=== PATIENT | female | born 1970 | race Caucasian/White ===

== ENCOUNTER 2019-10-03 08:00 | Outpatient (RCR) | payer SELFPAY | END 2019-10-03 12:00 | disposition home or self-care (01) | LOC: CHSCPRIII 08:00 | PROVIDERS: PCP Family Medicine | DX: J44.9 Chronic obstructive pulmonary disease, unspecified (principal) | CPT/HCPCS: 99199 ==

== ENCOUNTER 2019-12-28 17:58 | Emergency (ER) | payer MEDICARE, MEDICAID, SELFPAY ==
[2019-12-28 18:02] VITALS: BP 140/76; PULSE 102; RESP 20; TEMP 36.5; O2SAT 99
--- NOTE | 2019-12-28 18:18 | ED.GENADULT ---
HPI - General Adult General Chief complaint: Dental/Oral Stated complaint: white coating on throat Source: patient Mode of arrival: ambulatory Limitations: no limitations History of Present Illness HPI narrative: This is a 49-year-old female with a history of COPD uses inhalers and puffers and has developed white painless some lesions that are easily scraped off the roof of her mouth in the back of her tongue with no other symptoms, no fever chills no nausea vomiting no abdominal pain no headaches no blurry vision. Onset (ago): day(s) Location: mouth Severity: mild Quality: burning Pain Consistency: constant Relieving factors: none Exacerbating factors: none Associated symptoms: denies other symptoms Treatments prior to arrival: none Related Data Home Medications Medication Instructions Recorded Confirmed albuterol sulfate 2.5 mg CONTINUOUS NEBULIZATION PRN 09/25/19 12/28/19 PRN fluticasone propionate [Flovent 2 puff INHALATION BID 09/25/19 12/28/19 HFA] levothyroxine 137 mcg PO DAILY 09/25/19 12/28/19 montelukast 10 mg PO DAILY 09/25/19 12/28/19 omeprazole 20 mg PO BID 09/25/19 12/28/19 umeclidinium [Incruse Ellipta] 1 inh INHALATION DAILY 09/25/19 12/28/19 albuterol sulfate [ProAir 2 inh INHALATION Q4-6H PRN 12/28/19 12/28/19 RespiClick] Allergies Allergy/AdvReac Type Severity Reaction Status Date / Time No Known Allergies Allergy Verified 08/23/19 13:24 Review of Systems Review of Systems: All systems reviewed & are unremarkable except as noted in HPI and below PMFSH Past Medical History Medical History COPD (chronic obstructive pulmonary disease) Hypothyroidism Surgical History Surgical History History of Family History Family History Father , father had cancer of the lymph nodes. He in 2008 he had diabetes / hypertension Diabetes mellitus Hypertension Mother No problems noted. Social History Social History Smoking status: Current every day smoker Substance use: never Gender identity (if verbalized by the patient): Female Exam Const: General: no acute distress and alert Orientation/consciousness: patient oriented x3 HENMT: Head: normal to inspection Other: White patches on the hard palate and the back of her tongue that her easily scraped off Eyes: Conjunctivae: conjunctivae normal Pupils: Equal, round and reactive pupils present Neck: Neck: normal visual inspection and no lymphadenopathy Chest: Chest palpation & inspection: normal inspection of the chest Resp: Effort & Inspection: normal respiratory effort Cardio: Rate: regular rate Rhythm: regular rhythm GI: GI Palp: Yes Soft to palpation : General: Yes no CVA tenderness Urinary Catheter: Urinary Catheter: patent and draining Skin: General skin exam: normal color Rashes: no rashes Neuro: General: patient oriented x3 and moves all extremities Extrem: General: normal to inspection Psych: Mental Status: mental status grossly normal Critical Care Time Critical Care Time Critical Care Time: No Discharge Plan Discharge Clinical Impression: Oral thrush Patient Disposition: Home, Self-Care Condition: Stable Instructions: Antibiotic Form, Oral Candidiasis (ED) Additional Instructions: take medicine as prescribed and follow-up with primary care physician if symptoms persist or worsen. Prescriptions: New nystatin 100,000 unit/mL suspension 1 ml BUCCAL QID 7 Days Qty: 28 RF: 0 fluconazole [Diflucan] 150 mg tablet 150 mg PO ONCE Qty: 1 RF: 0 No Action levothyroxine 137 mcg tablet 137 mcg PO DAILY RF: 0 albuterol sulfate 2.5 mg /3 mL (0.083 %) solution for nebulization 2.5 mg continuous nebulization PRN
== END 2019-12-28 18:25 | disposition home or self-care (01) ==
PROVIDERS: Emergency Provider Emergency Medicine; PCP Family Medicine
DX: B37.0 Candidal stomatitis (principal)
CPT/HCPCS: 99283

== ENCOUNTER 2020-01-03 10:21 | Outpatient (CLI) | payer MEDICARE, SELFPAY ==
[2020-01-03 11:28] LABS: Thyroid Stimulating Hormone 5.66 uIU/mL (0.36-3.74)
== END 2020-01-03 10:22 | disposition home or self-care (01) ==
DX: E03.9 Hypothyroidism, unspecified (principal)
CPT/HCPCS: 36415; 84443

== ENCOUNTER 2020-01-24 09:16 | Emergency (ER) | payer MEDICARE, MEDICAID, SELFPAY ==
--- NOTE | ~2020-01-24 | XR_ITS ---
EXAMINATION: XR chest 2V 01/24/2020 09:52 INDICATION: Chest pressure and dyspnea PROCEDURE: 2 view chest COMPARISON: Comparison to multiple prior studies sequentially, with oldest reviewed study dated 01/2015. FINDINGS: There is posterior basilar airspace disease on the lateral view of. There are emphysematous changes. The cardiomediastinal silhouette is within normal limits. There are no pleural effusions. There is no pneumothorax suspected. There is scoliosis. IMPRESSION: 1: Posterior basilar airspace disease seen on the lateral view, atelectasis versus pneumonia. 2: Emphysema.. Reviewed, dictated and finalized at location A. IMPRESSION: 1: Posterior basilar airspace disease seen on the lateral view, atelectasis ve rsus pneumonia. 2: Emphysema..
--- NOTE | 2020-01-24 09:20 | ED.SOB ---
HPI - SOB/Dyspnea General Chief Complaint: Shortness of Breath/Dyspnea Stated Complaint: ambulance Time Seen by Provider: 01/24/20 09:20 Related Data Home Medications Medication Instructions Recorded Confirmed albuterol sulfate 2.5 mg CONTINUOUS NEBULIZATION PRN 09/25/19 01/24/20 PRN fluticasone propionate [Flovent 2 puff INHALATION BID 09/25/19 01/24/20 HFA] levothyroxine 137 mcg PO DAILY 09/25/19 01/24/20 montelukast 10 mg PO DAILY 09/25/19 01/24/20 omeprazole 20 mg PO BID 09/25/19 01/24/20 umeclidinium [Incruse Ellipta] 1 inh INHALATION DAILY 09/25/19 01/24/20 albuterol sulfate [ProAir 2 inh INHALATION Q4-6H PRN 12/28/19 01/24/20 RespiClick] Allergies Allergy/AdvReac Type Severity Reaction Status Date / Time No Known Allergies Allergy Verified 08/23/19 13:24 [facility] Social History Social History Smoking status: Current every day smoker Substance use: never Gender identity (if verbalized by the patient): Female Discharge Plan Discharge Prescriptions: No Action levothyroxine 137 mcg tablet 137 mcg PO DAILY RF: 0 albuterol sulfate 2.5 mg /3 mL (0.083 %) solution for nebulization 2.5 mg continuous nebulization PRN PRN (Reason: Shortness Of Breath) RF: 0 omeprazole 20 mg capsule,delayed release(DR/EC) 20 mg PO BID RF: 0 montelukast 10 mg tablet 10 mg PO DAILY RF: 0 Flovent HFA 220 mcg/actuation HFA aerosol inhaler 2 puff INHALATION BID RF: 0 Incruse Ellipta 62.5 mcg/actuation blister with device 1 inh INHALATION DAILY RF: 0 ProAir RespiClick 90 mcg/actuation aerosol powdr breath activated 2 inh INHALATION Q4-6H PRN (Reason: Shortness Of Breath) RF: 0 fluconazole [Diflucan] 150 mg tablet 150 mg PO ONCE Qty: 1 RF: 0
--- NOTE | 2020-01-24 09:26 | ECG_ITS ---
Measurements Intervals [place] Rate: 115 P: 73 FL: 111 QRS: 75 QRSD: 83 T: 77 QT: 345 QTc: 478 Interpretive Statements SINUS TACHYCARDIA WITH SHORT [place] INTERVAL POSSIBLE LEFT ATRIAL ENLARGEMENT INCOMPLETE RIGHT BUNDLE BRANCH BLOCK POOR R WAVE PROGRESSION, ANTERIOR LEADS BORDERLINE T WAVE ABNORMALITY- LATERAL LEADS BASELINE ARTIFACT- I, II, III, AVR, AVL, AVF, V1-V6 ABNORMAL ECG Electronically Signed On 01-24-2020 9:56:33 CDT by Ruben Saldana D.O.
[2020-01-24 09:29] VITALS: BP 128/77; PULSE 124; RESP 26; TEMP 36.4; O2SAT 100
--- NOTE | 2020-01-24 09:38 | ED.CHESTPAIN ---
HPI - Chest Pain General Chief Complaint: Shortness of Breath/Dyspnea Stated Complaint: ambulance Time Seen by Provider: 01/24/20 09:20 Source: patient Mode of arrival: ambulatory Limitations: no limitations History of Present Illness HPI narrative: 49-year-old woman with a history of COPD, and smoking comes in today by EMS after having had episodes of chest pressure. Patient states that the 1st episode happened last evening and lasted approximately 15 minutes. She used a breathing treatment that seemed to help her. She denies nausea, lightheadedness, syncope, but she was short of breath. She states similar episode happened this morning. She states she has had episodes like this in the past but none within the last month or so. She states she has been treated in the past for hypertension but denies dyslipidemia, type 2 diabetes, prior DVT/ PE, or family history of ND at less than 50 years old. EMS found her pulse ox to be 92% on room air. MD complaint: chest heaviness Pertinent past history: other ( COPD) Onset (ago): hour(s) (14) Timing of current episode: episodic Prior episodes: Yes Onset: during rest Pain location: substernal Pain radiation: none Severity: moderate Quality: other ( pressure) Relieving factors: other (? Breathing treatment) Exacerbating factors: nothing Associated symptoms: dyspnea and cough ( chronic) Treatment prior to arrival: oxygen Risk Factors Coronary artery disease risk factors: smoking history and hypertension Related Data Home Medications Medication Instructions Recorded Confirmed albuterol sulfate 2.5 mg CONTINUOUS NEBULIZATION PRN 09/25/19 01/24/20 PRN fluticasone propionate [Flovent 2 puff INHALATION BID 09/25/19 01/24/20 HFA] levothyroxine 137 mcg PO DAILY 09/25/19 01/24/20 montelukast 10 mg PO DAILY 09/25/19 01/24/20 omeprazole 20 mg PO BID 09/25/19 01/24/20 umeclidinium [Incruse Ellipta] 1 inh INHALATION DAILY 09/25/19 01/24/20 albuterol sulfate [ProAir 2 inh INHALATION Q4-6H PRN 12/28/19 01/24/20 RespiClick] Allergies Allergy/AdvReac Type Severity Reaction Status Date / Time No Known Allergies Allergy Verified 08/23/19 13:24 Review of Systems Constitutional: Constitutional: Denies chills, Denies fatigue, Denies fever(s) and Denies weakness Eyes: Eyes: Denies change in vision and Denies photophobia ENT: Denies dysphagia, Reports nasal congestion ( history of seasonal allergies for which she takes Flonase) and Denies sore throat Cardiovascular: Cardiovascular: Reports as per HPI, Reports chest pain and Denies radiating jaw, neck or arm pain Respiratory: Respiratory: Reports as per HPI, Reports chest congestion, Reports cough, Reports dyspnea and Reports wheezing Gastrointestinal: Gastrointestinal: Denies abdominal pain, Denies diarrhea, Denies nausea and Denies vomiting Genitourinary: Genitourinary: Denies hematuria, Denies nocturia and Denies dysuria Musculoskeletal: Musculoskeletal: Denies arthralgias, Denies joint swelling and Denies muscle cramps Integumentary/Breasts: Skin/Breast: Denies pruritus, Denies erythema and Denies rash Neurologic: Denies vertigo, Denies dizziness and Denies syncope Psychiatric: Psychiatric: Denies anxiety and Denies depression Endocrine: Endocrine: Denies polydipsia and Denies polyuria Hematologic/Lymphatic: Hematologic/Lymphatic: Denies easy bleeding and Denies easy bruising Allergic/Immunologic: Allergic/Immunologic: Denies lip swelling and Denies wheezing PMFSH Past Medical History Medical History COPD (chronic obstructive pulmonary disease) GERD (gastroesophageal reflux disease) Hypothyroidism Surgical History Surgical History H/O laparoscopy History of Social History Social History Smoking status: Current every day smoker Substance use:
[2020-01-24 10:00] VITALS: PULSE 113
[2020-01-24 10:03] LABS: Hematocrit 42.9 % (35.0-49.0); Hemoglobin 14.3 g/dL (12.0-15.0); Mean Corpuscular HGB Conc 33.3 g/dL (32.0-36.0); Mean Corpuscular Hemoglobin 29.9 pg (27.0-31.0); Mean Corpuscular Volume 89.6 fL (78.0-102.0); Mean Platelet Volume 10.1 fl (9.2-11.8); Platelet Count Result 292 K/mm3 (150-420); Red Blood Count 4.79 M/mm3 (4.20-5.40); Red Cell Distribution Width 13.1 % (11.6-14.4)
[2020-01-24 10:15] LABS: D Dimer 0.42 mg/L (0.19-0.50); Prothrombin Time 10.3 Seconds (9.64-11.0)
[2020-01-24 10:16] LABS: Alanine Aminotransferase 23 U/L (14-59); Albumin Level 3.3 g/dL (3.4-5.0); Alkaline Phosphatase 77 U/L (46-116); Anion Gap 14.1 mmol/L (7-16); Aspartate Amino Transferase 25 U/L (15-37); BNP 40 pg/mL (0-100); Bilirubin,Total 0.3 mg/dL (0.00-1.00); Blood Urea Nitrogen 9 mg/dL (7-18); Calcium 8.2 mg/dL (8.5-10.1); Carbon Dioxide 26 mmol/L (21-32); Chloride 104 mmol/L (98-108); Estimated CRCL calculation 37 ml/min; Estimated Glomerular Filt Rate > 60; Glucose 166 mg/dL (70-99); Osmolality Calculated 292 mOsm/kg (285-295); Potassium 4.1 mmol/L (3.5-5.1); Sodium 140 mmol/L (136-145); Total Protein 6.3 g/dL (6.4-8.2)
[2020-01-24 10:20] LABS: Troponin I 0.18 ng/mL (0.00-0.056)
[2020-01-24] MEDS: ASPIRIN 81 MG CHEWABLE TABLET 324 MG PO (10:25)
[2020-01-24 10:34] LABS: Band Neutrophils Percent 0 % (0-6); Basophils Percent Manual 0 % (0-1); Eosinophils Absolute Manual 0.21 K/mm3 (0.02-0.5); Eosinophils Percent Manual 3 % (1-6); Lymphocytes Absolute Manual 1.96 K/mm3 (1.1-4.5); Lymphocytes Percent Manual 28 % (18-44); Monocytes Absolute Manual 0.49 K/mm3 (0.1-0.90); Monocytes Percent Manual 7 % (3-9); Neutrophils Absolute Manual 4.34 K/mm3 (1.7-7.2); Neutrophils Percent Manual 62 % (46-73); Platelet Estimate Adequate (Adequate); Total Cells Counted 100
[2020-01-24 10:41] LABS: Influenza Control Valid (Valid)
[2020-01-24] MEDS: ENOXAPARIN 30 MG/0.3 ML SYRINGE SUB-Q (11:02)
--- NOTE | 2020-01-24 11:23 | PC.NURSE ---
call to [facility] for transfer, spoke with sandra, awaiting call back
[2020-01-24 11:25] VITALS: PULSE 116; RESP 20
[2020-01-24] MEDS: ALBUTEROL SULFATE (*SP) INHALER 4 PUFF INHALATION (11:25)
[2020-01-24 11:35] VITALS: PULSE 120; RESP 20
[2020-01-24 11:39] LABS: Appearance Urine Sl Cloudy (Clear); Bilirubin Urine Negative (Negative); Color Urine Yellow (Yellow); Glucose Urine UA Negative (Negative); Ketones Urine Negative (Negative); Leukocyte Esterase Ur Negative LEU/UL (Negative); Nitrate Urine Negative (Negative); Protein Urine 2+ (Negative); Specific Grav Ur >= 1.030 (1.010-1.020); Urobilinogen Urine 0.2 mg/dL (0.2-1.0)
[2020-01-24 11:48] LABS: Amphetamine Screen Urine Negative (Negative); Barbiturate Screen Urine Negative (Negative); Benzodiazepines Screen Urine Negative (Negative); Cannabinoid Screen Urine Negative (Negative); Cocaine Screen Urine Negative (Negative); Methadone Screen Urine Negative (Negative); Opiate Screen Urine Negative (Negative); Phencyclidine Screen Urine Negative (Negative)
[2020-01-24 11:51] LABS: Add Urine Microscopic? YES; Blood Urine Trace-Intact (Negative); Squamous Epithelial Cell Urine Few /hpf (Few); WBC Urine 0-3 /hpf (0-3)
[2020-01-24 11:52] LABS: Bacteria Urine 3+ /hpf; Mucus Urine Heavy /lpf
[2020-01-24] MEDS: SODIUM CHLORIDE 0.9% IV 500 ML 999 ML IV CONT (12:13)
[2020-01-24 12:28] VITALS: BP 96/59; PULSE 103; RESP 20; TEMP 37.1; O2SAT 97
--- NOTE | 2020-01-24 12:32 | PC.NURSE ---
[facility] not available , call to [facility]. awaiting arrival.
--- NOTE | 2020-01-24 12:46 | PC.NURSE ---
pt resting per cot. no distress and no complaints voiced. playing on cell phone. awaiting [facility] arrival.
--- NOTE | 2020-01-24 13:00 | PC.NURSE ---
1250 [facility] here, report to ems staff. pt alert and oriented no complaint of chest pain or shortness of breath. loaded to cot. and departed facitlity at 1300
[2020-01-26 12:17] LABS: SARS-CoV-2 RNA PCR Negative
== END 2020-01-24 13:00 | disposition short-term general hospital (02) ==
PROVIDERS: Emergency Provider Emergency Medicine; PCP Family Medicine
DX: I21.4 Non-ST elevation (NSTEMI) myocardial infarction (principal); J44.9 Chronic obstructive pulmonary disease, unspecified; E03.9 Hypothyroidism, unspecified; F17.200 Nicotine dependence, unspecified, uncomplicated; Z20.828 Contact with and (suspected) exposure to other viral communicable diseases; Z79.899 Other long term (current) drug therapy
CPT/HCPCS: 36415; 71046; 80053; 80307; 81001; 83880; 84484; 85025; 85380; 85610; 85730; 87635; 87804; 93005; 96372; 99285; A9270; C9803; J1650; J7040; U0003

== ENCOUNTER 2020-03-16 19:10 | Emergency (ER) | payer MEDICARE, MEDICAID, SELFPAY ==
--- NOTE | 2020-03-16 19:49 | ED.WOUNDLAC ---
HPI - Wound/Laceration General Chief Complaint: Wound/Laceration Stated Complaint: says has a cracked skull Source: patient Mode of arrival: ambulatory Limitations: no limitations History of Present Illness HPI narrative: Lesion on her scalp x 1 month which is tender and tingles at times. It has not changed. She's wondering if she could have injured while intubated/in the hospital over a month ago. She remembers reaching to the back of her head, grabbing the strap of a Bipap mask and pulling it off. At that time she had a lot of pain in this same area. Related Data Home Medications Medication Instructions Recorded Confirmed albuterol sulfate 2.5 mg CONTINUOUS NEBULIZATION PRN 09/25/19 03/16/20 PRN fluticasone propionate [Flovent 2 puff INHALATION BID 09/25/19 03/16/20 HFA] levothyroxine 137 mcg PO DAILY 09/25/19 03/16/20 montelukast 10 mg PO DAILY 09/25/19 03/16/20 omeprazole 20 mg PO BID 09/25/19 03/16/20 umeclidinium [Incruse Ellipta] 1 inh INHALATION DAILY 09/25/19 03/16/20 albuterol sulfate [ProAir 2 inh INHALATION Q4-6H PRN 12/28/19 03/16/20 RespiClick] Allergies Allergy/AdvReac Type Severity Reaction Status Date / Time No Known Allergies Allergy Verified 08/23/19 13:24 Review of Systems Neurologic: Denies headache(s) [facility] Past Medical History Medical History COPD (chronic obstructive pulmonary disease) GERD (gastroesophageal reflux disease) Hypothyroidism Surgical History Surgical History H/O laparoscopy History of Family History Family History Father , father had cancer of the lymph nodes. He in 2008 he had diabetes / hypertension Diabetes mellitus Hypertension Mother No problems noted. Social History Social History Smoking status: Current every day smoker Substance use: never Gender identity (if verbalized by the patient): Female Exam Const: General: no acute distress Orientation/consciousness: patient oriented x3 HENMT: Other: In the right occipital region there is an oval patch of 1 cm of hair and skin which is raised, edges from the surrounding dermis which has no hair follicles. There is no redness, swelling or tenderness. Course Vital Signs Vital signs: Vital Signs Temperature 36.9 C 03/16/20 19:50 Pulse Rate 110 H 03/16/20 19:50 Respiratory Rate 16 03/16/20 19:50 Blood Pressure 155/86 H 03/16/20 19:50 Pulse Oximetry 98 03/16/20 19:50 Temperature 36.9 C 03/16/20 19:50 Pulse Rate 110 H 03/16/20 19:50 Respiratory Rate 16 03/16/20 19:50 Blood Pressure 155/86 H 03/16/20 19:50 Pulse Oximetry 98 03/16/20 19:50 MDM - Wound/Laceration MDM Narrative Medical decision making narrative: There is a patch of dermis which has been partially town away from the surrounding skin. This occurred when pt. forcefully pulled a strap off along with a clump of hair. Discharge Plan Discharge Clinical Impression: Avulsion of skin Patient Disposition: Home, Self-Care Condition: Stable Instructions: Acute Wounds (ED) Additional Instructions: Follow up with Dr. Mendez to evaluate and treat scalp lesion. Prescriptions: No Action levothyroxine 137 mcg tablet 137 mcg PO DAILY RF: 0 albuterol sulfate 2.5 mg /3 mL (0.083 %) solution for nebulization 2.5 mg continuous nebulization PRN PRN (Reason: Shortness Of Breath) RF: 0 omeprazole 20 mg capsule,delayed release(DR/EC) 20 mg PO BID RF: 0 montelukast 10 mg tablet 10 mg PO DAILY RF: 0 Flovent HFA 220 mcg/actuation HFA aerosol inhaler 2 puff INHALATION BID RF: 0 Incruse Ellipta 62.5 mcg/actuation blister with device 1 inh INHALATION DAILY RF: 0 ProAir RespiClick 90 mcg/actuation aerosol powdr kathy
[2020-03-16 19:50] VITALS: BP 155/86; PULSE 110; RESP 16; TEMP 36.9; O2SAT 98
== END 2020-03-16 20:01 | disposition home or self-care (01) ==
PROVIDERS: Emergency Provider Family Medicine; PCP Family Medicine
DX: S08.0XXA Avulsion of scalp, initial encounter (principal); X58.XXXA Exposure to other specified factors, initial encounter
CPT/HCPCS: 99281

== ENCOUNTER 2020-10-01 09:08 | Outpatient (CLI) | payer MEDICARE, SELFPAY ==
[2020-10-01 10:11] LABS: Cholesterol 295 mg/dL (0-200); HDL Direct 88 mg/dL (40-60); LDL Cholesterol Calculated 188 mg/dL (<130); Triglycerides 97 mg/dL (0-150)
[2020-10-01 12:17] LABS: Thyroid Stimulating Hormone Reflex > 96.00 u/IU/mL (0.36-3.74)
[2020-10-01 12:18] LABS: Free T4 Free Thyroxine Reflex 0.69 ng/dL (0.76-1.46)
== END 2020-10-01 09:09 | disposition home or self-care (01) ==
LOC: CHSLAB 09:12
PROVIDERS: PCP Family Medicine; Visit Provider Family Medicine
DX: E03.9 Hypothyroidism, unspecified (principal)
CPT/HCPCS: 36415; 80061; 84439; 84443

== ENCOUNTER 2021-02-28 08:44 | Outpatient (CLI) | payer MEDICARE, MEDICAID, SELFPAY ==
[2021-02-28 10:04] LABS: Thyroid Stimulating Hormone 1.69 uIU/mL (0.36-3.74)
== END 2021-02-28 08:45 | disposition home or self-care (01) ==
LOC: CHSLAB 08:48
PROVIDERS: PCP Family Medicine; Visit Provider Nurse Practitioner Family
DX: E03.9 Hypothyroidism, unspecified (principal)
CPT/HCPCS: 36415; 84443

== ENCOUNTER 2021-03-20 21:05 | Emergency (ER) | payer MEDICARE, MEDICAID, SELFPAY ==
[2021-03-20] VITALS (12 sets, daily range): BP systolic 127–145; BP diastolic 95–108; PULSE 94–146; RESP 16–36; TEMP 36.3; O2SAT 96–99
--- NOTE | ~2021-03-20 | XR_ITS ---
EXAMINATION: XR chest ET placement DATE: 03/20/2021 22:01 INDICATION: Intubation. TECHNIQUE: A single frontal view of the chest was obtained. COMPARISON: Chest single view at 9:44 PM FINDINGS: The lungs demonstrate lucencies and reticular opacities, consistent with emphysema. A calci fied right lung nodule is consistent with old granulomatous disease. No pleural effusion or pneumotho rax. The heart size is normal. The endotracheal tube tip is in the right mainstem bronchus. IMPRESSION: 1. Endotracheal tube tip in the right mainstem bronchus. Retraction 4 cm is recommended. I called thi s result to Dr. Contreras. 2. Severe emphysema. Reviewed, dictated and finalized at location A. IMPRESSION: 1. Endotracheal tube tip in the right mainstem bronchus. Retraction 4 cm is rec ommended. I called this result to Dr. Contreras. 2. Severe emphysema.
--- NOTE | ~2021-03-20 | XR_ITS ---
EXAMINATION: XR chest 1V portable DATE: 03/20/2021 21:32 INDICATION: Shortness of breath. TECHNIQUE: A single frontal view of the chest was obtained. COMPARISON: Chest 2 views 01/24/2020, chest CT 10/09/2019 FINDINGS: The lungs are hyperexpanded with lucencies and interstitial opacities, consistent with emph ysema. No pleural effusion or pneumothorax. The heart size is normal. IMPRESSION: 1. Severe emphysema. Reviewed, dictated and finalized at location A. IMPRESSION: 1. Severe emphysema.
--- NOTE | 2021-03-20 21:11 | ECG_ITS ---
Measurements Intervals [place] Rate: 81 P: 87 [place]: 143 QRS: 56 QRSD: 72 T: 71 QT: 491 QTc: 570 Interpretive Statements SINUS TACHYCARDIA BORDERLINE R WAVE PROGRESSION, ANTERIOR LEADS BASELINE ARTIFACT- I, II, III, AVR, AVL, AVF, V1-V6 ABNORMAL ECG Electronically Signed On 03-21-2021 6:14:47 CDT by Ruben Saldana D.O.
[2021-03-20] MEDS: LEVALBUTEROL NEB 1.25 MG/3 ML 3.75 MG INHALATION (21:20)
[2021-03-20] MEDS: IPRATROPIUM BR 0.02% INH SOLN 0.5 MG/2.5 ML VIAL 1 MG INHALATION (21:20)
[2021-03-20] MEDS: IPRATROPIUM 0.5 MG/ALBUTEROL SULFATE 2.5 MG AMPUL.NEB 3 ML INHALATION (21:34)
[2021-03-20] MEDS: MAGNESIUM SULF 2 GM/WATER 50ML 2 GM/50 ML BAG IVPB (21:36)
[2021-03-20] MEDS: SODIUM CHLORIDE 0.9% IV 2,000 ML 999 ML (21:40)
[2021-03-20 21:48] LABS: Base Excess ABG -11.2 mmol/L (0-2); HCO3 ABG 17.2 mmol/L (23-29); Oxygen Saturation ABG 99.1 % (95-97); PCO2 ABG 48.1 mmHg (35-45); PO2 ABG 234.1 mmHg (80-90); Total Hemoglobin 14.3 g/dL; pH ABG 7.17 (7.35-7.45)
[2021-03-20 21:49] LABS: Device NON-REBREATHER MASK; Modified Allen's Test Pass; Site Drawn LEFT RADIAL
[2021-03-20] MEDS: PROPOFOL IV EMULSION 100 ML 1.2 MG (21:50)
[2021-03-20 22:03] LABS: Anion Gap 17 mmol/L (8-16); Blood Urea Nitrogen 13 mg/dL (7-18); Carbon Dioxide 20 mmol/L (21-32); Chloride 101 mmol/L (98-108); Estimated Glomerular Filt Rate 50; Glucose 237 mg/dL (70-99); Osmolality Calculated 294 mOsm/kg (285-295); Potassium 4.6 mmol/L (3.5-5.1); Sodium 138 mmol/L (136-145)
[2021-03-20 22:04] LABS: Alanine Aminotransferase 37 U/L (14-59); Albumin Level 3.7 g/dL (3.4-5.0); Alkaline Phosphatase 100 U/L (46-116); Aspartate Amino Transferase 38 U/L (15-37); Bilirubin,Total 0.2 mg/dL (0.00-1.00); Calcium 8.1 mg/dL (8.5-10.1); Magnesium 2.4 mg/dL (1.8-2.4); NT Pro B Type Natriuretic Pept 434 pg/mL (0-125); Troponin I 14.6 ng/L (0.00-60.4)
[2021-03-20 22:06] LABS: Oxygen Content ABG 19.4 %vol (16.0-22.0); Oxyhemoglobin 94.1 % (94-100)
[2021-03-20 22:10] LABS: SARS-CoV-2 Ag Negative (Negative)
[2021-03-20 22:10] LABS: Hematocrit 42.2 % (35.0-49.0); Hemoglobin 13.5 g/dL (12.0-15.0); Mean Corpuscular Hemoglobin 30.4 pg (27.0-31.0); Mean Platelet Volume 10.6 fl (9.2-11.8); Platelet Count Result 326 K/mm3 (150-420); Red Blood Count 4.44 M/mm3 (4.20-5.40); Red Cell Distribution Width 12.8 % (11.6-14.4); White Blood Count 13.3 K/mm3 (4.8-10.8)
[2021-03-20 22:24] LABS: Band Neutrophils Percent 0 % (0-6); Eosinophils Absolute Manual 0.39 K/mm3 (0.02-0.5); Eosinophils Percent Manual 3 % (1-6); Lymphocytes Absolute Manual 4.78 K/mm3 (1.1-4.5); Lymphocytes Percent Manual 36 % (18-44); Monocytes Absolute Manual 1.19 K/mm3 (0.1-0.90); Monocytes Percent Manual 9 % (3-9); Neutrophils Absolute Manual 6.91 K/mm3 (1.7-7.2); Neutrophils Percent Manual 52 % (46-73); Platelet Estimate Adequate (Adequate); Total Cells Counted 100
[2021-03-20 22:26] LABS: Partial Thromboplastin Time 25.5 SEC (23.90-30.70); Prothrombin Time 10.6 Seconds (9.50-12.10)
[2021-03-20 22:36] LABS: D Dimer 0.51 mg/L (0.19-0.50)
--- NOTE | 2021-03-20 22:45 | PC.NURSE ---
2139 etomidate 10mg iv push 2139 succs 50mg iv push 2140 130/108, 98%, 2144 intubation 7.0, 26 lips secured, successful with dr eduardo , using glidescope. 2146 131/98, 109, 100%, 20 2149 propofol drip 5mcg. 168/114, 118, 92%, 2153 mechanical vent applied to pt 2154 xray check for placement, tube pulled to 24 cm per verbal request of dr eduardo 2154 versed 2mg, iv push. 2155 suctioning pt 2199 16 turkmen cornejo inserted per rn per sterile technique, specimen to lab 2201 tubed pulled to 22cm per verbal order of dr eduardo 2234 increased propofol to 7.5 mcg, versed 2mg iv push per verbal orders of dr eduardo 2239 call to [facility] for transfer, arch not flying. 2244 dr eduardo speaking with dr at [facility].
--- NOTE | 2021-03-20 22:56 | ED.SOB ---
HPI - SOB/Dyspnea General Chief Complaint: Shortness of Breath/Dyspnea Stated Complaint: AMB Source: patient and EMS Mode of arrival: EMS Limitations: no limitations History of Present Illness HPI Narrative: this is a 50-year-old female brought in by EMS with some respiratory distress with a history of COPD and tobacco abuse that was brought in with some difficulty breathing sitting upright and not moving air there was no wheezing she was extremely short of breath with no chest pain no abdominal pain no fever chills no nausea vomiting. Patient was having difficulty completing sentences and struggling to to take deep breaths. MD elicited complaint: shortness of breath Pertinent past history: COPD Onset (ago): hour(s) Timing: constant Severity: similar to previous episodes Exacerbating factors: lying flat, exertion, movement, inspiration and talking Relieving factors: oxygen, rest and bronchodilators Known history of: COPD Associated symptoms: denies other symptoms Treatment prior to arrival: oxygen and bronchodilator Related Data Home oxygen amount: 2 liters Home Medications Medication Instructions Recorded Confirmed albuterol sulfate 2.5 mg CONTINUOUS NEBULIZATION PRN 09/25/19 03/20/21 PRN omeprazole 20 mg PO BID 09/25/19 03/20/21 umeclidinium [Incruse Ellipta] 1 inh INHALATION DAILY 09/25/19 03/20/21 fluticasone propionate 50 2 spray INTRANASAL DAILY 09/30/20 03/20/21 mcg/actuation nasal spray,suspension budesonide 0.5 mg INHALATION BID 03/20/21 03/20/21 formoterol fumarate [Perforomist] 2 ml INHALATION BID 03/20/21 03/20/21 levothyroxine 200 mcg PO DAILY 03/20/21 03/20/21 Allergies Allergy/AdvReac Type Severity Reaction Status Date / Time budesonide [From Symbicort] Allergy Severe breathing Verified 03/07/21 11:17 issues formoterol [From Symbicort] Allergy Severe breathing Verified 03/07/21 11:17 issues Review of Systems Review of Systems: All systems reviewed & are unremarkable except as noted in HPI and below PMFSH Past Medical History Medical History Cigarette nicotine dependence COPD (chronic obstructive pulmonary disease) COPD (chronic obstructive pulmonary disease) GERD (gastroesophageal reflux disease) Hypothyroidism Hypothyroidism Surgical History Surgical History H/O laparoscopy H/O oral surgery History of Family History Family History Father , father had cancer of the lymph nodes. He in 2008 he had diabetes / hypertension Diabetes mellitus Hypertension Mother No problems noted. Social History Social History Smoking packs per day: 0.5 Smoking cigarettes per day: 10.0 Years smoked: 40 Smoking pack-years: 20.00 Smoking status: Former smoker Tobacco type: cigarettes Substance use: never Gender identity (if verbalized by the patient): Female Exam Const: General: ill appearing HENMT: Head: normal to inspection Eyes: Conjunctivae: conjunctivae normal Pupils: Equal, round and reactive pupils present Neck: Neck: normal visual inspection, no lymphadenopathy and no meningeal signs Chest: Chest palpation & inspection: normal inspection of the chest Resp: Effort & Inspection: labored, retractions and uses accessory muscles Auscultation: diminished lung sounds Cardio: Rate: regular rate and tachycardic GI: GI Palp: Yes Soft to palpation Percussion: Yes normal to percussion : General: Yes no CVA tenderness Back/Spine/Pelvis: Back: no CVA tenderness Skin: General skin exam: normal color Rashes: no rashes Neuro: General: patient oriented x3, moves all extremities, no meningeal signs and no focal motor deficits Extrem: General: normal to inspection and no pedal edema Psych: Affect: Anxious
[2021-03-20] MEDS: ENOXAPARIN 40 MG/0.4 ML SYRINGE 55 MG SUB-Q (23:00)
--- NOTE | 2021-03-20 23:17 | PC.NURSE ---
2308 propofol increased to 15mcg, versed 2mg iv push verbal order per dr eduardo.
--- NOTE | 2021-03-20 23:36 | PC.NURSE ---
[facility] here for transport , report to sondra
--- NOTE | 2021-03-20 23:45 | PC.NURSE ---
verbal order from dr eduardo , for ketamine 35 mg iv push, used from rsi kit , pushed to left hand at 0335
--- NOTE | 2021-03-20 23:54 | PC.NURSE ---
pt loaded to cot, 78/52, (map 62) ,106, ventilation continues. bennie and marcela from resp to accompany patient.
== END 2021-03-20 23:56 | disposition short-term general hospital (02) ==
PROVIDERS: Emergency Provider Emergency Medicine; PCP Family Medicine
DX: J44.1 Chronic obstructive pulmonary disease with (acute) exacerbation (principal); K21.9 Gastro-esophageal reflux disease without esophagitis; E03.9 Hypothyroidism, unspecified; F17.200 Nicotine dependence, unspecified, uncomplicated
CPT/HCPCS: 31500; 36415; 36600; 71045; 80053; 82805; 83735; 83880; 84484; 85025; 85380; 85610; 85730; 87040; 87426; 93005; 94640; 96361; 96365; 96366; 96367; 96372; 99285; 99291; C9803; J0330; J0456; J1650; J2250; J2704; J3475; J7030

== ENCOUNTER 2021-03-25 11:38 | Outpatient (CLI) | payer MEDICARE, MEDICAID, SELFPAY ==
[2021-03-25 12:23] LABS: Anion Gap 10 mmol/L (8-16); Blood Urea Nitrogen 19 mg/dL (7-18); Calcium 8.9 mg/dL (8.5-10.1); Carbon Dioxide 30 mmol/L (21-32); Chloride 98 mmol/L (98-108); Estimated Glomerular Filt Rate > 60; Glucose 138 mg/dL (70-99); Osmolality Calculated 290 mOsm/kg (285-295); Potassium 4.2 mmol/L (3.5-5.1); Sodium 138 mmol/L (136-145)
== END 2021-03-25 11:39 | disposition home or self-care (01) ==
LOC: CHSLAB 11:42
PROVIDERS: PCP Family Medicine; Visit Provider Nurse Practitioner Family
DX: R06.02 Shortness of breath (principal)
CPT/HCPCS: 36415; 80048

== ENCOUNTER 2021-05-23 11:41 | Emergency (ER) | payer MEDICARE, MEDICAID, SELFPAY ==
--- NOTE | ~2021-05-23 | CT_ITS ---
EXAMINATION: CTA chest DATE: 05/23/2021 13:31 INDICATION: Chest pain radiating to the back. TECHNIQUE: Computed tomographic angiography (CTA) of the chest was performed with 100 mL Omnipaque-35 0 intravenous contrast. Automated exposure control and iterative reconstruction technique were employ ed. The dose-length product was 147.58 mGy-cm. Maximum intensity projection 3D-reconstructions of the aorta and other arteries were constructed by the technologist on a separate workstation. COMPARISON: Chest CT 10/09/2019 FINDINGS: There is severe emphysema. There is mild scarring at the lung apices. There is mild atelect asis bilaterally. A calcified right lung nodule is consistent with old granulomatous disease. No pleu ral effusion. The heart size is normal. No pericardial effusion. The aorta is normal. No aneurysm or dissection. There is no pulmonary embolus. There is dextroscoliosis of thoracic spine. IMPRESSION: 1. Normal thoracic aorta. 2. No pulmonary embolus. 3. Severe emphysema. Reviewed, dictated and finalized at location A.
[2021-05-23 11:50] VITALS: BP 142/74; PULSE 86; RESP 15; TEMP 36.6; O2SAT 96
--- NOTE | 2021-05-23 12:08 | ECG_ITS ---
Measurements Intervals [place] Rate: 84 P: 84 [place]: 105 QRS: 85 QRSD: 86 T: 78 QT: 367 QTc: 434 Interpretive Statements SINUS RHYTHM WITH SHORT [place] INTERVAL LIMB LEAD REVERSAL BORDERLINE R WAVE PROGRESSION, ANTERIOR LEADS BORDERLINE T WAVE ABNORMALITY- ANTERIOR LEADS BASELINE ARTIFACT- I, II, III, AVR, AVL, AVF, V1-V6 BORDERLINE ECG Electronically Signed On 05-23-2021 13:09:19 CDT by Ruben Saldana D.O.
[2021-05-23] MEDS: ASPIRIN 81 MG CHEWABLE TABLET 324 MG PO (12:20)
--- NOTE | 2021-05-23 12:21 | ED.GENADULT ---
HPI - General Adult General Chief complaint: Shortness of Breath/Dyspnea Stated complaint: SOB Source: patient Mode of arrival: ambulatory Limitations: no limitations History of Present Illness HPI narrative: Shar is a 50F with a PMH of COPD, cardiomyopathy, depression, hypothyroidism, GERD that presented to the ED with chest pain and feeling lightheaded. She had chest pain that started last night. It is a squeezing chest pain that radiates to the back. She is a little lightheaded but no syncope. Breathing is at its baseline. No fevers, chills, headache, abdominal pain, diarrhea, or constipation. Of note she says the chest pain is worse when she thinks about her upcoming cardiac cath on Wednesday. Related Data Home Medications Medication Instructions Recorded Confirmed omeprazole 20 mg PO BID 09/25/19 05/23/21 fluticasone propionate 50 2 spray INTRANASAL DAILY 09/30/20 05/23/21 mcg/actuation nasal spray,suspension levothyroxine 200 mcg PO DAILY 03/20/21 05/23/21 aspirin 81 mg tablet,delayed 81 mg PO DAILY 03/25/21 05/23/21 release umeclidinium 62.5 mcg/actuation 1 inh INHALATION DAILY 05/12/21 05/23/21 blister powder for inhalation Allergies Allergy/AdvReac Type Severity Reaction Status Date / Time budesonide [From Symbicort] Allergy Severe breathing Verified 05/12/21 15:00 issues formoterol [From Symbicort] Allergy Severe breathing Verified 05/12/21 15:00 issues Review of Systems Constitutional: Constitutional: Reports no additional constitutional complaints Eyes: Eyes: Reports no additional eye complaints ENT: Reports system reviewed and no additional complaints, except as documented Cardiovascular: Cardiovascular: Reports as per HPI Respiratory: Respiratory: Reports no additional respiratory complaints Gastrointestinal: Gastrointestinal: Reports no additional gastrointestinal complaints Genitourinary: Genitourinary: Reports no additional female genitourinary complaints Musculoskeletal: Musculoskeletal: Reports no additional musculoskeletal complaints Integumentary/Breasts: Skin/Breast: Reports system reviewed and no additional complaints, except as docu Neurologic: Reports as per HPI Psychiatric: Psychiatric: Reports no additional psychiatric complaints Endocrine: Endocrine: Reports no additional endocrine complaints Hematologic/Lymphatic: Hematologic/Lymphatic: Reports no additional hematologic/lymphatic complaints Allergic/Immunologic: Allergic/Immunologic: Reports no additional allergic/immunologic complaints [facility] Past Medical History Medical History Cigarette nicotine dependence COPD (chronic obstructive pulmonary disease) COPD (chronic obstructive pulmonary disease) GERD (gastroesophageal reflux disease) Hypothyroidism Hypothyroidism Surgical History Surgical History H/O laparoscopy H/O oral surgery History of Family History Family History Father , father had cancer of the lymph nodes. He in 2008 he had diabetes / hypertension Diabetes mellitus Hypertension Mother No problems noted. Social History Social History Smoking packs per day: 0.5 Smoking cigarettes per day: 10.0 Years smoked: 40 Smoking pack-years: 20.00 Smoking status: Current every day smoker Tobacco type: cigarettes Alcohol use details: does not drink alcohol Substance use: never Gender identity (if verbalized by the patient): Female Exam Const: General: no acute distress and alert Orientation/consciousness: patient oriented x3 Limitations: No altered mental status HENMT: Head: normal to inspection Other: atraumatic Eyes: Conjunctivae: conjunctivae normal Pupils: Equal, round and reactive pupils present Neck:
[2021-05-23] MEDS: LORazepam INJ (*CRX) 2 MG/ML VIAL 0.5 MG IV PUSH (12:22)
[2021-05-23 12:23] LABS: Basophils Absolute Auto 0.08 K/mm3 (0.00-0.10); Basophils Percent Auto 0.7 % (0.0-1.0); Eosinophils Absolute Auto 0.15 K/mm3 (0.02-0.50); Eosinophils Percent Auto 1.3 % (1.0-6.0); Hematocrit 37.9 % (35.0-49.0); Hemoglobin 12.2 g/dL (12.0-15.0); Immature Granulocyte Absolute 0.03 K/mm3 (0.00-0.00); Immature Granulocyte Percent A 0.3 % (0.0-0.0); Lymphocytes Absolute Auto 1.71 K/mm3 (1.10-4.50); Lymphocytes Percent Auto 14.5 % (18.0-42.0); Mean Corpuscular HGB Conc 32.2 g/dL (32.0-36.0); Mean Corpuscular Hemoglobin 29.1 pg (27.0-31.0); Mean Corpuscular Volume 90.5 fL (78.0-102.0); Monocytes Absolute Auto 1.01 K/mm3 (0.10-0.90); Monocytes Percent Auto 8.5 % (2.0-11.0); Neutrophils Absolute Auto 8.9 K/mm3 (1.7-7.2); Neutrophils Percent Auto 74.7 % (50.0-70.0); Platelet Count Result 265 K/mm3 (150-420); Red Blood Count 4.19 M/mm3 (4.20-5.40); Red Cell Distribution Width 13.1 % (11.6-14.4); White Blood Count 11.8 K/mm3 (4.8-10.8)
[2021-05-23 12:41] LABS: Alanine Aminotransferase 22 U/L (14-59); Albumin Level 3.6 g/dL (3.4-5.0); Alkaline Phosphatase 66 U/L (46-116); Anion Gap 8 mmol/L (8-16); Aspartate Amino Transferase 11 U/L (15-37); Bilirubin,Total 0.4 mg/dL (0.00-1.00); Blood Urea Nitrogen 17 mg/dL (7-18); Calcium 8.4 mg/dL (8.5-10.1); Carbon Dioxide 28 mmol/L (21-32); Chloride 106 mmol/L (98-108); Estimated Glomerular Filt Rate > 60; Glucose 91 mg/dL (70-99); Lipase 60 U/L (73-393); Osmolality Calculated 295 mOsm/kg (285-295); Potassium 4.1 mmol/L (3.5-5.1); Sodium 142 mmol/L (136-145); Total Protein 6.7 g/dL (6.4-8.2); Troponin I 4.3 ng/L (0.00-60.4)
[2021-05-23 12:48] LABS: D Dimer 0.19 mg/L (0.19-0.50); Prothrombin Time 10.9 Seconds (9.50-12.10)
[2021-05-23 14:05] VITALS: BP 145/96; PULSE 82; O2SAT 98
== END 2021-05-23 14:05 | disposition home or self-care (01) ==
PROVIDERS: Emergency Provider Family Medicine; PCP Family Medicine
DX: R07.9 Chest pain, unspecified (principal)
CPT/HCPCS: 36415; 71275; 80053; 83690; 84484; 85025; 85380; 85610; 93005; 96374; 99283; 99284; A9270; J2060; Q9967

== ENCOUNTER 2021-05-26 02:15 | Day surgery (SDC) | payer MEDICARE, MEDICAID, SELFPAY ==
[2021-05-26] VITALS (17 sets, daily range): BP systolic 108–150; BP diastolic 60–92; PULSE 70–90; RESP 15–22; TEMP 36.8; O2SAT 94–100; BMI 11.7
[2021-05-26 07:39] LABS: Basophils Absolute Auto 0.1 K/mm3 (0.0-0.1); Basophils Percent Auto 1.2 % (0.2-1.2); Eosinophils Absolute Auto 0.3 K/mm3 (0-0.3); Eosinophils Percent Auto 3.2 % (0-4.4); Hematocrit 41.2 % (37.0-47.0); Hemoglobin 13.2 g/dL (12.0-15.0); Immature Granulocyte Absolute 0.02 K/mm3 (0.00-0.031); Immature Granulocyte Percent A 0.2 % (0-0.5); Lymphocytes Absolute Auto 2.41 K/mm3 (0.9-3.2); Lymphocytes Percent Auto 28.7 % (18.3-44.2); Mean Corpuscular Hemoglobin 29.1 pg (26-34); Mean Corpuscular Volume 90.9 fl (80-100); Mean Platelet Volume 10.6 fl (7.4-10.4); Monocytes Absolute Auto 0.8 K/mm3 (0.1-0.6); Monocytes Percent Auto 9.3 % (2.6-8.5); Neutrophils Absolute Auto 4.8 K/mm3 (1.3-6.7); Neutrophils Percent Auto 57.4 % (45.5-73.1); Platelet Count Result 311 k/mm3 (150-375); Red Blood Count 4.53 M/mm3 (4.2-5.4); Red Cell Distribution Width 13.3 % (11.5-14.5); White Blood Count 8.4 K/mm3 (4.5-10.0)
[2021-05-26 08:14] LABS: SPREG INTERNAL CONTROL Positive; Serum Qual hCG Negative
--- NOTE | 2021-05-26 08:14 | SUR.PREOP ---
This RN called to check on labs due to them not being resulted. Glory in lab states they are almost done and she is about to result the labs.
[2021-05-26 08:24] LABS: Anion Gap 6 mmol/L (8-16); Blood Urea Nitrogen 16 mg/dL (7-17); Calcium 9.4 mg/dL (8.4-10.2); Carbon Dioxide 30 mmol/L (22-30); Chloride 100 mmol/L (98-107); Estimated CRCL calculation 39 ml/min; Estimated Glomerular Filt Rate > 60; Glucose 97 mg/dL (65-110); Potassium 4.2 mmol/L (3.4-5.0); Sodium 136 mmol/L (137-145)
--- NOTE | 2021-05-26 08:55 | WPDMODSED ---
Moderate Sedation Note-Pt Data Patient Data Diagnosis: Dilated cardiomyopathy extreme cachexia Present Complaint: procedural anxiety Procedure to be performed/Plan: left heart catheterization Allergies Allergy/AdvReac Type Severity Reaction Status Date / Time budesonide [From Symbicort] Allergy Severe breathing Verified 05/12/21 15:00 issues formoterol [From Symbicort] Allergy Severe breathing Verified 05/12/21 15:00 issues Home Medications Medication Instructions Recorded Confirmed Type omeprazole 20 mg PO BID 09/25/19 05/26/21 History fluticasone propionate 50 2 spray INTRANASAL DAILY 09/30/20 05/26/21 History mcg/actuation nasal spray,suspension atorvastatin 40 mg tablet 40 mg PO DAILY #90 tablet 10/01/20 05/26/21 Rx bupropion HCl 150 mg tablet,12 hr 150 mg PO BID #60 tablet 02/25/21 05/26/21 Rx sustained-release albuterol sulfate 90 mcg/actuation 2 inh INHALATION Q4-6H PRN #1 ea 03/07/21 05/26/21 Rx breath activated powder inhaler levothyroxine 200 mcg PO DAILY 03/20/21 05/26/21 History aspirin 81 mg tablet,delayed 81 mg PO DAILY 03/25/21 05/26/21 History release ipratropium 20 mcg-albuterol 100 1 puff INHALATION QID #4 g 04/25/21 05/26/21 Rx mcg/actuation mist for inhalation albuterol sulfate 1.25 mg/3 mL 1.25 mg INHALATION Q4-6H PRN #90 ml 05/09/21 05/23/21 Rx solution for nebulization losartan 25 mg tablet 25 mg PO DAILY #30 tablet 05/12/21 05/26/21 Rx metoprolol succinate 25 mg 25 mg PO DAILY #30 tablet 05/12/21 05/26/21 Rx tablet,extended release 24 hr umeclidinium 62.5 mcg/actuation 1 inh INHALATION DAILY 05/12/21 05/23/21 History blister powder for inhalation montelukast 10 mg tablet See Rx Instructions .ROUTE 05/21/21 05/26/21 Rx .COMPLEX #90 tablet Current Medications: Active Medications Sodium Chloride (Normal Saline Iv) 500 mls @ 100 mls/hr IV CONT .Q5H [facility] Sedation/Anesthesia: No previous sedation/anesthesia problems (including family history). [facility] Past Medical History Medical History Cigarette nicotine dependence COPD (chronic obstructive pulmonary disease) COPD (chronic obstructive pulmonary disease) GERD (gastroesophageal reflux disease) Hypothyroidism Hypothyroidism Surgical History Surgical History H/O laparoscopy H/O oral surgery History of Family History Family History Father , father had cancer of the lymph nodes. He in 2008 he had diabetes / hypertension Diabetes mellitus Hypertension Mother No problems noted. Social History Social History Smoking packs per day: 0.5 Smoking cigarettes per day: 10.0 Years smoked: 40 Smoking pack-years: 20.00 Smoking status: Current every day smoker Tobacco type: cigarettes Alcohol use details: does not drink alcohol Substance use: never Gender identity (if verbalized by the patient): Female Mod Sed Physical Exam Physical Exam Pre Procedural Exam: Normal: Neck, Throat, Airway, Heart Rate, Heart Rhythm, Neuro Exam and Extremities and Variation: Appearance ( extraordinary cachectic white female), Lungs ( breath sounds diminished throughout both lung powell) and Heart Size ( PMI laterally displaced) Hours since solid foods: 12 Hours since liquid intake: 12 Mallampati Classification: class II Internal Medicine - PN: Obj Da Vital Signs Vital Signs: Vital Signs - 24 hr 05/26/21 07:34 Temperature 36.8 C Pulse Rate 83 Respiratory Rate 22 H Blood Pressure 150/82 H Pulse Oximetry 100 Meds/Results Medications: Active Medications Generic Name Dose Route Start Last Admin Trade Name Freq PRN Reason Stop Dose Admin Sodium Chloride 500 mls @ 100 mls/hr 05/26/21 07:00 Normal Saline Iv IV CONT .Q5H [facility]
--- NOTE | 2021-05-26 09:34 | P.PCNCC_ITS ---
Cardiac Cath Procedure Note Date of procedure:: 05/26/21 Performing physician:: Christ Chakraborty MD
--- NOTE | 2021-05-26 09:34 | P.PCNCC_ITS ---
Cardiac Cath Procedure Note Date of procedure:: 05/26/21 Performing physician:: Christ Chakraborty MD Indication:: History of cardiomyopathy Brief clinical history:: this is a extremely cachectic 50-year-old woman with a history of smoking and a history of systolic left ventricular dysfunction who is been admitted for outpatient left heart catheterization to exclude ischemic heart disease. Procedure Procedure performed:: Coronary angiography left ventriculography Sedation/Medication given:: fentanyl 25 mg Versed 2 mg case start time 9:12 a.m. case end time 9:29 a.m. sedation provided by Gonzalo Menendez RN Access site:: right femoral artery Estimated blood loss:: minimal Procedure note:: patient brought to the cardiac catheterization lab where the right femoral triangle was prepared and draped in the usual fashion. Anesthesia was provided with 1% lidocaine infiltrated locally. The patient's femoral artery was very superficial it was very small cachectic individual. the artery was punctured using the modified Seldinger technique and a 5 Anguillan vascular sheath was placed. After this left heart catheterization was carried out. I used a 5 [place] FL4 catheter to engage and inject the left coronary artery in multiple projections. I then used a 5 [place] JR4 catheter to engage the right coronary which cause significant pressure damping and a very small caliber vessel. I changed this for a 5 [place]guillan WRP catheter which was used to engage inject the right coronary. After this a 5 Anguillan angled pigtail catheter was us ed to measure left-sided hemodynamics and to inject LV g in the CAT projection. Finally the procedure was then terminated. The patient was taken to the holding area with the sheath in place for manual removal. The femoral artery was so superficial I did not consider her a reasonable candidate for an Angio-Seal device. Procedure was well tolerated there were no complications and she left the skilled laborer with no evidence of a groin hematoma. Findings:: Hemodynamics: Central aortic pressure was 162 over 82 left ventricle 162/0 end diastolic pressure of 16 there is no gradient on pullback across the aortic valve. Left ventricle: The left ventricle is normal in size all segments contract appropriately the global ejection fraction I would visually estimated to be 60- 65% With no regional wall motion abnormalities. the left main coronary artery is medium in caliber and nicely patent the left anterior descending is a small to medium caliber artery extending down to around the apex the LAD and its branches whilel small in caliber angiographically free of disease. Circumflex is a small caliber vessel which is smooth and angiographically free of disease giving rise to the marginal branches. The right coronary artery is small in caliber dominant to the posterior circulation and is angiographically free of disease. Conclusion:: 1. Right coronary dominant circulation with no angiographic evidence of coronary disease. Small caliber vessels in this very small cachecti c individual 2. normal left ventricular systolic function. Systemic hypertension with mildly elevated LVEDP Christ Chakraborty MD FACC
--- NOTE | 2021-05-26 15:36 | SUR.PHASEII ---
1530 D/C instructions reviewed with patient, questions answered and she verbalized understanding. Pts IV was D/c'D, cath intact, pressure applied, no bleeding noted. Pt transported via wheelchair to [facility] where her sister drove her home in a private vehicle.
--- NOTE | 2021-06-13 16:12 | PM.IMHP ---
H&P: HPI History of Present Illness Date/Time: May 26, 2021 Chief Complaint: elective admission for outpatient left heart catheterization Narrative: this is a 50-year-old patient with a severe dilated cardiomyopathy who receives her care by Dr. Saldana. because of her history of smoking and severely depressed left ventricular systolic function catheterization was recommended to complete the workup of her cardiomyopathy and rule out an ischemic basis to this. The patient is comfortable on the morning of this admission she is extraordinarily wasted and cachectic with a BMI of 11. Review of Systems Constitutional: Constitutional: Reports fatigue and Reports weakness Eyes: Eyes: Reports no additional eye complaints ENT: Reports system reviewed and no additional complaints, except as documented Cardiovascular: Cardiovascular: Reports no additional cardiovascular complaints Respiratory: Respiratory: Reports dyspnea on exertion Gastrointestinal: Gastrointestinal: Reports no additional gastrointestinal complaints Musculoskeletal: Musculoskeletal: Reports no additional musculoskeletal complaints Neurologic: Reports system reviewed and no additional complaints, except as documented [facility] Past Medical History Medical History Cigarette nicotine dependence COPD (chronic obstructive pulmonary disease) COPD (chronic obstructive pulmonary disease) GERD (gastroesophageal reflux disease) Hypothyroidism Hypothyroidism Surgical History Surgical History H/O laparoscopy H/O oral surgery History of Family History Family History Father , father had cancer of the lymph nodes. He in 2008 he had diabetes / hypertension Diabetes mellitus Hypertension Mother No problems noted. Social History Social History Smoking packs per day: 0.5 Smoking cigarettes per day: 10.0 Years smoked: 40 Smoking pack-years: 20.00 Smoking status: Current every day smoker Tobacco type: cigarettes Alcohol use details: does not drink alcohol Substance use: never Gender identity (if verbalized by the patient): Female Meds Home Medications and Allergies Home Medications Medication Instructions Recorded Confirmed Type omeprazole 20 mg PO BID 09/25/19 06/09/21 History fluticasone propionate 50 2 spray INTRANASAL DAILY 09/30/20 06/09/21 History mcg/actuation nasal spray,suspension atorvastatin 40 mg tablet 40 mg PO DAILY #90 tablet 10/01/20 06/09/21 Rx bupropion HCl 150 mg tablet,12 hr 150 mg PO BID #60 tablet 02/25/21 06/09/21 Rx sustained-release albuterol sulfate 90 mcg/actuation 2 inh INHALATION Q4-6H PRN #1 ea 03/07/21 06/09/21 Rx breath activated powder inhaler levothyroxine 200 mcg PO DAILY 03/20/21 06/09/21 History aspirin 81 mg tablet,delayed 81 mg PO DAILY 03/25/21 06/09/21 History release ipratropium 20 mcg-albuterol 100 1 puff INHALATION QID #4 g 04/25/21 06/09/21 Rx mcg/actuation mist for inhalation albuterol sulfate 1.25 mg/3 mL 1.25 mg INHALATION Q4-6H PRN #90 ml 05/09/21 06/09/21 Rx solution for nebulization losartan 25 mg tablet 25 mg PO DAILY #30 tablet 05/12/21 06/09/21 Rx metoprolol succinate 25 mg 25 mg PO DAILY #30 tablet 05/12/21 06/09/21 Rx tablet,extended release 24 hr montelukast 10 mg tablet See Rx Instructions .ROUTE 05/21/21 06/09/21 Rx .COMPLEX #90 tablet sertraline 25 mg tablet 25 mg PO DAILY #30 tablet 05/28/21 06/09/21 Rx Allergies Allergy/AdvReac Type Severity Reaction Status Date / Time budesonide [From Symbicort] Allergy Severe breathing Verified 06/09/21 14:52 issues formoterol [From Symbicort] Allergy Severe breathing Verified 06/09/21 14:52 issues Exam Const: General: comfortable and no acu
== END 2021-05-26 15:30 | disposition home or self-care (01) ==
PROVIDERS: PCP Family Medicine; Visit Provider Specialist
PROC: 4A023N7 Measurement of Cardiac Sampling and Pressure, Left Heart, Percutaneous Approach (ICD-10-PCS; CPT 93452; principal; 2021-05-26 08:30)
DX: I42.9 Cardiomyopathy, unspecified (principal); I51.9 Heart disease, unspecified; I10 Essential (primary) hypertension; J44.9 Chronic obstructive pulmonary disease, unspecified; E03.9 Hypothyroidism, unspecified; K21.9 Gastro-esophageal reflux disease without esophagitis; F17.210 Nicotine dependence, cigarettes, uncomplicated; Z79.82 Long term (current) use of aspirin; Z79.899 Other long term (current) drug therapy
CPT/HCPCS: 36415; 80048; 84703; 85025; 93458; C1887; C1894; J0461; J1644; J2250; J3010; J7040

== ENCOUNTER 2021-06-19 08:06 | Outpatient (CLI) | payer MEDICARE, SELFPAY ==
--- NOTE | 2021-06-19 09:19 | ECHO_ITS ---
Patient Info Name: Shar Patricia Age: 50 years : 1970 Gender: Female Ht: 63 in Wt: 67 lbs BSA: 1.14 m2 HR: 69 bpm BP: 150 / 79 mmHg Exam Date: 06/19/2021 9:23 AM Exam Location: [facility] Patient Status: Outpatient Admit Date: 06/19/2021 Staff Ordering Physician: Ruben Saldana DO Grocery Sacker: Francesco Guardado RDCS, RT Attending Provider: Ruben Saldana DO Referring Physician: Les AVILA; Exam Type: CA echo doppler color flow Study Info Indications I50.9 - Heart failure, unspecified Complete two-dimensional, color flow and Doppler transthoracic echocardiogram is performed. Summary 1. Complete two-dimensional, color flow and Doppler transthoracic echocardiogram is performed. 2. Technically suboptimal study due to poor sonographic images. Only limited images obtained such as parasternal images and subcostal images. 3. Left ventricular chamber dimension is normal. 4. Left ventricular systolic function is normal, estimated at 55-60%. 5. The left ventricular diastolic function is grade I diastolic dysfunction. 6. Tissue doppler is not obtained. 7. There is small right sided pericardial effusion measured at 0.5 cm. Left Ventricle Technically suboptimal study due to poor sonographic images. Only limited images obtained such as parasternal images and subcostal images. Tissue doppler is not obtained. Left ventricular chamber dimension is normal. Left ventricular systolic function is normal, estimated at 55-60%. The left ventricular diastolic function is grade I diastolic dysfunction. Right Ventricle Right ventricular chamber dimension is normal. Right ventricular systolic function is normal. Left Atria Left atrial chamber dimension is normal. Right Atria Right atrial chamber dimension is normal. Aortic Valve The aortic valve is not well visualized. There is no aortic valve stenosis. There is no aortic valve regurgitation. Pulmonic Valve The pulmonic valve is not well visualized. Mitral Valve There is no mitral valve stenosis. There is no mitral valve regurgitation. Tricuspid Valve The tricuspid valve leaflets are not well visualized. Pericardium/Pleural There is small right sided pericardial effusion measured at 0.5 cm. Inferior Vena Cava Normal inferior vena cava with >50% collapse upon inspiration consistent with normal right atrial pressure, 5 mmHg. Aorta The aortic root size at the sinus of Valsalva is not well visualized. Left Ventricular Outflow Tract Name Value Normal LVOT Doppler LVOT Peak Velocity 73 cm/s LVOT Peak Gradient 2 mmHg LVOT Mean Gradient 1 mmHg LVOT VTI 13 cm LVOT VTI/AV VTI Ratio 0.7 Mitral Valve Name Value Normal MV Doppler MV Decel Sabine 202 cm/s2 MV PHT 67 ms MV Area (PHT) 3.3 cm2
[2021-06-19 09:21] LABS: Cholesterol 198 mg/dL (0-200); HDL Direct 75 mg/dL (40-60); LDL Cholesterol Calculated 108 mg/dL (<130); Triglycerides 74 mg/dL (0-150)
== END 2021-06-19 08:07 | disposition home or self-care (01) ==
LOC: CHSLAB 08:08
PROVIDERS: PCP Family Medicine; Visit Provider Internal Medicine Cardiovascular Disease
DX: E78.5 Hyperlipidemia, unspecified (principal); I42.9 Cardiomyopathy, unspecified
CPT/HCPCS: 36415; 80061; 93306

== ENCOUNTER 2021-06-20 10:56 | Outpatient (CLI) | payer MEDICARE, MEDICAID, SELFPAY ==
--- NOTE | ~2021-06-20 | US_ITS ---
EXAMINATION: US venous doppler UE LT DATE: 06/20/2021 11:33 INDICATION: Left posterior wrist lump. TECHNIQUE: Orozco scale images with and without compression and Doppler images of the left upper extrem ity veins were obtained. COMPARISON: None. FINDINGS: The left internal jugular vein, subclavian vein, axillary vein, brachial veins, basilic vein, radial vein, and ulnar vein are patent. The cephalic vein not visualized. No flow identified in superficial vein along the posterior margin of the wrist. IMPRESSION: 1. Patent left upper extremity deep veins. No evidence of deep venous thrombosis. 2: No identifiable flow and superficial veins posterior to the wrist, consistent with superficial th rombosis. Reviewed, dictated and finalized at location A. IMPRESSION: 1. Patent left upper extremity deep veins. No evidence of deep venous thrombosi s. 2: No identifiable flow and superficial veins posterior to the wrist, consiste nt with superficial thrombosis.
== END 2021-06-20 10:57 | disposition home or self-care (01) ==
LOC: CHSIMG 10:57
PROVIDERS: PCP Family Medicine; Visit Provider Nurse Practitioner Family
DX: I80.8 Phlebitis and thrombophlebitis of other sites (principal)
CPT/HCPCS: 93971

== ENCOUNTER 2021-11-06 11:29 | Outpatient (CLI) | payer MEDICARE, MEDICAID, SELFPAY ==
--- NOTE | ~2021-11-06 | XR_ITS ---
XR chest 2V DATE: 11/06/2021 12:14 INDICATION: Shortness of breath, cough. Smoker. TECHNIQUE: PA and lateral views COMPARISON: 05/23/2021 CT pulmonary scan 03/16/2021 portable AP chest FINDINGS: Severe bilateral pulmonary hyperinflation consistent with COPD. No pulmonary infiltrate or consolidation, pleural effusion or pulmonary vascular congestion or pneumothorax is evident. Nipple s hadows overlie the chest. Normal heart size. Very prominent thoracic and lumbar scoliosis. IMPRESSION: Emphysema Reviewed, dictated and finalized at location A. EATION DIRECTOR IMPRESSION: Emphysema
--- NOTE | 2021-11-06 11:32 | ECG_ITS ---
Measurements Intervals [place] Rate: 75 P: 78 KS: 111 QRS: 86 QRSD: 79 T: 72 QT: 390 QTc: 438 Interpretive Statements SINUS RHYTHM WITH SHORT [place] INTERVAL LIMB LEAD REVERSAL INCOMPLETE RIGHT BUNDLE BRANCH BLOCK CONSIDER ANTERIOR INFARCT, AGE INDETERMINATE BASELINE ARTIFACT- I, II, III, AVR, AVL, AVF, V1-V6 ABNORMAL ECG Electronically Signed On 11-06-2021 13:19:40 SUBSTATION SUPERVISOR by Ruben Saldana D.O.
[2021-11-06 11:44] LABS: Hematocrit 40.8 % (35.0-49.0); Hemoglobin 13.2 g/dL (12.0-15.0); Mean Corpuscular HGB Conc 32.4 g/dL (32.0-36.0); Mean Corpuscular Hemoglobin 29.2 pg (27.0-31.0); Mean Corpuscular Volume 90.3 fL (78.0-102.0); Mean Platelet Volume 9.5 fl (9.2-11.8); Platelet Count Result 282 K/mm3 (150-420); Red Blood Count 4.52 M/mm3 (4.20-5.40); White Blood Count 7.6 K/mm3 (4.8-10.8)
[2021-11-06 12:01] LABS: Alanine Aminotransferase 28 U/L (14-59); Albumin Level 4.1 g/dL (3.4-5.0); Alkaline Phosphatase 74 U/L (46-116); Anion Gap 8 mmol/L (8-16); Aspartate Amino Transferase 20 U/L (15-37); Bilirubin,Total 0.4 mg/dL (0.00-1.00); Blood Urea Nitrogen 12 mg/dL (7-18); Carbon Dioxide 32 mmol/L (21-32); Chloride 100 mmol/L (98-108); Estimated Glomerular Filt Rate > 60; Glucose 94 mg/dL (70-99); Osmolality Calculated 289 mOsm/kg (285-295); Potassium 4.7 mmol/L (3.5-5.1); Sodium 140 mmol/L (136-145); Total Protein 7.6 g/dL (6.4-8.2); Troponin I 5.9 ng/L (0.00-60.4)
== END 2021-11-06 11:30 | disposition home or self-care (01) ==
LOC: CHSLAB 11:32
PROVIDERS: PCP Family Medicine; Visit Provider Family Medicine
DX: R06.02 Shortness of breath (principal); J44.1 Chronic obstructive pulmonary disease with (acute) exacerbation
CPT/HCPCS: 36415; 71046; 80053; 84484; 85027; 93005

== ENCOUNTER 2021-11-23 20:55 | Inpatient (IN) | payer MEDICARE, MEDICAID, SELFPAY ==
--- NOTE | ~2021-11-23 | CT_ITS ---
EXAMINATION: CTA chest PE protocol EXAM DATE: 11/23/2021 23:12 INDICATION: Dyspnea, elevated d-dimer. COPD. TECHNIQUE: Spiral CTA of the chest (pulmonary arteries) was performed with 100 cc Omnipaque 350 intr avenous contrast injection. Images were acquired during the pulmonary arterial phase. Coronal maxi mum intensity projection 3D-reconstructions were created by the technologist on dedicated workstation . Axial, coronal and sagittal reformatted images were reviewed. The dose-length product (DLP) for t his examination was 168.78 mGy-cm. The exposure was tailored according to patient size (auto mA exp osure control), and iterative reconstruction (ASIR) was used as additional dose reduction technique. Comparison is made to prior examination from 05/23/2021. FINDINGS: There are no pulmonary emboli in the 1st through 3rd order (central and interlobar) pulmon ari arteries. Some loss of attenuation in the basilar segmental pulmonary from respiratory motion, t hese regions not confidently evaluated. No Intraluminal filling defects identified. No thoracic aor tic dissection. There is severe emphysema. Right upper lobe posteromedial apical scarring unchanged. 3 mm right upper lobe granuloma unchanged. Chronic hyperinflation. Moderate to severe thoracic dextroscoliosis, moder ate thoracolumbar levoscoliosis. There are no pleural or pericardial effusions. Tracheobronchial t ree is patent. There is no mediastinal, hilar or axillary lymphadenopathy. There is no pneumothor ax. Heart normal in size. There is mild coronary arterial calcification, arterial sclerosis. Upp er abdomen is unremarkable. IMPRESSION: 1. Limited segmental evaluation, but no pulmonary emboli are suspected. 2. Severe emphysema, hyperinflation. 3. Right upper lobe post infectious residua. Reviewed, dictated and finalized at location B. ESS TRAINER
--- NOTE | ~2021-11-23 | CT_ITS ---
EXAMINATION: CT brain wo con EXAM DATE: 11/24/2021 08:44 INDICATION: Hypoxia, 11/23 alert and oriented-now nonverb lethargic . TECHNIQUE: Spiral CT of the head was performed without contrast. Axial, coronal and sagittal images were reviewed. The dose-length product (DLP) for this examination was 681.00 mGy-cm. The exposure w as tailored according to patient size, and iterative reconstruction (ASIR) was used as additional dos e reduction technique. There is no prior study for comparison. FINDINGS: Study is limited due to patient motion. There is no acute intraparenchymal hemorrhage. No evidence of intraparenchymal brain mass lesion. No evidence of acute infarction. There is no mass e ffect or midline shift. The ventricles are normal in size. There are no extra-axial collections. T here are no acute calvarial fractures. The orbits are unremarkable. Soft tissue is unremarkable. Th e visualized sinuses and mastoid air cells are well aerated. IMPRESSION: 1. No acute intracranial findings. Reviewed, dictated and finalized at location B. ITE INSPECTOR
--- NOTE | ~2021-11-23 | XR_ITS ---
XR chest 1V portable 11/23/2021 22:00 Indication: Dyspnea Procedure: AP portable chest Comparison: Comparison to multiple prior studies sequentially, with oldest reviewed study dated 01/23. Findings: There is emphysema. There is mild interstitial edema. Prominent left nipple shadow. Heart s ize normal. Scoliosis. No significant effusion or pneumothorax. Bullous changes are noted in the left apex. Impression: 1: Mild interstitial edema. 2: Emphysema. Reviewed, dictated and finalized at location A. SETTER SUPERVISOR Impression: 1: Mild interstitial edema. 2: Emphysema.
[2021-11-23 20:55] VITALS: PULSE 144; RESP 34; TEMP 36.6; O2SAT 87
--- NOTE | 2021-11-23 21:01 | ECG_ITS ---
Measurements Intervals [place] Rate: 140 P: 77 RI: 116 QRS: 58 QRSD: 78 T: 91 QT: 353 QTc: 539 Interpretive Statements SINUS TACHYCARDIA WITH SHORT RI INTERVAL, POSSIBLE ATRIAL FLUTTER INCOMPLETE RIGHT BUNDLE BRANCH BLOCK NONSPECIFIC ST & T-WAVE ABNORMALITY- ANT/HIGH LAT LEADS BASELINE ARTIFACT- I, II, III, AVR, AVL, AVF, V1-V6 ABNORMAL ECG Electronically Signed On 11-24-2021 6:30:07 BIOTECHNICIAN by Ruben Saldana D.O.
--- NOTE | 2021-11-23 21:04 | ED.SOB ---
HPI - SOB/Dyspnea General Chief Complaint: Shortness of Breath/Dyspnea Stated Complaint: SOB Time Seen by Provider: 11/23/21 21:01 Source: patient, EMS and RN notes reviewed Mode of arrival: EMS Limitations: physical limitation History of Present Illness MD elicited complaint: shortness of breath Pertinent past history: COPD Onset (ago): week(s) (1) Timing: constant and progressively worsening Severity: severe Exacerbating factors: lying flat, movement and talking Relieving factors: nothing Known history of: COPD Associated symptoms: denies other symptoms Treatment prior to arrival: oxygen and bronchodilator Related Data Home oxygen amount: 2 liters Home Medications Medication Instructions Recorded Confirmed omeprazole 20 mg PO BID 09/25/19 11/23/21 Allergies Allergy/AdvReac Type Severity Reaction Status Date / Time budesonide [From Symbicort] Allergy Severe breathing Verified 11/23/21 23:33 issues formoterol [From Symbicort] Allergy Severe breathing Verified 11/23/21 23:33 issues Review of Systems Review of Systems: All systems reviewed & are unremarkable except as noted in HPI and below Cardiovascular: Cardiovascular: Denies chest pain and Denies radiating jaw, neck or arm pain Respiratory: Respiratory: Reports as per HPI Gastrointestinal: Gastrointestinal: Denies diarrhea, Denies nausea and Denies vomiting Neurologic: Denies headache(s) REPLACED BY [facility] Past Medical History Medical History (Updated 11/24/21 @ 03:24 by Lance Salazar MD) Anxiety Cardiomyopathy Cigarette nicotine dependence COPD (chronic obstructive pulmonary disease) Dyslipidemia GERD (gastroesophageal reflux disease) Hypothyroidism Scoliosis Tobacco abuse Surgical History Surgical History H/O laparoscopy H/O oral surgery History of Family History Family History Father , father had cancer of the lymph nodes. He in 2008 he had diabetes / hypertension Diabetes mellitus Hypertension Lung cancer Mother Cerebrovascular accident Sibling Hypothyroidism Social History Social History Smoking packs per day: 0.5 Smoking cigarettes per day: 10.0 Years smoked: 36 Smoking pack-years: 18.00 Smoking status: Current some day smoker Tobacco type: cigarettes Alcohol intake: never Alcohol use details: does not drink alcohol Substance use: never Gender identity (if verbalized by the patient): Female Spiritual care concerns: No Exam Const: General: alert, acute distress moderate and respiratory and ill appearing chronically; No diaphoretic Nutritional Appearance: thin and underweight Orientation/consciousness: patient oriented x3 Limitations: physical limitations HENMT: Head: normal to inspection Ears: external ears normal Mouth: Yes moist mucous membranes Eyes: Conjunctivae: conjunctivae normal Pupils: Equal, round and reactive pupils present EOM: EOMs intact bilaterally Neck: Neck: normal visual inspection Resp: Effort & Inspection: not able to speak in complete sentences, labored, respiratory distress, tripod positioning and uses accessory muscles Auscultation: wheezes throughout and diminished lung sounds diffuse Cardio: Rate: bradycardic Rhythm: regular rhythm GI: GI Palp: Yes Soft to palpation and No Tenderness to palpation present (GI) Auscultation: normal bowel sounds Back/Spine/Pelvis: Cervical Spine: cervical ROM normal Thoracic/Lumbar Spine: thoraco-lumbar ROM normal Skin: General skin exam: normal color Rashes: no rashes Neuro: General: patient oriented x3, moves all extremities, no focal motor deficits and CN's II-XI intact bilaterally Extrem: General: normal to inspection and no clubbing, cyanosis or edema Psych: Mental Status: mental status grossly normal Affect: normal affect Attitud
[2021-11-23 21:10] VITALS: PULSE 144; RESP 35; O2SAT 100
[2021-11-23] MEDS: IPRATROPIUM 0.5 MG/ALBUTEROL SULFATE 2.5 MG AMPUL.NEB 3 ML INHALATION (21:18)
[2021-11-23 21:21] VITALS: PULSE 144; RESP 30; O2SAT 100
[2021-11-23 21:41] LABS: Base Excess ABG -12.1 mmol/L (0-2); HCO3 ABG 18.4 mmol/L (23-29); Oxygen Content ABG 17.7 %vol (16.0-22.0); Oxygen Saturation ABG 95.1 % (95-97); Oxyhemoglobin 93.8 % (94-100); PCO2 ABG 63.1 mmHg (35-45); PO2 ABG 101.1 mmHg (80-90); Total Hemoglobin 13.3 g/dL (12.0-18.0)
[2021-11-23 21:43] LABS: Device NASAL CANNULA; Modified Allen's Test Pass; Site Drawn RIGHT RADIAL
[2021-11-23 21:44] LABS: pH ABG 7.08 (7.35-7.45)
[2021-11-23 21:58] LABS: Hematocrit 41.4 % (35.0-49.0); Hemoglobin 12.9 g/dL (12.0-15.0); Mean Corpuscular HGB Conc 31.2 g/dL (32.0-36.0); Mean Corpuscular Hemoglobin 29.4 pg (27.0-31.0); Mean Corpuscular Volume 94.3 fL (78.0-102.0); Mean Platelet Volume 10.6 fl (9.2-11.8); Platelet Count Result 306 K/mm3 (150-420); Red Blood Count 4.39 M/mm3 (4.20-5.40); Red Cell Distribution Width 13.8 % (11.6-14.4); White Blood Count 13.9 K/mm3 (4.8-10.8)
[2021-11-23 22:11] LABS: Prothrombin Time 10.5 Seconds (9.50-12.10)
[2021-11-23 22:17] VITALS: BP 146/90; PULSE 143; RESP 30; O2SAT 96
[2021-11-23 22:21] LABS: Alanine Aminotransferase 40 U/L (14-59); Albumin Level 3.5 g/dL (3.4-5.0); Alkaline Phosphatase 98 U/L (46-116); Anion Gap 13 mmol/L (8-16); Aspartate Amino Transferase 35 U/L (15-37); Bilirubin,Total 0.2 mg/dL (0.00-1.00); Blood Urea Nitrogen 21 mg/dL (7-18); Calcium 8.4 mg/dL (8.5-10.1); Carbon Dioxide 25 mmol/L (21-32); Chloride 106 mmol/L (98-108); Estimated CRCL calculation 19 ml/min; Estimated Glomerular Filt Rate 33; Glucose 274 mg/dL (70-99); Magnesium 2.4 mg/dL (1.8-2.4); NT Pro B Type Natriuretic Pept 387 pg/mL (0-125); Osmolality Calculated 311 mOsm/kg (285-295); Sodium 144 mmol/L (136-145); Total Protein 6.7 g/dL (6.4-8.2); Troponin I 29.9 ng/L (0.00-60.4)
[2021-11-23 22:24] LABS: D Dimer 1.24 mg/L (0.19-0.50)
[2021-11-23] MEDS: LORazepam INJ (*CRX) 2 MG/ML VIAL 0.5 MG IV PUSH (22:38)
[2021-11-23 22:43] VITALS: RESP 33; O2SAT 100
[2021-11-23 22:45] LABS: SARS-CoV-2 RNA PCR Negative (Negative)
[2021-11-23 22:51] LABS: Influenza Control Valid (Valid)
[2021-11-23 23:03] LABS: Band Neutrophils Percent 0 % (0-6); Basophils Percent Manual 0 % (0-1); Eosinophils Absolute Manual 0.13 K/mm3 (0.02-0.5); Eosinophils Percent Manual 1 % (1-6); Hypersegmented Neutrophils Present; Lymphocytes Absolute Manual 7.08 K/mm3 (1.1-4.5); Lymphocytes Percent Manual 51 % (18-44); Monocytes Absolute Manual 0.69 K/mm3 (0.1-0.90); Monocytes Percent Manual 5 % (3-9); Neutrophils Absolute Manual 5.97 K/mm3 (1.7-7.2); Neutrophils Percent Manual 43 % (46-73); Platelet Estimate Adequate (Adequate); Total Cells Counted 100
[2021-11-23 23:04] LABS: Atypical Lymphocytes Present
[2021-11-23 23:29] LABS: Base Excess ABG -6.8 mmol/L (0-2); HCO3 ABG 23.5 mmol/L (23-29); Oxygen Saturation ABG 93.9 % (95-97); Oxyhemoglobin 92.7 % (94-100); pH ABG 7.14 (7.35-7.45)
[2021-11-23 23:32] LABS: Device BIPAP; PCO2 ABG 71.3 mmHg (35-45); Site Drawn LEFT BRACHIAL
[2021-11-23 23:33] LABS: Expiratory Pressure 5 cmH2O; Inspiratory Pressure 12 cmH2O
[2021-11-24] VITALS (14 sets, daily range): BP systolic 91–137; BP diastolic 66–98; PULSE 32–144; RESP 24–36; TEMP 36.6; O2SAT 94–100; BMI 12.7
[2021-11-24 01:18] LABS: Base Excess ABG -8.1 mmol/L (0-2); HCO3 ABG 20.8 mmol/L (23-29); Oxygen Content ABG 17.9 %vol (16.0-22.0); Oxygen Saturation ABG 95.7 % (95-97); Oxyhemoglobin 94.6 % (94-100); PCO2 ABG 56.9 mmHg (35-45); Total Hemoglobin 13.4 g/dL (12.0-18.0); pH ABG 7.18 (7.35-7.45)
[2021-11-24 01:20] LABS: Site Drawn LEFT RADIAL
[2021-11-24 01:21] LABS: Device BIPAP; Modified Allen's Test Pass
[2021-11-24 01:22] LABS: Expiratory Pressure 7 cmH2O; Inspiratory Pressure 14 cmH2O
[2021-11-24] MEDS: IPRATROPIUM 0.5 MG/ALBUTEROL SULFATE 2.5 MG AMPUL.NEB 3 ML INHALATION ×2 (01:50→07:02)
--- NOTE | 2021-11-24 04:32 | PC.NURSE ---
Contacted Garett Mendez regarding pt's nervousness; Orders received and noted.
[2021-11-24] MEDS: methylPREDNISolone SOD SUCC 125 MG VIAL IV PUSH ×2 (04:41→06:07)
[2021-11-24] MEDS: SODIUM CHLORIDE 0.9% IV 1,000 ML 100 ML IV CONT (04:44)
--- NOTE | 2021-11-24 04:48 | ADMGEN ---
This patient, Shar Patricia, was admitted to 2nd Floor Room 203-2. Patient/family oriented to hospital policies and general routines including ID bracelet, bed and alarms, visiting hours, pain management, procedures, bathroom and other care routines, personal items, smoking policy, room service/diet, and visiting hours. Information on how to activate the Rapid Response Team has been discussed. Patient/Family are encouraged to report perceived risks to care and to ask questions if they do not understand what they are told or what they should do.
[2021-11-24] MEDS: LORazepam INJ (*CRX) 2 MG/ML VIAL 0.5 MG IV PUSH (05:13)
[2021-11-24 06:02] LABS: Hemoglobin A1C 6.1 % (<5.7)
--- NOTE | 2021-11-24 06:35 | PC.NURSE ---
This sign writer hand tried contacting Shar's sister Suzy castañeda at 06:35 to notify her of Shar's condition worsening and decrease in orientation. Kvng DAWSON verbalized she will be attempting to transfer Shar because of her condition.
[2021-11-24] MEDS: dilTIAZem HCl INJ 25 MG/5 ML VIAL 20 MG IV PUSH (06:43)
[2021-11-24 07:17] LABS: Troponin I 395.8 ng/L (0.00-60.4)
--- NOTE | 2021-11-24 08:00 | ECG_ITS ---
Measurements Intervals [place] Rate: 123 P: 80 IA: 119 QRS: 56 QRSD: 81 T: 82 QT: 328 QTc: 470 Interpretive Statements SINUS TACHYCARDIA WITH SHORT IA INTERVAL INCOMPLETE RIGHT BUNDLE BRANCH BLOCK BORDERLINE R WAVE PROGRESSION, ANTERIOR LEADS BASELINE ARTIFACT- I, II, III, AVR, AVL, AVF, V1-V6 ABNORMAL ECG Electronically Signed On 11-24-2021 8:14:46 INTELLIGENCE APPLICATIONS by Ruben Saldana D.O.
--- NOTE | 2021-11-24 09:29 | PC.NURSE ---
Face sheet faxed to [facility]
[2021-11-24] MEDS: PANTOPRAZOLE SODIUM IV 40 MG VIAL IV PUSH (09:39)
--- NOTE | 2021-11-24 09:43 | PM.SD2 ---
Same Day Admit/Disch: HPI History of Present Illness Chief complaint: Respitory Distress/COPD exacerbation Narrative: Shar Patricia is a 50 year old female that presented to the emergency room with complaints of shortness of breath. Patient has a past medical history of anxiety, cardiomyopathy, nicotine dependence, COPD, dyslipidemia, GERD, hypothyroidism, and scoliosis. During my assessment patient is lethargic unable to follow commands and clearly in respiratory distress. All information obtained from medical records. Patient was placed on BiPAP while in ED with some improvements in her ABGs remained tachycardic and tachypnea. According to nursing staff patient was alert and orientated with agitation on presentation to the floor. At the time of my assessment patient was lethargic with labored breathing and use of accessory muscles and unable to follow commands she continues to require a BiPAP. Patient will be transferred to a higher level care at [facility] and accepted by Dr. Jackman. CT of the head requested from outside hospital unremarkable results will be pushed to their facility. It was also recommended that we notify family members to discuss CODE STATUS. Myself and nursing staff has made many attempts to contact patient's sister with no response. Message left on answering machine. Patient will transfer to [facility] on a BiPAP with RT. Blood pressure 91/77, 107, 34, 97.8, 97% with BiPAP, WBCs 13.9, hemoglobin 12.9, hematocrit 41.4, platelets 306, D-dimer 1.24, blood gas pH 7.14, CO2 71.3, O2 88.0, bicarb 23.5, sodium 144, potassium 4.0, BUN 21, creatinine 1.63, glucose 274, magnesium 2.4, liver function test within normal limits, troponin BUN, 387, Covid negative CTA does not indicate a PE severe emphysema hyperinflation, right upper lobe post infection residual, chest x-ray mild edema, CT of the head, EKG sinus tach heart rate of 140 repeat sinus tach heart rate of 123. Patient in respiratory distress at time of discharge [facility] Past Medical History Medical History (Updated 11/24/21 @ 03:24 by Lance Salazar MD) Anxiety Cardiomyopathy Cigarette nicotine dependence COPD (chronic obstructive pulmonary disease) Dyslipidemia GERD (gastroesophageal reflux disease) Hypothyroidism Scoliosis Tobacco abuse Surgical History Surgical History H/O laparoscopy H/O oral surgery History of Family History Family History Father , father had cancer of the lymph nodes. He in 2008 he had diabetes / hypertension Diabetes mellitus Hypertension Lung cancer Mother Cerebrovascular accident Sibling Hypothyroidism Social History Social History Smoking packs per day: 0.5 Smoking cigarettes per day: 10.0 Years smoked: 36 Smoking pack-years: 18.00 Smoking status: Current some day smoker Tobacco type: cigarettes Alcohol intake: never Alcohol use details: does not drink alcohol Substance use: never Gender identity (if verbalized by the patient): Female Spiritual care concerns: No Same Day Admit/Disch: Med Pre-admit Medications Home Medications Medication Instructions Recorded Confirmed Type omeprazole 20 mg PO BID 09/25/19 11/23/21 History albuterol sulfate 1.25 mg/3 mL 1.25 mg INHALATION Q4-6H PRN #90 ml 05/09/21 11/23/21 Rx solution for nebulization levothyroxine 200 mcg tablet See Rx Instructions .ROUTE 07/01/21 11/23/21 Rx .COMPLEX #90 tablet metoprolol succinate 25 mg 25 mg PO DAILY #90 tablet 07/01/21 11/23/21 Rx tablet,extended release 24 hr montelukast 10 mg tablet See Rx Instructions .ROUTE 07/01/21 11/23/21 Rx .COMPLEX #90 tablet ipratropium 20 mcg-albuterol 100 See Rx Instructions .ROUTE 08/18/21 11/23/21 Rx mcg/actuation mist for inhalation .COMPLEX #4 g bupropion HCl 150 mg tablet,12 hr See Rx I
[2021-11-24 09:47] LABS: Glucose Point of Care 201 mg/dl (65-105)
--- NOTE | 2021-11-24 09:50 | PC.NURSE ---
room assignment obtained from [place], phone call to Rosi BURRELL for report
--- NOTE | 2021-11-24 10:50 | PC.NURSE ---
Report called to Deepika at [facility], patient transferring to . E 14 (ICU) Patients family in with patient prior to transfer. Patient maintained on BiPap, switching to CPAP for transfer. EMS able to transport without RT. [facility] arrived for transport. Deepika notified when patient left facility.
[2021-11-24 13:04] LABS: Add Urine Microscopic? YES; Appearance Urine Clear (Clear); Bilirubin Urine Negative (Negative); Blood Urine Negative (Negative); Color Urine Dark Yellow (Yellow); Glucose Urine UA Negative (Negative); Ketones Urine Negative (Negative); Leukocyte Esterase Ur Negative LEU/UL (Negative); Nitrate Urine Negative (Negative); Protein Urine Trace (Negative); Specific Grav Ur 1.025 (1.010-1.020); Urobilinogen Urine 0.2 mg/dL (0.2-1.0)
[2021-11-24 13:05] LABS: Bacteria Urine 1+ /hpf; Mucus Urine Few /lpf; RBC Urine None seen /hpf (0-2); Squamous Epithelial Cell Urine Few /hpf (Few); WBC Urine None seen /hpf (0-3)
--- NOTE | 2021-11-26 09:17 | PC.NURSE ---
discharge call back complete, remains an inpatient at [facility]
== END 2021-11-24 10:50 | disposition short-term general hospital (02) | DRG 191 ==
LOC: CHSED 21:01 → CHS2ND 11-24 03:18
PROVIDERS: Nurse Practitioner; Admitting Provider Internal Medicine; Emergency Provider Emergency Medicine; PCP Family Medicine; Visit Provider Internal Medicine
DX: J44.1 Chronic obstructive pulmonary disease with (acute) exacerbation (principal); I42.9 Cardiomyopathy, unspecified; R06.03 Acute respiratory distress; E03.9 Hypothyroidism, unspecified; E78.5 Hyperlipidemia, unspecified; K21.9 Gastro-esophageal reflux disease without esophagitis; M41.9 Scoliosis, unspecified; F17.210 Nicotine dependence, cigarettes, uncomplicated; F41.9 Anxiety disorder, unspecified
CPT/HCPCS: 36415; 36600; 70450; 71045; 71275; 80053; 81001; 82805; 82948; 83036; 83735; 83880; 84484; 85025; 85380; 85610; 87040; 87804; 93005; 94640; 96374; 99285; A9270; C9113; C9803; J0456; J0696; J2060; J2930; J7030; Q9967; U0003; U0005

== ENCOUNTER 2021-12-17 19:54 | Outpatient (CLI) | payer MEDICARE, MEDICAID, SELFPAY ==
--- NOTE | 2021-12-22 11:20 | WPDSLEEPSTUD ---
Sleep Study Date of Study: 12/17/21 Ordering Provider: Soumya Feldman NP Interpreting Physician: Ann Zhou MD Sleep Study Type: Polysomnogram Height: 1.6 m Weight: 29.484 kg Body Mass Index: 11.5 Neck Circumference (inches): 11.5 [place]: 13 Reason for Sleep Study Hypersomnolence Sleep History Shar Patricia is a 51-year-old female with COPD with cardiomyopathy. She was treated at [facility] in [place], [place] for acute respiratory failure for due to COPD and cardiomyopathy. She has a decreased EF, on one report 15%. She has not been tested for sleep problems. She wakes up throughout the night. She constantly awakens from sleep feeling short of breath. She frequently awakens at night with heartburn, belching or coughing. She frequently snores, but this is never loud enough that others complain about it. She constantly has trouble sleeping with a cold. She frequently wakes up gasping for breath at night. She constantly has breathing problems at night observed by others. She occasionally sweats excessively at night and occasionally has irregular heartbeats at night. She frequently falls asleep during the day, rarely falls asleep involuntarily, never falls asleep while driving. She does not have loss of muscle tone with strong emotion. She does not have daytime difficulties due to excessive sleepiness. She does not feel paralyzed on waking or falling asleep. She does not have vivid dreamlike scenes upon awakening or falling asleep. She does not feel afraid to go to sleep. She occasionally has nightmares. She occasionally remembers her dreams. She does not have racing thoughts. She occasionally feels sad or depressed. She does not have anxiety. She does not have muscular tension. She occasionally notices parts of her body jerking. She does not kick at night or have crawling or aching feelings in her legs. She rarely has any kind of leg pain at night. She occasionally has morning jaw pain. She frequently grinds her teeth during sleep. She is not bothered by pain during the day. She occasionally is awakened by pain during the night. She frequently wakes up feeling stiff in the morning, occasionally with sore achy muscles. She does not wake up with pain in the neck and spine. She has headaches, fatigue and she takes antacids regularly. Normal bedtime is between 8:00 p.m. and 10:00 p.m., taking 5-10 minutes to fall asleep. She typically wakes up 3-4 times at night to use her inhalers or her nebulizer. She stays awake for approximately 10 minutes. She wakes at 6 in the morning. Her weekend schedule is the same. Her sleep is often disturbed by feeling short of breath or being thirsty. She takes naps in the afternoon or evening. A short nap may be refreshing. She feels better in the morning compared to other times of day. Habits: Tobacco, quit a month ago. Caffeine 3 servings a day. No alcohol or recreational drugs. [facility] Past Medical History Medical History Anxiety Cardiomyopathy Cigarette nicotine dependence COPD (chronic obstructive pulmonary disease) Dyslipidemia GERD (gastroesophageal reflux disease) Hypothyroidism Scoliosis Tobacco abuse Surgical History Surgical History H/O laparoscopy H/O oral surgery History of Family History Family History Father , father had cancer of the lymph nodes. He in 2008 he had diabetes / hypertension Diabetes mellitus Hypertension Lung cancer Mother Cerebrovascular accident Sibling Hypothyroidism Social History Social History (Updated 12/24/21 @ 10:57 by Ann Zohu MD) Smoking packs per day: 0.5 Smoking cigarettes per day: 10.0 Years smoked: 36 Smoking pack-years: 18.00 Smoking status: Former smoker Tobacco type: cigarettes Alcohol intake:
[2021-12-24 11:07] VITALS: BMI 11.5
== END 2021-12-18 05:49 | disposition home or self-care (01) ==
LOC: CHSCSM 19:55
PROVIDERS: PCP Family Medicine; Visit Provider Nurse Practitioner Family
DX: R06.00 Dyspnea, unspecified (principal); R06.03 Acute respiratory distress; J44.9 Chronic obstructive pulmonary disease, unspecified; G47.30 Sleep apnea, unspecified
CPT/HCPCS: 95810

== ENCOUNTER → 2021-12-31 19:50 | Outpatient (CLI) | payer MEDICARE, MEDICAID, SELFPAY ==
--- NOTE | 2022-01-01 21:22 | WPDSLEEPSTUD ---
Sleep Study Date of Study: 12/31/21 Ordering Provider: Soumya Feldman NP Interpreting Physician: Ann Zhou MD Sleep Study Type: CPAP Titration Height: 1.6 m Weight: 29.484 kg Body Mass Index: 11.5 Neck Circumference (inches): 11.5 [place]: 13 Reason for Sleep Study * Basic nocturnal polysomnogram 12/17/2021 with mild obstructive sleep apnea with an apnea hypopnea index of 6.6, desaturation to 85% with sinus tachycardia. She returns for a CPAP titration. Sleep History Shar Patricia is a 51-year-old female with COPD and cardiomyopathy. She was treated at [facility] in [place], [place] for acute respiratory failure for due to COPD and cardiomyopathy. She has a decreased EF, on one report 15%. She has not been tested for sleep problems. She wakes up throughout the night. She constantly awakens from sleep feeling short of breath. She frequently awakens at night with heartburn, belching or coughing. She frequently snores, but this is never loud enough that others complain about it. She constantly has trouble sleeping with a cold. She frequently wakes up gasping for breath at night. She constantly has breathing problems at night observed by others. She occasionally sweats excessively at night and occasionally has irregular heartbeats at night. She frequently falls asleep during the day, rarely falls asleep involuntarily, never falls asleep while driving. She does not have loss of muscle tone with strong emotion. She does not have daytime difficulties due to excessive sleepiness. She does not feel paralyzed on waking or falling asleep. She does not have vivid dreamlike scenes upon awakening or falling asleep. She does not feel afraid to go to sleep. She occasionally has nightmares. She occasionally remembers her dreams. She does not have racing thoughts. She occasionally feels sad or depressed. She does not have anxiety. She does not have muscular tension. She occasionally notices parts of her body jerking. She does not kick at night or have crawling or aching feelings in her legs. She rarely has any kind of leg pain at night. She occasionally has morning jaw pain. She frequently grinds her teeth during sleep. She is not bothered by pain during the day. She occasionally is awakened by pain during the night. She frequently wakes up feeling stiff in the morning, occasionally with sore achy muscles. She does not wake up with pain in the neck and spine. She has headaches, fatigue and she takes antacids regularly. Normal bedtime is between 8:00 p.m. and 10:00 p.m., taking 5-10 minutes to fall asleep. She typically wakes up 3-4 times at night to use her inhalers or her nebulizer. She stays awake for approximately 10 minutes. She wakes at 6 in the morning. Her weekend schedule is the same. Her sleep is often disturbed by feeling short of breath or being thirsty. She takes naps in the afternoon or evening. A short nap may be refreshing. She feels better in the morning compared to other times of day. Habits: Tobacco, quit a month ago. Caffeine 3 servings a day. No alcohol or recreational drugs. [facility] Past Medical History Medical History Anxiety Cardiomyopathy Cigarette nicotine dependence COPD (chronic obstructive pulmonary disease) Dyslipidemia GERD (gastroesophageal reflux disease) Hypothyroidism Scoliosis Tobacco abuse Surgical History Surgical History H/O laparoscopy H/O oral surgery History of Family History Family History Father , father had cancer of the lymph nodes. He in 2008 he had diabetes / hypertension Diabetes mellitus Hypertension Lung cancer Mother Cerebrovascular accident Sibling Hypothyroidism Social History Social History Smoking packs p
[2022-01-02 13:07] VITALS: BMI 11.5
== END ==
PROVIDERS: PCP Nurse Practitioner Family; Visit Provider Nurse Practitioner Family
DX: G47.33 Obstructive sleep apnea (adult) (pediatric) (principal); I42.9 Cardiomyopathy, unspecified; J44.9 Chronic obstructive pulmonary disease, unspecified; E03.9 Hypothyroidism, unspecified; E78.5 Hyperlipidemia, unspecified; K21.9 Gastro-esophageal reflux disease without esophagitis; F41.9 Anxiety disorder, unspecified; Z87.891 Personal history of nicotine dependence
CPT/HCPCS: 95810

== ENCOUNTER 2022-02-28 13:00 | Emergency (ER) | payer MEDICARE, MEDICAID, SELFPAY ==
[2022-02-28 13:05] VITALS: BP 109/76; PULSE 103; RESP 20; TEMP 36.9; O2SAT 97
--- NOTE | 2022-02-28 13:20 | ED.SKABFB ---
HPI - Skin/Abscess/Foreign Bdy General Chief complaint: Skin/Abscess/Foreign Body Stated complaint: left hand swollen and hurting Time Seen by Provider: 02/28/22 13:20 Source: patient Mode of arrival: ambulatory Limitations: no limitations History of Present Illness HPI narrative: 51-year-old female with a history of smoking, COPD, KARLY on home oxygen, cardiomyopathy with an EF of 21-30%, hypothyroidism presents to the ER with a 1 day history of -- cat scratch on the back of her left hand -- redness /erythema on the back of her left hand. Yesterday the area was itchy but today it is painful Has chronic shortness of breath. MD complaint: rash Onset (ago): day(s) ( Started yesterday) Tetanus up to date: no Location: L hand Severity: mild Quality: burning Pain Consistency: constant Relieving factors: none Exacerbating factors: none Context: other ( following cat scratch) Associated symptoms: shortness of breath Treatments prior to arrival: none Related Data Home Medications Medication Instructions Recorded Confirmed omeprazole 20 mg capsule,delayed 20 mg PO BID 09/25/19 02/28/22 release aspirin 81 mg chewable tablet 1 tablet PO DAILY 12/01/21 02/28/22 Allergies Allergy/AdvReac Type Severity Reaction Status Date / Time budesonide [From Symbicort] Allergy Severe breathing Verified 02/10/22 08:12 issues formoterol [From Symbicort] Allergy Severe breathing Verified 02/10/22 08:12 issues Review of Systems Review of Systems: All systems reviewed & are unremarkable except as noted in HPI and below Constitutional: Constitutional: Reports as per HPI and Reports no additional constitutional complaints Eyes: Eyes: Reports as per HPI and Reports no additional eye complaints ENT: Reports system reviewed and no additional complaints, except as documented and Reports as per HPI Cardiovascular: Cardiovascular: Reports as per HPI and Reports no additional cardiovascular complaints Respiratory: Respiratory: Reports as per HPI, Reports no additional respiratory complaints, Reports chest congestion, Reports cough and Reports dyspnea Gastrointestinal: Gastrointestinal: Reports as per HPI and Reports no additional gastrointestinal complaints Genitourinary: Genitourinary: Reports no additional female genitourinary complaints and Reports as per HPI Musculoskeletal: Musculoskeletal: Reports no additional musculoskeletal complaints and Reports as per HPI Integumentary/Breasts: Skin/Breast: Reports system reviewed and no additional complaints, except as docu, Reports as per HPI and Reports rash Comments: skin rash on the back of the left hand following cat scratch Neurologic: Reports system reviewed and no additional complaints, except as documented Psychiatric: Psychiatric: Reports no additional psychiatric complaints and Reports as per HPI Endocrine: Endocrine: Reports no additional endocrine complaints and Reports as per HPI Hematologic/Lymphatic: Hematologic/Lymphatic: Reports no additional hematologic/lymphatic complaints and Reports as per HPI Allergic/Immunologic: Allergic/Immunologic: Reports no additional allergic/immunologic complaints and Reports as per HPI PMFSH Past Medical History Medical History Anxiety Cardiomyopathy Chest tightness Cigarette nicotine dependence COPD (chronic obstructive pulmonary disease) COPD exacerbation Dental abscess Dyslipidemia Dyspnea GERD (gastroesophageal reflux disease) Healthcare maintenance Hypothyroidism Otitis externa Pain, dental Phlebitis of left upper extremity Positive depression screening Scoliosis Shortness of Breath Sinusitis Tobacco abuse Surgical History Surgical History H/O laparoscopy H/O oral surgery History of Family History Family History Father , moshe
[2022-02-28] MEDS: AZITHROMYCIN 250 MG TABLET 500 MG PO (13:48)
[2022-02-28] MEDS: TETANUS,DIPHTHERIA,AC PERTUSSIS ADULT 0.5 ML (ADACEL) IM (13:49)
[2022-02-28 13:58] VITALS: BP 109/76; PULSE 103; RESP 20; TEMP 36.6; O2SAT 97
== END 2022-02-28 13:55 | disposition home or self-care (01) ==
PROVIDERS: Emergency Provider Internal Medicine Critical Care Medicine; PCP Nurse Practitioner Family
DX: S60.512A Abrasion of left hand, initial encounter (principal); L08.9 Local infection of the skin and subcutaneous tissue, unspecified; W55.03XA Scratched by cat, initial encounter; J44.9 Chronic obstructive pulmonary disease, unspecified; E78.5 Hyperlipidemia, unspecified; K21.9 Gastro-esophageal reflux disease without esophagitis; E03.9 Hypothyroidism, unspecified; Z87.891 Personal history of nicotine dependence
CPT/HCPCS: 90471; 90715; 99283; A9270

== ENCOUNTER 2022-07-30 08:18 | Outpatient (CLI) | payer MEDICARE, MEDICAID, SELFPAY ==
[2022-07-30 08:50] LABS: Alanine Aminotransferase 21 U/L (14-59); Albumin Level 3.5 g/dL (3.4-5.0); Alkaline Phosphatase 94 U/L (46-116); Anion Gap 4 mmol/L (8-16); Aspartate Amino Transferase 16 U/L (15-37); Bilirubin,Total 0.4 mg/dL (0.00-1.00); Blood Urea Nitrogen 16 mg/dL (7-18); Calcium 8.8 mg/dL (8.5-10.1); Carbon Dioxide 31 mmol/L (21-32); Chloride 106 mmol/L (98-108); Cholesterol 153 mg/dL (0-200); Estimated Glomerular Filt Rate > 60; Glucose 89 mg/dL (70-99); HDL Direct 77 mg/dL (40-60); LDL Cholesterol Calculated 64 mg/dL (<130); Osmolality Calculated 292 mOsm/kg (285-295); Potassium 4.7 mmol/L (3.5-5.1); Sodium 141 mmol/L (136-145); Total Protein 6.9 g/dL (6.4-8.2); Triglycerides 60 mg/dL (0-150)
== END 2022-07-30 08:19 | disposition home or self-care (01) ==
LOC: CHSLAB 08:20
PROVIDERS: PCP Family Medicine; Visit Provider Internal Medicine Cardiovascular Disease
DX: E78.5 Hyperlipidemia, unspecified (principal)
CPT/HCPCS: 36415; 80053; 80061

== ENCOUNTER 2022-10-31 22:53 | Emergency (ER) | payer MEDICARE, MEDICAID, SELFPAY ==
[2022-10-31] VITALS (15 sets, daily range): BP systolic 133–175; BP diastolic 78–143; PULSE 135–144; RESP 24–37; O2SAT 92–100
--- NOTE | ~2022-10-31 | CT_ITS ---
EXAMINATION: CT chest abdomen pelvis wo con DATE: 11/01/2022 04:54 INDICATION: Lactic acidosis and shortness of breath TECHNIQUE: Transaxial computed tomographic images of the chest, abdomen, and pelvis were obtained wit hout intravenous contrast. The dose-length product (DLP) was 237.73 mGy-cm. Automated exposure contro l and iterative reconstruction technique were employed. COMPARISON: 11/23/2021 FINDINGS: CHEST CT: There is severe emphysema. A 6 mm nodule in the superior segment of the left lower lobe is new since the comparison examination. No pleural effusion or pneumothorax. There is a 9 mm x 6 mm pleural-based nodule posteriorly in the left upper lobe. The endotracheal tube ends approximately 3.5 cm above the denilson. No pathologically enlarged thoracic lymph nodes are identified. The heart size is normal. A stable calcified nodule is present in the medial aspect of the right upper lobe. ABDOMEN/PELVIS CT: The gallbladder is distended. Within the limitations of noncontrast examination, the liver, spleen, p ancreas, and adrenal glands are normal. The kidneys are unremarkable. There is a small volume of asci he. A large volume of colonic stool is present. There is a Thomas catheter in the bladder. No patholo gically enlarged abdominal or pelvic lymph nodes are identified. No free intraperitoneal gas or evide nce of bowel obstruction. IMPRESSION: 1. Severe emphysema. 2. Constipation. 3. Distended gallbladder which could be due to fasting state or possibly cholecystitis. 4. New left pulmonary nodules. Follow-up CT in three months is recommended. Reviewed, dictated and finalized at location A. WOOD FINISHER IMPRESSION: 1. Severe emphysema. 2. Constipation. 3. Distended gallbladder which could be due to fasting state or possibly cholec ystitis. 4. New left pulmonary nodules. Follow-up CT in three months is recommended.
--- NOTE | ~2022-10-31 | XR_ITS ---
EXAMINATION: XR chest 1V portable INDICATION: Shortness of breath TECHNIQUE: Portable AP chest at 2318 hours COMPARISON: 11/23/2021 FINDINGS: The lungs are free of acute opacities. No pleural effusion or pneumothorax. Emphysema is no liz. The cardiomediastinal silhouette is normal. There is thoracic dextroscoliosis. IMPRESSION: 1. Emphysema. Reviewed, dictated and finalized at location A. PAINTER IMPRESSION: 1. Emphysema.
--- NOTE | ~2022-10-31 | XR_ITS ---
EXAMINATION: XR chest ET placement INDICATION: Endotracheal tube placement TECHNIQUE: Portable AP chest at 0327 hours COMPARISON: 10/31/2022 FINDINGS: The endotracheal tube ends approximately 3.2 cm above the denilson. The lungs are hyperinflat ed but free of acute opacities. No pleural effusion or pneumothorax. The cardiomediastinal silhouette is normal. Thoracic dextroscoliosis is noted. IMPRESSION: 1. Endotracheal tube approximately 3.2 cm above the denilson. 2. Emphysema. Reviewed, dictated and finalized at location A. CLEANER
--- NOTE | 2022-10-31 22:56 | ED.SOB ---
HPI - SOB/Dyspnea General Chief Complaint: Shortness of Breath/Dyspnea Stated Complaint: passed out/can't breath/brought in by sister Time Seen by Provider: 10/31/22 22:56 Source: patient Mode of arrival: ambulatory Limitations: no limitations History of Present Illness HPI Narrative: 51-year-old female, smoker with a history of anxiety, cardiomyopathy with Normal coronaries and an EF of 55%, HFpEF, COPD on home oxygen 2 liters/minute, KARLY on CPAP, dyslipidemia presents to the ER with -- worsening shortness of breath for the past few days. -- Patient is in respiratory failure with respiratory rate of 35 and an oxygen saturation of 84% on room air. -- Patient has grunting respiration. Denies fever. no chest pain multiple family members have had upper respiratory tract infection over the past 2-3 days. MD elicited complaint: shortness of breath and cough Pertinent past history: COPD and congestive heart failure Onset (ago): day(s) Context: anxiety Timing: constant Severity: severe Exacerbating factors: exertion Relieving factors: nothing Known history of: COPD and congestive heart failure Associated symptoms: denies other symptoms Treatment prior to arrival: oxygen and bronchodilator Related Data Home oxygen amount: 2 liters Allergies Allergy/AdvReac Type Severity Reaction Status Date / Time budesonide [From Symbicort] Allergy Severe breathing Verified 10/07/22 11:43 issues formoterol [From Symbicort] Allergy Severe breathing Verified 10/07/22 11:43 issues Review of Systems Review of Systems: All systems reviewed & are unremarkable except as noted in HPI and below Constitutional: Constitutional: Reports as per HPI and Reports no additional constitutional complaints Eyes: Eyes: Reports as per HPI and Reports no additional eye complaints ENT: Reports system reviewed and no additional complaints, except as documented and Reports as per HPI Cardiovascular: Cardiovascular: Reports as per HPI and Reports no additional cardiovascular complaints Respiratory: Respiratory: Reports as per HPI, Reports no additional respiratory complaints, Reports cough, Reports dyspnea and Reports wheezing Gastrointestinal: Gastrointestinal: Reports as per HPI and Reports no additional gastrointestinal complaints Genitourinary: Genitourinary: Reports no additional female genitourinary complaints and Reports as per HPI Musculoskeletal: Musculoskeletal: Reports no additional musculoskeletal complaints and Reports as per HPI Integumentary/Breasts: Skin/Breast: Reports system reviewed and no additional complaints, except as docu and Reports as per HPI Neurologic: Reports system reviewed and no additional complaints, except as documented and Reports as per HPI Psychiatric: Psychiatric: Reports no additional psychiatric complaints and Reports as per HPI Endocrine: Endocrine: Reports no additional endocrine complaints and Reports as per HPI Hematologic/Lymphatic: Hematologic/Lymphatic: Reports no additional hematologic/lymphatic complaints and Reports as per HPI Allergic/Immunologic: Allergic/Immunologic: Reports no additional allergic/immunologic complaints and Reports as per HPI [facility] Past Medical History Medical History Anxiety Cardiomyopathy Chest tightness Cigarette nicotine dependence COPD (chronic obstructive pulmonary disease) COPD exacerbation Dental abscess Dyslipidemia Dyspnea GERD (gastroesophageal reflux disease) Healthcare maintenance Hypothyroidism Otitis externa Pain, dental Phlebitis of left upper extremity Positive depression screening Scoliosis Shortness of Breath Sinusitis Tobacco abuse Surgical History Surgical History H/O laparoscopy H/O oral surgery History of Family History Family History Father , father had c
--- NOTE | 2022-10-31 22:57 | ECG_ITS ---
Measurements Intervals [place] Rate: 133 P: 75 ME: 135 QRS: 46 QRSD: 64 T: 89 QT: 332 QTc: 496 Interpretive Statements SINUS TACHYCARDIA SIGNIFICANT ARTIFACT LIMITS INTERPRETATION. NONSPECIFIC ST T WAVE ABNORMALITY. LOW VOLTAGE ABNORMAL ECG COMPARED TO ECG 11/24/2021 06:34:24 MYOCARDIAL INFARCT FINDING NOW PRESENT Electronically Signed On 11-01-2022 11:27:52 POULTRY HATCHERY SUPERVISOR by Blanco Ruvalcaba M.D.
[2022-10-31] MEDS: methylPREDNISolone SOD SUCC 125 MG VIAL IV PUSH (23:11)
[2022-10-31] MEDS: FUROSEMIDE INJ 20 MG/2 ML VIAL IV PUSH (23:11)
[2022-10-31] MEDS: IPRATROPIUM 0.5 MG/ALBUTEROL SULFATE 2.5 MG AMPUL.NEB 3 ML INHALATION (23:11)
[2022-10-31 23:14] LABS: Hematocrit 40.2 % (35.0-49.0); Hemoglobin 12.3 g/dL (12.0-15.0); Mean Corpuscular HGB Conc 30.6 g/dL (32.0-36.0); Mean Corpuscular Hemoglobin 29.4 pg (27.0-31.0); Mean Corpuscular Volume 95.9 fL (78.0-102.0); Mean Platelet Volume 10.7 fl (9.2-11.8); Platelet Count Result 284 K/mm3 (150-420); Red Blood Count 4.19 M/mm3 (4.20-5.40); Red Cell Distribution Width 13.1 % (11.6-14.4); White Blood Count 10.8 K/mm3 (4.8-10.8)
[2022-10-31] MEDS: ONDANSETRON INJ 4 MG/2 ML VIAL IV PUSH (23:30)
[2022-10-31 23:32] LABS: Lactic Acid Reflex 14.5 mmol/L (0.4-2.0)
[2022-10-31 23:33] LABS: D Dimer 0.27 mg/L (0.19-0.50); INR 1.1; Partial Thromboplastin Time 28.4 SEC (23.90-30.70); Prothrombin Time 11.6 Seconds (9.50-12.10)
[2022-10-31 23:37] LABS: Alanine Aminotransferase 33 U/L (14-59); Albumin Level 3.6 g/dL (3.4-5.0); Alkaline Phosphatase 89 U/L (46-116); Anion Gap 18 mmol/L (8-16); Aspartate Amino Transferase 40 U/L (15-37); Bilirubin,Total 0.2 mg/dL (0.00-1.00); Blood Urea Nitrogen 17 mg/dL (7-18); Calcium 8.8 mg/dL (8.5-10.1); Carbon Dioxide 24 mmol/L (21-32); Chloride 101 mmol/L (98-108); Estimated Glomerular Filt Rate 46; Glucose 197 mg/dL (70-99); NT Pro B Type Natriuretic Pept 224 pg/mL (0-125); Osmolality Calculated 302 mOsm/kg (285-295); Sodium 143 mmol/L (136-145); Thyroid Stimulating Hormone 2.33 uIU/mL (0.36-3.74); Total Protein 6.8 g/dL (6.4-8.2); Troponin I 20.8 ng/L (0.00-60.4)
[2022-10-31 23:42] LABS: Band Neutrophils Percent 1 % (0-6); Lymphocytes Absolute Manual 7.23 K/mm3 (1.1-4.5); Lymphocytes Percent Manual 67 % (18-44); Neutrophils Absolute Manual 3.02 K/mm3 (1.7-7.2); Neutrophils Percent Manual 27 % (46-73); Total Cells Counted 100
[2022-10-31 23:43] LABS: Atypical Lymphocytes Present; Basophils Percent Manual 1 % (0-1); Eosinophils Percent Manual 1 % (1-6); Giant Platelets Present; Hypersegmented Neutrophils Present; Large Platelets Present; Monocytes Absolute Manual 0.32 K/mm3 (0.1-0.90); Monocytes Percent Manual 3 % (3-9); Platelet Estimate Adequate (Adequate); Schistocytes None Seen (NORMAL)
[2022-10-31 23:56] LABS: Base Excess ABG -9.2 mmol/L (0-2); HCO3 ABG 18.9 mmol/L (23-29); Oxygen Content ABG 17.5 %vol (16.0-22.0); Oxygen Saturation ABG 92.8 % (95-97); Oxyhemoglobin 91.1 % (94-100); PCO2 ABG 49.8 mmHg (35-45); PO2 ABG 79.5 mmHg (80-90); Total Hemoglobin 13.6 g/dL (12.0-18.0)
[2022-10-31 23:57] LABS: Device NASAL CANNULA; Modified Allen's Test Pass; Site Drawn RIGHT RADIAL
[2022-11-01] VITALS (30 sets, daily range): BP systolic 72–174; BP diastolic 29–123; PULSE 87–139; RESP 20–36; TEMP 36.1; O2SAT 91–100
[2022-11-01 00:05] LABS: Influenza A QL RT-PCR Negative (Negative); Influenza B QL RT-PCR Negative (Negative); SARS-CoV-2 RNA PCR Negative (Negative)
[2022-11-01 00:13] LABS: RSV RNA, RT-PCR Negative (Negative)
[2022-11-01] MEDS: LACTATED RINGERS 500 ML 999 ML IV CONT (00:32)
[2022-11-01 02:06] LABS: Reflex Lactic Acid Yes or No Add Lactic
[2022-11-01] MEDS: ONDANSETRON INJ 4 MG/2 ML VIAL IV PUSH (02:09)
[2022-11-01] MEDS: LACTATED RINGERS 1,000 ML 999 ML IV CONT (02:10)
[2022-11-01] MEDS: ALBUTEROL SULFATE NEB 2.5 MG/3 ML INH INHALATION (02:48)
[2022-11-01] MEDS: ETOMIDATE 20 MG/10 ML AMPUL IV PUSH (03:39)
[2022-11-01] MEDS: MIDAZOLAM HCL (*CRX) 2 MG/2 ML VIAL 5 MG IV PUSH ×2 (03:43→03:45)
[2022-11-01] MEDS: SUCCINYLCHOLINE CHLORIDE 20 MG/ML 10 ML VIAL 100 MG IV PUSH (03:44)
[2022-11-01 03:51] LABS: Lactic Acid 10.6 mmol/L (0.4-2.0)
[2022-11-01 03:55] LABS: Troponin I 981.2 ng/L (0.00-60.4)
[2022-11-01] MEDS: SODIUM CHLORIDE 0.9% IV 500 ML 999 ML IV CONT (04:05)
[2022-11-01] MEDS: flumazeniL 0.5 MG/5 ML VIAL (04:05)
[2022-11-01 04:09] LABS: NT Pro B Type Natriuretic Pept 447 pg/mL (0-125)
[2022-11-01] MEDS: flumazeniL 0.5 MG/5 ML VIAL 0.2 MG IV PUSH ×2 (04:21→05:16)
[2022-11-01] MEDS: SODIUM BICARBONATE 8.4% 50 MEQ/50 ML SYRINGE 100 MEQ IV PUSH (05:16)
[2022-11-01] MEDS: methylPREDNISolone SOD SUCC 40 MG VIAL IV PUSH (05:16)
--- NOTE | 2022-11-01 05:49 | PC.NURSE ---
[id number], cont on heart monitor at SR 100, SPO2 100%, and on mech vent
--- NOTE | 2022-11-01 07:54 | PC.NURSE ---
This RN left with the pt, EMS and respiratory to transfer the pt to [facility] ICU bed 7. pt had a bp of 109/40 when leaving at 0542. in route pt did not require additional medications besides the rommel. upon arrival to the [facility] we titrated up to 85ML/hr of rommel. when we got to the ICU we were met by receiving staff. pt began becoming more awake and was thrashing in bed. pt was given 2mg of midazolam that this RN had brought for sedation incase the pt needed. Receiving RN and respiratory therapist assumed care, after the pt was started on the rommel drip that was compatible with their pumps.
--- NOTE | 2022-11-07 12:46 | PC.NURSE ---
final blood culture report resulted. no growth after 5 days x2. no change in pt plan of care.
== END 2022-11-01 05:42 | disposition short-term general hospital (02) ==
PROVIDERS: Emergency Provider Internal Medicine Critical Care Medicine; PCP Family Medicine
DX: J96.02 Acute respiratory failure with hypercapnia (principal); I21.4 Non-ST elevation (NSTEMI) myocardial infarction; I95.9 Hypotension, unspecified; J44.1 Chronic obstructive pulmonary disease with (acute) exacerbation; E78.5 Hyperlipidemia, unspecified; I50.9 Heart failure, unspecified; E03.9 Hypothyroidism, unspecified; Z99.81 Dependence on supplemental oxygen; Z87.891 Personal history of nicotine dependence; Z20.822 Contact with and (suspected) exposure to COVID-19
CPT/HCPCS: 31500; 36415; 36600; 71045; 71250; 74176; 80053; 82805; 83605; 83880; 84443; 84484; 85025; 85380; 85610; 85730; 87040; 87637; 93005; 94640; 96365; 96366; 96367; 96375; 96376; 99291; J0330; J0456; J0696; J1940; J2250; J2370; J2405; J2704; J2920; J2930; J7040; J7120

== ENCOUNTER 2022-11-01 06:05 | Inpatient (IN) | payer MEDICARE, MEDICAID, SELFPAY ==
[2022-11-01] VITALS (122 sets, daily range): BP systolic 36–204; BP diastolic 17–169; PULSE 102–200; RESP 0–35; TEMP 34.7–37.9; O2SAT 97–100
--- NOTE | 2022-11-01 | ECHO_ITS ---
Patient Info Name: Shar Patricia Age: 51 years : 1970 Gender: Female Ht: 63 in Wt: 78 lbs BSA: 1.23 m2 BP: 124 / 80 mmHg Technical Quality: Fair Exam Date: 11/01/2022 12:21 PM Exam Location: [facility] Patient Status: Inpatient Admit Date: 11/01/2022 Staff Ordering Physician: Mariya Sorensen DO Neon Sign Mechanic: Michelle Clayton RDCS Attending Provider: Mariya Sorensen DO Referring Physician: Edu GUTIERREZ; Exam Type: CA echo doppler color flow Study Info Indications - RESPIRATORY FAILURE I42.9 - Cardiomyopathy, unspecified Complete two-dimensional, color flow and Doppler transthoracic echocardiogram is performed. Summary 1. Complete two-dimensional, color flow and Doppler transthoracic echocardiogram is performed. 2. No apical views obtained. Subcostal views are obtained in lieu of apical views. 3. Left ventricular chamber dimension is moderately enlarged. 4. Left ventricular systolic function is severely globally reduced in the mid to apical segments, estimated at 10-15% . 5. The basal segments throughout have normal contractility suggesting Takotsubo cardiomyopathy. 6. The left ventricular diastolic function is abnormal. 7. E/e' 18 is elevated. 8. Right ventricular systolic function is severely reduced with normal basal segment contractility. 9. The aortic valve is not well visualized. Cannot determine number of aortic valve leaflets. 10. There is mild aortic valve stenosis based on a peak velocity of 133 cm/s, mean gradient of 5 mmHg, and aortic valve area of 1.3 cm2. 11. No pulmonary hypertension, estimated pulmonary arterial systolic pressure is 34 mmHg. 12. Normal inferior vena cava with <50% collapse upon inspiration consistent with elevated right atrial pressure, 10 mmHg. Left Ventricle E/e' 18 is elevated. Left ventricular systolic function is severely globally reduced in the mid to apical segments, estimated at 10-15% . The basal segments throughout have normal contractility suggesting Takotsubo cardiomyopathy. No apical views obtained. Subcostal views are obtained in lieu of apical views. Left ventricular chamber dimension is moderately enlarged. The left ventricular diastolic function is abnormal. Right Ventricle Right ventricular systolic function is severely reduced with normal basal segment contractility. Right ventricular chamber dimension is not well visualized. Left Atria Left atrial chamber dimension is normal. Right Atria Right atrial chamber dimension is normal. Aortic Valve The aortic valve is not well visualized. Cannot determine number of aortic valve leaflets. There is mild aortic valve stenosis based on a peak velocity of 133 cm/s, mean gradient of 5 mmHg, and aortic valve area of 1.3 cm2. There is no aortic valve sclerosis. There is no aortic valve regurgitation. Pulmonic Valve There is no pulmonic regurgitation. Mitral Valve There is no mitral valve stenosis. There is no mitral valve regurgitation. Tricuspid Valve There is no tricuspid valve regurgitation. No pulmonary hypertension, estimated pulmonary arterial systolic pressure is 34 mmHg. Pericardium/Pleural There is no pericardial effusion. Inferior Vena Cava Normal inferior vena cava with <50% collapse upon inspiration consistent with elevated right atrial pressure, 10 mmHg. Aorta The aortic root size at the sinus of Valsalva is not well visualized. Left Ventricular Outflow Tract
--- NOTE | ~2022-11-01 | US_ITS ---
Limited Abdominal Sonogram: Real-time sonographic imaging of the right upper quadrant was performed. Clinical History: Gallbladder distention Findings: The liver appears normal with no evidence of mass lesion or bile duct dilatation. Main por jas vein demonstrates normal direction of flow. The gallbladder is well distended, and appears normal with no evidence of gallstone or wall thickening. The common bile duct measures 4 mm. The visualize d pancreas, aorta, and IVC are unremarkable. Trace ascites noted. Impression: Trace ascites. No other significant abnormality identified. Reviewed, dictated and finalized at location M. COATER Impression: Trace ascites. No other significant abnormality identified.
--- NOTE | ~2022-11-01 | XR_ITS ---
Portable chest x-ray Comparison: 11/04/2022 Clinical History: Respiratory failure Findings: Endotracheal tube and NG tube remain in place. Right basilar consolidation is unchanged. U nderlying COPD pattern present. Cardiomediastinal silhouette is stable. Bones and soft tissues are u nremarkable. Impression: Stable right basilar pneumonia. Underlying COPD. Stable support tubes. Reviewed, dictated and finalized at location . [place] MORTGAGE BANKER Impression: Stable right basilar pneumonia. Underlying COPD. Stable support tubes.
--- NOTE | ~2022-11-01 | US_ITS ---
EXAMINATION: US abdomen limited DATE: 11/04/2022 17:08 INDICATION: Elevated liver function tests TECHNIQUE: Multiple grayscale and Doppler ultrasound images of the abdomen were obtained. COMPARISON: CT abdomen pelvis dated 11/02/2022 and ultrasound dated 11/01/2022 FINDINGS: The visual is portions of the pancreatic body and tail are normal in appearance. Main pancreatic duct measures 2 mm diameter at the pancreatic body. Liver has normal echogenicity and contour, with a smo oth surface. No liver lesion identified. No intrahepatic biliary duct dilation suspected. Portal veno us flow was seen in the hepatopetal, normal direction. There is increased portal venous pulsatility w ithout flow reversal. Proximal to mid inferior vena cava is normal. The gallbladder is not definitive ly visualized and what is labeled by the technologist is the gallbladder appears more likely to repre sent the fluid and debris filled proximal duodenum and as there is no evident sludge or gallstones wi thin the gallbladder on the prior ultrasound or subsequent CT which the lumen was filled with francy usly excreted contrast. Common bile duct measures 405 mm diameter which is normal. Small amount of pe rihepatic ascites at the foramen of [place] situated between the liver and normal-appearing right kid amparo. There is also a right pleural effusion. IMPRESSION: 1. Right pleural effusion and small amount of ascites. 2. No intra or extrahepatic biliary ductal dilation. Gallbladder is not definitively visualized. 3. Increased portal venous pulsatility with normal directional flow which can be seen with tricuspid regurgitation or right heart failure. Reviewed, dictated and finalized at location A. RBOAT MECHANIC IMPRESSION: 1. Right pleural effusion and small amount of ascites. 2. No intra or extrahepatic biliary ductal dilation. Gallbladder is not definit ively visualized. 3. Increased portal venous pulsatility with normal directional flow which can b e seen with tricuspid regurgitation or right heart failure.
--- NOTE | ~2022-11-01 | XR_ITS ---
XR chest 1V portable DATE: 11/08/2022 06:11 INDICATION: Respiratory failure TECHNIQUE: Portable AP chest on November 08, 2022 at 0537 hours COMPARISON: November 07, 2019 portable AP chest at 0523 hours FINDINGS: ET tube in satisfactory position 4.5 cm above denilson. NG tube in stomach. Right upper extre mity PIC catheter tip overlying superior vena cava. Normal heart size. Further mild improvement in right lower lung infiltrate. Prominent thoracic dextroscoliosis. Hyperinflation. IMPRESSION: Further mild improvement in right lower lung infiltrate Reviewed, dictated and finalized at location A. TOR SERVICES TECHNICIAN
--- NOTE | ~2022-11-01 | XR_ITS ---
Portable chest x-ray Comparison: 11/03/2022 Clinical History: Respiratory failure Findings: Endotracheal tube and NG tube are in satisfactory positions. Extensive hazy right basilar and right perihilar airspace disease is present. Left lung is clear. Probable underlying COPD. Cardi omediastinal silhouette is stable. Bones and soft tissues are unremarkable. Impression: Extensive hazy airspace disease the right lung base and right perihilar region, suspicious for pneumo donna. Underlying COPD. Support tubes, as above. Reviewed, dictated and finalized at location M. CTION CONTROL NURSE Impression: Extensive hazy airspace disease the right lung base and right perihilar region, suspicious for pneumonia. Underlying COPD. Support tubes, as above.
--- NOTE | ~2022-11-01 | XR_ITS ---
XR chest 1V portable DATE: 11/10/2022 06:13 INDICATION: Respiratory failure TECHNIQUE: Portable upright AP chest on November 10, 2022 at 0540 hours COMPARISON: November 09, 2022 portable AP chest at 0536 hours November 05, 2022 portable AP chest FINDINGS: Bullous emphysema, with relatively sparse lung markings in the upper lung zones. There is mild residual patchy infiltrate in the right lower lung. The lungs otherwise appear clear. No apparent pleural effusion. No pneumothorax or pneumomediastinum. Normal heart size. No hilar or mediastinal enlargement. Prominent reverse S thoracolumbar scoliosis. Osteopenia. IMPRESSION: Bullous emphysema Residual mild patchy right lower lobe infiltrate, with little change since November 09, 2022 Reviewed, dictated and finalized at location A. CIENCE PROFESSOR IMPRESSION: Bullous emphysema Residual mild patchy right lower lobe infiltrate, with little change since 2022
--- NOTE | ~2022-11-01 | XR_ITS ---
Portable chest x-ray Comparison: 11/02/2022 Clinical History: Respiratory failure Findings: Endotracheal tube and NG tube are in satisfactory positions. There is mild hazy airspace d isease at the right lower lobe region. Cardiomediastinal silhouette is stable. Bones and soft tissue s are unchanged. Impression: Hazy right lower lobe airspace disease. Correlate for pneumonia. Underlying COPD. Support tubes, as above. Reviewed, dictated and finalized at location . OW ASSISTANT Impression: Hazy right lower lobe airspace disease. Correlate for pneumonia. Underlying COPD. Support tubes, as above.
--- NOTE | ~2022-11-01 | XR_ITS ---
EXAMINATION: XR abdomen/kub 1V INDICATION: OG placement TECHNIQUE: Supine view of the abdomen is obtained. COMPARISON: 03/01/2014 FINDINGS: The OG tube is in the stomach. The visualized lung bases are clear. Thoracic dextroscoliosi s is noted. IMPRESSION: 1. OG tube in the stomach. Reviewed, dictated and finalized at location A. ERIN SUPERVISOR IMPRESSION: 1. OG tube in the stomach.
--- NOTE | ~2022-11-01 | US_ITS ---
EXAMINATION: US venous doppler UE DATE: 11/03/2022 13:24 INDICATION: Upper limb edema. TECHNIQUE: Grayscale ultrasound images without and with compression and Doppler ultrasound images of the bilateral upper extremity veins were obtained. COMPARISON: Ultrasound 06/20/2021 FINDINGS: The visualized portions of the right internal jugular vein, subclavian vein, axillary vein, brachial veins, basilic vein, cephalic vein, radial vein, and ulnar vein are patent. The visualized portions of the left internal jugular vein, subclavian vein, axillary vein, brachial v eins, basilic vein, cephalic vein, radial vein, and ulnar vein are patent. IMPRESSION: 1. No deep venous thrombosis. Reviewed, dictated and finalized at location A. CH OPERATION EVALUATION MANAGER
--- NOTE | ~2022-11-01 | XR_ITS ---
XR chest 1V portable DATE: 11/07/2022 05:58 INDICATION: Respiratory failure TECHNIQUE: Portable upright AP chest on November 07, 2022 at 0523 hours COMPARISON: Portable AP chest on November 06, 2022 at 0520 hours FINDINGS: There is bilateral hyperinflation, bullous change particularly in the upper lung zones and flattening the diaphragms consistent with COPD There is mild interval improvement of right lower lobe infiltrate since November 06, 2022. There may be very slight right pleural effusion. No left pleural effusion. No pneumothorax. ET and NG tubes in satisfactory position. Right upper extremity PIC catheter tip overlies the superio r vena cava. Prominent thoracic scoliosis. Diffuse osteopenia. IMPRESSION: Interval improvement of right lower lobe infiltrate since November 06, 2022 Reviewed, dictated and finalized at location A. LUTION AGENT
--- NOTE | ~2022-11-01 | CT_ITS ---
EXAMINATION: CTA abdomen pelvis DATE: 11/02/2022 12:20 INDICATION: Acute anemia. TECHNIQUE: Computed tomographic angiography (CTA) of the abdomen and pelvis was performed with 100 mL Omnipaque-350 intravenous contrast. Automated exposure control and iterative reconstruction techniqu e were employed. The dose-length product was 190.73 mGy-cm. Maximum intensity projection 3D-reconstru ctions of the aorta and other arteries were constructed by the technologist on a separate workstation . COMPARISON: CT abdomen and pelvis 11/01/2022, 03/01/14 FINDINGS: There are small pleural effusions. Emphysema is noted. There is dependent atelectasis bilat erally. The heart size is normal. No pericardial effusion. There is mild pectus excavatum. Periportal edema is noted. There is contrast in the gallbladder, which is normal in size. The spleen is normal. There is a 7 mm cystic lesion in the body of the pancreas, stable from 03/01/14, likely benign. There is a 3 mm cyst in right kidney. Left kidney is normal. The bladder is decompressed by a Thomas cathete r. There are no dilated loops of bowel. The appendix is normal. The nasogastric tube tip is in the st omach. There is a right groin central venous catheter with tip in right common iliac vein. Body wall edema is noted. There is a small volume of ascites. There is edema of the intra-abdominal fat. There is no significant stenosis of celiac axis, superior mesenteric artery, or the renal arteries. 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 There is a left groin catheter with tip in left external iliac artery. There is an umbilical hernia containing fat. There is thoracolumbar levo scoliosis and mild lumbar spondylosis. IMPRESSION: 1. Small pleural effusions. 2. Small volume of ascites. 3. Emphysema. Reviewed, dictated and finalized at location A. TS PHYSICIAN
--- NOTE | ~2022-11-01 | CT_ITS ---
Non-contrast Head CT History: Encephalopathy COMPARISON: 11/24/2021 Technique: Axial non-contrast imaging of the brain was performed. Dose reduction technique was used on this scan by utilizing automated exposure control and iterative reconstruction technique. The dose -length product (DLP) was 529.67 mGy-cm. Findings: There is no evidence of intracranial hemorrhage, mass lesion, or acute infarct. Brain par enchyma appears normal. The ventricles and subarachnoid spaces are normal in size. The calvarium ap pears normal. The visualized paranasal sinuses and mastoid air cells are clear. Impression: No significant abnormality seen. Reviewed, dictated and finalized at [facility]. S ORDER ADMINISTRATOR Impression: No significant abnormality seen.
--- NOTE | ~2022-11-01 | XR_ITS ---
EXAMINATION: XR abdomen obstructive series DATE: 11/03/2022 09:43 INDICATION: Abdominal distention TECHNIQUE: Upright and supine views of the abdomen were obtained. COMPARISON: 11/01/2022 FINDINGS: The OG tube is in the stomach. The bowel gas pattern is nonspecific. There is moderate volu me of colonic stool. A moderate volume of gas is present in the ascending colon. No free intraperiton eal gas is identified. There are airspace opacities of the right lung base. IMPRESSION: 1. Nonobstructive bowel gas pattern. 2. Right lower lobe airspace opacity, consistent with atelectasis versus pneumonia. Reviewed, dictated and finalized at location L. D SALES SPECIALIST IMPRESSION: 1. Nonobstructive bowel gas pattern. 2. Right lower lobe airspace opacity, consistent with atelectasis versus pneumo donna.
--- NOTE | ~2022-11-01 | XR_ITS ---
Portable chest x-ray Comparison: 11/08/2022 Clinical History: Respiratory failure Findings: Stable right-sided central venous line present. COPD pattern is unchanged. There is improv ing hazy right basilar airspace disease. Cardiomediastinal silhouette is stable. Bones and soft tiss ues are unremarkable. Impression: Improving hazy right basilar airspace disease. COPD. Support line, as above. Reviewed, dictated and finalized at location M. INE CEMENTER AND FOLDER Impression: Improving hazy right basilar airspace disease. COPD. Support line, as above.
--- NOTE | ~2022-11-01 | XR_ITS ---
Portable chest x-ray Comparison: 11/05/2022 Clinical History: Respiratory failure Findings: Endotracheal tube and NG tube and right-sided central venous line are in satisfactory posi tions. Right basilar pneumonia is similar to minimally improved. COPD pattern is again present. Left lung remains clear. Cardiomediastinal silhouette is stable. Bones and soft tissues are unremarkable. Impression: Right basilar pneumonia is stable to minimally improved from prior exam. COPD. Support tubes, as above. Reviewed, dictated and finalized at location . ESSIONAL DEVELOPMENT INSTRUCTOR Impression: Right basilar pneumonia is stable to minimally improved from prior exam. COPD. Support tubes, as above.
--- NOTE | ~2022-11-01 | XR_ITS ---
Portable chest x-ray Comparison: 11/01/2022 Clinical History: Respiratory failure Findings: Endotracheal tube and NG tube are in satisfactory positions. There is mild hazy and inters titial disease bilaterally. Cardiomediastinal silhouette is stable. Stable dextroscoliosis of the th oracic spine. Impression: Hazy and interstitial pulmonary disease is similar to prior exam. Correlate for COPD and/or superimpo sed pulmonary edema or infection. Support tubes, as above. Reviewed, dictated and finalized at location . RD TABULATING CLERK Impression: Hazy and interstitial pulmonary disease is similar to prior exam. Correlate for COPD and/or superimposed pulmonary edema or infection. Support tubes, as above.
--- NOTE | ~2022-11-01 | CT_ITS ---
Clinical Indication: Respiratory failure CT Scan of the Chest with Contrast: Technique: Contiguous sections were acquired throughout the chest after intravenous administration of 75 cc of Omnipaque 350. Dose reduction technique was used on this scan by utilizing automated exposu re control and iterative reconstruction technique. The dose-length product (DLP) was 152.76 mGy-cm. COMPARISON: 11/01/2022 at 4:48 AM Findings: There is no evidence of any significant mediastinal, hilar or axillary lymphadenopathy. There is no f illing defect in the pulmonary arterial tree to suggest pulmonary embolus. There is no evidence of ao rtic dissection or aneurysm. No pericardial effusion. There are small bilateral pleural effusions with mild bibasilar atelectatic change. There is extensiv e worsening groundglass opacity in the right lower lobe and right middle lobe. There is increased int erstitial thickening at the lung bases. Moderate to severe COPD noted in the upper lobes. Stable 6 mm nodule superior segment left lower lobe (axial image 53). Images through the upper abdomen reveal no abnormalities. Impression: No evidence of pulmonary embolus, aortic dissection, or aortic aneurysm. Worsening groundglass opacity, especially in the right middle lobe and right lower lobe, with worseni ng bibasilar interstitial thickening. Findings are compatible with developing pulmonary edema. Small bilateral pleural effusions with mild bibasilar atelectasis, new from prior exam. Underlying COPD. Stable 6 mm nodule superior segment left lower lobe. Reviewed, dictated and finalized at [facility]. EN TENDER Impression: No evidence of pulmonary embolus, aortic dissection, or aortic aneurysm. Worsening groundglass opacity, especially in the right middle lobe and right lo wer lobe, with worsening bibasilar interstitial thickening. Findings are compat ible with developing pulmonary edema. Small bilateral pleural effusions with mild bibasilar atelectasis, new from seng or exam. Underlying COPD. Stable 6 mm nodule superior segment left lower lobe.
--- NOTE | 2022-11-01 06:05 | PM.IMHP ---
H&P: HPI History of Present Illness Date/Time: 11/01/22 06:05 Chief Complaint: Collapse, respiratory failure Narrative: 51-year-old female with a past medical history of nonischemic cardiomyopathy with normalized ejection fraction, COPD with continuous tobacco use, noncompliance with home oxygen and CPAP therapy who presented to the ER at [facility] with respiratory distress. Source of information is ER report and EMS report. Nurse from the outside facility a accompanied the patient in transport. The patient had evidently been out shopping with her family without wearing her oxygen. She developed acute sudden respiratory distress. CV collapse in the field. The family called EMS but they were taking too long to arrive at the scene so they drove the patient to the local ER. The patient's sister read into the ER yelling the patient needed oxygen. The nurse had to go out to the patient scarring rickey the patient into the ER. The patient's oxygen saturation was 84% on room air. She was placed on a non-rebreather and evidently had improvement in her mental status. She was weaned down to 2 L nasal cannula after she received 125 of IV Solu-Medrol and a stat DuoNeb. Given her history of cardiomyopathy she was initially given 20 mg of Lasix. However the patient's lactic acid at the outside facility came back as 14. The patient subsequently received a 500 mL bolus. Her repeat lactic acid after resuscitation was 4. The patient's initial pH was 7.2 pCO2 is 49 and PO2 was 79 satting 92% on the 2 L nasal cannula. Her labs demonstrated acute kidney injury with a creatinine increased from 7.4 up to 1.24, elevated anion gap, relatively decreased serum bicarb compared to baseline, and normal white count with lymphocyte predominance. Her influenza, RSV and COVID PCRs were negative. Chest x-ray demonstrated hyperinflation, chronic dextroscoliosis. The patient received antibiotic therapy rest Rocephin and azithromycin. EKG was difficult to interpret with significant baseline artifact but reportedly had a Q-waves in V1- V4. Initial troponin was normal. They called to transfer the patient to our facility or discussed keeping the patient at their facility. And we opted to try giving the patient another L of fluid bolus and repeat a lactic acid. The patient actually did not report any increased shortness of breath or distress. The nurse that took care the patient at [place] told me that the patient just suddenly became unresponsive and was minimally responsive to noxious stimuli. Subsequently the patient was intubated. After intubation patient was started on propofol and had subsequent hypotension. Source of information comes from outside records, past medical records and nursing report. Patient is unable to provide history due to intubation. Review of Systems Review of Systems: ROS unobtainable: Yes unobtainable due to endotracheal tube PMFSH Past Medical History Medical History (Updated 11/01/22 @ 08:47 by Mariya Sorensen DO) Anxiety Cardiomyopathy Nonischemic cardiomyopathy with EF of 15% 02/2021, with cardiac catheterization April 2021 no significant coronary artery disease and EF 60-65% and right coronary dominant circulation with no evidence of coronary artery disease with very small caliber vessels given the patient's cachectic state, repeat echocardiogram 05/2021 EF of 55-60% with sub optimal imaging grade 1 diastolic dysfunction COPD (chronic obstructive pulmonary disease) Dyslipidemia GERD (gastroesophageal reflux disease) Hypothyroidism Obstructive sleep apnea (~11/2021) Noncompliant with CPAP CPAP setting is post be 7 mm of water Pulmonary cachexia due to COPD Scoliosis Tobacco abuse Surgical History Surgical History H/O laparoscopy H/O oral surgery History of Family History Family History Fathe
--- NOTE | 2022-11-01 06:13 | ECG_ITS ---
Measurements Intervals [place] Rate: 103 P: 76 NJ: 100 QRS: 59 QRSD: 93 T: 81 QT: 403 QTc: 528 Interpretive Statements SINUS TACHYCARDIA WITH SHORT [place] INTERVAL LOW QRS VOLTAGE IN PRECORDIAL LEADS [QRS DEFLECTION < 1.0 mV IN CHEST LEADS] NONSPECIFIC T-WAVE ABNORMALITY ABNORMAL ECG INTERPRETATION BASED ON A DEFAULT AGE OF 40 YEARS NO PREVIOUS ECG AVAILABLE FOR COMPARISON Electronically Signed On 11-01-2022 11:28:08 BUSINESS ADMINISTRATION PROFESSOR by Blanco Ruvalcaba M.D.
--- NOTE | 2022-11-01 06:51 | ADMGEN ---
This patient, Shar Patricia, was admitted to Intensive Care Unit-7. Patient/family oriented to hospital policies and general routines including ID bracelet, bed and alarms, visiting hours, pain management, procedures, bathroom and other care routines, personal items, smoking policy, room service/diet, and visiting hours. Information on how to activate the Rapid Response Team has been discussed. Patient/Family are encouraged to report perceived risks to care and to ask questions if they do not understand what they are told or what they should do.
--- NOTE | 2022-11-01 06:59 | PC.NURSE ---
2 mg versed given IVP verbal order by Dr. Sorensen who is at bedside. Pt agitated and sedation not yet initiated. Attempting to draw labs and regulate BP.
[2022-11-01 07:32] LABS: Alveolar/Arterial O2 Gradient 48.9 mmHg; Base Excess ABG -4.7 mEq/l (+/-2.0); Carboxyhemoglobin 0.3 % THb (0-2.0); Fractional Inspired Oxygen 50 %; HCO3 ABG 21.5 mEq/l (22.0-26.0); Methemoglobin ABG 0.2 %THb (0-1.5); Oxygen Content ABG 17.7 %vol (16.0-22.0); Oxygen Saturation ABG 99.5 % (95.0-100.0); Oxyhemoglobin 98.1 % THb (90.0-100.0); PCO2 ABG 43.7 mmHg (35.0-45.0); PO2 ABG 258.4 mmHg (80.0-100.0); PO2 FiO2 Ratio Arterial Blood 5.17 %; Reduced Hemoglobin 1.4 %THb (0-5.0); Total Hemoglobin 12.4 g/dL (12.0-18.0); pH ABG 7.309 (7.350-7.450)
[2022-11-01 07:35] LABS: Arterial Blood Gas PEEP 5 cmH2O; Arterial Blood Gas Tidal Volume 350 ml; Arterial Blood Gas Vent Mode CMV; Arterial Blood Gas Ventilator rate 20 /MIN; Device VENTILATOR; Site Drawn RIGHT RADIAL
[2022-11-01] MEDS: FENTANYL 2,500MCG/NS250ML(*CRX 2,500 MCG/250 ML BAG IV CONT (07:36)
[2022-11-01] MEDS: MIDAZOLAM 100MG/NS 100ML(*CRX) 100 MG/100 ML BAG IV CONT (07:38)
[2022-11-01] MEDS: SODIUM BICARBONATE 8.4% 100 MEQ in DEXTROSE 5% 1,000 ML 1,000 ML IV CONT (07:39)
[2022-11-01 07:48] LABS: Basophils Percent Auto 0.3 % (0.2-1.2); Eosinophils Percent Auto 0.2 % (0-4.4); Hematocrit 38.3 % (37.0-47.0); Hemoglobin 11.8 g/dL (12.0-15.0); Immature Granulocyte Absolute 0.09 K/mm3 (0.00-0.031); Immature Granulocyte Percent A 0.8 % (0-0.5); Lymphocytes Absolute Auto 1.38 K/mm3 (0.9-3.2); Lymphocytes Percent Auto 11.6 % (18.3-44.2); Mean Corpuscular HGB Conc 30.8 g/dl (32-36); Mean Corpuscular Hemoglobin 29.1 pg (26-34); Mean Corpuscular Volume 94.3 fl (80-100); Mean Platelet Volume 9.9 fl (7.4-10.4); Monocytes Absolute Auto 0.5 K/mm3 (0.1-0.6); Monocytes Percent Auto 4.5 % (2.6-8.5); Neutrophils Absolute Auto 9.9 K/mm3 (1.3-6.7); Neutrophils Percent Auto 82.6 % (45.5-73.1); Platelet Count Result 216 k/mm3 (150-375); Red Blood Count 4.06 M/mm3 (4.2-5.4); Red Cell Distribution Width 13.4 % (11.5-14.5); White Blood Count 11.9 K/mm3 (4.5-10.0)
[2022-11-01 08:00] LABS: Lactic Acid Reflex 7.8 mmol/L (0.7-2.0)
[2022-11-01] MEDS: MIDAZOLAM HCL (*CRX) 2 MG/2 ML VIAL IV PUSH (08:26)
[2022-11-01 08:43] LABS: Anion Gap 13 mmol/L (8-16); Blood Urea Nitrogen 20 mg/dL (7-17); Calcium 7.5 mg/dL (8.4-10.2); Carbon Dioxide 22 mmol/L (22-30); Chloride 104 mmol/L (98-107); Estimated Glomerular Filt Rate > 60; Glucose 246 mg/dL (65-110); Magnesium 1.9 mg/dL (1.6-2.3); Phosphorus 5.3 mg/dL (2.5-4.5); Potassium 4.1 mmol/L (3.4-5.0); Sodium 139 mmol/L (137-145)
[2022-11-01] MEDS: MINERAL OIL/WHITE PETROLATUM OINTMENT 1 APPLIC EACH EYE ×2 (09:00→20:11)
[2022-11-01] MEDS: NOREPINEPHRINE 8 MG/D5W 250 ML 8 MG/250 ML BAG 9.38 MG IV CONT (09:10)
--- NOTE | 2022-11-01 09:10 | ECG_ITS ---
Measurements Intervals [place] Rate: 115 P: 79 RI: 129 QRS: 50 QRSD: 64 T: 89 QT: 342 QTc: 474 Interpretive Statements SINUS TACHYCARDIA WITH OCCASIONAL ECTOPIC PREMATURE COMPLEXES POSSIBLE LEFT ATRIAL ENLARGEMENT [-0.1mV P WAVE IN V1/V2] LOW QRS VOLTAGE IN EXTREMITY LEADS [QRS DEFLECTION < 0.5 mV IN LIMB LEADS] ANTEROSEPTAL MYOCARDIAL INFARCTION [40+ ms Q WAVE IN V1-V4], OF INDETERMINATE AGE MODERATE T-WAVE ABNORMALITY, CONSIDER INFERIOR ISCHEMIA [-0.1+ mV T WAVE IN II/aVF] ABNORMAL ECG Electronically Signed On 11-01-2022 11:33:38 WASTEWATER ANALYST LAB ANALYST by Blanco Ruvalcaba M.D.
[2022-11-01] MEDS: LEVOTHYROXINE SODIUM 75 MCG TABLET FEED TUBE (09:20)
--- NOTE | 2022-11-01 10:08 | PM.IMPN ---
Progress Note: A&P Assessment and Plan (1) Acute on chronic respiratory failure with hypoxia and hypercapnia: Code(s): J96.21 - Acute and chronic respiratory failure with hypoxia; J96.22 - Acute and chronic respiratory failure with hypercapnia Status: Acute (2) Shock: Code(s): R57.9 - Shock, unspecified Status: Acute (3) COPD exacerbation: Code(s): J44.1 - Chronic obstructive pulmonary disease with (acute) exacerbation Status: Acute (4) Severe protein-calorie malnutrition: Code(s): E43 - Unspecified severe protein-calorie malnutrition Status: Acute (5) Pulmonary cachexia due to COPD: Code(s): J44.9 - Chronic obstructive pulmonary disease, unspecified; R64 - Cachexia Status: Acute (6) Type 2 myocardial infarction: Code(s): I21.A1 - Myocardial infarction type 2 Status: Acute (7) Metabolic acidosis: Code(s): E87.20 - Acidosis, unspecified Status: Acute Plan Patient has been admitted to ICU. On mechanical ventilation. Airway secured. Sedation is on hold at this time. She has been started on Levophed currently at 27 micrograms/minute as well as vasopressin and phenylephrine. Etiology of her hypotension is unclear but possibly cardiac. Nebulizer treatments have been started. Chest CT showing no acute opacities but new 9mm pleural nodule (not done with contrast). CT A/P showing no acute findings. She has been started on IV antibiotics empirically. Cardiology has been consulted. Consider PE given the sudden onset of symptoms but DDimer normal. Lactica acid was 14 but now trending down. Check UA. CTA chest has been ordered. Appreciate medical receptionist biller input. Subjective Date/time seen: 11/01/22 10:08 Interval history: 51yo female with NICM, COPD, KARLY and pulmonary cachexia who presented to [place] in respiratory distress. Patient had improvement with appropriate treatment but then suddenly became unresponsive requiring intubation. She was transferred to [place] ICU. Patient intubated and sedated. Unable to provide hx. Review of Systems Review of Systems: ROS unobtainable: Yes unobtainable due to endotracheal tube and unobtainable due to medical condition Exam Narrative: AF 96.1 128 18 100% ra Gen - extremely gaunt female appears older than listed age currently intubated and sedated HEENT - OGT in place with dark brown fluid in tubing. ETT secured Chest - coarse BS with wheezing CV - tachycardic, regular. Tele showing sinus tachy Abd - soft, hypoactive BS - Thomas secured with slight pink tinged cloudy urine Ext - rigth femoral TLC in place. extremely poor muscle mass Neuro - sedated Psych - unable to assess Skin - mottling noted to her knees bilaterally. dark erythematous rash upper chest at anterior base of neck. Objective Data Vital Signs Vital Signs: Vital Signs - 24 hr 11/01/22 08:04 11/01/22 08:04 11/01/22 07:00 Temperature Pulse Rate 103 H 105 H Respiratory Rate 20 21 H Blood Pressure Pulse Oximetry 100 Oxygen Delivery Mechanical Ventilation Fraction of Inspired Oxygen 50 11/01/22 07:13 11/01/22 07:00 11/01/22 07:36 Temperature Pulse Rate 105 H Respiratory Rate 22 H 21 H Blood Pressure 104/66 Pulse Oximetry Oxygen Delivery Fraction of Inspired Oxygen 11/01/22 07:38 11/01/22 07:10 11/01/22 06:51 Temperature Pulse Rate 105 H Respiratory Rate 21 H Blood Pressure 45/23 L 116/102 H Pulse Oximetry Oxygen Delivery Fraction of Inspired Oxygen 11/01/22 07:20 11/01/22 07:40 11/01/22 07:45 Temperature Pulse Rate Respiratory Rate Blood Pressure 163/106 H 140/103 H 135/113 H Pulse Oximetry Oxygen Delivery Fraction of Inspired Oxygen 11/01/22 07:50 11/01/22 07:55 11/01/22 07:08 Temperature Pulse Rate Respiratory Rate Blood Pressure 70/61 L 52/24 L 75/48 L Pulse Oximetry Oxygen Delivery Fraction of
[2022-11-01 10:09] LABS: Albumin Level 2.9 g/dL (3.5-5.1); Alkaline Phosphatase 71 U/L (38-126); Aspartate Amino Transferase 144 U/L (14-36); Bilirubin,Total 1.1 mg/dL (0.2-1.3)
[2022-11-01 10:21] LABS: Alanine Aminotransferase 80 U/L (6-35)
[2022-11-01] MEDS: VASOPRESSIN INJ 100 UNITS in DEXTROSE 5% 95 ML IV CONT (10:25)
--- NOTE | 2022-11-01 10:27 | PM.CNCAR ---
Assessment and Plan Assessment and plan (1) Shock: Code(s): R57.9 - Shock, unspecified Status: Acute Assessment and Plan: Poor prognosis. On 3 vasopressors. Managed by computer networker. Unclear etiology. Differential includes respiratory failure from COPD exac or pulm embolism. Recommend anticoagulation until CTA chest can be done to r/o pulm embolism. (2) COPD exacerbation: Code(s): J44.1 - Chronic obstructive pulmonary disease with (acute) exacerbation Status: Acute Assessment and Plan: Management as per computer networker. (3) History of cardiomyopathy: Code(s): Z86.79 - Personal history of other diseases of the circulatory system Status: Acute Assessment and Plan: Resolved on medical therapy based on repeat echo on 06/19/21 EF 55-60%, grade I diastolic dysfunction, small right sided pericardial effusion at 0.5 cm. Prior echo on 03/21/21 at [facility]: EF <15%, diastolic dysfunction, hypokinetic, apex, inferior, inferolateral, anteroseptal sal, mild LAE, MR. (4) Elevated troponin: Code(s): R77.8 - Other specified abnormalities of plasma proteins Status: Acute Assessment and Plan: Likely Type II infarct from hypoxia, hypotension, respiratory acidosis, with normal coronaries on [facility] on 05/26/21. Trend troponin. Obtain echo. History of Present Illness History of Present Illness Consult date/time: 11/01/22 10:27 Reason For Visit: Acute on Chronic Resp Failure,Severe Lactic acidos Narrative: 51 yr old woman who is my regular cardiology patient and PCP is Dr. Zamarripa presents to [facility] ER with sob. She has a history of cardiomyopathy that resolved, COPD, dyslipidemia, hypertension, quit smoking Oct 2021, KARLY on CPAP (sees PCP for it). She is currently sedated, intubated on mechanical ventilation. Therefore I am not able to obtain history from her at this time. History is from the chart and in speaking with Dr. Edu Reddy. Apparently she was out shopping with her family when she had abrupt sob, and she presented to ER. Her oxygen was down to 84%. She was placed on non-rebreather and improved. She was given Neb treatment and Solumedrol and Lasix 20 mg IV. Then suddenly she became unresponsive and had to be intubated. After this it was noted she had severe hypotension. She was then transferred here. Currently receiving Levophed, Phenylephrine and Vasopressin and her SBP went down to 40 mmHg now up at 75 mmHg. She is limited at walking around her house due to ROQUE. She uses oxygen at night.? Denies orthopnea, PND, edema, palpitations, dizziness. Previously, she was unable to breathe on 03/20/21 and was brought to [facility] and was intubated and transferred to [facility] in [place].? Cardiovascular Procedures Thermal Cutting Machine Operator:: 05/26/[address] Chakraborty: Normal coronaries. Echo/MUGA:: 06/19/21 Echo: EF 55-60%, TDS, grade I diastolic dysfunction, small right sided pericardial effusion at 0.5 cm. 03/21/21 Echo at [facility]: EF <15%, diastolic dysfunction, hypokinetic, apex, inferior, inferolateral, anteroseptal sal, mild LAE, MR. 02/01/20 [place] Echo: TDS. EF 55-60%, mild LVH. 01/25/20 [place] Echo: TDS, EF 20%, anteroseptum inferolateral, apex are akinetic. Electrophysiology:: 12/17/21 EKG: Sinus tachycardia at 123 bpm, short MN interval, IRBBB, BRWP. 03/20/21 EKG: Sinus tachycardia at 148 bpm, BRWP. Stress Tests:: 11/24/21 CTA chest: No pulm embolism. Severe emphysema. 12/17/21 Sleep study: Mild KARLY with desat to 85%. 03/20/21 CXR: Severe emphysema. Review of Systems Review of Systems: ROS unobtainable: Yes unobtainable due to medical condition [facility] Past Medical History Medical History (Updated 11/01/22 @ 10:37 by Ruben Saldana DO) Anxiety Cardiomyopathy Nonischemic cardiomyopathy with EF of 15% 02/2021, with cardiac catheterization April 2021 no significant coronary artery disease and EF 60-65% and right coronary d
[2022-11-01] MEDS: SODIUM CHLORIDE 0.9% IV 1,000 ML 999 ML IV CONT (10:55)
[2022-11-01] MEDS: cefTRIAXone 2 GM in SODIUM CHLORIDE 0.9% IV 100 ML 200 ML IVPB (11:35)
[2022-11-01] MEDS: DOXYCYCLINE 100 MG/NS 100 ML 100 MG/100 ML BAG IVPB ×2 (11:36→20:10)
[2022-11-01 12:19] LABS: Appearance Urine Clear (Clear); Bilirubin Urine Negative (Negative); Blood Urine 3+ (Negative); Color Urine Yellow (Yellow); Glucose Urine UA 3+ mg/dL (Negative); Ketones Urine Negative (Negative); Leukocyte Esterase Ur Negative LEU/UL (Negative); Nitrate Urine Negative (Negative); Protein Urine Negative (Negative); Specific Grav Ur <= 1.005 (1.001-1.035)
--- NOTE | 2022-11-01 12:19 | P.PCNBED_ITS ---
Procedures Central Line Placement Right Femoral: Central Line Date: 11/01/22 Performed Emergently - Given emergent patient condition, temporal constraints may have precluded informed consent.: Yes Consent: Patient in shock and requiring multiple vasopressors. Poor IV access and nursing staff unable to draw a blood sample. No family available. Procedure done emergently as medical necessity Time Out Performed: Yes Patient Position: supine Patient placed on monitor/pulse ox: Yes Provider Prep: mask, sterile gown, sterile gloves, Max. sterile barrier precautions, cap and hand hygiene with conventional soap/water or alcohol based hand rub Central line prep: Povidone-Iodine 1% Sterile US Technique with sterile gel/sterile probe covers: Yes Central line lumen inserted: triple Length (cm): 16 Depth of Insertion (cm): 16 Post Procedure: sutured in place, good blood return, all ports aspirated, flushed, capped, transparent dressing and aseptic technique maintained thro ughout procedure Patient tolerated procedure: well Complications: none Additional comments: When arrived at bedside the night call physician was trying to set up for a central venous catheter placement as patient was hypotensive and on high dose of vasopressors with poor IV access. Nurses were unable to draw blood. Central venous catheter was placed emergently as medical necessity. I took over the procedure and performed the central venous catheter insertion
--- NOTE | 2022-11-01 12:21 | P.PCNBED_ITS ---
Procedures Arterial Line Arterial Line Date: 11/01/22 Perfomed Emergently - Given emergent patient conditions, temporal constraints may have precluded informed consent: Yes Patient Position: supine Shipping Receiving Clerk Prep: sterile gown, sterile gloves and mask Site: left Site Prep: chlorhexidine and sterile drape Technique used: ultrasound-guided Length: 12 cm Closure/Dressing: suture and transparent dressing Patient tolerated procedure: well Complications: other (Small hematoma) Additional comments: Patient was on 3 vasopressors at high doses and had noted visit blood pressure was still low although her pulse was very strong which suggested the patient's blood pressure monitoring was inaccurate. Since patient was so unstable and arterial line was placed emergently for accurate blood pressure monitoring. No family was available. I attempted to place a left femoral arterial line. Unable to advance guidewire on 1st 2 attempts as guidewire would get stuck half an. She developed a small hematoma. I removed needle and the guidewire. I used a direct wire in needle kit to obtain access and advance the small guidewire and then insert a shorter 4 cm catheter in. I withdrew the wire and then used a 2nd guidewire to advance through the 4 cm catheter and change the catheter to a 12 cm arterial line catheter over the wire. On this 3rd attempt procedure went without any complication and smoothly. Good waveform was obtained and blood pressure was significantly higher than the noninvasive blood pressure confirming my suspicion of noninvasive blood pressure monitoring to be inaccurate.
[2022-11-01 12:23] LABS: Bacteria Urine Trace /hpf; Mucus Urine Rare /lpf; RBC Urine 21-50 /hpf (0-2); Squamous Epithelial Cell Urine Many /hpf (Few); WBC Urine 16-20 /hpf
[2022-11-01 12:24] LABS: Add Urine Microscopic? YES
--- NOTE | 2022-11-01 12:26 | WPDCNINT ---
Assessment and Plan Assessment and plan (1) Acute on chronic respiratory failure with hypoxia and hypercapnia: Code(s): J96.21 - Acute and chronic respiratory failure with hypoxia; J96.22 - Acute and chronic respiratory failure with hypercapnia Status: Acute Assessment and Plan: Acute Respiratory failure secondary to COPD exacerbation, possible pneumonia Patient was initially tried on BiPAP in the ED but she failed and had to be intubated. She was transferred to [facility] intubated on mechanical ventilation I have reviewed CT scan of chest done at the ER. CT shows severe emphysema Continue full mechanical ventilation support to prevent hypoxemia/hypercarbia and end organ damage. ABG and vent settings reviewed. Decrease rate to 18 Possibility of pulmonary embolism-chest CTA ordered Low tidal volume ventilation strategy to prevent volutrauma Systemic steroids, Bronchodilators Blood and sputum culture (2) COPD exacerbation: Code(s): J44.1 - Chronic obstructive pulmonary disease with (acute) exacerbation Status: Acute Assessment and Plan: See above (3) History of cardiomyopathy: Code(s): Z86.79 - Personal history of other diseases of the circulatory system Status: Acute Assessment and Plan: Prior echo on 03/21/21 at [facility]: EF <15%, diastolic dysfunction, hypokinetic, apex, inferior, inferolateral, anteroseptal sal, mild LAE, MR. Resolved on medical therapy based on repeat echo on 06/19/21 EF 55-60%, grade I diastolic dysfunction, small right sided pericardial effusion at 0.5 cm. Patient evaluated by Cardiology Repeat echo is pending (4) Sepsis: Code(s): A41.9 - Sepsis, unspecified organism Status: Acute Assessment and Plan: CT scan was not impressive for pneumonia but patient had elevated lactic acid and is now hypertensive She was treated with IV fluids which will be continued She is on Rocephin and doxycycline UA was unremarkable Blood and urine cultures have been sent Check sputum culture (5) Shock: Code(s): R57.9 - Shock, unspecified Status: Acute Assessment and Plan: Patient has been in shock since arrival to [facility]. Initially when I was signed out by ED physician she was not on any vasopressors. Over the course of her stay in the ER she required vasopressors and when she was transferred to [facility] she was on Bob-Synephrine infusion. Patient was switched to Levophed and later vasopressin was added Patient was given fluid bolus Her noninvasive blood pressure monitoring seemed inaccurate and an arterial catheter was placed emergently for more accurate blood pressure monitoring which did confirm her blood pressure to be much higher than the cuff measurement NICOM assessment was done on arrival to ICU and was negative for further responsiveness to fluid bolus She was given bicarb for acidosis She has a history of cardiomyopathy and may have cardiogenic component to her shock. Echo has been ordered and is pending Chest CTA is ordered and pending to rule out PE as a etiology. patient has not been stable this morning for transfer to Radiology for CTA. I will try to get her stabilize and sent to Radiology for CTA. If unable to obtain CT Will start anticoagulation empirically. D-dimer was negative and patient became hypotensive only after getting intubated and sedated which makes PE to be unlikely etiology of the shock (6) Non-ST elevated myocardial infarction (non-STEMI): Code(s): I21.4 - Non-ST elevation (NSTEMI) myocardial infarction Status: Acute Assessment and Plan: EKG reviewed. Patient evaluated by Cardiology Type 2 non STEMI suspected secondary to respiratory failure acidosis shock She had normal coronaries on left heart catheterization in April of 2021 Plan to obtain echo Continue aspirin and statin Not on beta-jose Noah or Arb due to shock Cardiology does not recommend systemic
[2022-11-01] MEDS: methylPREDNISolone SOD SUCC 125 MG VIAL IV PUSH ×3 (12:33→23:57)
[2022-11-01] MEDS: ASPIRIN 325 MG TABLET FEED TUBE (12:34)
[2022-11-01] MEDS: ATORVASTATIN 40 MG TABLET PO (12:35)
[2022-11-01] MEDS: PANTOPRAZOLE SODIUM IV 40 MG VIAL IV PUSH (12:35)
[2022-11-01] MEDS: IPRATROPIUM BR 0.02% INH SOLN 0.5 MG/2.5 ML VIAL INHALATION ×2 (14:38→20:15)
[2022-11-01] MEDS: ALBUTEROL SULFATE NEB 2.5 MG/3 ML INH 5 MG INHALATION ×2 (14:38→20:16)
[2022-11-01] MEDS: LACTATED RINGERS 1,000 ML 75 ML IV CONT (14:45)
[2022-11-01] MEDS: NOREPINEPHRINE 8 MG/D5W 250 ML 8 MG/250 ML BAG 45 MG IV CONT (14:45)
[2022-11-01] MEDS: CENTRAL LINE FLUSH 10 ML IV PUSH ×2 (14:46→20:11)
[2022-11-01] MEDS: ALBUMIN HUMAN 25% 25 GM/100 ML 100 ML IVPB ×3 (14:46→23:57)
[2022-11-01] MEDS: ENOXAPARIN 40 MG/0.4 ML SYRINGE SUB-Q (15:07)
[2022-11-01 15:39] LABS: Glucose Point of Care 356 mg/dl (65-105)
[2022-11-01] MEDS: INSULIN ASPART (*BKC) 100 UNITS/ML SUB-Q (17:26)
[2022-11-01 17:58] LABS: Glucose Point of Care 261 mg/dl (65-105)
--- NOTE | 2022-11-01 19:00 | PC.NURSE ---
At start of shift 1900, pt's levophed is running at 13 mcg/min. It was documented in the MAR at 14 mcg/min.
[2022-11-01] MEDS: NOREPINEPHRINE 8 MG/D5W 250 ML 8 MG/250 ML BAG 22.5 MG IV CONT (23:00)
[2022-11-01 23:53] LABS: Glucose Point of Care 155 mg/dl (65-105)
[2022-11-02] VITALS (80 sets, daily range): BP systolic 83–128; BP diastolic 51–93; PULSE 96–136; RESP 18–24; TEMP 37.2–37.9; O2SAT 96–100; BMI 15.7
[2022-11-02] MEDS: IPRATROPIUM BR 0.02% INH SOLN 0.5 MG/2.5 ML VIAL INHALATION ×4 (02:29→20:35)
[2022-11-02] MEDS: ALBUTEROL SULFATE NEB 2.5 MG/3 ML INH 5 MG INHALATION ×4 (02:30→20:35)
[2022-11-02] MEDS: LACTATED RINGERS 1,000 ML 75 ML IV CONT ×2 (04:10→17:07)
[2022-11-02 05:39] LABS: Alanine Aminotransferase 48 U/L (6-35); Albumin Level 4.1 g/dL (3.5-5.1); Alkaline Phosphatase 42 U/L (38-126); Anion Gap 6 mmol/L (8-16); Aspartate Amino Transferase 74 U/L (14-36); Bilirubin,Total 0.5 mg/dL (0.2-1.3); Blood Urea Nitrogen 19 mg/dL (7-17); Calcium 7.6 mg/dL (8.4-10.2); Carbon Dioxide 30 mmol/L (22-30); Chloride 92 mmol/L (98-107); Estimated CRCL calculation 46 ml/min; Estimated Glomerular Filt Rate > 60; Glucose 144 mg/dL (65-110); Magnesium 1.3 mg/dL (1.6-2.3); Potassium 3.7 mmol/L (3.4-5.0); Sodium 128 mmol/L (137-145)
[2022-11-02 05:54] LABS: Hematocrit 25.9 % (37.0-47.0); Hemoglobin 8.7 g/dL (12.0-15.0); Mean Corpuscular HGB Conc 33.6 g/dl (32-36); Mean Corpuscular Hemoglobin 29.5 pg (26-34); Mean Corpuscular Volume 87.8 fl (80-100); Mean Platelet Volume 10.4 fl (7.4-10.4); Platelet Count Result 159 k/mm3 (150-375); Red Blood Count 2.95 M/mm3 (4.2-5.4); Red Cell Distribution Width 13.4 % (11.5-14.5); White Blood Count 13.1 K/mm3 (4.5-10.0)
[2022-11-02] MEDS: ALBUMIN HUMAN 25% 25 GM/100 ML 100 ML IVPB ×3 (05:55→17:06)
[2022-11-02] MEDS: LEVOTHYROXINE SODIUM 75 MCG TABLET FEED TUBE (06:03)
[2022-11-02] MEDS: CENTRAL LINE FLUSH 10 ML IV PUSH ×3 (06:03→20:44)
[2022-11-02] MEDS: methylPREDNISolone SOD SUCC 125 MG VIAL IV PUSH (06:03)
[2022-11-02 06:32] LABS: Alveolar/Arterial O2 Gradient 85.4 mmHg; Base Excess ABG 5.1 mEq/l (+/-2.0); Carboxyhemoglobin 0.3 % THb (0-2.0); Fractional Inspired Oxygen 30 %; HCO3 ABG 29.1 mEq/l (22.0-26.0); Methemoglobin ABG 0.4 %THb (0-1.5); Oxygen Saturation ABG 96.6 % (95.0-100.0); Oxyhemoglobin 94.5 % THb (90.0-100.0); PCO2 ABG 40.5 mmHg (35.0-45.0); PO2 ABG 80.9 mmHg (80.0-100.0); Reduced Hemoglobin 4.8 %THb (0-5.0); Total Hemoglobin 9.7 g/dL (12.0-18.0); pH ABG 7.474 (7.350-7.450)
[2022-11-02 06:33] LABS: Arterial Blood Gas Vent Mode CMV; Arterial Blood Gas Ventilator rate 18 /MIN; Device VENTILATOR; Site Drawn ARTLINE
[2022-11-02 06:34] LABS: Arterial Blood Gas PEEP 5 cmH2O; Arterial Blood Gas Tidal Volume 350 ml
--- NOTE | 2022-11-02 07:42 | PM.PNCARD ---
Progress Note: A&P Assessment and Plan (1) Shock: Code(s): R57.9 - Shock, unspecified Status: Acute Assessment and Plan: Due to acute systolic heart failure and with chronic COPD. Was on 3 vasopressors now on Levophed 2 mcg. Managed by pipe and test supervisor. Wean off Levophed as tolerated. (2) COPD exacerbation: Code(s): J44.1 - Chronic obstructive pulmonary disease with (acute) exacerbation Status: Acute Assessment and Plan: Management as per pipe and test supervisor. (3) History of cardiomyopathy: Code(s): Z86.79 - Personal history of other diseases of the circulatory system Status: Acute Assessment and Plan: Recurrence of dilated cardiomyopathy or Takotsubo cardiomyopathy. Previously, resolved on medical therapy based on repeat echo on 06/19/21 EF 55-60%, grade I diastolic dysfunction, small right sided pericardial effusion at 0.5 cm. Prior echo on 03/21/21 at [facility]: EF <15%, diastolic dysfunction, hypokinetic, apex, inferior, inferolateral, anteroseptal sal, mild LAE, MR. 11/01/22 Echo: EF 10-15%, mod LVE, basal segments have normal contractility otherwise global akinesis suggesting Takotubo cardiomyopathy, diastolic dysfunction with E/e' 18, RV similar to LV with severely reduced function with normal basal segments, mild based on valve area and gradients but valve not well seen. Monitor fluid status to avoid volume overload. On hemodynamics stable, need to resume beta jose and Entresto. (4) Elevated troponin: Code(s): R77.8 - Other specified abnormalities of plasma proteins Status: Acute Assessment and Plan: Likely Type II infarct from acute systolic heart failure with hypoxia, hypotension, respiratory acidosis, with normal coronaries on [facility] on 05/26/21. Trend troponin. Subjective Date/time seen: 11/02/22 07:42 Interval history: Sedated and on mechanical ventilation. Exam Const: General: thin Nutritional Appearance: thin Other: Sedated on mechanical ventilation Resp: Auscultation: no crackles, no rales, no rhonchi, no wheezes and diminished lung sounds Cardio: Rate: tachycardic Rhythm: regular rhythm Heart sounds: no murmurs Extrem: Right lower extremity: no edema Left lower extremity: no edema Objective Data Vital Signs Vital Signs: Vital Signs - 24 hr 11/01/22 08:04 11/01/22 08:04 11/01/22 07:45 Temperature Pulse Rate 103 H 105 H Respiratory Rate 20 21 H Blood Pressure 135/113 H Pulse Oximetry Oxygen Delivery Fraction of Inspired Oxygen 11/01/22 07:50 11/01/22 07:55 11/01/22 07:45 Temperature Pulse Rate 151 H Respiratory Rate 25 H Blood Pressure 70/61 L 52/24 L 135/113 H Pulse Oximetry Oxygen Delivery Fraction of Inspired Oxygen 11/01/22 07:46 11/01/22 08:14 11/01/22 09:24 Temperature Pulse Rate 147 H 116 H Respiratory Rate 24 H Blood Pressure 74/50 L Pulse Oximetry Oxygen Delivery Fraction of Inspired Oxygen 40 11/01/22 09:10 11/01/22 09:15 11/01/22 09:20 Temperature Pulse Rate 114 H Respiratory Rate Blood Pressure 80/59 L 89/49 L 74/50 L Pulse Oximetry Oxygen Delivery Fraction of Inspired Oxygen 11/01/22 09:30 11/01/22 09:35 11/01/22 09:15 Temperature 94.5 F L Pulse Rate Respiratory Rate Blood Pressure 77/49 L 82/59 L Pulse Oximetry Oxygen Delivery Fraction of Inspired Oxygen 11/01/22 09:30 11/01/22 09:40 11/01/22 09:44 Temperature 94.9 F L 95.4 F L Pulse Rate Respiratory Rate Blood Pressure 59/33 L Pulse Oximetry Oxygen Delivery Fraction of Inspired Oxygen 11/01/22 09:45 11/01/22 09:50 11/01/22 09:52 Temperature 95.8 F L Pulse Rate Respiratory Rate Blood Pressure 75/62 L 36/17 L Pulse Oximetry Oxygen Delivery Fraction of Inspired Oxygen 11/01/22 09:50 11/01/22 09:59 11/01/22 10:00 Temperature 96 F L 96.1 F L Pulse Rate 122 H 128 H Respir
[2022-11-02 08:44] LABS: Hematocrit 23.9 % (37.0-47.0); Immature Platelet Fraction Pct 7.9 % (0.9-11.2); Mean Corpuscular HGB Conc 33.5 g/dl (32-36); Mean Corpuscular Hemoglobin 29.3 pg (26-34); Mean Corpuscular Volume 87.5 fl (80-100); Mean Platelet Volume 10.3 fl (7.4-10.4); Platelet Count Result 163 k/mm3 (150-375); Red Blood Count 2.73 M/mm3 (4.2-5.4); Red Cell Distribution Width 13.5 % (11.5-14.5); White Blood Count 10.1 K/mm3 (4.5-10.0)
[2022-11-02 08:49] LABS: Anion Gap 5 mmol/L (8-16); Blood Urea Nitrogen 19 mg/dL (7-17); Calcium 7.8 mg/dL (8.4-10.2); Carbon Dioxide 31 mmol/L (22-30); Chloride 94 mmol/L (98-107); Estimated CRCL calculation 50 ml/min; Estimated Glomerular Filt Rate > 60; Glucose 134 mg/dL (65-110); Potassium 3.6 mmol/L (3.4-5.0); Sodium 130 mmol/L (137-145)
[2022-11-02] MEDS: MAGNESIUM SULF 2 GM/WATER 50ML 2 GM/50 ML BAG IVPB (09:23)
[2022-11-02] MEDS: KCL 40 MEQ/WATER 100 ML 100 ML 25 ML IVPB (09:23)
[2022-11-02] MEDS: DOXYCYCLINE 100 MG/NS 100 ML 100 MG/100 ML BAG IVPB ×2 (09:23→20:46)
[2022-11-02] MEDS: cefTRIAXone 2 GM in SODIUM CHLORIDE 0.9% IV 100 ML 200 ML IVPB (09:23)
[2022-11-02] MEDS: PANTOPRAZOLE SODIUM IV 40 MG VIAL IV PUSH ×2 (09:24→20:44)
[2022-11-02] MEDS: MINERAL OIL/WHITE PETROLATUM OINTMENT 1 APPLIC EACH EYE ×2 (09:24→20:44)
[2022-11-02] MEDS: ATORVASTATIN 40 MG TABLET PO (09:24)
--- NOTE | 2022-11-02 09:57 | PM.IMPN ---
Progress Note: A&P Assessment and Plan (1) Shock: Code(s): R57.9 - Shock, unspecified Status: Acute Assessment and Plan: Patient was in shock on arrival to [facility]. She was started on Levophed as well as vasopressin and phenylephrine.? Etiology of her hypotension is unclear but possibly cardiac.??Art line actually showed her BP was higher than cuff pressures probably due to her low body mass. She was given a fluid bolus and bicarb for acidosis. Echo showing EF 10-15%. Chest CTA is negative for PE. Wean off pressors as toerlated. She remains on abx for infectious etiology. BCx NGTD. Also on steroids for COPD exacerbation. Appreciate medical record transcriber input (2) Acute on chronic respiratory failure with hypoxia and hypercapnia: Code(s): J96.21 - Acute and chronic respiratory failure with hypoxia; J96.22 - Acute and chronic respiratory failure with hypercapnia Status: Acute Assessment and Plan: Acute Respiratory failure secondary to COPD exacerbation, possible pneumonia and/or CHF exacerbation. Patient was initially tried on BiPAP in the ED but she failed and had to be intubated. She was transferred to [facility] intubated on mechanical ventilation. Stable and on minimal settings. Appreciate medical record transcriber input. (3) COPD exacerbation: Code(s): J44.1 - Chronic obstructive pulmonary disease with (acute) exacerbation Status: Acute Assessment and Plan: Wheezing on admisison but improved today. Continue nebs and IV steroids. Abx started as well. (4) History of cardiomyopathy: Code(s): Z86.79 - Personal history of other diseases of the circulatory system Status: Acute Assessment and Plan: Prior echo on 03/21/21 at [facility]: EF <15%, diastolic dysfunction, hypokinetic, apex, inferior, inferolateral, anteroseptal sal, mild LAE, MR. Resolved on medical therapy based on repeat echo on 06/19/21 EF 55-60%, grade I diastolic dysfunction, small right sided pericardial effusion at 0.5 cm. Echo here again showing EF 10-15% with findings consistent with Takotsubo cardiomyopathy. Diastolic dysfunction. Reduced RV systolic function. No pulmonary hypertension. Patient evaluated by Cardiology here and appreciate their input. (5) Sepsis: Code(s): A41.9 - Sepsis, unspecified organism Status: Acute Assessment and Plan: CT scan was not impressive for pneumonia but patient had elevated lactic acidosis and in shock. She was treated with IV fluids and started on pressors. IV abx started. BCx NGTD. UA unremarkable. Continue abx. Check sputum culture. (6) Non-ST elevated myocardial infarction (non-STEMI): Code(s): I21.4 - Non-ST elevation (NSTEMI) myocardial infarction Status: Inactive Assessment and Plan: Trop up to 1.3. EKG showing HR [address]-T wave changes. Patient evaluated by Cardiology. Type 2 NSTEMI suspected secondary to respiratory failure, lactic acidosis, shock and CMP. She had normal coronaries on [facility] in April of 2021. Echo as mentioned above. Consider RV infarct causing the HoTN and Echo findings. Continue aspirin and statin. Not on beta-jose or NUBIA/ARB due to shock Cardiology does not recommend systemic anticoagulation for the elevated troponin (7) Lactic acidosis: Code(s): E87.20 - Acidosis, unspecified Status: Acute Assessment and Plan: Secondary to COPD hypoxia and shock. CT scan of abdomen pelvis did not show any findings to suggest etiology of shock (except GB distended). CT chest showing possible pulmonary edema but no evidence of PNA. Lactic acid level is improving which will be monitor (8) Anemia: Code(s): D64.9 - Anemia, unspecified Status: Acute Assessment and Plan: Hgb 12.3 on admission. Hgb dropped to 8.7 this morning. There was some arterial blood loss as mentioned above. Follow HH closely. CT A/P ordered. Suspect some portion of dilut
--- NOTE | 2022-11-02 11:44 | P.PNINT_ITS ---
Progress Note: A&P Assessment and Plan (1) Acute on chronic respiratory failure with hypoxia and hypercapnia: Code(s): J96.21 - Acute and chronic respiratory failure with hypoxia; J96.22 - Acute and chronic respiratory failure with hypercapnia Status: Acute Assessment and Plan: Acute Respiratory failure secondary to COPD exacerbation, possible pneumonia Patient was initially tried on BiPAP in the ED but she failed and had to be intubated. She was transferred to [facility] intubated on mechanical ventilation I have reviewed CT scan of chest done at the ER. CT shows severe emphysema Continue full mechanical ventilation support to prevent hypoxemia/hypercarbia and end organ damage. ABG and vent settings reviewed. Decrease rate to 16 and tidal volume to 320 Possibility of pulmonary embolism-chest CTA was done and was negative Low tidal volume ventilation strategy to prevent volutrauma Continue Systemic steroids, Bronchodilators Blood and sputum culture (2) COPD exacerbation: Code(s): J44.1 - Chronic obstructive pulmonary disease with (acute) exacerbation Status: Acute Assessment and Plan: See above (3) Cardiomyopathy: Code(s): I42.9 - Cardiomyopathy, unspecified Status: Acute Assessment and Plan: Prior echo on 03/21/21 at [facility]: EF <15%, diastolic dysfunction, hypokinetic, apex, inferior, inferolateral, anteroseptal sal, mild LAE, MR. Resolved on medical therapy based on repeat echo on 06/19/21 EF 55-60%, grade I diastolic dysfunction, small right sided pericardial effusion at 0.5 cm. 2 Repeat echo Summary ? 1. Complete two-dimensional, color flow and Doppler transthoracic echocardiogram is performed. ? 2. No apical views obtained. Subcostal views are obtained in lieu of apical views. ? 3. Left ventricular chamber dimension is moderately enlarged. ? 4. Left ventricular systolic function is severely globally reduced in the mid to apical segments, estimated at 10-15% . ? 5. The basal segments throughout have normal contractility suggesting Takotsubo cardiomyopathy. ? 6. The left ventricular diastolic function is abnormal. ? 7. E/e' 18 is elevated.? 8. Right ventricular systolic function is severely reduced with normal basalsegment contractility. ? 9. The aortic valve is not well visualized. Cannot determine number of aortic valve leaflets. ? 10. There is mild aortic valve stenosis based on a peak velocity of 133 cm/s, mean gradient of 5 mmHg, and aortic valve area of 1.3 cm2. ? 11. No pulmonary hypertension, estimated pulmonary arterial systolic pressure is 34 mmHg. ? 12. Normal inferior vena cava with <50% collapse upon inspiration consistent with elevated right atrial pressure, 10 mmHg Cardiology following Conservative IV fluids (4) Sepsis: Code(s): A41.9 - Sepsis, unspecified organism Status: Acute Assessment and Plan: CT scan was not impressive for pneumonia but patient had elevated lactic acid and developed shock She was treated with IV fluids which will be continued but rate is going to be decreased She is on Rocephin and doxycycline which will be continue UA was unremarkable Blood and urine cultures have been sent and are pending Pending sputum culture (5) Shock: Code(s): R57.9 - Shock, unspecified Status: Acute Assessment and Plan: Patient has been in shock since arrival to [facility]. Initially when I was signed out by ED physician she was not on any vasopressors. Over the course of her stay in the ER she required vasopressors and when she was transferred to [facility] she was on
--- NOTE | 2022-11-02 11:44 | WPDCNINT ---
Aix Architect Consult Note Consult date: 11/02/22 HPI: Shar Patricia is a 51 year old female [facility] Past Medical History Medical History Anxiety Cardiomyopathy Nonischemic cardiomyopathy with EF of 15% 02/2021, with cardiac catheterization April 2021 no significant coronary artery disease and EF 60-65% and right coronary dominant circulation with no evidence of coronary artery disease with very small caliber vessels given the patient's cachectic state, repeat echocardiogram 05/2021 EF of 55-60% with sub optimal imaging grade 1 diastolic dysfunction COPD (chronic obstructive pulmonary disease) Dyslipidemia GERD (gastroesophageal reflux disease) Hypothyroidism Obstructive sleep apnea (~11/2021) Noncompliant with CPAP CPAP setting is post be 7 mm of water Pulmonary cachexia due to COPD Scoliosis Tobacco abuse Surgical History Surgical History H/O laparoscopy H/O oral surgery History of Family History Family History Father , father had cancer of the lymph nodes. He in 2008 he had diabetes / hypertension Diabetes mellitus Hypertension Lung cancer Mother Cerebrovascular accident Sibling Hypothyroidism Social History Social History Social History: Code status: Full code Smoking packs per day: 0.5 Smoking cigarettes per day: 10.0 Years smoked: 36 Smoking pack-years: 18.00 Smoking status: Current every day smoker Tobacco type: cigarettes Alcohol intake: never Substance use: never Lack of Transportation: No Lack of Food: Never True Current Housing: I Have Housing Concerned About Future Housing: No Difficulty Paying Gas/Electric Bills: YES Difficulty Paying for Meds: No Currently Unemployed: No Education: High School Diploma/GED Difficulty w/ Childcare or Family Care: No Living arrangements: with family Gender identity (if verbalized by the patient): Female Spiritual care concerns: No Meds Home Medications and Allergies Home Medications Medication Instructions Recorded Confirmed Type albuterol sulfate 1.25 mg/3 mL 1.25 mg (3 mL) inhalation Q4-6H 01/28/22 11/01/22 Rx solution for nebulization PRN shortness of breath or wheezing #90 mL sertraline 25 mg tablet 25 mg PO DAILY #90 tabs 01/28/22 11/01/22 Rx benzonatate 200 mg capsule 200 mg PO BID PRN cough #20 caps 10/07/22 11/01/22 Rx albuterol sulfate 90 mcg/actuation 2 inh inhalation Q4-6H PRN 11/01/22 11/01/22 History breath activated powder inhaler Shortness Of Breath (ProAir RespiClick) atorvastatin 40 mg tablet 40 mg PO DAILY 11/01/22 11/01/22 History bupropion HCl 150 mg tablet,12 hr 150 mg PO BID 11/01/22 11/01/22 History sustained-release fluticasone propionate 50 50 mcg intranasal DAILY 11/01/22 11/01/22 History mcg/actuation nasal spray,suspension ipratropium 20 mcg-albuterol 100 1 puff inhalation QID 11/01/22 11/01/22 History mcg/actuation mist for inhalation (Combivent Respimat) levothyroxine 200 mcg tablet 200 mcg PO DAILY 11/01/22 11/01/22 History metoprolol succinate 25 mg 25 mg PO DAILY 11/01/22 11/01/22 History tablet,extended release 24 hr montelukast 10 mg tablet 10 mg PO DAILY 11/01/22 11/01/22 History umeclidinium 62.5 mcg/actuation 1 inh inhalation DAILY 11/01/22 11/01/22 History blister powder for inhalation (Incruse Ellipta) Allergies Allergy/AdvReac Type Severity Reaction Status Date / Time budesonide [From Symbicort] Allergy Severe breathing Verified 10/07/22 11:43 issues formoterol [From Symbicort] Allergy Severe breathing Verified 10/07/22 11:43 issues Vital Signs Vital Signs - 24 hr 11/01/22 12:00 11/01/22 12:00 11/01/22 12:00 Temperature 36.2 C L 36.2 C L Pulse Rate 109 H Respiratory
--- NOTE | 2022-11-02 13:56 | PM.IMPN ---
Progress Note: A&P Assessment and Plan (1) Acute on chronic respiratory failure with hypoxia and hypercapnia: Code(s): J96.21 - Acute and chronic respiratory failure with hypoxia; J96.22 - Acute and chronic respiratory failure with hypercapnia Status: Acute Assessment and Plan: Acute Respiratory failure secondary to COPD exacerbation, possible pneumonia Patient was initially tried on BiPAP in the ED but she failed and had to be intubated. She was transferred to [facility] intubated on mechanical ventilation I have reviewed CT scan of chest done at the ER. CT shows severe emphysema Continue full mechanical ventilation support to prevent hypoxemia/hypercarbia and end organ damage. ABG and vent settings reviewed. Decrease rate to 16 and tidal volume to 320 Possibility of pulmonary embolism-chest CTA was done and was negative Low tidal volume ventilation strategy to prevent volutrauma Continue Systemic steroids, Bronchodilators Blood and sputum culture (2) COPD exacerbation: Code(s): J44.1 - Chronic obstructive pulmonary disease with (acute) exacerbation Status: Acute Assessment and Plan: See above (3) Cardiomyopathy: Code(s): I42.9 - Cardiomyopathy, unspecified Status: Acute Assessment and Plan: Prior echo on 03/21/21 at [facility]: EF <15%, diastolic dysfunction, hypokinetic, apex, inferior, inferolateral, anteroseptal sal, mild LAE, MR. Resolved on medical therapy based on repeat echo on 06/19/21 EF 55-60%, grade I diastolic dysfunction, small right sided pericardial effusion at 0.5 cm. 2 Repeat echo Summary ? 1. Complete two-dimensional, color flow and Doppler transthoracic echocardiogram is performed. ? 2. No apical views obtained. Subcostal views are obtained in lieu of apical views. ? 3. Left ventricular chamber dimension is moderately enlarged. ? 4. Left ventricular systolic function is severely globally reduced in the mid to apical segments, estimated at 10-15% . ? 5. The basal segments throughout have normal contractility suggesting Takotsubo cardiomyopathy. ? 6. The left ventricular diastolic function is abnormal. ? 7. E/e' 18 is elevated.? 8. Right ventricular systolic function is severely reduced with normal basalsegment contractility. ? 9. The aortic valve is not well visualized. Cannot determine number of aortic valve leaflets. ? 10. There is mild aortic valve stenosis based on a peak velocity of 133 cm/s, mean gradient of 5 mmHg, and aortic valve area of 1.3 cm2. ? 11. No pulmonary hypertension, estimated pulmonary arterial systolic pressure is 34 mmHg. ? 12. Normal inferior vena cava with <50% collapse upon inspiration consistent with elevated right atrial pressure, 10 mmHg Cardiology following Conservative IV fluids (4) Sepsis: Code(s): A41.9 - Sepsis, unspecified organism Status: Acute Assessment and Plan: CT scan was not impressive for pneumonia but patient had elevated lactic acid and developed shock She was treated with IV fluids which will be continued but rate is going to be decreased She is on Rocephin and doxycycline which will be continue UA was unremarkable Blood and urine cultures have been sent and are pending Pending sputum culture (5) Shock: Code(s): R57.9 - Shock, unspecified Status: Acute Assessment and Plan: Patient has been in shock since arrival to [facility]. Initially when I was signed out by ED physician she was not on any vasopressors. Over the course of her stay in the ER she required vasopressors and when she was transferred to [facility] she was on Bob-Synephrine infusion. Patient was switched to Levophed and later vasopressin was added Patient was given fluid bolus Her noninvasive blood pressure monitoring seemed inaccurate and an arterial catheter was placed emergently for more accurate blood pressure monitoring which did confirm her arterial blood pressure to be much highe
[2022-11-02 13:57] LABS: Glucose Point of Care 126 mg/dl (65-105)
[2022-11-02 14:07] LABS: Hematocrit 23.6 % (37.0-47.0); Hemoglobin 7.9 g/dL (12.0-15.0)
--- NOTE | 2022-11-02 15:17 | WPDGICN ---
Assessment and Plan Assessment and plan (1) Anemia: Code(s): D64.9 - Anemia, unspecified Status: Acute Assessment and Plan: Patient is a decline hemoglobin since admission the hospital. No overt obvious bleeding identified. It is possible bleeding is related to some blood loss with the femoral arterial line. Dark material from the stomach could be upper GI gastric blood loss. Recommend gastroccult be obtained of the NG tube return. I would cover patient with PPI therapy for possible stress gastritis. Given patient's ileus and general overall debility I would defer endoscopic evaluation at this time if at all possible. Fact endoscopy would be contraindicated given patient's abdominal exam in apparent ileus. CT scan reveals no evidence of free air at present. No evidence retroperitoneal or other blood loss either. (2) History of cardiomyopathy: Code(s): Z86.79 - Personal history of other diseases of the circulatory system Status: Acute (3) Shock: Code(s): R57.9 - Shock, unspecified Status: Acute (4) Ileus: Code(s): K56.7 - Ileus, unspecified Status: Acute (5) Respiratory failure: Code(s): J96.90 - Respiratory failure, unspecified, unspecified whether with hypoxia or hypercapnia Status: Acute (6) Pulmonary cachexia due to COPD: Code(s): J44.9 - Chronic obstructive pulmonary disease, unspecified; R64 - Cachexia Status: Acute (7) Cardiomyopathy: Code(s): I42.9 - Cardiomyopathy, unspecified Status: Acute GI Consult Note Consult date/time: 11/02/22 15:17 Reason for consult: Anemia HPI: Shar Patricia is a 51 year old female I am asked to see because of a decline in hemoglobin. Patient is currently on the ventilator in the intensive care unit in unable to add any useful history. History is obtained with review of the chart and discussion with nursing staff. Patient apparently has a longstanding history of COPD, hypertension and nonischemic cardiomyopathy. She continues to smoke cigarettes at home. Apparently presented to [facility] with respiratory distress and ultimately transferred to [facility] where she remains on the ventilator. She has underlying respiratory failure. [place] to have congestive heart failure because of the cardiomyopathy. Patient has had no bowel movement since admission hospital. An orogastric tube is been in place. Current OG return is somewhat greenish [place] darkish in color. Overnight apparently patient had a femoral art line in place. This became dislodged and there was some loss of blood attributed to this. Nursing staff describes some pooling of blood on the floor. This morning hemoglobin was noted to decline I have been consulted for possible GI blood loss. Patient has had no bowel movement since presentation to the hospital. Review of Systems Review of Systems: ROS unobtainable: Yes unobtainable due to endotracheal tube PMFSH Past Medical History Medical History Anxiety Cardiomyopathy Nonischemic cardiomyopathy with EF of 15% 02/2021, with cardiac catheterization April 2021 no significant coronary artery disease and EF 60-65% and right coronary dominant circulation with no evidence of coronary artery disease with very small caliber vessels given the patient's cachectic state, repeat echocardiogram 05/2021 EF of 55-60% with sub optimal imaging grade 1 diastolic dysfunction COPD (chronic obstructive pulmonary disease) Dyslipidemia GERD (gastroesophageal reflux disease) Hypothyroidism Obstructive sleep apnea (~11/2021) Noncompliant with CPAP CPAP setting is post be 7 mm of water Pulmonary cachexia due to COPD Scoliosis Tobacco abuse Surgical History Surgical History H/O laparoscopy H/O oral surgery History of Family History Family History (Reviewed 11/01/22 @ 12
[2022-11-02 17:01] LABS: Glucose Point of Care 128 mg/dl (65-105)
[2022-11-02 17:29] LABS: Gastric Negative Control Negative; Occult Blood Gastric Fluid Positive; pH Gastric Fluid 2 (1-8)
[2022-11-02 17:30] LABS: Gastric Positive Control Positive
[2022-11-02 17:42] LABS: Glucose Point of Care 110 mg/dl (65-105)
[2022-11-02] MEDS: MIDAZOLAM 100MG/NS 100ML(*CRX) 100 MG/100 ML BAG IV CONT (18:34)
[2022-11-02] MEDS: FENTANYL 2,500MCG/NS250ML(*CRX 2,500 MCG/250 ML BAG IV CONT (18:38)
[2022-11-02 21:29] LABS: Hematocrit 23.1 % (37.0-47.0); Hemoglobin 7.5 g/dL (12.0-15.0); Immature Platelet Fraction Pct 9.8 % (0.9-11.2); Mean Corpuscular HGB Conc 32.5 g/dl (32-36); Mean Corpuscular Volume 89.2 fl (80-100); Mean Platelet Volume 11.1 fl (7.4-10.4); Platelet Count Result 138 k/mm3 (150-375); Red Blood Count 2.59 M/mm3 (4.2-5.4); Red Cell Distribution Width 14.4 % (11.5-14.5); White Blood Count 11.2 K/mm3 (4.5-10.0)
[2022-11-03] VITALS (39 sets, daily range): BP systolic 109–127; BP diastolic 70–91; PULSE 86–134; RESP 16–21; TEMP 37.2–37.7; O2SAT 95–100
[2022-11-03] MEDS: ALBUMIN HUMAN 25% 25 GM/100 ML 100 ML IVPB ×5 (00:05→23:25)
[2022-11-03 00:18] LABS: Glucose Point of Care 102 mg/dl (65-105)
[2022-11-03] MEDS: IPRATROPIUM BR 0.02% INH SOLN 0.5 MG/2.5 ML VIAL INHALATION ×4 (02:29→21:22)
[2022-11-03] MEDS: ALBUTEROL SULFATE NEB 2.5 MG/3 ML INH 5 MG INHALATION ×4 (02:29→21:23)
[2022-11-03 03:21] LABS: Hematocrit 24.2 % (37.0-47.0); Hemoglobin 7.9 g/dL (12.0-15.0); Immature Platelet Fraction Pct 9.3 % (0.9-11.2); Mean Corpuscular HGB Conc 32.6 g/dl (32-36); Mean Corpuscular Hemoglobin 29.5 pg (26-34); Mean Corpuscular Volume 90.3 fl (80-100); Mean Platelet Volume 10.7 fl (7.4-10.4); Platelet Count Result 158 k/mm3 (150-375); Red Blood Count 2.68 M/mm3 (4.2-5.4); Red Cell Distribution Width 14.6 % (11.5-14.5); White Blood Count 10.8 K/mm3 (4.5-10.0)
--- NOTE | 2022-11-03 04:49 | PCRCNOTE ---
Changed vt to 320 and rr to [address] order on day shift looking at notes was not done.. will do morning gas hour after change
[2022-11-03] MEDS: LACTATED RINGERS 1,000 ML 75 ML IV CONT (05:15)
[2022-11-03] MEDS: CENTRAL LINE FLUSH 10 ML IV PUSH ×4 (05:21→20:10)
[2022-11-03] MEDS: LEVOTHYROXINE SODIUM 75 MCG TABLET FEED TUBE (05:32)
[2022-11-03 05:52] LABS: Alveolar/Arterial O2 Gradient 72.5 mmHg; Base Excess ABG 0.9 mEq/l (+/-2.0); Carboxyhemoglobin 0.3 % THb (0-2.0); Fractional Inspired Oxygen 30 %; HCO3 ABG 24.9 mEq/l (22.0-26.0); Methemoglobin ABG 0.2 %THb (0-1.5); Oxygen Content ABG 11.7 %vol (16.0-22.0); Oxygen Saturation ABG 97.7 % (95.0-100.0); Oxyhemoglobin 95.2 % THb (90.0-100.0); PCO2 ABG 36.8 mmHg (35.0-45.0); PO2 ABG 98.2 mmHg (80.0-100.0); PO2 FiO2 Ratio Arterial Blood 3.27 %; Reduced Hemoglobin 4.3 %THb (0-5.0); Total Hemoglobin 8.6 g/dL (12.0-18.0); pH ABG 7.448 (7.350-7.450)
[2022-11-03 05:55] LABS: Device VENTILATOR; Site Drawn ARTLINE
[2022-11-03 05:56] LABS: Arterial Blood Gas PEEP 5 cmH2O; Arterial Blood Gas Tidal Volume 320 ml; Arterial Blood Gas Vent Mode CMV; Arterial Blood Gas Ventilator rate 16 /MIN
[2022-11-03 06:13] LABS: Alanine Aminotransferase 44 U/L (6-35); Albumin Level 4.4 g/dL (3.5-5.1); Alkaline Phosphatase 32 U/L (38-126); Anion Gap 7 mmol/L (8-16); Aspartate Amino Transferase 62 U/L (14-36); Bilirubin,Total 0.6 mg/dL (0.2-1.3); Blood Urea Nitrogen 23 mg/dL (7-17); Calcium 8.2 mg/dL (8.4-10.2); Carbon Dioxide 27 mmol/L (22-30); Chloride 101 mmol/L (98-107); Estimated CRCL calculation 58 ml/min; Estimated Glomerular Filt Rate > 60; Glucose 87 mg/dL (65-110); Magnesium 2.3 mg/dL (1.6-2.3); Potassium 4.4 mmol/L (3.4-5.0); Sodium 135 mmol/L (137-145)
[2022-11-03 06:15] LABS: Lactic Acid Reflex 0.9 mmol/L (0.7-2.0)
--- NOTE | 2022-11-03 07:49 | PM.PNCARD ---
Progress Note: A&P Assessment and Plan (1) Shock: Code(s): R57.9 - Shock, unspecified Status: Acute Assessment and Plan: Due to acute systolic heart failure and with chronic COPD. Was on 3 vasopressors now on Levophed 1 mcg. Managed by lace roller operator. Wean off Levophed as tolerated. (2) COPD exacerbation: Code(s): J44.1 - Chronic obstructive pulmonary disease with (acute) exacerbation Status: Acute Assessment and Plan: Management as per lace roller operator. (3) History of cardiomyopathy: Code(s): Z86.79 - Personal history of other diseases of the circulatory system Status: Acute Assessment and Plan: Recurrence of dilated cardiomyopathy or Takotsubo cardiomyopathy. Previously, resolved on medical therapy based on repeat echo on 06/19/21 EF 55-60%, grade I diastolic dysfunction, small right sided pericardial effusion at 0.5 cm. Prior echo on 03/21/21 at [facility]: EF <15%, diastolic dysfunction, hypokinetic, apex, inferior, inferolateral, anteroseptal sal, mild LAE, MR. 11/01/22 Echo: EF 10-15%, mod LVE, basal segments have normal contractility otherwise global akinesis suggesting Takotubo cardiomyopathy, diastolic dysfunction with E/e' 18, RV similar to LV with severely reduced function with normal basal segments, mild based on valve area and gradients but valve not well seen. Monitor fluid status to avoid volume overload. Once hemodynamics stable, need to resume beta jose and Entresto. (4) Elevated troponin: Code(s): R77.8 - Other specified abnormalities of plasma proteins Status: Acute Assessment and Plan: Likely Type II infarct from acute systolic heart failure with hypoxia, hypotension, respiratory acidosis, with normal coronaries on [facility] on 05/26/21. Trend troponin. Subjective Date/time seen: 11/03/22 07:49 Interval history: Sedated and on mechanical ventilation. Exam Const: General: thin Nutritional Appearance: thin Other: Sedated on mechanical ventilation Resp: Auscultation: no crackles, no rales, no rhonchi, no wheezes and diminished lung sounds Cardio: Rate: tachycardic Rhythm: regular rhythm Heart sounds: no murmurs Extrem: Right lower extremity: no edema Left lower extremity: no edema Objective Data Vital Signs Vital Signs: Vital Signs - 24 hr 11/02/22 08:05 11/02/22 08:05 11/02/22 08:00 Temperature 99.8 F H Pulse Rate 107 H 111 H Respiratory Rate 18 18 Blood Pressure 98/76 L Pulse Oximetry 97 Oxygen Delivery Mechanical Ventilation Fraction of Inspired Oxygen 30 11/02/22 09:22 11/02/22 08:41 11/02/22 10:00 Temperature Pulse Rate 109 H 101 H Respiratory Rate 18 18 Blood Pressure 108/69 100/65 Pulse Oximetry 100 Oxygen Delivery Fraction of Inspired Oxygen 11/02/22 11:01 11/02/22 08:00 11/02/22 08:00 Temperature Pulse Rate Respiratory Rate Blood Pressure 92/60 L Pulse Oximetry 100 Oxygen Delivery Mechanical Ventilation Fraction of Inspired Oxygen 30 30 11/02/22 11:13 11/02/22 10:56 11/02/22 12:00 Temperature 99.3 F Pulse Rate 108 H 102 H 97 Respiratory Rate 18 Blood Pressure 98/62 L 93/68 L Pulse Oximetry 96 100 Oxygen Delivery Mechanical Ventilation Fraction of Inspired Oxygen 30 11/02/22 12:00 11/02/22 12:00 11/02/22 12:59 Temperature Pulse Rate Respiratory Rate Blood Pressure 83/51 L Pulse Oximetry 100 Oxygen Delivery Mechanical Ventilation Fraction of Inspired Oxygen 30 25 11/02/22 09:00 11/02/22 09:00 11/02/22 11:00 Temperature Pulse Rate 109 H 109 H 100 Respiratory Rate 18 18 18 Blood Pressure Pulse Oximetry Oxygen Delivery Fraction of Inspired Oxygen 11/02/22 11:00 11/02/22 13:00 11/02/22 13:00 Temperature Pulse Rate 100 99 99 Respiratory Rate 18 18 18 Blood Pressure Pulse Oximetry Oxygen Delivery Fraction of Inspired Oxygen 11/02/22 14:08 11/02/22
[2022-11-03 08:15] LABS: Hematocrit 24.9 % (37.0-47.0); Mean Corpuscular HGB Conc 32.1 g/dl (32-36); Mean Corpuscular Hemoglobin 29.9 pg (26-34); Mean Corpuscular Volume 92.9 fl (80-100); Mean Platelet Volume 10.1 fl (7.4-10.4); Platelet Count Result 148 k/mm3 (150-375); Red Blood Count 2.68 M/mm3 (4.2-5.4); Red Cell Distribution Width 14.6 % (11.5-14.5); White Blood Count 10.7 K/mm3 (4.5-10.0)
[2022-11-03] MEDS: cefTRIAXone 2 GM in SODIUM CHLORIDE 0.9% IV 100 ML 200 ML IVPB (08:59)
[2022-11-03] MEDS: ATORVASTATIN 40 MG TABLET PO (08:59)
[2022-11-03] MEDS: DOXYCYCLINE 100 MG/NS 100 ML 100 MG/100 ML BAG IVPB ×2 (08:59→20:30)
[2022-11-03] MEDS: methylPREDNISolone SOD SUCC 125 MG VIAL 80 MG IV PUSH (08:59)
[2022-11-03] MEDS: MINERAL OIL/WHITE PETROLATUM OINTMENT 1 APPLIC EACH EYE ×2 (09:00→20:09)
[2022-11-03] MEDS: PANTOPRAZOLE SODIUM IV 40 MG VIAL IV PUSH ×2 (09:00→20:09)
[2022-11-03 10:09] LABS: Troponin I 0.396 ng/mL (0.000-0.034)
--- NOTE | 2022-11-03 10:47 | PCNFU ---
Nutrition Follow-Up Complete: Inadequate energy intake related to mechanical ventilation as evidenced by NPO, need for pressors. goal: Meet estimated nutritional needs when medically able Patient is progressing towards goal. We will continue current goal. Pt current nutrition is Vital AF 1.2 at 10 ml/hr. Nutrition recommendation: goal rate at 20 ml/hr at this time . Last recorded weight is 39 kg. Bowel Motility: No BM Labs Reviewed:Cr 0.6,BUN 23, Na 135, Hct 24.9,Hgb 8.0 Meds Noted:Solu Medrol, Versed, Fentanyl. Skin: mottled neck/chest Additional Notes: Patient remains on mechanical vent. Trickle tube feedings starting of Vital AF 1.2 at 10 ml/hr advance to 20 ml/hr at this time. Recommend goal rate at 45 ml/hr, which will provide 1188 kcals/74 gms protein/803 ml water. Flush 30 ml q 4 hours. Agree with diet orders. Monitor meds, labs, weights, tube feeding orders, plan of care Following daily in ICU rounds. Reassess Tuesdays and Fridays.
[2022-11-03 11:41] LABS: Glucose Point of Care 80 mg/dl (65-105)
--- NOTE | 2022-11-03 12:07 | WPDINTPN ---
Progress Note: A&P Assessment and Plan (1) Acute on chronic respiratory failure with hypoxia and hypercapnia: Code(s): J96.21 - Acute and chronic respiratory failure with hypoxia; J96.22 - Acute and chronic respiratory failure with hypercapnia Status: Acute Assessment and Plan: Acute Respiratory failure secondary to COPD exacerbation, possible pneumonia -Patient was initially tried on BiPAP in the ED but she failed and had to be intubated on 11/01/2022. She was transferred to [facility] intubated on mechanical ventilation -11/01/2022 chest CTA: No evidence of pulmonary embolism, aortic dissection or aortic aneurysm. Worsening ground-glass opacity in the right middle lobe and right lower lobe with worsening bibasilar interstitial thickening, findings are compatible and AFib pain pulmonary edema. Small bilateral pleural effusion with mild basilar atelectasis new from prior exam underlying COPD, stable 6 mm nodule superior segment left lower lobe. -Continue CMV mode of ventilation, 30% FiO2 and peep of 5 -ABGs reviewed and improved -Low tidal volume ventilation strategy to prevent volutrauma -Continue Solu-Medrol, Bronchodilators -chest x-ray this morning: Hazy right lower lobe airspace disease. Correlate for pneumonia.Underlying COPD. Sedated with fentanyl and Versed infusion, maintain RASS of 0 to -2, daily sedation vacation (2) Sepsis: Code(s): A41.9 - Sepsis, unspecified organism Status: Acute Assessment and Plan: CT scan was not impressive for pneumonia but patient had elevated lactic acid and developed shock She was treated with IV fluids which will be continued but rate is going to be decreased -initial lactic acid was 7.8, repeat lactic this morning on 11/03/2022 0.9 -UA was unremarkable 11/02/2022 sputum cultures are negative -11/01/2022 urine cultures: Negative -11/01/2022 preliminary blood cultures with no growth 2/2 bottles -continue ceftriaxone and doxycycline (11/01) (3) Shock: Code(s): R57.9 - Shock, unspecified Status: Acute Assessment and Plan: Patient has been in shock since arrival to [facility]. Initially, she was not on any vasopressors. Over the course of her stay in the ER at [facility] she required vasopressors and when she was transferred to [facility] she was on Bob-Synephrine infusion. Patient was switched to Levophed and later vasopressin was added -Patient was given IV fluid bolus on admission -Her noninvasive blood pressure monitoring seemed inaccurate and an arterial catheter was placed emergently for more accurate blood pressure monitoring which did confirm her arterial blood pressure to be much higher than the cuff measurement -NICOM assessment was done on arrival to ICU and was negative for further responsiveness to fluid bolus -She has a history of cardiomyopathy and likely has cardiogenic component to her shock. Echo reviewed -currently off all pressors (4) COPD exacerbation: Code(s): J44.1 - Chronic obstructive pulmonary disease with (acute) exacerbation Status: Acute Assessment and Plan: Continue mechanical ventilation, steroids, bronchodilators, antibiotics (5) Cardiomyopathy: Code(s): I42.9 - Cardiomyopathy, unspecified Status: Acute Assessment and Plan: Prior echo on 03/21/[address] [facility]: EF <15%, diastolic dysfunction, hypokinetic, apex, inferior, inferolateral, anteroseptal sal, mild LAE, MR. Resolved on medical therapy based on repeat echo on 06/19/21 EF 55-60%, grade I diastolic dysfunction, small right sided pericardial effusion at 0.5 cm. 11/01/2022 repeat echocardiogram Summary ? 1. Complete two-dimensional, color flow and Doppler transthoracic echocardiogram is performed. ? 2. No apical views obtained. Subcostal views are obtained in lieu of apical views. ? 3. Left ventricular chamber dimension is moderately enlarged. ? 4. Left ventricular systolic function is
--- NOTE | 2022-11-03 12:44 | WPDGIPROGNO ---
Progress Note: A&P Assessment and Plan (1) Anemia: Code(s): D64.9 - Anemia, unspecified Status: Acute Assessment and Plan: Patient's hemoglobin is stabilized. Some decline noted after admission. Nursing staff reports that only minimal blood loss was noted from the femoral art line. Small amount of coffee-ground NG tube repeat turn has been noted. Plan is to treat patient for presumed stress gastritis. Continue to follow abdominal exam as she has significant abdominal distention and poor bowel sounds. KUB was nonspecific normal abdominal gas pattern (2) Coffee ground emesis: Code(s): K92.0 - Hematemesis Status: Acute Assessment and Plan: stress gastritis suspected. Patient not a candidate for invasive testing. Plan to treat with PPI for possible stress gastritis. (3) Shock: Code(s): R57.9 - Shock, unspecified Status: Acute (4) COPD exacerbation: Code(s): J44.1 - Chronic obstructive pulmonary disease with (acute) exacerbation Status: Acute (5) Respiratory failure: Code(s): J96.90 - Respiratory failure, unspecified, unspecified whether with hypoxia or hypercapnia Status: Acute Assessment and Plan: Patient with respiratory failure. Remains in the ICU on the ventilator. Management by the sheet metal roofer service. (6) Cardiomyopathy: Code(s): I42.9 - Cardiomyopathy, unspecified Status: Acute Subjective Date/time seen: 11/03/22 12:44 Interval history: Patient remains on the ventilator in the ICU. Unable to give any additional history. No obvious bleeding noted. NG tube lavage no longer coffee-ground like. No bowel movements since admission the hospital. Review of Systems Review of Systems: ROS unobtainable: Yes unobtainable due to endotracheal tube Exam Narrative: Physical exam reveals patient remain on the ventilator. Vital signs are reveals she is in shock. HEENT exam reveals no icterus. Lungs reveal bilateral rhonchi. Heart without murmur. Abdomen bowel sounds are diminished in difficult to appreciate. Abdomen is somewhat distended and tympanic. Extremities without clubbing or edema. Objective Data Vital Signs Vital Signs: Vital Signs - 24 hr 11/02/22 12:59 11/02/22 13:00 11/02/22 13:00 Temperature Pulse Rate 99 99 Respiratory Rate 18 18 Blood Pressure 83/51 L Pulse Oximetry Oxygen Delivery Fraction of Inspired Oxygen 11/02/22 14:08 11/02/22 14:09 11/02/22 14:09 Temperature Pulse Rate 100 102 H Respiratory Rate 18 18 Blood Pressure 101/64 Pulse Oximetry Oxygen Delivery Fraction of Inspired Oxygen 11/02/22 14:00 11/02/22 13:59 11/02/22 13:59 Temperature 99.3 F Pulse Rate 101 H 107 H 107 H Respiratory Rate 18 18 Blood Pressure 103/65 Pulse Oximetry 97 99 Oxygen Delivery Mechanical Ventilation Fraction of Inspired Oxygen 30 11/02/22 14:19 11/02/22 14:00 11/02/22 15:49 Temperature Pulse Rate 102 H 110 H 111 H Respiratory Rate 18 18 Blood Pressure 104/68 Pulse Oximetry 99 Oxygen Delivery Fraction of Inspired Oxygen 11/02/22 16:45 11/02/22 16:00 11/02/22 16:00 Temperature Pulse Rate 114 H 110 H 110 H Respiratory Rate 18 18 Blood Pressure Pulse Oximetry 97 Oxygen Delivery Mechanical Ventilation Fraction of Inspired Oxygen 30 11/02/22 16:00 11/02/22 16:00 11/02/22 16:00 Temperature Pulse Rate Respiratory Rate Blood Pressure 108/88 Pulse Oximetry 99 Oxygen Delivery Mechanical Ventilation Fraction of Inspired Oxygen 30 30 11/02/22 18:00 11/02/22 18:34 11/02/22 18:34 Temperature Pulse Rate 125 H 125 H Respiratory Rate 18 18 Blood Pressure 104/82 Pulse Oximetry Oxygen Delivery Fraction of Inspired Oxygen 11/02/22 18:38 11/02/22 18:38 11/02/22 18:00 Temperature Pulse Rate 116 H 116 H 108 H Respiratory Rate 18 18 18 Blood Pressure 100/66 Puls
--- NOTE | 2022-11-03 12:50 | PM.IMPN ---
Progress Note: A&P Assessment and Plan (1) Shock: Code(s): R57.9 - Shock, unspecified Status: Acute Assessment and Plan: Patient was in shock on arrival to [facility]. She was started on Levophed as well as vasopressin and phenylephrine.? Etiology of her hypotension is unclear but possibly cardiac.??Art line actually showed her BP was higher than cuff pressures probably due to her low body mass. She was given a fluid bolus and bicarb for acidosis. Echo showing EF 10-15%. Chest CTA is negative for PE. Able to be weaned off pressors. She remains on abx for possible infectious etiology causing shock. BCx NGTD. Also on steroids for COPD exacerbation. Appreciate throw out clerk input (2) Acute on chronic respiratory failure with hypoxia and hypercapnia: Code(s): J96.21 - Acute and chronic respiratory failure with hypoxia; J96.22 - Acute and chronic respiratory failure with hypercapnia Status: Acute Assessment and Plan: Acute Respiratory failure secondary to COPD exacerbation, possible pneumonia and/or CHF exacerbation. Patient was initially tried on BiPAP in the ED but she failed and had to be intubated. She was transferred to [facility] intubated on mechanical ventilation. Stable and on minimal settings. Appreciate throw out clerk input. (3) COPD exacerbation: Code(s): J44.1 - Chronic obstructive pulmonary disease with (acute) exacerbation Status: Acute Assessment and Plan: Wheezing on admission but improved today. Continue nebs and IV steroids. Abx started as well. (4) History of cardiomyopathy: Code(s): Z86.79 - Personal history of other diseases of the circulatory system Status: Acute Assessment and Plan: Prior echo on 03/21/21 at [facility]: EF <15%, diastolic dysfunction, hypokinetic, apex, inferior, inferolateral, anteroseptal sal, mild LAE, MR. Resolved on medical therapy based on repeat echo on 06/19/21 EF 55-60%, grade I diastolic dysfunction, small right sided pericardial effusion at 0.5 cm. Echo here again showing EF 10-15% with findings consistent with Takotsubo cardiomyopathy. Diastolic dysfunction. Reduced RV systolic function. No pulmonary hypertension. Patient evaluated by Cardiology here and appreciate their input. (5) Sepsis: Code(s): A41.9 - Sepsis, unspecified organism Status: Acute Assessment and Plan: Patient met sepsis criteria with shock on admission with elevated lactic acidosis and in shock. CT scan was not consistent with pneumonia. She was treated with IV fluids and started on pressors. IV abx started. BCx NGTD. UCx negative. Sputum pending. Continue abx. (6) Non-ST elevated myocardial infarction (non-STEMI): Code(s): I21.4 - Non-ST elevation (NSTEMI) myocardial infarction Status: Inactive Assessment and Plan: Trop up to 1.3. EKG showedHR [address]-T wave changes. Patient evaluated by Cardiology. Type 2 NSTEMI suspected secondary to respiratory failure, lactic acidosis, shock and CMP. She had normal coronaries on [facility] in April of 2021. Echo as mentioned above. Consider RV infarct causing the HoTN and Echo findings. Continue aspirin and statin. Not on beta-jose or NUBIA/ARB due to shock. Cardiology does not recommend systemic anticoagulation for the elevated troponin (7) Lactic acidosis: Code(s): E87.20 - Acidosis, unspecified Status: Acute Assessment and Plan: Secondary to COPD hypoxia and shock. CT scan of abdomen pelvis did not show any findings to suggest etiology of shock (except GB distended). CT chest showing possible pulmonary edema but no evidence of PNA. Lactic acid level is improving which will be monitored. (8) Anemia: Code(s): D64.9 - Anemia, unspecified Status: Acute Assessment and Plan: Hgb 12.3 on admission. Hgb dropped to 7-8 range and stable. There was some arterial blood loss related to the a-li
[2022-11-03 13:33] LABS: Hematocrit 23.5 % (37.0-47.0); Hemoglobin 7.5 g/dL (12.0-15.0)
[2022-11-03] MEDS: MIDAZOLAM 100MG/NS 100ML(*CRX) 100 MG/100 ML BAG IV CONT (16:32)
[2022-11-03] MEDS: FENTANYL 2,500MCG/NS250ML(*CRX 2,500 MCG/250 ML BAG 15 MCG IV CONT (16:33)
[2022-11-03 18:08] LABS: Glucose Point of Care 90 mg/dl (65-105)
[2022-11-03] MEDS: carvediloL 3.125 MG TABLET PO (20:10)
[2022-11-03 20:45] LABS: Hematocrit 24.7 % (37.0-47.0)
[2022-11-03 23:41] LABS: Glucose Point of Care 101 mg/dl (65-105)
[2022-11-04] VITALS (42 sets, daily range): BP systolic 99–148; BP diastolic 55–106; PULSE 82–142; RESP 16–21; TEMP 36.7–37.6; O2SAT 89–100
[2022-11-04] MEDS: IPRATROPIUM BR 0.02% INH SOLN 0.5 MG/2.5 ML VIAL INHALATION ×4 (02:34→21:15)
[2022-11-04] MEDS: ALBUTEROL SULFATE NEB 2.5 MG/3 ML INH 5 MG INHALATION ×4 (02:35→21:15)
[2022-11-04 04:43] LABS: Hematocrit 26.6 % (37.0-47.0); Hemoglobin 8.4 g/dL (12.0-15.0); Mean Corpuscular HGB Conc 31.6 g/dl (32-36); Mean Corpuscular Hemoglobin 29.5 pg (26-34); Mean Corpuscular Volume 93.3 fl (80-100); Mean Platelet Volume 10.8 fl (7.4-10.4); Platelet Count Result 198 k/mm3 (150-375); Red Blood Count 2.85 M/mm3 (4.2-5.4); Red Cell Distribution Width 14.7 % (11.5-14.5); White Blood Count 10.5 K/mm3 (4.5-10.0)
[2022-11-04 04:53] LABS: Lactic Acid Reflex 1.2 mmol/L (0.7-2.0)
[2022-11-04 04:54] LABS: Alanine Aminotransferase 91 U/L (6-35); Albumin Level 5.2 g/dL (3.5-5.1); Alkaline Phosphatase 33 U/L (38-126); Anion Gap 9 mmol/L (8-16); Aspartate Amino Transferase 110 U/L (14-36); Bilirubin,Total 0.6 mg/dL (0.2-1.3); Blood Urea Nitrogen 30 mg/dL (7-17); Calcium 8.7 mg/dL (8.4-10.2); Carbon Dioxide 30 mmol/L (22-30); Chloride 100 mmol/L (98-107); Estimated CRCL calculation 50 ml/min; Estimated Glomerular Filt Rate > 60; Glucose 113 mg/dL (65-110); Magnesium 2.3 mg/dL (1.6-2.3); Potassium 5.2 mmol/L (3.4-5.0); Sodium 139 mmol/L (137-145)
[2022-11-04] MEDS: CENTRAL LINE FLUSH 10 ML IV PUSH ×4 (05:36→20:52)
[2022-11-04] MEDS: ALBUMIN HUMAN 25% 25 GM/100 ML 100 ML IVPB ×3 (05:36→17:47)
[2022-11-04] MEDS: LEVOTHYROXINE SODIUM 75 MCG TABLET FEED TUBE (05:37)
[2022-11-04 05:49] LABS: Glucose Point of Care 106 mg/dl (65-105)
[2022-11-04 06:00] LABS: Alveolar/Arterial O2 Gradient 84.5 mmHg; Base Excess ABG 3.7 mEq/l (+/-2.0); Carboxyhemoglobin 0.3 % THb (0-2.0); Fractional Inspired Oxygen 30 %; HCO3 ABG 28.8 mEq/l (22.0-26.0); Methemoglobin ABG 0.4 %THb (0-1.5); Oxyhemoglobin 91.8 % THb (90.0-100.0); PCO2 ABG 46.5 mmHg (35.0-45.0); PO2 ABG 74.8 mmHg (80.0-100.0); PO2 FiO2 Ratio Arterial Blood 2.49 %; Reduced Hemoglobin 7.5 %THb (0-5.0); Total Hemoglobin 9.2 g/dL (12.0-18.0)
[2022-11-04 06:02] LABS: Device VENTILATOR; Modified Allen's Test Pass; Site Drawn RIGHT BRACHIAL
[2022-11-04 06:03] LABS: Arterial Blood Gas PEEP 5 cmH2O; Arterial Blood Gas Tidal Volume 320 ml; Arterial Blood Gas Vent Mode CMV; Arterial Blood Gas Ventilator rate 16 /MIN
--- NOTE | 2022-11-04 07:58 | PM.PNCARD ---
Progress Note: A&P Assessment and Plan (1) Shock: Code(s): R57.9 - Shock, unspecified Status: Acute Assessment and Plan: Due to acute systolic heart failure and with chronic COPD. Was on 3 vasopressors, now all are off. Managed by livestock exhibitor. (2) COPD exacerbation: Code(s): J44.1 - Chronic obstructive pulmonary disease with (acute) exacerbation Status: Acute Assessment and Plan: Management as per livestock exhibitor. (3) History of cardiomyopathy: Code(s): Z86.79 - Personal history of other diseases of the circulatory system Status: Acute Assessment and Plan: Recurrence of dilated cardiomyopathy or Takotsubo cardiomyopathy. Previously, resolved on medical therapy based on repeat echo on 06/19/21 EF 55-60%, grade I diastolic dysfunction, small right sided pericardial effusion at 0.5 cm. Prior echo on 03/21/21 at [facility]: EF <15%, diastolic dysfunction, hypokinetic, apex, inferior, inferolateral, anteroseptal sal, mild LAE, MR. 11/01/22 Echo: EF 10-15%, mod LVE, basal segments have normal contractility otherwise global akinesis suggesting Takotubo cardiomyopathy, diastolic dysfunction with E/e' 18, RV similar to LV with severely reduced function with normal basal segments, mild based on valve area and gradients but valve not well seen. Monitor fluid status to avoid volume overload. Once hemodynamics stable, need to resume beta jose and Entresto. Started Coreg yesterday but BP is marginal this morning. Will hold Coreg for now. (4) Elevated troponin: Code(s): R77.8 - Other specified abnormalities of plasma proteins Status: Acute Assessment and Plan: Likely Type II infarct from acute systolic heart failure with hypoxia, hypotension, respiratory acidosis, with normal coronaries on [facility] on 05/26/21. Trend troponin. Subjective Date/time seen: 11/04/22 07:58 Interval history: Sedated and on mechanical ventilation. Exam Const: General: thin Nutritional Appearance: thin Other: Sedated on mechanical ventilation Resp: Auscultation: no crackles, no rales, no rhonchi, no wheezes and diminished lung sounds Cardio: Rate: regular rate Rhythm: regular rhythm Heart sounds: no murmurs Extrem: Right lower extremity: no edema Left lower extremity: no edema Objective Data Vital Signs Vital Signs: Vital Signs - 24 hr 11/03/22 08:00 11/03/22 08:00 11/03/22 08:00 Temperature Pulse Rate 104 H 104 H Respiratory Rate 16 Blood Pressure Pulse Oximetry 97 Oxygen Delivery Mechanical Ventilation Fraction of Inspired Oxygen 30 30 11/03/22 08:00 11/03/22 10:35 11/03/22 10:00 Temperature 99.3 F Pulse Rate 104 H 99 100 Respiratory Rate 16 Blood Pressure 120/76 Pulse Oximetry 97 97 Oxygen Delivery Mechanical Ventilation Fraction of Inspired Oxygen 30 11/03/22 10:00 11/03/22 12:00 11/03/22 12:00 Temperature 99.4 F Pulse Rate 100 100 100 Respiratory Rate 16 16 Blood Pressure 121/76 Pulse Oximetry 96 97 Oxygen Delivery Mechanical Ventilation Fraction of Inspired Oxygen 30 11/03/22 12:00 11/03/22 12:00 11/03/22 13:25 Temperature 99.4 F Pulse Rate 100 93 Respiratory Rate 16 Blood Pressure 121/90 Pulse Oximetry 98 98 Oxygen Delivery Mechanical Ventilation Fraction of Inspired Oxygen 30 30 11/03/22 13:25 11/03/22 13:30 11/03/22 14:00 Temperature Pulse Rate 93 94 96 Respiratory Rate 16 16 Blood Pressure Pulse Oximetry Oxygen Delivery Fraction of Inspired Oxygen 11/03/22 14:00 11/03/22 16:10 11/03/22 16:32 Temperature 99.5 F Pulse Rate 96 98 101 H Respiratory Rate 16 16 Blood Pressure 124/86 Pulse Oximetry 98 97 Oxygen Delivery Mechanical Ventilation Fraction of Inspired Oxygen 30 11/03/22 16:32 11/03/22 16:33 11/03/22 16:33 Temperature Pulse Rate 101 H 101 H 101 H Respiratory Rate 16 16 16 Blood Pressure Pulse Oximetry Oxygen Del
--- NOTE | 2022-11-04 08:01 | PM.IMPN ---
Progress Note: A&P Assessment and Plan (1) Shock: Code(s): R57.9 - Shock, unspecified Status: Acute Assessment and Plan: Patient was in shock on arrival to [facility]. She was started on Levophed as well as vasopressin and phenylephrine.? Etiology of her hypotension is unclear but possibly cardiac.??Art line actually showed her BP was higher than cuff pressures probably due to her low body mass. She was given a fluid bolus and bicarb for acidosis. Echo showing EF 10-15%. Chest CTA is negative for PE. Able to be weaned off pressors. She remains on abx for possible infectious etiology causing shock. BCx NGTD. Also on steroids for COPD exacerbation. Appreciate liquid waste treatment plant operator input (2) Acute on chronic respiratory failure with hypoxia and hypercapnia: Code(s): J96.21 - Acute and chronic respiratory failure with hypoxia; J96.22 - Acute and chronic respiratory failure with hypercapnia Status: Acute Assessment and Plan: Acute Respiratory failure secondary to COPD exacerbation, possible pneumonia and/or CHF exacerbation. Patient was initially tried on BiPAP in the ED but she failed and had to be intubated. She was transferred to [facility] intubated on mechanical ventilation. Stable and on minimal settings. Appreciate liquid waste treatment plant operator input. (3) COPD exacerbation: Code(s): J44.1 - Chronic obstructive pulmonary disease with (acute) exacerbation Status: Acute Assessment and Plan: Wheezing on admission but improved today. Continue nebs and IV steroids. Abx started as well. (4) History of cardiomyopathy: Code(s): Z86.79 - Personal history of other diseases of the circulatory system Status: Acute Assessment and Plan: Prior echo on 03/21/21 at [facility]: EF <15%, diastolic dysfunction, hypokinetic, apex, inferior, inferolateral, anteroseptal sal, mild LAE, MR. Resolved on medical therapy based on repeat echo on 06/19/21 EF 55-60%, grade I diastolic dysfunction, small right sided pericardial effusion at 0.5 cm. Echo here again showing EF 10-15% with findings consistent with Takotsubo cardiomyopathy. Diastolic dysfunction. Reduced RV systolic function. No pulmonary hypertension. Patient evaluated by Cardiology here and appreciate their input. (5) Sepsis: Code(s): A41.9 - Sepsis, unspecified organism Status: Acute Assessment and Plan: Patient met sepsis criteria with shock on admission with elevated lactic acidosis and in shock. CT scan was not consistent with pneumonia. She was treated with IV fluids and started on pressors. IV abx started. BCx NGTD. UCx negative. Sputum pending. Continue abx. (6) Non-ST elevated myocardial infarction (non-STEMI): Code(s): I21.4 - Non-ST elevation (NSTEMI) myocardial infarction Status: Inactive Assessment and Plan: Trop up to 1.3. EKG showedHR [address]-T wave changes. Patient evaluated by Cardiology. Type 2 NSTEMI suspected secondary to respiratory failure, lactic acidosis, shock and CMP. She had normal coronaries on [facility] in April of 2021. Echo as mentioned above. Consider RV infarct causing the HoTN and Echo findings. Continue aspirin and statin. Not on beta-jose or NUBIA/ARB due to shock. Cardiology does not recommend systemic anticoagulation for the elevated troponin (7) Lactic acidosis: Code(s): E87.20 - Acidosis, unspecified Status: Acute Assessment and Plan: Secondary to COPD hypoxia and shock. CT scan of abdomen pelvis did not show any findings to suggest etiology of shock (except GB distended). CT chest showing possible pulmonary edema but no evidence of PNA. Lactic acid level is improving which will be monitored. (8) Anemia: Code(s): D64.9 - Anemia, unspecified Status: Acute Assessment and Plan: Hgb 12.3 on admission. Hgb dropped to 7-8 range and stable. There was some arterial blood loss related to the a-line
--- NOTE | 2022-11-04 08:07 | WPDGIPROGNO ---
Progress Note: A&P Assessment and Plan (1) Respiratory failure: Code(s): J96.90 - Respiratory failure, unspecified, unspecified whether with hypoxia or hypercapnia Status: Acute Assessment and Plan: Patient admitted with respiratory failure and intubated. Unable to give any additional history. (2) History of cardiomyopathy: Code(s): Z86.79 - Personal history of other diseases of the circulatory system Status: Acute Assessment and Plan: Patient has a long history of cardiomyopathy. Likely contributes to current decompensation. (3) Coffee ground emesis: Code(s): K92.0 - Hematemesis Status: Acute Assessment and Plan: Small amount of coffee-ground return noted noted on placing orogastric tube. No active bleeding described. Plan currently is to treat for presumed stress gastritis. No significant bleeding noted. No bowel movements have been reported. (4) Anemia: Code(s): D64.9 - Anemia, unspecified Status: Acute Assessment and Plan: Patient with anemia currently appears stable. Hemoglobin of 8.4. Modest decline of hemoglobin noted after admission. But no active bleeding identified. Continue prophylactic proton pump inhibitor for possible stress gastritis. (5) Ileus: Code(s): K56.7 - Ileus, unspecified Status: Acute Assessment and Plan: Patient's abdomen remains mildly distended and tympanic. Bowel sounds are scant. She may have an ileus. A obstructive series suggest normal bowel gas pattern. Continue trickle tube feedings for now. (6) Shock: Code(s): R57.9 - Shock, unspecified Status: Acute Assessment and Plan: Patient with low blood pressure on pressor agents on admission. pressors have now been discontinued. Subjective Date/time seen: 11/04/22 08:07 Interval history: Patient remains intubated on the ventilator. No bowel movements reported. No active bleeding described. Orogastric tube with tube feedings at a trickle rate currently. Review of Systems Review of Systems: ROS unobtainable: Yes unobtainable due to endotracheal tube Exam Narrative: Physical exam reveals patient be intubated on the ventilator. HEENT exam reveals no icterus. Lungs reveal scattered rhonchi. Heart without murmur. Abdomen is modestly distended bowel sounds are not appreciated this morning. Modest tympany diffusely. Orogastric tube is in place with trickle feedings in progress. Objective Data Vital Signs Vital Signs: Vital Signs - 24 hr 11/03/22 10:35 11/03/22 10:00 11/03/22 10:00 Temperature 99.4 F Pulse Rate 99 100 100 Respiratory Rate 16 Blood Pressure 121/76 Pulse Oximetry 97 96 Oxygen Delivery Mechanical Ventilation Fraction of Inspired Oxygen 30 11/03/22 12:00 11/03/22 12:00 11/03/22 12:00 Temperature Pulse Rate 100 100 Respiratory Rate 16 Blood Pressure Pulse Oximetry 97 Oxygen Delivery Mechanical Ventilation Fraction of Inspired Oxygen 30 30 11/03/22 12:00 11/03/22 13:25 11/03/22 13:25 Temperature 99.4 F Pulse Rate 100 93 93 Respiratory Rate 16 16 Blood Pressure 121/90 Pulse Oximetry 98 98 Oxygen Delivery Mechanical Ventilation Fraction of Inspired Oxygen 30 11/03/22 13:30 11/03/22 14:00 11/03/22 14:00 Temperature 99.5 F Pulse Rate 94 96 96 Respiratory Rate 16 16 Blood Pressure 124/86 Pulse Oximetry 98 Oxygen Delivery Fraction of Inspired Oxygen 11/03/22 16:10 11/03/22 16:32 11/03/22 16:32 Temperature Pulse Rate 98 101 H 101 H Respiratory Rate 16 16 Blood Pressure Pulse Oximetry 97 Oxygen Delivery Mechanical Ventilation Fraction of Inspired Oxygen 30 11/03/22 16:33 11/03/22 16:33 11/03/22 16:00 Temperature Pulse Rate 101 H 101 H 93 Respiratory Rate 16 16 Blood Pressure Pulse Oximetry Oxygen Delivery Fraction of Inspired Oxygen 11/03/22 16:00 11/03/22 16:0
[2022-11-04] MEDS: PANTOPRAZOLE SODIUM IV 40 MG VIAL IV PUSH ×2 (08:18→20:50)
[2022-11-04] MEDS: MINERAL OIL/WHITE PETROLATUM OINTMENT 1 APPLIC EACH EYE ×2 (08:19→20:51)
[2022-11-04] MEDS: ATORVASTATIN 40 MG TABLET PO (08:19)
[2022-11-04] MEDS: methylPREDNISolone SOD SUCC 125 MG VIAL 80 MG IV PUSH (08:19)
[2022-11-04] MEDS: DOXYCYCLINE 100 MG/NS 100 ML 100 MG/100 ML BAG IVPB ×2 (08:24→20:48)
[2022-11-04] MEDS: cefTRIAXone 2 GM in SODIUM CHLORIDE 0.9% IV 100 ML 200 ML IVPB (08:25)
[2022-11-04] MEDS: METOPROLOL SUCCINATE EXT REL 12.5 MG TABCR PO (08:33)
[2022-11-04] MEDS: OXYMETAZOLINE HCL 0.05% NAS 15 ML BTL (*BKC) 1 SPRAY XX ×2 (09:58→20:51)
--- NOTE | 2022-11-04 11:00 | PCFNICU ---
ICU Rounding Note: Pt current nutrition is Vital AF 1.2 at 45 ml/hr. Last recorded weight is 40.7 kg. Bowel Motility:No Bm reported Labs Reviewed:Glu 113, K 5.2,Hct 26.6,Hgb 8.4 Meds Noted: Atrovent, Synthroid, Skin:mottled skin Additional Notes: Patient remains on mechanical vent. Sedation has been stopped. Tube feedings of 20 ml/hr being tolerating, plans to increase tube feeding today to goal rate of 45 ml/hr. Goal rate providing 1188 kcals/74 gms protein/803 ml water. Flush 30 ml q 4 hours. Agree with diet orders. Monitoring: Following daily in ICU rounds. Reassess Tuesdays and Fridays.
--- NOTE | 2022-11-04 11:22 | WPDINTPN ---
Progress Note: A&P Assessment and Plan (1) Acute on chronic respiratory failure with hypoxia and hypercapnia: Code(s): J96.21 - Acute and chronic respiratory failure with hypoxia; J96.22 - Acute and chronic respiratory failure with hypercapnia Status: Acute Assessment and Plan: Acute Respiratory failure secondary to COPD exacerbation, possible pneumonia -Patient was initially tried on BiPAP in the ED but she failed and had to be intubated on 11/01/2022. She was transferred to [facility] intubated on mechanical ventilation -11/01/2022 chest CTA: No evidence of pulmonary embolism, aortic dissection or aortic aneurysm. Worsening ground-glass opacity in the right middle lobe and right lower lobe with worsening bibasilar interstitial thickening, findings are compatible and AFib pain pulmonary edema. Small bilateral pleural effusion with mild basilar atelectasis new from prior exam underlying COPD, stable 6 mm nodule superior segment left lower lobe. -chest x-ray this morning shows extensive hazy airspace disease in the right lung base and right perihilar region suspicious for pneumonia, underlying COPD -Continue CMV mode of ventilation, 30% FiO2 and peep of 5 -ABGs reviewed -Low tidal volume ventilation strategy to prevent volutrauma -Continue Solu-Medrol, Bronchodilators -Sedated with fentanyl and Versed infusion, maintain RASS of 0 to -2, daily sedation vacation, I have asked the bedside RN to stop the sedation to evaluate her mental status (2) Sepsis: Code(s): A41.9 - Sepsis, unspecified organism Status: Acute Assessment and Plan: CT scan was not impressive for pneumonia but patient had elevated lactic acid and developed shock She was treated with IV fluids which will be continued but rate is going to be decreased -initial lactic acid was 7.8, repeat lactic this morning on 11/03/2022 0.9 -UA was unremarkable 11/02/2022 sputum cultures are negative -11/01/2022 urine cultures: Negative -11/01/2022 preliminary blood cultures with no growth /2 bottles -continue ceftriaxone and doxycycline (11/01) - worsening chest x-ray will switch ceftriaxone to cefepime and vancomycin,(11/04) -will continue doxycycline for total of 5 days (3) Shock: Code(s): R57.9 - Shock, unspecified Status: Acute Assessment and Plan: Patient has been in shock since arrival to [facility]. Initially, she was not on any vasopressors. Over the course of her stay in the ER at [facility] she required vasopressors and when she was transferred to [facility] she was on Bob-Synephrine infusion. Patient was switched to Levophed and later vasopressin was added -Patient was given IV fluid bolus on admission -Her noninvasive blood pressure monitoring seemed inaccurate and an arterial catheter was placed emergently for more accurate blood pressure monitoring which did confirm her arterial blood pressure to be much higher than the cuff measurement -NICOM assessment was done on arrival to ICU and was negative for further responsiveness to fluid bolus -She has a history of cardiomyopathy and likely has cardiogenic component to her shock. Echo reviewed -currently off all pressors (4) COPD exacerbation: Code(s): J44.1 - Chronic obstructive pulmonary disease with (acute) exacerbation Status: Acute Assessment and Plan: Continue mechanical ventilation, steroids, antibiotics -wean Solu-Medrol (5) Cardiomyopathy: Code(s): I42.9 - Cardiomyopathy, unspecified Status: Acute Assessment and Plan: Prior echo on 03/21/21 at [facility]: EF <15%, diastolic dysfunction, hypokinetic, apex, inferior, inferolateral, anteroseptal sal, mild LAE, MR. Resolved on medical therapy based on repeat echo on 06/19/21 EF 55-60%, grade I diastolic dysfunction, small right sided pericardial effusion at 0.5 cm. 11/01/2022 repeat echocardiogram Summary ? 1. Complete two-dimensional, color flow a
[2022-11-04 12:09] LABS: Glucose Point of Care 129 mg/dl (65-105)
[2022-11-04 14:22] LABS: Hepatitis B Surface Antigen Negative (Negative)
[2022-11-04 14:28] LABS: HAV RESULT Negative (Negative); Hepatitis B Core IgM Result Negative (Negative)
[2022-11-04 14:39] LABS: Hepatitis C Virus Antibody Negative (Negative)
[2022-11-04] MEDS: dexmedeTOMIDine 400 MCG/100 ML 400 MCG/100 ML BAG IV CONT (17:46)
--- NOTE | 2022-11-04 17:52 | WPDCN ---
Assessment and Plan Assessment and plan (1) Traumatic hematoma of right ear canal: Code(s): S00.431A - Contusion of right ear, initial encounter Status: Acute Assessment and Plan: Afrin one squirt bid for the next 5-7 days. Once prognosis better established will open hematoma, debride/suction. Likely patient scratches ear with object, right side formed hematoma. Left has excoriation/andersen consistent with this. HPI Data of Consult Date/Time: 11/04/22 17:52 Requesting Physician: Mariya Sorensen DO Primary Care Provider: Chicho Zamarripa DO Consult Narrative Reason for consult: Ear bleed Narrative: Shar Patricia is a 51 year old female with right sided ear bleeding Review of Systems Review of Systems: ROS unobtainable: Yes unobtainable due to endotracheal tube PMFSH Past Medical History Medical History Anxiety Cardiomyopathy Nonischemic cardiomyopathy with EF of 15% 02/2021, with cardiac catheterization April 2021 no significant coronary artery disease and EF 60-65% and right coronary dominant circulation with no evidence of coronary artery disease with very small caliber vessels given the patient's cachectic state, repeat echocardiogram 05/2021 EF of 55-60% with sub optimal imaging grade 1 diastolic dysfunction COPD (chronic obstructive pulmonary disease) Dyslipidemia GERD (gastroesophageal reflux disease) Hypothyroidism Obstructive sleep apnea (~11/2021) Noncompliant with CPAP CPAP setting is post be 7 mm of water Pulmonary cachexia due to COPD Scoliosis Tobacco abuse Surgical History Surgical History H/O laparoscopy H/O oral surgery History of Family History Family History Father , father had cancer of the lymph nodes. He in 2008 he had diabetes / hypertension Diabetes mellitus Hypertension Lung cancer Mother Cerebrovascular accident Sibling Hypothyroidism Social History Social History Social History: Code status: Full code Smoking packs per day: 0.5 Smoking cigarettes per day: 10.0 Years smoked: 36 Smoking pack-years: 18.00 Smoking status: Current every day smoker Tobacco type: cigarettes Alcohol intake: never Substance use: never Lack of Transportation: No Lack of Food: Never True Current Housing: I Have Housing Concerned About Future Housing: No Difficulty Paying Gas/Electric Bills: YES Difficulty Paying for Meds: No Currently Unemployed: No Education: High School Diploma/GED Difficulty w/ Childcare or Family Care: No Living arrangements: with family Gender identity (if verbalized by the patient): Female Spiritual care concerns: No Meds Home Medications and Allergies Home Medications Medication Instructions Recorded Confirmed Type albuterol sulfate 1.25 mg/3 mL 1.25 mg (3 mL) inhalation Q4-6H 01/28/22 11/01/22 Rx solution for nebulization PRN shortness of breath or wheezing #90 mL sertraline 25 mg tablet 25 mg PO DAILY #90 tabs 01/28/22 11/01/22 Rx benzonatate 200 mg capsule 200 mg PO BID PRN cough #20 caps 10/07/22 11/01/22 Rx albuterol sulfate 90 mcg/actuation 2 inh inhalation Q4-6H PRN 11/01/22 11/01/22 History breath activated powder inhaler Shortness Of Breath (ProAir RespiClick) atorvastatin 40 mg tablet 40 mg PO DAILY 11/01/22 11/01/22 History bupropion HCl 150 mg tablet,12 hr 150 mg PO BID 11/01/22 11/01/22 History sustained-release fluticasone propionate 50 50 mcg intranasal DAILY 11/01/22 11/01/22 History mcg/actuation nasal spray,suspension ipratropium 20 mcg-albuterol 100 1 puff inhalation QID 11/01/22 11/01/22 History mcg/actuation mist for inhalation (Combivent Respimat) levothyroxine 200 mcg tablet 200 mcg PO DAILY 11/01/2211/01
[2022-11-04 18:55] LABS: Glucose Point of Care 150 mg/dl (65-105)
[2022-11-05] VITALS (112 sets, daily range): BP systolic 110–147; BP diastolic 74–105; PULSE 94–121; RESP 16–30; TEMP 35.9–37.9; O2SAT 90–100
[2022-11-05] MEDS: ALBUMIN HUMAN 25% 25 GM/100 ML 100 ML IVPB (00:21)
[2022-11-05 00:30] LABS: Glucose Point of Care 185 mg/dl (65-105)
[2022-11-05] MEDS: IPRATROPIUM BR 0.02% INH SOLN 0.5 MG/2.5 ML VIAL INHALATION ×4 (02:00→20:26)
[2022-11-05] MEDS: ALBUTEROL SULFATE NEB 2.5 MG/3 ML INH 5 MG INHALATION (02:00)
[2022-11-05 04:35] LABS: Hematocrit 24.4 % (37.0-47.0); Hemoglobin 7.6 g/dL (12.0-15.0); Mean Corpuscular HGB Conc 31.1 g/dl (32-36); Mean Corpuscular Hemoglobin 29.1 pg (26-34); Mean Corpuscular Volume 93.5 fl (80-100); Mean Platelet Volume 10.1 fl (7.4-10.4); Platelet Count Result 189 k/mm3 (150-375); Red Blood Count 2.61 M/mm3 (4.2-5.4); Red Cell Distribution Width 14.7 % (11.5-14.5); White Blood Count 11.2 K/mm3 (4.5-10.0)
[2022-11-05 04:45] LABS: Lactic Acid Reflex 1.9 mmol/L (0.7-2.0)
[2022-11-05 04:49] LABS: Alanine Aminotransferase 157 U/L (6-35); Albumin Level 5.8 g/dL (3.5-5.1); Alkaline Phosphatase 39 U/L (38-126); Alveolar/Arterial O2 Gradient 148.6 mmHg; Anion Gap 10 mmol/L (8-16); Aspartate Amino Transferase 120 U/L (14-36); Base Excess ABG -1.8 mEq/l (+/-2.0); Bilirubin,Total 0.5 mg/dL (0.2-1.3); Blood Urea Nitrogen 45 mg/dL (7-17); Calcium 8.7 mg/dL (8.4-10.2); Carbon Dioxide 29 mmol/L (22-30); Carboxyhemoglobin 0.3 % THb (0-2.0); Chloride 99 mmol/L (98-107); Estimated CRCL calculation 47 ml/min; Estimated Glomerular Filt Rate > 60; Fractional Inspired Oxygen 40 %; Glucose 205 mg/dL (65-110); HCO3 ABG 24.2 mEq/l (22.0-26.0); Magnesium 2.1 mg/dL (1.6-2.3); Methemoglobin ABG 0.3 %THb (0-1.5); Oxygen Content ABG 11.2 %vol (16.0-22.0); Oxygen Saturation ABG 95.3 % (95.0-100.0); Oxyhemoglobin 92.3 % THb (90.0-100.0); PCO2 ABG 47.3 mmHg (35.0-45.0); PO2 ABG 82.2 mmHg (80.0-100.0); PO2 FiO2 Ratio Arterial Blood 2.05 %; Potassium 4.9 mmol/L (3.4-5.0); Reduced Hemoglobin 7.1 %THb (0-5.0); Sodium 138 mmol/L (137-145); Total Hemoglobin 8.5 g/dL (12.0-18.0); pH ABG 7.327 (7.350-7.450)
[2022-11-05 04:56] LABS: Device VENTILATOR; Modified Allen's Test Unable to perform; Site Drawn RIGHT RADIAL
[2022-11-05 04:57] LABS: Arterial Blood Gas PEEP 5 cmH2O; Arterial Blood Gas Tidal Volume 320 ml; Arterial Blood Gas Vent Mode CMV; Arterial Blood Gas Ventilator rate 16 /MIN
[2022-11-05] MEDS: LEVOTHYROXINE SODIUM 75 MCG TABLET FEED TUBE (05:37)
[2022-11-05] MEDS: CENTRAL LINE FLUSH 10 ML IV PUSH ×4 (05:38→19:55)
[2022-11-05 05:42] LABS: Glucose Point of Care 202 mg/dl (65-105)
[2022-11-05] MEDS: PROPOFOL IV EMULSION 100 ML 1.22 MG IV CONT (05:55)
[2022-11-05] MEDS: INSULIN ASPART (*BKC) 100 UNITS/ML SUB-Q (06:03)
[2022-11-05 06:20] LABS: Triglycerides 84 mg/dL (<150)
--- NOTE | 2022-11-05 07:58 | PM.PNCARD ---
Progress Note: A&P Assessment and Plan (1) Shock: Code(s): R57.9 - Shock, unspecified Status: Acute Assessment and Plan: Due to acute systolic heart failure and with chronic COPD. Was on 3 vasopressors, now all are off. Managed by clinical liaison. (2) COPD exacerbation: Code(s): J44.1 - Chronic obstructive pulmonary disease with (acute) exacerbation Status: Acute Assessment and Plan: Management as per clinical liaison. (3) History of cardiomyopathy: Code(s): Z86.79 - Personal history of other diseases of the circulatory system Status: Acute Assessment and Plan: Recurrence of dilated cardiomyopathy or Takotsubo cardiomyopathy. Previously, resolved on medical therapy based on repeat echo on 06/19/21 EF 55-60%, grade I diastolic dysfunction, small right sided pericardial effusion at 0.5 cm. Prior echo on 03/21/21 at [facility]: EF <15%, diastolic dysfunction, hypokinetic, apex, inferior, inferolateral, anteroseptal sal, mild LAE, MR. 11/01/22 Echo: EF 10-15%, mod LVE, basal segments have normal contractility otherwise global akinesis suggesting Takotubo cardiomyopathy, diastolic dysfunction with E/e' 18, RV similar to LV with severely reduced function with normal basal segments, mild based on valve area and gradients but valve not well seen. Monitor fluid status to avoid volume overload. Once hemodynamics stable, need to resume beta jose and Entresto. Change Metoprolol Succinate which has to be crushed to Tartate 12.5 mg BID. (4) Elevated troponin: Code(s): R77.8 - Other specified abnormalities of plasma proteins Status: Acute Assessment and Plan: Likely Type II infarct from acute systolic heart failure with hypoxia, hypotension, respiratory acidosis, with normal coronaries on [facility] on 05/26/21. Trend troponin. Subjective Date/time seen: 11/05/22 07:58 Interval history: Sedated and on mechanical ventilation. Exam Const: General: thin Nutritional Appearance: thin Other: Sedated on mechanical ventilation Resp: Auscultation: no crackles, no rales, no rhonchi, no wheezes and diminished lung sounds Cardio: Rate: regular rate and tachycardic Rhythm: regular rhythm Heart sounds: no murmurs Extrem: Right lower extremity: no edema Left lower extremity: no edema Objective Data Vital Signs Vital Signs: Vital Signs - 24 hr 11/04/22 08:00 11/04/22 08:00 11/04/22 08:33 Temperature 99.2 F Pulse Rate 84 99 Respiratory Rate 16 Blood Pressure 108/75 Pulse Oximetry 100 Oxygen Delivery Fraction of Inspired Oxygen 30 11/04/22 08:40 11/04/22 08:54 11/04/22 08:59 Temperature Pulse Rate 107 H 125 H 120 H Respiratory Rate 16 16 Blood Pressure Pulse Oximetry 97 Oxygen Delivery Mechanical Ventilation Fraction of Inspired Oxygen 30 11/04/22 08:00 11/04/22 08:00 11/04/22 10:00 Temperature Pulse Rate 87 114 H Respiratory Rate Blood Pressure Pulse Oximetry 97 Oxygen Delivery Mechanical Ventilation Fraction of Inspired Oxygen 30 11/04/22 10:00 11/04/22 10:43 11/04/22 12:00 Temperature 99.3 F 98.9 F Pulse Rate 114 H 94 100 Respiratory Rate 16 16 Blood Pressure 110/84 120/93 H Pulse Oximetry 99 96 95 Oxygen Delivery Mechanical Ventilation Fraction of Inspired Oxygen 30 11/04/22 12:00 11/04/22 12:00 11/04/22 12:00 Temperature Pulse Rate 96 Respiratory Rate Blood Pressure Pulse Oximetry 97 Oxygen Delivery Mechanical Ventilation Fraction of Inspired Oxygen 30 30 11/04/22 13:26 11/04/22 13:30 11/04/22 13:31 Temperature Pulse Rate 98 133 H 131 H Respiratory Rate 16 17 Blood Pressure Pulse Oximetry 99 Oxygen Delivery Mechanical Ventilation Fraction of Inspired Oxygen 30 11/04/22 10:00 11/04/22 12:00 11/04/22 10:00 Temperature Pulse Rate 106 H 99 106 H Respiratory Rate 16 16 16 Blood Pressure Pulse Oximetry Oxygen Delivery
[2022-11-05] MEDS: DOXYCYCLINE 100 MG/NS 100 ML 100 MG/100 ML BAG IVPB ×2 (08:02→19:52)
[2022-11-05] MEDS: methylPREDNISolone SOD SUCC 40 MG VIAL IV PUSH (08:03)
[2022-11-05] MEDS: MINERAL OIL/WHITE PETROLATUM OINTMENT 1 APPLIC EACH EYE ×2 (08:04→19:53)
[2022-11-05] MEDS: ATORVASTATIN 40 MG TABLET PO (08:04)
[2022-11-05] MEDS: OXYMETAZOLINE HCL 0.05% NAS 15 ML BTL (*BKC) 1 SPRAY XX ×2 (08:05→19:53)
[2022-11-05] MEDS: METOPROLOL TARTRATE 12.5 MG TABLET PO ×2 (08:17→19:53)
--- NOTE | 2022-11-05 08:40 | P.PNINT_ITS ---
Progress Note: A&P Assessment and Plan (1) Acute on chronic respiratory failure with hypoxia and hypercapnia: Code(s): J96.21 - Acute and chronic respiratory failure with hypoxia; J96.22 - Acute and chronic respiratory failure with hypercapnia Status: Acute Assessment and Plan: Acute Respiratory failure secondary to COPD exacerbation, possible pneumonia -Patient was initially tried on BiPAP in the ED but she failed and had to be intubated on 11/01/2022. She was transferred to [facility] intubated on mechanical ventilation -11/01/2022 chest CTA: No evidence of pulmonary embolism, aortic dissection or aortic aneurysm. Worsening ground-glass opacity in the right middle lobe and right lower lobe with worsening bibasilar interstitial thickening, findings are compatible and AFib pain pulmonary edema. Small bilateral pleural effusion with mild basilar atelectasis new from prior exam underlying COPD, stable 6 mm nodule superior segment left lower lobe. -chest x-ray this morning: Stable right basilar pneumonia.Underlying COPD. -Continue CMV mode of ventilation, 40% FiO2 and peep of 5 -ABGs reviewed -Low tidal volume ventilation strategy to prevent volutrauma -Continue Solu-Medrol, Bronchodilators - on Propofol for sedation, maintain RASS of 0 to -2, daily sedation vacation, - sedation was discontinued on 11/04/2022, patient was off sedation almost all day, only open her eyes but did not track or follow simple commands. She then got tachycardic, tachypneic and Precedex was started, she was maxed out on 1.5 mcg of Precedex which really did not help her as she remained tachycardic and tachypneic, patient was placed on propofol which has helped her synchrony with the ventilator and less tachycardic (2) Sepsis: Code(s): A41.9 - Sepsis, unspecified organism Status: Acute Assessment and Plan: CT scan was not impressive for pneumonia but patient had elevated lactic acid and developed shock She was treated with IV fluids which will be continued but rate is going to be decreased -initial lactic acid was 7.8, repeat lactic this morning on 11/03/2022 0.9 -UA was unremarkable 11/02/2022 sputum cultures are negative -11/01/2022 urine cultures: Negative -11/01/2022 preliminary blood cultures with no growth 2/2 bottles -continue ceftriaxone and doxycycline (11/01) - switched ceftriaxone to cefepime and vancomycin,(11/04) -will continue doxycycline for total of 5 days (3) Shock: Code(s): R57.9 - Shock, unspecified Status: Acute Assessment and Plan: Patient was in shock upon arrival to [facility]. Initially, she was not on any vasopressors. Over the course of her stay in the ER at [facility] she required vasopressors and when she was transferred to [facility] she was on Bob-Synephrine infusion. Patient was switched to Levophed and later vasopressin was added -Patient was given IV fluid bolus on admission -Her noninvasive blood pressure monitoring seemed inaccurate and an arterial catheter was placed emergently for more accurate blood pressure monitoring which did confirm her arterial blood pressure to be much higher than the cuff measurement -NICOM assessment was done on arrival to ICU and was negative for further responsiveness to fluid bolus -currently off all pressors -She has a history of cardiomyopathy and likely has cardiogenic component to her shock. Echo reviewed (4) COPD exacerbation: Code(s): J44.1 - Chronic obstructive pulmonary disease with (acute) exacerbation Status: Acute Assessment and Plan: Continue mechanical ventilation, steroids, antibiotics -wean Solu
[2022-11-05] MEDS: PANTOPRAZOLE SODIUM IV 40 MG VIAL IV PUSH ×2 (09:10→19:54)
[2022-11-05] MEDS: PROPOFOL IV EMULSION 100 ML 6.33 MG IV CONT (09:28)
[2022-11-05] MEDS: LIDOCAINE HCL 1% PF INJ 5 ML VIAL INFILTRATE (11:15)
--- NOTE | 2022-11-05 11:34 | PCFNICU ---
ICU Rounding Note: Pt current nutrition is Vital 1.2 AF at 45 ml/hr. Last recorded weight is 42.2 kg. Bowel Motility: No BM reported. Labs Reviewed:Glu 205, BUN 45, Alb 5.8 Meds Noted:Propofol 25 xujd=005 kcals, Synthroid, Lopressor. Skin: mottled skin Additional Notes: Patient remains on mechanical vent and tube feedings of Vital AF 1.2 at 45 ml/hr with additional 166 kcal from Propofol. Nursing reports patient is tolerating tube feedings. Free water flush 30 ml q 4 hours. Plans for PICC today. Agree with diet orders. Monitor meds, labs, weights, tube feeding orders, plan of care Following daily in ICU rounds. Reassess Tuesdays and Fridays.
[2022-11-05 12:33] LABS: Glucose Point of Care 158 mg/dl (65-105)
[2022-11-05] MEDS: PROPOFOL IV EMULSION 100 ML 12.66 MG IV CONT (17:24)
[2022-11-05 17:31] LABS: Glucose Point of Care 153 mg/dl (65-105)
[2022-11-06] VITALS (112 sets, daily range): BP systolic 67–137; BP diastolic 27–101; PULSE 92–123; RESP 14–25; TEMP 36.7–38.2; O2SAT 90–100
[2022-11-06 01:10] LABS: Glucose Point of Care 164 mg/dl (65-105)
[2022-11-06] MEDS: IPRATROPIUM BR 0.02% INH SOLN 0.5 MG/2.5 ML VIAL INHALATION ×4 (02:48→19:42)
[2022-11-06] MEDS: PROPOFOL IV EMULSION 100 ML 11.39 MG IV CONT (03:14)
[2022-11-06] MEDS: LEVOTHYROXINE SODIUM 75 MCG TABLET FEED TUBE (05:39)
[2022-11-06] MEDS: CENTRAL LINE FLUSH 10 ML IV PUSH ×4 (05:39→20:16)
[2022-11-06 05:51] LABS: Glucose Point of Care 117 mg/dl (65-105)
[2022-11-06 05:59] LABS: Alveolar/Arterial O2 Gradient 81.9 mmHg; Base Excess ABG 6.4 mEq/l (+/-2.0); Carboxyhemoglobin 0.3 % THb (0-2.0); Fractional Inspired Oxygen 30 %; HCO3 ABG 31.6 mEq/l (22.0-26.0); Methemoglobin ABG 0.2 %THb (0-1.5); Oxygen Content ABG 12.9 %vol (16.0-22.0); Oxygen Saturation ABG 95.1 % (95.0-100.0); Oxyhemoglobin 92.9 % THb (90.0-100.0); PCO2 ABG 49.1 mmHg (35.0-45.0); PO2 ABG 74.3 mmHg (80.0-100.0); PO2 FiO2 Ratio Arterial Blood 2.48 %; Reduced Hemoglobin 6.6 %THb (0-5.0); Total Hemoglobin 9.8 g/dL (12.0-18.0); pH ABG 7.427 (7.350-7.450)
[2022-11-06 06:00] LABS: Device VENTILATOR; Site Drawn RIGHT BRACHIAL
[2022-11-06 06:01] LABS: Arterial Blood Gas PEEP 5 cmH2O; Arterial Blood Gas Tidal Volume 320 ml; Arterial Blood Gas Vent Mode CMV; Arterial Blood Gas Ventilator rate 16 /MIN
[2022-11-06 06:55] LABS: Hematocrit 26.9 % (37.0-47.0); Hemoglobin 8.5 g/dL (12.0-15.0); Mean Corpuscular HGB Conc 31.6 g/dl (32-36); Mean Corpuscular Hemoglobin 30.1 pg (26-34); Mean Corpuscular Volume 95.4 fl (80-100); Mean Platelet Volume 11.3 fl (7.4-10.4); Platelet Count Result 212 k/mm3 (150-375); Red Blood Count 2.82 M/mm3 (4.2-5.4); White Blood Count 10.6 K/mm3 (4.5-10.0)
[2022-11-06 07:09] LABS: Alanine Aminotransferase 149 U/L (6-35); Albumin Level 4.7 g/dL (3.5-5.1); Alkaline Phosphatase 47 U/L (38-126); Anion Gap 5 mmol/L (8-16); Aspartate Amino Transferase 83 U/L (14-36); Bilirubin,Total 0.4 mg/dL (0.2-1.3); Blood Urea Nitrogen 44 mg/dL (7-17); Calcium 8.2 mg/dL (8.4-10.2); Carbon Dioxide 32 mmol/L (22-30); Chloride 100 mmol/L (98-107); Estimated CRCL calculation 84 ml/min; Estimated Glomerular Filt Rate > 60; Glucose 123 mg/dL (65-110); INR 1.4; Lactic Acid Reflex 1.3 mmol/L (0.7-2.0); Lipase 52 U/L (23-300); Magnesium 2.2 mg/dL (1.6-2.3); Phosphorus 1.8 mg/dL (2.5-4.5); Potassium 4.3 mmol/L (3.4-5.0); Sodium 137 mmol/L (137-145)
[2022-11-06 07:10] LABS: Partial Thromboplastin Time 33.2 SECONDS (22.3-36.8)
--- NOTE | 2022-11-06 07:55 | PM.PNCARD ---
Progress Note: A&P Assessment and Plan (1) Shock: Code(s): R57.9 - Shock, unspecified Status: Acute Assessment and Plan: Due to acute systolic heart failure and with chronic COPD. Was on 3 vasopressors, now all are off. Managed by chairman and chief executive officer. (2) COPD exacerbation: Code(s): J44.1 - Chronic obstructive pulmonary disease with (acute) exacerbation Status: Acute Assessment and Plan: Management as per chairman and chief executive officer. (3) History of cardiomyopathy: Code(s): Z86.79 - Personal history of other diseases of the circulatory system Status: Acute Assessment and Plan: Recurrence of dilated cardiomyopathy or Takotsubo cardiomyopathy. Previously, resolved on medical therapy based on repeat echo on 06/19/21 EF 55-60%, grade I diastolic dysfunction, small right sided pericardial effusion at 0.5 cm. Prior echo on 03/21/21 at [facility]: EF <15%, diastolic dysfunction, hypokinetic, apex, inferior, inferolateral, anteroseptal sal, mild LAE, MR. 11/01/22 Echo: EF 10-15%, mod LVE, basal segments have normal contractility otherwise global akinesis suggesting Takotubo cardiomyopathy, diastolic dysfunction with E/e' 18, RV similar to LV with severely reduced function with normal basal segments, mild based on valve area and gradients but valve not well seen. Monitor fluid status to avoid volume overload. Once hemodynamics stable, need to resume beta jose and Entresto. Changed Metoprolol Succinate which has to be crushed to Tartate 12.5 mg BID. Start low dose Entresto 12-13 mg BID. (4) Elevated troponin: Code(s): R77.8 - Other specified abnormalities of plasma proteins Status: Acute Assessment and Plan: Likely Type II infarct from acute systolic heart failure with hypoxia, hypotension, respiratory acidosis, with normal coronaries on [facility] on 05/26/21. Subjective Date/time seen: 11/06/22 07:55 Interval history: Sedated and on mechanical ventilation. Exam Const: General: thin Nutritional Appearance: thin Other: Sedated on mechanical ventilation Resp: Auscultation: no crackles, no rales, no rhonchi, no wheezes and diminished lung sounds Cardio: Rate: tachycardic Rhythm: regular rhythm Heart sounds: no murmurs Extrem: Right lower extremity: no edema Left lower extremity: no edema Objective Data Vital Signs Vital Signs: Vital Signs - 24 hr 11/05/22 08:20 11/05/22 08:17 11/05/22 08:00 Temperature 98.6 F Pulse Rate 114 H 115 H 104 H Respiratory Rate 18 16 Blood Pressure 127/91 H Pulse Oximetry 95 Oxygen Delivery Fraction of Inspired Oxygen 11/05/22 08:00 11/05/22 08:00 11/05/22 08:00 Temperature Pulse Rate 105 H 105 H Respiratory Rate 16 Blood Pressure Pulse Oximetry 94 Oxygen Delivery Mechanical Ventilation Fraction of Inspired Oxygen 40 40 11/05/22 10:00 11/05/22 10:00 11/05/22 12:00 Temperature 97.5 F L 96.7 F L Pulse Rate 97 102 H 98 Respiratory Rate 17 18 Blood Pressure 124/89 132/86 Pulse Oximetry 93 98 Oxygen Delivery Fraction of Inspired Oxygen 11/05/22 12:00 11/05/22 12:00 11/05/22 13:32 Temperature Pulse Rate 100 108 H Respiratory Rate 18 Blood Pressure Pulse Oximetry 97 94 Oxygen Delivery Mechanical Ventilation Mechanical Ventilation Fraction of Inspired Oxygen 40 40 40 11/05/22 13:34 11/05/22 13:46 11/05/22 10:30 Temperature Pulse Rate 98 111 H 96 Respiratory Rate 18 22 H Blood Pressure Pulse Oximetry 94 Oxygen Delivery Mechanical Ventilation Fraction of Inspired Oxygen 40 11/05/22 14:00 11/05/22 14:00 11/05/22 16:00 Temperature 98.7 F Pulse Rate 103 H 102 H 107 H Respiratory Rate 18 22 H Blood Pressure 132/82 Pulse Oximetry 98 96 Oxygen Delivery Mechanical Ventilation Fraction of Inspired Oxygen 40 11/05/22 16:00 11/05/22 08:00 11/05/22 08:01 Temperature 98.6 F 98.6 F Pulse Rate 104 H 103 H Respiratory Rate 16 1
[2022-11-06] MEDS: PANTOPRAZOLE SODIUM IV 40 MG VIAL IV PUSH ×2 (08:28→20:16)
[2022-11-06] MEDS: PROPOFOL IV EMULSION 100 ML 12.66 MG IV CONT (08:28)
[2022-11-06] MEDS: METOPROLOL TARTRATE 12.5 MG TABLET PO ×2 (08:28→20:15)
[2022-11-06] MEDS: OXYMETAZOLINE HCL 0.05% NAS 15 ML BTL (*BKC) 1 SPRAY XX ×2 (08:29→20:15)
[2022-11-06] MEDS: ATORVASTATIN 40 MG TABLET PO (08:29)
[2022-11-06] MEDS: SACUBITRIL/VALSARTAN 12-13 MG TABLET 1 TAB PO ×2 (08:29→20:16)
[2022-11-06] MEDS: MINERAL OIL/WHITE PETROLATUM OINTMENT 1 APPLIC EACH EYE ×2 (08:29→20:15)
[2022-11-06] MEDS: methylPREDNISolone SOD SUCC 40 MG VIAL IV PUSH (08:29)
--- NOTE | 2022-11-06 08:44 | WPDINTPN ---
Progress Note: A&P Assessment and Plan (1) Acute on chronic respiratory failure with hypoxia and hypercapnia: Code(s): J96.21 - Acute and chronic respiratory failure with hypoxia; J96.22 - Acute and chronic respiratory failure with hypercapnia Status: Acute Assessment and Plan: Acute Respiratory failure secondary to COPD exacerbation, possible pneumonia -Patient was initially tried on BiPAP in the ED but she failed and had to be intubated on 11/01/2022. She was transferred to [facility] intubated on mechanical ventilation -11/01/2022 chest CTA: No evidence of pulmonary embolism, aortic dissection or aortic aneurysm. Worsening ground-glass opacity in the right middle lobe and right lower lobe with worsening bibasilar interstitial thickening, findings are compatible and AFib pain pulmonary edema. Small bilateral pleural effusion with mild basilar atelectasis new from prior exam underlying COPD, stable 6 mm nodule superior segment left lower lobe. -chest x-ray this morning: Stable right basilar pneumonia.Underlying COPD. -Continue CMV mode of ventilation, 40% FiO2 and peep of 5 -ABGs reviewed -Low tidal volume ventilation strategy to prevent volutrauma -Continue Solu-Medrol, Bronchodilators - on Propofol for sedation, maintain RASS of 0 to -2, daily sedation vacation, - sedation was discontinued on 11/04/2022, patient was off sedation almost all day, only open her eyes but did not track or follow simple commands. She then got tachycardic, tachypneic and Precedex was started, she was maxed out on 1.5 mcg of Precedex which really did not help her as she remained tachycardic and tachypneic, patient was placed on propofol which has helped her synchrony with the ventilator and less tachycardic (2) Sepsis: Code(s): A41.9 - Sepsis, unspecified organism Status: Acute Assessment and Plan: CT scan was not impressive for pneumonia but patient had elevated lactic acid and developed shock She was treated with IV fluids which will be continued but rate is going to be decreased -initial lactic acid was 7.8, repeat lactic this morning on 11/03/2022 0.9 -UA was unremarkable 11/02/2022 sputum cultures are negative -11/01/2022 urine cultures: Negative -11/01/2022 preliminary blood cultures with no growth 2/2 bottles -continue ceftriaxone and doxycycline (11/01) - switched ceftriaxone to cefepime and vancomycin,(11/04) -will continue doxycycline for total of 5 days (3) Shock: Code(s): R57.9 - Shock, unspecified Status: Acute Assessment and Plan: Patient was in shock upon arrival to [facility]. Initially, she was not on any vasopressors. Over the course of her stay in the ER at [facility] she required vasopressors and when she was transferred to [facility] she was on Bob-Synephrine infusion. Patient was switched to Levophed and later vasopressin was added -Patient was given IV fluid bolus on admission -Her noninvasive blood pressure monitoring seemed inaccurate and an arterial catheter was placed emergently for more accurate blood pressure monitoring which did confirm her arterial blood pressure to be much higher than the cuff measurement -NICOM assessment was done on arrival to ICU and was negative for further responsiveness to fluid bolus -currently off all pressors -She has a history of cardiomyopathy and likely has cardiogenic component to her shock. Echo reviewed (4) COPD exacerbation: Code(s): J44.1 - Chronic obstructive pulmonary disease with (acute) exacerbation Status: Acute Assessment and Plan: Continue mechanical ventilation, steroids, antibiotics -wean Solu-Medrol (5) Cardiomyopathy: Code(s): I42.9 - Cardiomyopathy, unspecified Status: Acute Assessment and Plan: Prior echo on 03/21/21 at [facility]: EF <15%, diastolic dysfunction, hypokinetic, apex, inferior, inferolateral, anteroseptal sal, mild LAE, MR. Resolved on
[2022-11-06] MEDS: MIDAZOLAM HCL (*CRX) 2 MG/2 ML VIAL IV PUSH (09:07)
[2022-11-06 09:12] LABS: Glucose Point of Care 253 mg/dl (65-105)
--- NOTE | 2022-11-06 12:16 | PCNFU ---
Nutrition Follow-Up Complete: Inadequate energy intake related to mechanical ventilation as evidenced by NPO, need for pressors. goal: Meet estimated nutritional needs when medically able Patient is progressing towards goal. We will continue current goal. Pt current nutrition is Vital AF 1.2 at 45 ml/hr. Last recorded weight is 39.3 kg. Bowel Motility:+Bm reported 11/05 Labs Reviewed:PO4 1.8,Glu 123, Cr 0.4,BUN 44, Hct 26.9,Hgb 8.5 Meds Noted:Propofol 12.66 ml/hp=583 kcals, Versed, Solu Medrol Skin: Mottled Additional Notes: Patient remains on mechanical vent. Tolerating tube feedings at goal rate. Propofol increased from 25 mcgs to 50 mcgs, providing an additional 334 kcals. Total nutrition: 1522 kcals/74 gms protein/803 ml water. Flush 30 ml q 4 hours. Monitor meds, labs, weights, tube feeding orders, plan of care Following daily in ICU rounds. Reassess Tuesdays and Fridays.
[2022-11-06] MEDS: MIDAZOLAM 100MG/NS 100ML(*CRX) 100 MG/100 ML BAG IV CONT (12:23)
[2022-11-06] MEDS: INSULIN ASPART (*BKC) 100 UNITS/ML SUB-Q (12:28)
[2022-11-06 12:29] LABS: Glucose Point of Care 232 mg/dl (65-105)
[2022-11-06 18:21] LABS: Glucose Point of Care 85 mg/dl (65-105)
[2022-11-06] MEDS: PROPOFOL IV EMULSION 100 ML 10.13 MG IV CONT (22:48)
[2022-11-07] VITALS (102 sets, daily range): BP systolic 69–152; BP diastolic 47–108; PULSE 87–123; RESP 14–26; TEMP 36.9–38.1; O2SAT 96–100
[2022-11-07 00:33] LABS: Glucose Point of Care 139 mg/dl (65-105)
[2022-11-07] MEDS: IPRATROPIUM BR 0.02% INH SOLN 0.5 MG/2.5 ML VIAL INHALATION ×4 (03:04→20:11)
[2022-11-07 05:30] LABS: Hemoglobin 8.5 g/dL (12.0-15.0); Mean Corpuscular HGB Conc 31.5 g/dl (32-36); Mean Corpuscular Hemoglobin 29.4 pg (26-34); Mean Corpuscular Volume 93.4 fl (80-100); Mean Platelet Volume 10.7 fl (7.4-10.4); Platelet Count Result 236 k/mm3 (150-375); Red Blood Count 2.89 M/mm3 (4.2-5.4); Red Cell Distribution Width 15.2 % (11.5-14.5); White Blood Count 12.3 K/mm3 (4.5-10.0)
[2022-11-07 05:45] LABS: Alveolar/Arterial O2 Gradient 52.7 mmHg; HCO3 ABG 32.2 mEq/l (22.0-26.0); Oxygen Content ABG 13.7 %vol (16.0-22.0); Oxygen Saturation ABG 98.3 % (95.0-100.0); PCO2 ABG 43.3 mmHg (35.0-45.0); PO2 ABG 110.3 mmHg (80.0-100.0); pH ABG 7.489 (7.350-7.450)
[2022-11-07 05:45] LABS: Alanine Aminotransferase 108 U/L (6-35); Albumin Level 3.9 g/dL (3.5-5.1); Alkaline Phosphatase 44 U/L (38-126); Anion Gap 5 mmol/L (8-16); Aspartate Amino Transferase 55 U/L (14-36); Bilirubin,Total 0.5 mg/dL (0.2-1.3); Blood Urea Nitrogen 43 mg/dL (7-17); Calcium 7.7 mg/dL (8.4-10.2); Carbon Dioxide 32 mmol/L (22-30); Chloride 99 mmol/L (98-107); Estimated CRCL calculation 84 ml/min; Estimated Glomerular Filt Rate > 60; Glucose 167 mg/dL (65-110); Magnesium 2.2 mg/dL (1.6-2.3); Phosphorus 1.5 mg/dL (2.5-4.5); Sodium 136 mmol/L (137-145); Triglycerides 82 mg/dL (<150)
[2022-11-07 05:46] LABS: Carboxyhemoglobin 0.2 % THb (0-2.0); Fractional Inspired Oxygen 30 %; Methemoglobin ABG 0.5 %THb (0-1.5); Oxyhemoglobin 96.2 % THb (90.0-100.0); PO2 FiO2 Ratio Arterial Blood 3.68 %; Reduced Hemoglobin 3.1 %THb (0-5.0); Site Drawn RIGHT BRACHIAL
[2022-11-07 05:47] LABS: Device VENTILATOR
[2022-11-07 05:48] LABS: Arterial Blood Gas PEEP 5 cmH2O; Arterial Blood Gas Tidal Volume 320 ml; Arterial Blood Gas Vent Mode CMV; Arterial Blood Gas Ventilator rate 16 /MIN
[2022-11-07] MEDS: LEVOTHYROXINE SODIUM 75 MCG TABLET FEED TUBE (06:11)
[2022-11-07] MEDS: CENTRAL LINE FLUSH 10 ML IV PUSH ×4 (06:12→20:03)
--- NOTE | 2022-11-07 07:59 | PM.PNCARD ---
Progress Note: A&P Assessment and Plan (1) Shock: Code(s): R57.9 - Shock, unspecified Status: Acute Assessment and Plan: Due to acute systolic heart failure and with chronic COPD. Was on 3 vasopressors, now all are off. Managed by flight superintendent. (2) COPD exacerbation: Code(s): J44.1 - Chronic obstructive pulmonary disease with (acute) exacerbation Status: Acute Assessment and Plan: Management as per flight superintendent. (3) History of cardiomyopathy: Code(s): Z86.79 - Personal history of other diseases of the circulatory system Status: Acute Assessment and Plan: Recurrence of dilated cardiomyopathy or Takotsubo cardiomyopathy. Previously, resolved on medical therapy based on repeat echo on 06/19/21 EF 55-60%, grade I diastolic dysfunction, small right sided pericardial effusion at 0.5 cm. Prior echo on 03/21/21 at [facility]: EF <15%, diastolic dysfunction, hypokinetic, apex, inferior, inferolateral, anteroseptal sal, mild LAE, MR. 11/01/22 Echo: EF 10-15%, mod LVE, basal segments have normal contractility otherwise global akinesis suggesting Takotubo cardiomyopathy, diastolic dysfunction with E/e' 18, RV similar to LV with severely reduced function with normal basal segments, mild based on valve area and gradients but valve not well seen. Monitor fluid status to avoid volume overload. Once hemodynamics stable, need to resume beta jose and Entresto. On low dose Metoprolol Tartate 12.5 mg BID. Started low dose Entresto 12-13 mg BID. (4) Elevated troponin: Code(s): R77.8 - Other specified abnormalities of plasma proteins Status: Acute Assessment and Plan: Likely Type II infarct from acute systolic heart failure with hypoxia, hypotension, respiratory acidosis, with normal coronaries on [facility] on 05/26/21. Subjective Date/time seen: 11/07/22 07:59 Interval history: Sedated and on mechanical ventilation. Exam Const: General: thin Nutritional Appearance: thin Other: Sedated on mechanical ventilation Resp: Auscultation: no crackles, no rales, no rhonchi, no wheezes and diminished lung sounds Cardio: Rate: regular rate and tachycardic Rhythm: regular rhythm Heart sounds: no murmurs Extrem: Right lower extremity: no edema Left lower extremity: no edema Objective Data Vital Signs Vital Signs: Vital Signs - 24 hr 11/06/22 08:28 11/06/22 08:47 11/06/22 08:54 Temperature Pulse Rate 108 H 122 H 122 H Respiratory Rate 18 Blood Pressure Pulse Oximetry 98 Oxygen Delivery Mechanical Ventilation Fraction of Inspired Oxygen 30 11/06/22 08:56 11/06/22 08:00 11/06/22 08:00 Temperature Pulse Rate 122 H 108 H Respiratory Rate 16 20 Blood Pressure Pulse Oximetry 97 Oxygen Delivery Mechanical Ventilation Fraction of Inspired Oxygen 30 30 11/06/22 10:00 11/06/22 08:02 11/06/22 08:36 Temperature 99.9 F H 100.0 F H Pulse Rate 105 H 110 H 115 H Respiratory Rate 19 19 Blood Pressure 111/77 Pulse Oximetry 98 99 Oxygen Delivery Fraction of Inspired Oxygen 11/06/22 08:46 11/06/22 09:05 11/06/22 09:18 Temperature 100.0 F H 100.0 F H 99.8 F H Pulse Rate 123 H 109 H 104 H Respiratory Rate 18 18 16 Blood Pressure Pulse Oximetry 96 97 100 Oxygen Delivery Fraction of Inspired Oxygen 11/06/22 09:53 11/06/22 10:01 11/06/22 10:02 Temperature 99.7 F H 99.7 F H 99.7 F H Pulse Rate 108 H 105 H 106 H Respiratory Rate 16 18 17 Blood Pressure 137/99 H Pulse Oximetry 98 97 97 Oxygen Delivery Fraction of Inspired Oxygen 11/06/22 10:15 11/06/22 10:55 11/06/22 12:00 Temperature 99.7 F H Pulse Rate 104 H 108 H 113 H Respiratory Rate 19 20 Blood Pressure Pulse Oximetry 97 96 94 Oxygen Delivery Mechanical Ventilation Mechanical Ventilation Fraction of Inspired Oxygen 30 30 11/06/22 12:00 11/06/22 10:30 11/06/22 10:45 Temperature 99.7 F H 99.7 F H Pulse Rate 105
[2022-11-07] MEDS: OXYMETAZOLINE HCL 0.05% NAS 15 ML BTL (*BKC) 1 SPRAY XX ×2 (08:06→20:02)
[2022-11-07] MEDS: SACUBITRIL/VALSARTAN 12-13 MG TABLET 1 TAB PO ×2 (08:07→20:03)
[2022-11-07] MEDS: ATORVASTATIN 40 MG TABLET PO (08:07)
[2022-11-07] MEDS: PANTOPRAZOLE SODIUM IV 40 MG VIAL IV PUSH ×2 (08:07→20:02)
[2022-11-07] MEDS: methylPREDNISolone SOD SUCC 40 MG VIAL IV PUSH (08:07)
[2022-11-07] MEDS: MINERAL OIL/WHITE PETROLATUM OINTMENT 1 APPLIC EACH EYE ×2 (08:08→20:02)
[2022-11-07] MEDS: PROPOFOL IV EMULSION 100 ML 7.6 MG IV CONT (08:08)
[2022-11-07] MEDS: CALCIUM GLUC 2,000 MG/NS 100ML 2,000 MG/100 ML BAG 100 MG IVPB (08:38)
[2022-11-07] MEDS: METOPROLOL TARTRATE 12.5 MG TABLET PO ×2 (08:38→20:03)
[2022-11-07] MEDS: SODIUM PHOSPHATE 20 MM in DEXTROSE 5% IN WATER 250 ML 50 MM IVPB (08:39)
--- NOTE | 2022-11-07 08:44 | PM.IMPN ---
Progress Note: A&P Assessment and Plan (1) Shock: Code(s): R57.9 - Shock, unspecified Status: Acute Assessment and Plan: Patient was in shock on arrival to [facility]. She was started on Levophed as well as vasopressin and phenylephrine.? Etiology of her hypotension is unclear but possibly cardiac.??Art line actually showed her BP was higher than cuff pressures probably due to her low body mass. She was given a fluid bolus and bicarb for acidosis. Echo showing EF 10-15%. Chest CTA is negative for PE. Able to be weaned off pressors. She remains on abx for possible infectious etiology causing shock. BCx NGTD. Also on steroids for COPD exacerbation. Appreciate personnel monitor management. (2) Acute on chronic respiratory failure with hypoxia and hypercapnia: Code(s): J96.21 - Acute and chronic respiratory failure with hypoxia; J96.22 - Acute and chronic respiratory failure with hypercapnia Status: Acute Assessment and Plan: Acute Respiratory failure secondary to COPD exacerbation, possible pneumonia and/or CHF exacerbation. Patient was initially tried on BiPAP in the ED but she failed and had to be intubated. She was transferred to [facility] intubated on mechanical ventilation. Stable and on minimal settings. Appreciate personnel monitor input. (3) COPD exacerbation: Code(s): J44.1 - Chronic obstructive pulmonary disease with (acute) exacerbation Status: Acute Assessment and Plan: as above (4) History of cardiomyopathy: Code(s): Z86.79 - Personal history of other diseases of the circulatory system Status: Acute Assessment and Plan: Prior echo on 03/21/21 at [facility]: EF <15%, diastolic dysfunction, hypokinetic, apex, inferior, inferolateral, anteroseptal sal, mild LAE, MR. Resolved on medical therapy based on repeat echo on 06/19/21 EF 55-60%, grade I diastolic dysfunction, small right sided pericardial effusion at 0.5 cm. Echo here again showing EF 10-15% with findings consistent with Takotsubo cardiomyopathy. Diastolic dysfunction. Reduced RV systolic function. No pulmonary hypertension. Patient evaluated by Cardiology here and appreciate their input. (5) Sepsis: Code(s): A41.9 - Sepsis, unspecified organism Status: Acute Assessment and Plan: Patient met sepsis criteria with shock on admission with elevated lactic acidosis and in shock. CT scan was not consistent with pneumonia. Treatment as above (6) Non-ST elevated myocardial infarction (non-STEMI): Code(s): I21.4 - Non-ST elevation (NSTEMI) myocardial infarction Status: Inactive Assessment and Plan: Trop up to 1.3. EKG showedHR [address]-T wave changes. Patient evaluated by Cardiology. Type 2 NSTEMI suspected secondary to respiratory failure, lactic acidosis, shock and CMP. She had normal coronaries on [facility] in April of 2021. Echo as mentioned above. Continue aspirin and statin. Not on beta-jose or NUBIA/ARB due to shock. Cardiology does not recommend systemic anticoagulation for the elevated troponin. (7) Lactic acidosis: Code(s): E87.20 - Acidosis, unspecified Status: Acute Assessment and Plan: Secondary to COPD hypoxia and shock. CT scan of abdomen pelvis did not show any findings to suggest etiology of shock (except GB distended). CT chest showing possible pulmonary edema but no evidence of PNA. Lactic acid level improved (8) Anemia: Code(s): D64.9 - Anemia, unspecified Status: Acute Assessment and Plan: Hgb 12.3 on admission. Hgb dropped to 7-8 range and stable. There was some arterial blood loss related to the a-line. CT A/P showing no etiology of the acute drop in Hgb. Suspect some portion of dilution given the fluid resuscitation. Follow HH closely. (9) Cardiomyopathy: Code(s): I42.9 - Cardiomyopathy, unspecified Status: Acute Assessment and Plan: Prior ech
--- NOTE | 2022-11-07 09:09 | WPDINTPN ---
Progress Note: A&P Assessment and Plan (1) Acute on chronic respiratory failure with hypoxia and hypercapnia: Code(s): J96.21 - Acute and chronic respiratory failure with hypoxia; J96.22 - Acute and chronic respiratory failure with hypercapnia Status: Acute Assessment and Plan: Acute Respiratory failure secondary to COPD exacerbation, possible pneumonia, pulmonary edema -Patient was initially tried on BiPAP in the ED but she failed and had to be intubated on 11/01/2022. She was transferred to [facility] intubated on mechanical ventilation -11/01/2022 chest CTA: No evidence of pulmonary embolism, aortic dissection or aortic aneurysm. Worsening ground-glass opacity in the right middle lobe and right lower lobe with worsening bibasilar interstitial thickening, findings are compatible and AFib pain pulmonary edema. Small bilateral pleural effusion with mild basilar atelectasis new from prior exam underlying COPD, stable 6 mm nodule superior segment left lower lobe. -chest x-ray reviewed - IMPRESSION: Interval improvement of right lower lobe infiltrate since November 06, 2022? -ABG reviewed -Continue CMV mode of ventilation, 30% FiO2 and peep of 5 decrease tidal volume 300 and rate to see 13 -Low tidal volume ventilation strategy to prevent volutrauma -Continue Solu-Medrol, Bronchodilators - on Propofol for sedation - I placed patient on sedation vacation - sedation was discontinued on 11/04/2022, patient was off sedation almost all day, only open her eyes but did not track or follow simple commands. She then got tachycardic, tachypneic and Precedex was started, she was maxed out on 1.5 mcg of Precedex which really did not help her as she remained tachycardic and tachypneic, patient was placed on propofol which has helped her synchrony with the ventilator and less tachycardic (2) Sepsis: Code(s): A41.9 - Sepsis, unspecified organism Status: Acute Assessment and Plan: CT scan was not impressive for pneumonia but patient had elevated lactic acid and developed shock She was treated with IV fluids which will be continued but rate is going to be decreased -initial lactic acid was 7.8, repeat lactic this morning on 11/03/2022 0.9 -UA was unremarkable 11/02/2022 sputum cultures are negative -11/01/2022 urine cultures: Negative -11/01/2022 preliminary blood cultures with no growth 10/29 bottles -she was initially started ceftriaxone and doxycycline (11/01) - switched ceftriaxone to cefepime and vancomycin(11/04) -received doxycycline for total of 5 days - 11/07 fevers Repeat set of cultures, check UA, change Thomas (3) Shock: Code(s): R57.9 - Shock, unspecified Status: Acute Assessment and Plan: Patient was in shock upon arrival to [facility]. Initially, she was not on any vasopressors. Over the course of her stay in the ER at [facility] she required vasopressors and when she was transferred to [facility] she was on Bob-Synephrine infusion. Patient was switched to Levophed and later vasopressin was added -Patient was given IV fluid bolus on admission -Her noninvasive blood pressure monitoring seemed inaccurate and an arterial catheter was placed emergently for more accurate blood pressure monitoring which did confirm her arterial blood pressure to be much higher than the cuff measurement -NICOM assessment was done on arrival to ICU and was negative for further responsiveness to fluid bolus -currently off all pressors -She has a history of cardiomyopathy and likely has cardiogenic component to her shock. Echo reviewed (4) COPD exacerbation: Code(s): J44.1 - Chronic obstructive pulmonary disease with (acute) exacerbation Status: Acute Assessment and Plan: Continue mechanical ventilation, steroids, antibiotics -wean Solu-Medrol (5) Cardiomyopathy: Code(s): I42.9 - Cardiomyopathy, unspecified Status: Acute Assessment and Plan: Prior ec
[2022-11-07 12:29] LABS: Bacteria Urine Trace /hpf; Mucus Urine Rare /lpf; Squamous Epithelial Cell Urine Many /hpf (Few)
[2022-11-07 12:30] LABS: Glucose Point of Care 183 mg/dl (65-105)
[2022-11-07 12:34] LABS: Appearance Urine Clear (Clear); Bilirubin Urine Negative (Negative); Blood Urine Trace-intact (Negative); Color Urine Yellow (Yellow); Glucose Urine UA Negative (Negative); Ketones Urine Negative (Negative); Leukocyte Esterase Ur Trace LEU/UL (Negative); Nitrate Urine Negative (Negative); Protein Urine Trace mg/dL (Negative); Specific Grav Ur 1.015 (1.001-1.035); Urobilinogen Urine 0.2 mg/dL (<2.0)
[2022-11-07 12:35] LABS: Add Urine Microscopic? YES
[2022-11-07 19:10] LABS: Glucose Point of Care 220 mg/dl (65-105)
[2022-11-07] MEDS: INSULIN ASPART (*BKC) 100 UNITS/ML SUB-Q (19:26)
[2022-11-08] VITALS (93 sets, daily range): BP systolic 113–178; BP diastolic 68–116; PULSE 90–123; RESP 14–44; TEMP 37.2–37.9; O2SAT 88–100
[2022-11-08 00:38] LABS: Glucose Point of Care 121 mg/dl (65-105)
[2022-11-08] MEDS: IPRATROPIUM BR 0.02% INH SOLN 0.5 MG/2.5 ML VIAL INHALATION ×4 (02:11→19:49)
[2022-11-08 05:22] LABS: Base Excess ABG 9.3 mEq/l (+/-2.0); Carboxyhemoglobin 0.3 % THb (0-2.0); Fractional Inspired Oxygen 30 %; HCO3 ABG 33.1 mEq/l (22.0-26.0); Methemoglobin ABG 0.3 %THb (0-1.5); Oxygen Content ABG 14.3 %vol (16.0-22.0); Oxygen Saturation ABG 97.9 % (95.0-100.0); Oxyhemoglobin 95.6 % THb (90.0-100.0); PCO2 ABG 42.2 mmHg (35.0-45.0); PO2 ABG 97.3 mmHg (80.0-100.0); PO2 FiO2 Ratio Arterial Blood 3.24 %; Reduced Hemoglobin 3.8 %THb (0-5.0); Total Hemoglobin 10.5 g/dL (12.0-18.0)
[2022-11-08 05:25] LABS: Device VENTILATOR; Site Drawn RIGHT BRACHIAL; pH ABG 7.513 (7.350-7.450)
[2022-11-08 05:32] LABS: Arterial Blood Gas PEEP 5 cmH2O; Arterial Blood Gas Tidal Volume 300 ml; Arterial Blood Gas Vent Mode CMV; Arterial Blood Gas Ventilator rate 14 /MIN
[2022-11-08 05:41] LABS: Hematocrit 29.8 % (37.0-47.0); Hemoglobin 9.5 g/dL (12.0-15.0); Mean Corpuscular HGB Conc 31.9 g/dl (32-36); Mean Corpuscular Hemoglobin 29.8 pg (26-34); Mean Corpuscular Volume 93.4 fl (80-100); Mean Platelet Volume 10.2 fl (7.4-10.4); Platelet Count Result 280 k/mm3 (150-375); Red Blood Count 3.19 M/mm3 (4.2-5.4); Red Cell Distribution Width 15.4 % (11.5-14.5); White Blood Count 13.7 K/mm3 (4.5-10.0)
[2022-11-08] MEDS: CENTRAL LINE FLUSH 10 ML IV PUSH ×4 (05:46→20:55)
[2022-11-08] MEDS: LEVOTHYROXINE SODIUM 75 MCG TABLET FEED TUBE (05:46)
[2022-11-08 05:52] LABS: Alanine Aminotransferase 108 U/L (6-35); Albumin Level 4.1 g/dL (3.5-5.1); Alkaline Phosphatase 48 U/L (38-126); Anion Gap 4 mmol/L (8-16); Aspartate Amino Transferase 62 U/L (14-36); Bilirubin,Total 0.6 mg/dL (0.2-1.3); Blood Urea Nitrogen 36 mg/dL (7-17); Calcium 8.4 mg/dL (8.4-10.2); Carbon Dioxide 37 mmol/L (22-30); Chloride 96 mmol/L (98-107); Estimated CRCL calculation 69 ml/min; Estimated Glomerular Filt Rate > 60; Glucose 106 mg/dL (65-110); Phosphorus 2.1 mg/dL (2.5-4.5); Potassium 3.6 mmol/L (3.4-5.0); Sodium 137 mmol/L (137-145)
--- NOTE | 2022-11-08 07:30 | PM.IMPN ---
Progress Note: A&P Assessment and Plan (1) Shock: Code(s): R57.9 - Shock, unspecified Status: Acute Assessment and Plan: Patient was in shock on arrival to [facility]. She was started on Levophed as well as vasopressin and phenylephrine.? Etiology of her hypotension is unclear but possibly cardiac.??Art line actually showed her BP was higher than cuff pressures probably due to her low body mass. She was given a fluid bolus and bicarb for acidosis. Echo showing EF 10-15%. Chest CTA is negative for PE. Able to be weaned off pressors. She remains on abx for possible infectious etiology causing shock. BCx NGTD. Also on steroids for COPD exacerbation. Appreciate civil engineering designer management. Repeat blood cultures pending Status post doxycycline x5 day course Currently on vancomycin and cefepime (2) Acute on chronic respiratory failure with hypoxia and hypercapnia: Code(s): J96.21 - Acute and chronic respiratory failure with hypoxia; J96.22 - Acute and chronic respiratory failure with hypercapnia Status: Acute Assessment and Plan: Acute Respiratory failure secondary to COPD exacerbation, possible pneumonia and/or CHF exacerbation. Patient was initially tried on BiPAP in the ED but she failed and had to be intubated. She was transferred to [facility] intubated on mechanical ventilation. Now extubated and tolerating BiPAP, continue to monitor in the ICU today (3) COPD exacerbation: Code(s): J44.1 - Chronic obstructive pulmonary disease with (acute) exacerbation Status: Acute Assessment and Plan: as above (4) History of cardiomyopathy: Code(s): Z86.79 - Personal history of other diseases of the circulatory system Status: Acute Assessment and Plan: Prior echo on 03/21/21 at [facility]: EF <15%, diastolic dysfunction, hypokinetic, apex, inferior, inferolateral, anteroseptal sal, mild LAE, MR. Resolved on medical therapy based on repeat echo on 06/19/21 EF 55-60%, grade I diastolic dysfunction, small right sided pericardial effusion at 0.5 cm. Echo here again showing EF 10-15% with findings consistent with Takotsubo cardiomyopathy. Diastolic dysfunction. Reduced RV systolic function. No pulmonary hypertension. Patient evaluated by Cardiology here and appreciate their input. (5) Sepsis: Code(s): A41.9 - Sepsis, unspecified organism Status: Acute Assessment and Plan: Patient met sepsis criteria with shock on admission with elevated lactic acidosis and in shock. CT scan was not consistent with pneumonia. Treatment as above (6) Non-ST elevated myocardial infarction (non-STEMI): Code(s): I21.4 - Non-ST elevation (NSTEMI) myocardial infarction Status: Inactive Assessment and Plan: Trop up to 1.3. EKG showedHR [address]-T wave changes. Patient evaluated by Cardiology. Type 2 NSTEMI suspected secondary to respiratory failure, lactic acidosis, shock and CMP. She had normal coronaries on [facility] in April of 2021. Echo as mentioned above. Continue aspirin and statin. Not on beta-jose or NUBIA/ARB due to shock. Cardiology does not recommend systemic anticoagulation for the elevated troponin. (7) Lactic acidosis: Code(s): E87.20 - Acidosis, unspecified Status: Acute Assessment and Plan: Secondary to COPD hypoxia and shock. CT scan of abdomen pelvis did not show any findings to suggest etiology of shock (except GB distended). CT chest showing possible pulmonary edema but no evidence of PNA. Lactic acid level improved (8) Anemia: Code(s): D64.9 - Anemia, unspecified Status: Acute Assessment and Plan: Hgb 12.3 on admission. Hgb dropped to 7-8 range and stable. There was some arterial blood loss related to the a-line. CT A/P showing no etiology of the acute drop in Hgb. Suspect some portion of dilution given the fluid resuscitation. Follow HH closely. (9) Cardio
--- NOTE | 2022-11-08 08:02 | PM.PNCARD ---
Progress Note: A&P Assessment and Plan (1) Shock: Code(s): R57.9 - Shock, unspecified Status: Acute Assessment and Plan: Due to acute systolic heart failure and with chronic COPD. Was on 3 vasopressors, now all are off. Managed by embedded linux developer. (2) COPD exacerbation: Code(s): J44.1 - Chronic obstructive pulmonary disease with (acute) exacerbation Status: Acute Assessment and Plan: Trial of extubation. Management as per embedded linux developer. (3) History of cardiomyopathy: Code(s): Z86.79 - Personal history of other diseases of the circulatory system Status: Acute Assessment and Plan: Recurrence of dilated cardiomyopathy or Takotsubo cardiomyopathy. Previously, resolved on medical therapy based on repeat echo on 06/19/21 EF 55-60%, grade I diastolic dysfunction, small right sided pericardial effusion at 0.5 cm. Prior echo on 03/21/21 at [facility]: EF <15%, diastolic dysfunction, hypokinetic, apex, inferior, inferolateral, anteroseptal sal, mild LAE, MR. 11/01/22 Echo: EF 10-15%, mod LVE, basal segments have normal contractility otherwise global akinesis suggesting Takotubo cardiomyopathy, diastolic dysfunction with E/e' 18, RV similar to LV with severely reduced function with normal basal segments, mild based on valve area and gradients but valve not well seen. Monitor fluid status to avoid volume overload. Once hemodynamics stable, need to resume beta jose and Entresto. On low dose Metoprolol Tartate 12.5 mg BID. Started low dose Entresto 12-13 mg BID. (4) Elevated troponin: Code(s): R77.8 - Other specified abnormalities of plasma proteins Status: Acute Assessment and Plan: Likely Type II infarct from acute systolic heart failure with hypoxia, hypotension, respiratory acidosis, with normal coronaries on [facility] on 05/26/21. Subjective Date/time seen: 11/08/22 08:02 Interval history: Sedated and on mechanical ventilation. Exam Const: General: thin Nutritional Appearance: thin Other: Sedated on mechanical ventilation Resp: Auscultation: no crackles, no rales, no rhonchi, no wheezes and diminished lung sounds Cardio: Rate: tachycardic Rhythm: regular rhythm Heart sounds: no murmurs Extrem: Right lower extremity: no edema Left lower extremity: no edema Objective Data Vital Signs Vital Signs: Vital Signs - 24 hr 11/07/22 08:08 11/07/22 08:38 11/07/22 08:23 Temperature Pulse Rate 87 110 H 102 H Respiratory Rate 14 Blood Pressure Pulse Oximetry 100 Oxygen Delivery Mechanical Ventilation Fraction of Inspired Oxygen 30 11/07/22 08:23 11/07/22 10:00 11/07/22 08:05 Temperature 98.9 F Pulse Rate 102 H 97 94 Respiratory Rate 15 17 Blood Pressure 78/54 L Pulse Oximetry 100 Oxygen Delivery Fraction of Inspired Oxygen 11/07/22 08:15 11/07/22 08:31 11/07/22 08:33 Temperature 98.6 F 98.5 F 98.5 F Pulse Rate 89 106 H 106 H Respiratory Rate 14 16 23 H Blood Pressure 124/89 Pulse Oximetry 100 100 100 Oxygen Delivery Fraction of Inspired Oxygen 11/07/22 08:38 11/07/22 08:45 11/07/22 09:00 Temperature 98.5 F 98.4 F 98.6 F Pulse Rate 110 H 114 H 101 H Respiratory Rate 26 H 17 20 Blood Pressure 122/90 Pulse Oximetry 100 100 100 Oxygen Delivery Fraction of Inspired Oxygen 11/07/22 09:01 11/07/22 09:15 11/07/22 09:30 Temperature 98.6 F 99.0 F 99.1 F Pulse Rate 100 101 H 102 H Respiratory Rate 20 21 H 19 Blood Pressure 119/80 Pulse Oximetry 100 100 100 Oxygen Delivery Fraction of Inspired Oxygen 11/07/22 09:45 11/07/22 10:00 11/07/22 10:01 Temperature 99.5 F 99.5 F 99.4 F Pulse Rate 104 H 98 97 Respiratory Rate 18 20 20 Blood Pressure 113/74 Pulse Oximetry 100 100 Oxygen Delivery Fraction of Inspired Oxygen 11/07/22 10:15 11/07/22 10:31 11/07/22 10:32 Temperature 99.9 F H 99.7 F H 99.7 F H Pulse Rate 101 H 102 H 103 H Respiratory Rate 19 19 2
[2022-11-08] MEDS: SACUBITRIL/VALSARTAN 12-13 MG TABLET 1 TAB PO (09:00)
[2022-11-08] MEDS: POTASSIUM PHOS,M-BASIC-D-BASIC 20 MMOL in SODIUM CHLORIDE 0.9% IV 250 ML 64.17 MMOL IVPB (09:00)
[2022-11-08 09:02] LABS: Base Excess ABG 8.3 mEq/l (+/-2.0); HCO3 ABG 33.2 mEq/l (22.0-26.0); Oxygen Saturation ABG 97.4 % (95.0-100.0); PCO2 ABG 46.5 mmHg (35.0-45.0); PO2 ABG 92.1 mmHg (80.0-100.0); PO2 FiO2 Ratio Arterial Blood 3.07 %; pH ABG 7.472 (7.350-7.450)
[2022-11-08 09:03] LABS: Alveolar/Arterial O2 Gradient 67.2 mmHg; Modified Allen's Test Pass; Site Drawn LEFT RADIAL; Total Hemoglobin 9.5 g/dL (12.0-18.0)
[2022-11-08 09:04] LABS: Device VENTILATOR
--- NOTE | 2022-11-08 09:12 | WPDINTPN ---
Progress Note: A&P Assessment and Plan (1) Acute on chronic respiratory failure with hypoxia and hypercapnia: Code(s): J96.21 - Acute and chronic respiratory failure with hypoxia; J96.22 - Acute and chronic respiratory failure with hypercapnia Status: Acute Assessment and Plan: Acute Respiratory failure secondary to COPD exacerbation, possible pneumonia, pulmonary edema -Patient was initially tried on BiPAP in the ED but she failed and had to be intubated on 11/01/2022. She was transferred to [facility] intubated on mechanical ventilation -11/01/2022 chest CTA: No evidence of pulmonary embolism, aortic dissection or aortic aneurysm. Worsening ground-glass opacity in the right middle lobe and right lower lobe with worsening bibasilar interstitial thickening, findings are compatible and AFib pain pulmonary edema. Small bilateral pleural effusion with mild basilar atelectasis new from prior exam underlying COPD, stable 6 mm nodule superior segment left lower lobe. -chest x-ray reviewed -ABG reviewed / PSV SBT done for more than 1 hour. RSBI, ABGI and Vitals acceptable. Pt awake and following commands. Will extubate and monitor. NPO for now. Bipap PRN -Continue Solu-Medrol, Bronchodilators (2) Sepsis: Code(s): A41.9 - Sepsis, unspecified organism Status: Acute Assessment and Plan: CT scan was not impressive for pneumonia but patient had elevated lactic acid and developed shock She was treated with IV fluids which will be continued but rate is going to be decreased -initial lactic acid was 7.8, repeat lactic this morning on 11/03/2022 0.9 -UA was unremarkable 11/02/2022 sputum cultures are negative -11/01/2022 urine cultures: Negative -11/01/2022 preliminary blood cultures with no growth / bottles -she was initially started ceftriaxone and doxycycline (11/01) - switched ceftriaxone to cefepime and vancomycin(11/04) -received doxycycline for total of 5 days - 11/07 fevers Repeat set of cultures pending UA suggestive of UTI -Thomas replaced (3) Shock: Code(s): R57.9 - Shock, unspecified Status: Acute Assessment and Plan: Patient was in shock upon arrival to [facility]. Initially, she was not on any vasopressors. Over the course of her stay in the ER at [facility] she required vasopressors and when she was transferred to [facility] she was on Bob-Synephrine infusion. Patient was switched to Levophed and later vasopressin was added -Patient was given IV fluid bolus on admission -Her noninvasive blood pressure monitoring seemed inaccurate and an arterial catheter was placed emergently for more accurate blood pressure monitoring which did confirm her arterial blood pressure to be much higher than the cuff measurement -NICOM assessment was done on arrival to ICU and was negative for further responsiveness to fluid bolus -currently off all pressors -She has a history of cardiomyopathy and likely has cardiogenic component to her shock. Echo reviewed (4) COPD exacerbation: Code(s): J44.1 - Chronic obstructive pulmonary disease with (acute) exacerbation Status: Acute Assessment and Plan: Continue mechanical ventilation, steroids, antibiotics -wean Solu-Medrol (5) Cardiomyopathy: Code(s): I42.9 - Cardiomyopathy, unspecified Status: Acute Assessment and Plan: Prior echo on 03/21/21 at [facility]: EF <15%, diastolic dysfunction, hypokinetic, apex, inferior, inferolateral, anteroseptal sal, mild LAE, MR. Resolved on medical therapy based on repeat echo on 06/19/21 EF 55-60%, grade I diastolic dysfunction, small right sided pericardial effusion at 0.5 cm. 11/01/2022 repeat echocardiogram Summary ? 1. Complete two-dimensional, color flow and Doppler transthoracic echocardiogram is performed. ? 2. No apical views obtained. Subcostal views are obtained in lieu of apical views. ? 3. Left ventricular chamber dimension is moder
[2022-11-08] MEDS: ATORVASTATIN 40 MG TABLET PO (09:20)
[2022-11-08] MEDS: methylPREDNISolone SOD SUCC 40 MG VIAL IV PUSH (09:20)
[2022-11-08] MEDS: METOPROLOL TARTRATE 12.5 MG TABLET PO (09:21)
[2022-11-08] MEDS: PANTOPRAZOLE SODIUM IV 40 MG VIAL IV PUSH ×2 (09:21→20:55)
[2022-11-08] MEDS: OXYMETAZOLINE HCL 0.05% NAS 15 ML BTL (*BKC) 1 SPRAY XX ×2 (09:21→20:55)
[2022-11-08] MEDS: LABETALOL HCL INJ 100 MG/20 ML VIAL 10 MG IV PUSH ×2 (12:32→20:13)
[2022-11-08] MEDS: ENOXAPARIN 40 MG/0.4 ML SYRINGE SUB-Q (12:33)
[2022-11-08 12:38] LABS: Glucose Point of Care 182 mg/dl (65-105)
[2022-11-08 15:40] LABS: Vancomycin Trough < 5.0 ug/mL (10.0-20.0)
[2022-11-08 18:24] LABS: Glucose Point of Care 164 mg/dl (65-105)
[2022-11-09] VITALS (83 sets, daily range): BP systolic 92–164; BP diastolic 50–100; PULSE 85–105; RESP 13–30; TEMP 36.8–37.7; O2SAT 88–100
[2022-11-09 00:14] LABS: Glucose Point of Care 88 mg/dl (65-105)
[2022-11-09] MEDS: LABETALOL HCL INJ 100 MG/20 ML VIAL 10 MG IV PUSH ×2 (02:20→10:04)
[2022-11-09] MEDS: IPRATROPIUM BR 0.02% INH SOLN 0.5 MG/2.5 ML VIAL INHALATION ×4 (02:42→19:57)
[2022-11-09 05:08] LABS: Hematocrit 28.6 % (37.0-47.0); Hemoglobin 9.1 g/dL (12.0-15.0); Mean Corpuscular HGB Conc 31.8 g/dl (32-36); Mean Corpuscular Hemoglobin 29.6 pg (26-34); Mean Corpuscular Volume 93.2 fl (80-100); Mean Platelet Volume 10.1 fl (7.4-10.4); Platelet Count Result 292 k/mm3 (150-375); Red Blood Count 3.07 M/mm3 (4.2-5.4); Red Cell Distribution Width 15.3 % (11.5-14.5); White Blood Count 13.3 K/mm3 (4.5-10.0)
[2022-11-09 05:16] LABS: Alveolar/Arterial O2 Gradient 64.3 mmHg; Base Excess ABG 11.3 mEq/l (+/-2.0); Carboxyhemoglobin 0.3 % THb (0-2.0); Fractional Inspired Oxygen 30 %; HCO3 ABG 35.3 mEq/l (22.0-26.0); Methemoglobin ABG 0.3 %THb (0-1.5); Oxygen Content ABG 13.4 %vol (16.0-22.0); Oxygen Saturation ABG 97.9 % (95.0-100.0); Oxyhemoglobin 95.8 % THb (90.0-100.0); PCO2 ABG 44.4 mmHg (35.0-45.0); PO2 ABG 97.4 mmHg (80.0-100.0); PO2 FiO2 Ratio Arterial Blood 3.25 %; Reduced Hemoglobin 3.6 %THb (0-5.0); Total Hemoglobin 9.8 g/dL (12.0-18.0)
[2022-11-09 05:22] LABS: Device BIPAP; Modified Allen's Test Pass; Site Drawn RIGHT RADIAL; pH ABG 7.518 (7.350-7.450)
[2022-11-09 05:23] LABS: Expiratory Pressure 5 cmH2O; Inspiratory Pressure 10 cmH2O
[2022-11-09 05:28] LABS: Alanine Aminotransferase 88 U/L (6-35); Albumin Level 4.1 g/dL (3.5-5.1); Alkaline Phosphatase 46 U/L (38-126); Anion Gap 4 mmol/L (8-16); Aspartate Amino Transferase 49 U/L (14-36); Bilirubin,Total 0.7 mg/dL (0.2-1.3); Blood Urea Nitrogen 28 mg/dL (7-17); Calcium 8.2 mg/dL (8.4-10.2); Carbon Dioxide 38 mmol/L (22-30); Chloride 96 mmol/L (98-107); Estimated CRCL calculation 69 ml/min; Estimated Glomerular Filt Rate > 60; Glucose 87 mg/dL (65-110); Magnesium 2.1 mg/dL (1.6-2.3); Phosphorus 3.1 mg/dL (2.5-4.5); Sodium 138 mmol/L (137-145); Triglycerides 146 mg/dL (<150)
[2022-11-09] MEDS: CENTRAL LINE FLUSH 10 ML IV PUSH ×4 (05:55→21:00)
--- NOTE | 2022-11-09 07:45 | PM.PNCARD ---
Progress Note: A&P Assessment and Plan (1) Shock: Code(s): R57.9 - Shock, unspecified Status: Acute Assessment and Plan: Resolved. Due to acute systolic heart failure and with chronic COPD. Was on 3 vasopressors, now all are off. Managed by road production general manager. (2) COPD exacerbation: Code(s): J44.1 - Chronic obstructive pulmonary disease with (acute) exacerbation Status: Acute Assessment and Plan: Extubated on 11/08/22. Management as per road production general manager. (3) History of cardiomyopathy: Code(s): Z86.79 - Personal history of other diseases of the circulatory system Status: Acute Assessment and Plan: Recurrence of dilated cardiomyopathy or Takotsubo cardiomyopathy. Previously, resolved on medical therapy based on repeat echo on 06/19/21 EF 55-60%, grade I diastolic dysfunction, small right sided pericardial effusion at 0.5 cm. Prior echo on 03/21/21 at [facility]: EF <15%, diastolic dysfunction, hypokinetic, apex, inferior, inferolateral, anteroseptal sal, mild LAE, MR. 11/01/22 Echo: EF 10-15%, mod LVE, basal segments have normal contractility otherwise global akinesis suggesting Takotubo cardiomyopathy, diastolic dysfunction with E/e' 18, RV similar to LV with severely reduced function with normal basal segments, mild based on valve area and gradients but valve not well seen. Monitor fluid status to avoid volume overload. Once hemodynamics stable, need to resume beta jose and Entresto. On low dose Metoprolol Tartate 12.5 mg BID. Increase Entresto 24-26 mg BID. (4) Elevated troponin: Code(s): R77.8 - Other specified abnormalities of plasma proteins Status: Acute Assessment and Plan: Likely Type II infarct from acute systolic heart failure with hypoxia, hypotension, respiratory acidosis, with normal coronaries on [facility] on 05/26/21. Subjective Date/time seen: 11/09/22 07:45 Interval history: She was extubated yesterday and on BiPAP now. Difficult to hear her with BiPAP on. No chest pain. Exam Const: General: thin Nutritional Appearance: thin Other: Sedated on mechanical ventilation Resp: Auscultation: no crackles, no rales, no rhonchi, no wheezes and diminished lung sounds Cardio: Rate: regular rate Rhythm: regular rhythm Heart sounds: no murmurs Extrem: Right lower extremity: no edema Left lower extremity: no edema Objective Data Vital Signs Vital Signs: Vital Signs - 24 hr 11/08/22 08:20 11/08/22 09:21 11/08/22 09:17 Temperature Pulse Rate 112 H 115 H 112 H Respiratory Rate 17 24 H Blood Pressure Pulse Oximetry 99 Oxygen Delivery Nasal Cannula Oxygen Flow Rate 2 Fraction of Inspired Oxygen 28 11/08/22 07:58 11/08/22 10:04 11/08/22 10:33 Temperature Pulse Rate 111 H 123 H 114 H Respiratory Rate 27 H 27 H Blood Pressure Pulse Oximetry 100 92 93 Oxygen Delivery Mechanical Ventilation Oxygen Flow Rate Fraction of Inspired Oxygen 30 11/08/22 08:00 11/08/22 12:00 11/08/22 08:00 Temperature 99.9 F H Pulse Rate 111 H Respiratory Rate 17 Blood Pressure 134/91 H Pulse Oximetry 100 Oxygen Delivery BiPAP BiPAP Oxygen Flow Rate Fraction of Inspired Oxygen 30 30 11/08/22 08:01 11/08/22 08:15 11/08/22 08:30 Temperature 99.9 F H 99.8 F H 99.6 F Pulse Rate 113 H 110 H 111 H Respiratory Rate 15 16 20 Blood Pressure Pulse Oximetry 100 100 99 Oxygen Delivery Oxygen Flow Rate Fraction of Inspired Oxygen 11/08/22 08:31 11/08/22 08:45 11/08/22 09:00 Temperature 99.6 F 99.5 F 99.4 F Pulse Rate 114 H 114 H 115 H Respiratory Rate 23 H 27 H 23 H Blood Pressure 142/91 H Pulse Oximetry 99 99 98 Oxygen Delivery Oxygen Flow Rate Fraction of Inspired Oxygen 11/08/22 09:01 11/08/22 09:15 11/08/22 09:30 Temperature 99.4 F 99.3 F 99.3 F Pulse Rate 116 H 112 H 112 H Respiratory Rate 21 H 24 H 26 H Blood Pressure 144/98 H Pulse Oximetry 98 99 100 Oxyge
--- NOTE | 2022-11-09 08:04 | PM.IMPN ---
Progress Note: A&P Assessment and Plan (1) Shock: Code(s): R57.9 - Shock, unspecified Status: Acute Assessment and Plan: Patient was in shock on arrival to [facility]. She was started on Levophed as well as vasopressin and phenylephrine.? Etiology of her hypotension is unclear but possibly cardiac.??Art line actually showed her BP was higher than cuff pressures probably due to her low body mass. She was given a fluid bolus and bicarb for acidosis. Echo showing EF 10-15%. Chest CTA is negative for PE. Able to be weaned off pressors. She remains on abx for possible infectious etiology causing shock. BCx NGTD. Also on steroids for COPD exacerbation. Appreciate director of resource development management. Repeat blood cultures pending Status post doxycycline x5 day course Currently on vanc + cefepime, started 11/04 (2) Acute on chronic respiratory failure with hypoxia and hypercapnia: Code(s): J96.21 - Acute and chronic respiratory failure with hypoxia; J96.22 - Acute and chronic respiratory failure with hypercapnia Status: Acute Assessment and Plan: Acute Respiratory failure secondary to COPD exacerbation, possible pneumonia and/or CHF exacerbation. Patient was initially tried on BiPAP in the ED but she failed and had to be intubated. She was transferred to [facility] intubated on mechanical ventilation. Now extubated and weaned to home 2L O2 nc, continue to monitor in the ICU (3) COPD exacerbation: Code(s): J44.1 - Chronic obstructive pulmonary disease with (acute) exacerbation Status: Acute Assessment and Plan: as above (4) History of cardiomyopathy: Code(s): Z86.79 - Personal history of other diseases of the circulatory system Status: Acute Assessment and Plan: Prior echo on 03/21/21 at [facility]: EF <15%, diastolic dysfunction, hypokinetic, apex, inferior, inferolateral, anteroseptal sal, mild LAE, MR. Resolved on medical therapy based on repeat echo on 06/19/21 EF 55-60%, grade I diastolic dysfunction, small right sided pericardial effusion at 0.5 cm. Echo here again showing EF 10-15% with findings consistent with Takotsubo cardiomyopathy. Diastolic dysfunction. Reduced RV systolic function. No pulmonary hypertension. Patient evaluated by Cardiology here and appreciate their input. On metoprolol tartrate 12.5 mg BID + entresto 24-26 mg BID Elevated troponin thought to be 2/2 type II infarct (5) Sepsis: Code(s): A41.9 - Sepsis, unspecified organism Status: Acute Assessment and Plan: Patient met sepsis criteria with shock on admission with elevated lactic acidosis and in shock. CT scan was not consistent with pneumonia. Treatment as above (6) Non-ST elevated myocardial infarction (non-STEMI): Code(s): I21.4 - Non-ST elevation (NSTEMI) myocardial infarction Status: Inactive Assessment and Plan: Trop up to 1.3. EKG showedHR [address]-T wave changes. Patient evaluated by Cardiology. Type 2 NSTEMI suspected secondary to respiratory failure, lactic acidosis, shock and CMP. She had normal coronaries on [facility] in April of 2021. Echo as mentioned above. Continue aspirin and statin. Not on beta-jose or NUBIA/ARB due to shock. Cardiology does not recommend systemic anticoagulation for the elevated troponin. (7) Lactic acidosis: Code(s): E87.20 - Acidosis, unspecified Status: Acute Assessment and Plan: Secondary to COPD hypoxia and shock. CT scan of abdomen pelvis did not show any findings to suggest etiology of shock (except GB distended). CT chest showing possible pulmonary edema but no evidence of PNA. Lactic acid level improved (8) Anemia: Code(s): D64.9 - Anemia, unspecified Status: Acute Assessment and Plan: Hgb 12.3 on admission. Hgb dropped to 7-8 range and stable. There was some arterial blood loss related to the a-line. CT A/P showing no etiology of the
[2022-11-09] MEDS: methylPREDNISolone SOD SUCC 40 MG VIAL IV PUSH (08:18)
[2022-11-09] MEDS: OXYMETAZOLINE HCL 0.05% NAS 15 ML BTL (*BKC) 1 SPRAY XX (08:18)
[2022-11-09] MEDS: PANTOPRAZOLE SODIUM IV 40 MG VIAL IV PUSH ×2 (08:18→21:00)
[2022-11-09] MEDS: ENOXAPARIN 40 MG/0.4 ML SYRINGE SUB-Q (08:18)
--- NOTE | 2022-11-09 08:25 | WPDINTPN ---
Progress Note: A&P Assessment and Plan (1) Acute on chronic respiratory failure with hypoxia and hypercapnia: Code(s): J96.21 - Acute and chronic respiratory failure with hypoxia; J96.22 - Acute and chronic respiratory failure with hypercapnia Status: Acute Assessment and Plan: Acute Respiratory failure secondary to COPD exacerbation, possible pneumonia, pulmonary edema -Patient was initially tried on BiPAP in the ED but she failed and had to be intubated on 11/01/2022. She was transferred to [facility] intubated on mechanical ventilation -11/01/2022 chest CTA: No evidence of pulmonary embolism, aortic dissection or aortic aneurysm. Worsening ground-glass opacity in the right middle lobe and right lower lobe with worsening bibasilar interstitial thickening, findings are compatible and AFib pain pulmonary edema. Small bilateral pleural effusion with mild basilar atelectasis new from prior exam underlying COPD, stable 6 mm nodule superior segment left lower lobe. 11/08 extubated after a successful weaning trial. She was on and off BiPAP it during the day and wore BiPAP at night Will transition her off to nasal cannula this morning. Continue BiPAP 07/01 for work of breathing p.r.n. and at night. She is only requiring 21-25% FiO2 Chest x-ray reviewed Continue Solu-Medrol, Bronchodilators (2) Sepsis: Code(s): A41.9 - Sepsis, unspecified organism Status: Acute Assessment and Plan: CT scan was not impressive for pneumonia but patient had elevated lactic acid and developed shock She was treated with IV fluids which will be continued but rate is going to be decreased -initial lactic acid was 7.8, repeat lactic this morning on 11/03/2022 0.9 -UA was unremarkable 11/02/2022 sputum cultures are negative -11/01/2022 urine cultures: Negative -11/01/2022 preliminary blood cultures with no growth 10/29 bottles -she was initially started ceftriaxone and doxycycline (11/01) - switched ceftriaxone to cefepime and vancomycin(11/04) -received doxycycline for total of 5 days - 11/07 fevers Repeat set of cultures negative till now UA suggestive of UTI -Thomas replaced 11/09 -discontinue vancomycin (3) Shock: Code(s): R57.9 - Shock, unspecified Status: Acute Assessment and Plan: Patient was in shock upon arrival to [facility]. Initially, she was not on any vasopressors. Over the course of her stay in the ER at [facility] she required vasopressors and when she was transferred to [facility] she was on Bob-Synephrine infusion. Patient was switched to Levophed and later vasopressin was added -Patient was given IV fluid bolus on admission -Her noninvasive blood pressure monitoring seemed inaccurate and an arterial catheter was placed emergently for more accurate blood pressure monitoring which did confirm her arterial blood pressure to be much higher than the cuff measurement -NICOM assessment was done on arrival to ICU and was negative for further responsiveness to fluid bolus -currently off all pressors -She has a history of cardiomyopathy and likely has cardiogenic component to her shock. Echo reviewed (4) COPD exacerbation: Code(s): J44.1 - Chronic obstructive pulmonary disease with (acute) exacerbation Status: Acute Assessment and Plan: Continue mechanical ventilation, steroids, antibiotics -wean Solu-Medrol (5) Cardiomyopathy: Code(s): I42.9 - Cardiomyopathy, unspecified Status: Acute Assessment and Plan: Prior echo on 03/21/[address] [facility]: EF <15%, diastolic dysfunction, hypokinetic, apex, inferior, inferolateral, anteroseptal sal, mild LAE, MR. Resolved on medical therapy based on repeat echo on 06/19/21 EF 55-60%, grade I diastolic dysfunction, small right sided pericardial effusion at 0.5 cm. 11/01/2022 repeat echocardiogram Summary ? 1. Complete two-dimensional, color flow and Doppler transthoracic echocardiogram is performed
[2022-11-09] MEDS: METOPROLOL TARTRATE 12.5 MG TABLET PO ×2 (08:34→21:00)
[2022-11-09] MEDS: ATORVASTATIN 40 MG TABLET PO (08:34)
[2022-11-09] MEDS: LEVOTHYROXINE SODIUM 75 MCG TABLET FEED TUBE (08:34)
[2022-11-09] MEDS: SACUBITRIL/VALSARTAN 24-26 MG TABLET 1 TAB PO ×2 (08:34→21:00)
--- NOTE | 2022-11-09 10:58 | PCSTNOTE ---
Please refer to the Bedside Swallow Evaluation in the EMR. Please note, silent aspiration cannot be ruled out at bedside. Therapist will continue to informally monitor and conference with nursing concerning patient's response to diet consistencies and advancement of diet.
[2022-11-09 11:56] LABS: Glucose Point of Care 171 mg/dl (65-105)
[2022-11-09 15:21] LABS: Arterial Blood Gas PEEP 5 cmH2O; Arterial Blood Gas Pressure Support 5 cmH2O; Arterial Blood Gas Vent Mode SPONTANEOUS
[2022-11-09 17:06] LABS: Glucose Point of Care 187 mg/dl (65-105)
[2022-11-09 23:56] LABS: Glucose Point of Care 120 mg/dl (65-105)
[2022-11-10] VITALS (88 sets, daily range): BP systolic 102–133; BP diastolic 69–97; PULSE 71–105; RESP 14–34; TEMP 36.9–37.7; O2SAT 83–100
[2022-11-10] MEDS: IPRATROPIUM BR 0.02% INH SOLN 0.5 MG/2.5 ML VIAL INHALATION ×4 (02:30→20:28)
[2022-11-10] MEDS: CENTRAL LINE FLUSH 10 ML IV PUSH ×4 (04:49→20:16)
[2022-11-10] MEDS: LEVOTHYROXINE SODIUM 75 MCG TABLET FEED TUBE (04:49)
[2022-11-10 05:03] LABS: Hematocrit 29.5 % (37.0-47.0); Hemoglobin 9.5 g/dL (12.0-15.0); Mean Corpuscular HGB Conc 32.2 g/dl (32-36); Mean Corpuscular Volume 89.9 fl (80-100); Mean Platelet Volume 9.9 fl (7.4-10.4); Platelet Count Result 331 k/mm3 (150-375); Red Blood Count 3.28 M/mm3 (4.2-5.4); Red Cell Distribution Width 15.2 % (11.5-14.5); White Blood Count 14.7 K/mm3 (4.5-10.0)
[2022-11-10 05:16] LABS: Alanine Aminotransferase 79 U/L (6-35); Alkaline Phosphatase 47 U/L (38-126); Anion Gap 3 mmol/L (8-16); Aspartate Amino Transferase 51 U/L (14-36); Bilirubin,Total 0.7 mg/dL (0.2-1.3); Blood Urea Nitrogen 26 mg/dL (7-17); Calcium 8.3 mg/dL (8.4-10.2); Carbon Dioxide 39 mmol/L (22-30); Chloride 96 mmol/L (98-107); Estimated CRCL calculation 68 ml/min; Estimated Glomerular Filt Rate > 60; Glucose 95 mg/dL (65-110); Phosphorus 3.4 mg/dL (2.5-4.5); Potassium 3.8 mmol/L (3.4-5.0); Sodium 138 mmol/L (137-145)
--- NOTE | 2022-11-10 07:51 | PM.PNCARD ---
Progress Note: A&P Assessment and Plan (1) Shock: Code(s): R57.9 - Shock, unspecified Status: Acute Assessment and Plan: Resolved. Due to acute systolic heart failure and with chronic COPD. Was on 3 vasopressors, now all are off. Managed by certified corporate travel executive. (2) COPD exacerbation: Code(s): J44.1 - Chronic obstructive pulmonary disease with (acute) exacerbation Status: Acute Assessment and Plan: Extubated on 11/08/22. Management as per certified corporate travel executive. (3) History of cardiomyopathy: Code(s): Z86.79 - Personal history of other diseases of the circulatory system Status: Acute Assessment and Plan: Recurrence of dilated cardiomyopathy or Takotsubo cardiomyopathy. Previously, resolved on medical therapy based on repeat echo on 06/19/21 EF 55-60%, grade I diastolic dysfunction, small right sided pericardial effusion at 0.5 cm. Prior echo on 03/21/21 at [facility]: EF <15%, diastolic dysfunction, hypokinetic, apex, inferior, inferolateral, anteroseptal sal, mild LAE, MR. 11/01/22 Echo: EF 10-15%, mod LVE, basal segments have normal contractility otherwise global akinesis suggesting Takotubo cardiomyopathy, diastolic dysfunction with E/e' 18, RV similar to LV with severely reduced function with normal basal segments, mild based on valve area and gradients but valve not well seen. Monitor fluid status to avoid volume overload. Once hemodynamics stable, need to resume beta jose and Entresto. On low dose Metoprolol Tartate 12.5 mg BID. On Entresto 24-26 mg BID. Discuss Life vest to prevent sudden cardiac arrest and she agreed to it. Order placed. (4) Elevated troponin: Code(s): R77.8 - Other specified abnormalities of plasma proteins Status: Acute Assessment and Plan: Likely Type II infarct from acute systolic heart failure with hypoxia, hypotension, respiratory acidosis, with normal coronaries on [facility] on 05/26/21. Subjective Date/time seen: 11/10/22 07:51 Interval history: She is on nasal cannula. No chest pain. Exam Const: General: thin Nutritional Appearance: thin Other: Sedated on mechanical ventilation Resp: Auscultation: no crackles, no rales, no rhonchi, no wheezes and diminished lung sounds Cardio: Rate: regular rate Rhythm: regular rhythm Heart sounds: no murmurs Extrem: Right lower extremity: no edema Left lower extremity: no edema Objective Data Vital Signs Vital Signs: Vital Signs - 24 hr 11/09/22 08:20 11/09/22 08:20 11/09/22 08:34 Temperature Pulse Rate 96 96 98 Respiratory Rate 22 H Blood Pressure Pulse Oximetry 96 96 Oxygen Delivery Nasal Cannula Nasal Cannula Oxygen Flow Rate 2 Fraction of Inspired Oxygen 11/09/22 08:00 11/09/22 08:00 11/09/22 08:01 Temperature 98.4 F 98.3 F Pulse Rate 94 95 Respiratory Rate 24 H 24 H Blood Pressure 146/89 H Pulse Oximetry 100 100 Oxygen Delivery BiPAP Oxygen Flow Rate Fraction of Inspired Oxygen 30 11/09/22 08:15 11/09/22 08:30 11/09/22 08:45 Temperature 98.5 F 98.8 F 99.0 F Pulse Rate 95 100 102 H Respiratory Rate 25 H 24 H 23 H Blood Pressure Pulse Oximetry 100 100 100 Oxygen Delivery Oxygen Flow Rate Fraction of Inspired Oxygen 11/09/22 09:00 11/09/22 09:01 11/09/22 09:15 Temperature 99.0 F 99.0 F 99.1 F Pulse Rate 102 H 103 H 100 Respiratory Rate 24 H 24 H 29 H Blood Pressure 161/100 H Pulse Oximetry 100 100 99 Oxygen Delivery Oxygen Flow Rate Fraction of Inspired Oxygen 11/09/22 10:04 11/09/22 10:00 11/09/22 09:30 Temperature 99.1 F Pulse Rate 85 94 97 Respiratory Rate 25 H Blood Pressure Pulse Oximetry 100 Oxygen Delivery Oxygen Flow Rate Fraction of Inspired Oxygen 11/09/22 09:45 11/09/22 10:00 11/09/22 10:01 Temperature 99.1 F 99.1 F 99.1 F Pulse Rate 95 94 92 Respiratory Rate 25 H 26 H 24 H Blood Pressure 164/88 H Pulse Oximetry 100 100 Oxygen Delivery
[2022-11-10] MEDS: ENOXAPARIN 40 MG/0.4 ML SYRINGE SUB-Q (08:01)
[2022-11-10] MEDS: methylPREDNISolone SOD SUCC 40 MG VIAL 20 MG IV PUSH (08:02)
[2022-11-10] MEDS: PANTOPRAZOLE SODIUM IV 40 MG VIAL IV PUSH ×2 (08:02→20:08)
[2022-11-10] MEDS: ATORVASTATIN 40 MG TABLET PO (08:02)
[2022-11-10] MEDS: SACUBITRIL/VALSARTAN 24-26 MG TABLET 1 TAB PO ×2 (08:02→20:08)
[2022-11-10] MEDS: METOPROLOL TARTRATE 12.5 MG TABLET PO ×2 (08:02→20:08)
--- NOTE | 2022-11-10 08:59 | WPDINTPN ---
Progress Note: A&P Assessment and Plan (1) Acute on chronic respiratory failure with hypoxia and hypercapnia: Code(s): J96.21 - Acute and chronic respiratory failure with hypoxia; J96.22 - Acute and chronic respiratory failure with hypercapnia Status: Acute Assessment and Plan: Acute Respiratory failure secondary to COPD exacerbation, possible pneumonia, pulmonary edema -Patient was initially tried on BiPAP in the ED but she failed and had to be intubated on 11/01/2022. She was transferred to [facility] intubated on mechanical ventilation -11/01/2022 chest CTA: No evidence of pulmonary embolism, aortic dissection or aortic aneurysm. Worsening ground-glass opacity in the right middle lobe and right lower lobe with worsening bibasilar interstitial thickening, findings are compatible and AFib pain pulmonary edema. Small bilateral pleural effusion with mild basilar atelectasis new from prior exam underlying COPD, stable 6 mm nodule superior segment left lower lobe. 11/08 extubated after a successful weaning trial. She was on and off BiPAP it during the day and wore BiPAP at night Will transition her off to nasal cannula this morning. Doing well today and wore BiPAP overnight. On nasal cannula this morning. Wean oxygen Continue BiPAP 10/5 for work of breathing p.r.n. and at night. She is only requiring 21-25% FiO2 Chest x-ray reviewed Continue Solu-Medrol but further decrease dose and wean off Continue Bronchodilators (2) Sepsis: Code(s): A41.9 - Sepsis, unspecified organism Status: Acute Assessment and Plan: CT scan was not impressive for pneumonia but patient had elevated lactic acid and developed shock She was treated with IV fluids which will be continued but rate is going to be decreased -initial lactic acid was 7.8, repeat lactic this morning on 11/03/2022 0.9 -UA was unremarkable 11/02/2022 sputum cultures are negative -11/01/2022 urine cultures: Negative -11/01/2022 preliminary blood cultures with no growth /2 bottles -she was initially started ceftriaxone and doxycycline (11/01) - switched ceftriaxone to cefepime and vancomycin(11/04) -received doxycycline for total of 5 days - 11/07 fevers Repeat set of cultures negative till now UA suggestive of UTI -Thomas replaced 11/09 -discontinue vancomycin. Continue cefepime for 7 days course (3) Shock: Code(s): R57.9 - Shock, unspecified Status: Acute Assessment and Plan: Patient was in shock upon arrival to [facility]. Initially, she was not on any vasopressors. Over the course of her stay in the ER at [facility] she required vasopressors and when she was transferred to [facility] she was on Bob-Synephrine infusion. Patient was switched to Levophed and later vasopressin was added -Patient was given IV fluid bolus on admission -Her noninvasive blood pressure monitoring seemed inaccurate and an arterial catheter was placed emergently for more accurate blood pressure monitoring which did confirm her arterial blood pressure to be much higher than the cuff measurement -NICOM assessment was done on arrival to ICU and was negative for further responsiveness to fluid bolus -currently off all pressors -She has a history of cardiomyopathy and likely has cardiogenic component to her shock. Echo reviewed (4) COPD exacerbation: Code(s): J44.1 - Chronic obstructive pulmonary disease with (acute) exacerbation Status: Acute Assessment and Plan: Continue mechanical ventilation, steroids, antibiotics -wean Solu-Medrol (5) Cardiomyopathy: Code(s): I42.9 - Cardiomyopathy, unspecified Status: Acute Assessment and Plan: Prior echo on 03/21/21 at [facility]: EF <15%, diastolic dysfunction, hypokinetic, apex, inferior, inferolateral, anteroseptal sal, mild LAE, MR. Resolved on medical therapy based on repeat echo on 06/19/21 EF 55-60%, grade I diastolic dysfunction, small right sided
--- NOTE | 2022-11-10 11:33 | PCNFU ---
Nutrition Follow-Up Complete: Inadequate energy intake related to mechanical ventilation as evidenced by NPO, need for pressors. goal: meet estimated nutritional needs when medically able Patient is progressing towards goal. Pt current nutrition is Minced and Moist, Level 5. Nutrition recommendation: Ensure Enlive TID Last recorded weight is 40 kg. Bowel Motility:+Bm reported 11/09 Labs Reviewed:Cr 0.5,BUN 26 Meds Noted:Lipitor, Lovenox, Solu Medrol, Lopressor Skin: Bilateral Knees-mottled. Additional Notes:Patient has been extubated. Started on Minced and Moist, Level 5 diet. Oral Intake about 20% of meal. Patient is interested in adding Ensure to trays as she does drink them at home. MD orders for Ensure Enlive providing an additional 350 kcals and 20 gms protein. Agree with diet orders at this time. Monitor meds, labs, weights, tube feeding orders, plan of care every 5 days.
[2022-11-10 11:56] LABS: Glucose Point of Care 164 mg/dl (65-105)
--- NOTE | 2022-11-10 13:57 | PM.IMPN ---
Progress Note: A&P Assessment and Plan (1) Shock: Code(s): R57.9 - Shock, unspecified Status: Acute Assessment and Plan: Patient was in shock on arrival to [facility]. She was started on Levophed as well as vasopressin and phenylephrine.? Etiology of her hypotension is unclear but possibly cardiac.??Art line actually showed her BP was higher than cuff pressures probably due to her low body mass. She was given a fluid bolus and bicarb for acidosis. Echo showing EF 10-15%. Chest CTA is negative for PE. Able to be weaned off pressors. She remains on abx for possible infectious etiology causing shock. BCx NGTD. Also on steroids for COPD exacerbation. Appreciate floor surfacer management. Repeat blood cultures pending, NGTD Status post doxycycline x5 day course Currently on vanc + cefepime, started 11/04, day 7 of abx (2) Acute on chronic respiratory failure with hypoxia and hypercapnia: Code(s): J96.21 - Acute and chronic respiratory failure with hypoxia; J96.22 - Acute and chronic respiratory failure with hypercapnia Status: Acute Assessment and Plan: Acute Respiratory failure secondary to COPD exacerbation, possible pneumonia and/or CHF exacerbation. Patient was initially tried on BiPAP in the ED but she failed and had to be intubated. She was transferred to [facility] intubated on mechanical ventilation. Now extubated and weaned to home 2L O2 nc--often on RA, continue to monitor in the ICU (3) COPD exacerbation: Code(s): J44.1 - Chronic obstructive pulmonary disease with (acute) exacerbation Status: Acute Assessment and Plan: as above, steroids being weaned to 20 mg daily (4) History of cardiomyopathy: Code(s): Z86.79 - Personal history of other diseases of the circulatory system Status: Acute Assessment and Plan: Prior echo on 03/21/21 at [facility]: EF <15%, diastolic dysfunction, hypokinetic, apex, inferior, inferolateral, anteroseptal sal, mild LAE, MR. Resolved on medical therapy based on repeat echo on 06/19/21 EF 55-60%, grade I diastolic dysfunction, small right sided pericardial effusion at 0.5 cm. Echo here again showing EF 10-15% with findings consistent with Takotsubo cardiomyopathy. Diastolic dysfunction. Reduced RV systolic function. No pulmonary hypertension. Patient evaluated by Cardiology here and appreciate their input. On metoprolol tartrate 12.5 mg BID + entresto 24-26 mg BID Elevated troponin thought to be 2/2 type II infarct (5) Sepsis: Code(s): A41.9 - Sepsis, unspecified organism Status: Acute Assessment and Plan: Patient met sepsis criteria with shock on admission with elevated lactic acidosis and in shock. CT scan was not consistent with pneumonia. Treatment as above (6) Non-ST elevated myocardial infarction (non-STEMI): Code(s): I21.4 - Non-ST elevation (NSTEMI) myocardial infarction Status: Inactive Assessment and Plan: Trop up to 1.3. EKG showedHR [address]-T wave changes. Patient evaluated by Cardiology. Type 2 NSTEMI suspected secondary to respiratory failure, lactic acidosis, shock and CMP. She had normal coronaries on [facility] in April of 2021. Echo as mentioned above. Continue aspirin and statin. Not on beta-jose or NUBIA/ARB due to shock. Cardiology does not recommend systemic anticoagulation for the elevated troponin. (7) Lactic acidosis: Code(s): E87.20 - Acidosis, unspecified Status: Acute Assessment and Plan: Secondary to COPD hypoxia and shock. CT scan of abdomen pelvis did not show any findings to suggest etiology of shock (except GB distended). CT chest showing possible pulmonary edema but no evidence of PNA. Lactic acid level improved (8) Anemia: Code(s): D64.9 - Anemia, unspecified Status: Acute Assessment and Plan: Hgb 12.3 on admission. Hgb dropped to 7-8 range and stable. There was some arteri
[2022-11-11] VITALS (25 sets, daily range): BP systolic 98–141; BP diastolic 60–98; PULSE 75–107; RESP 16–23; TEMP 36.4–36.7; O2SAT 93–100
[2022-11-11 00:16] LABS: Glucose Point of Care 86 mg/dl (65-105)
[2022-11-11] MEDS: IPRATROPIUM BR 0.02% INH SOLN 0.5 MG/2.5 ML VIAL INHALATION ×4 (03:09→19:53)
[2022-11-11 05:45] LABS: Hematocrit 29.8 % (37.0-47.0); Hemoglobin 9.6 g/dL (12.0-15.0); Mean Corpuscular HGB Conc 32.2 g/dl (32-36); Mean Corpuscular Hemoglobin 29.7 pg (26-34); Mean Corpuscular Volume 92.3 fl (80-100); Mean Platelet Volume 10.2 fl (7.4-10.4); Platelet Count Result 359 k/mm3 (150-375); Red Blood Count 3.23 M/mm3 (4.2-5.4); Red Cell Distribution Width 15.7 % (11.5-14.5); White Blood Count 15.6 K/mm3 (4.5-10.0)
[2022-11-11 05:57] LABS: Alanine Aminotransferase 69 U/L (6-35); Albumin Level 4.3 g/dL (3.5-5.1); Alkaline Phosphatase 48 U/L (38-126); Anion Gap 6 mmol/L (8-16); Aspartate Amino Transferase 43 U/L (14-36); Bilirubin,Total 0.7 mg/dL (0.2-1.3); Blood Urea Nitrogen 21 mg/dL (7-17); Calcium 8.4 mg/dL (8.4-10.2); Carbon Dioxide 36 mmol/L (22-30); Chloride 97 mmol/L (98-107); Estimated CRCL calculation 70 ml/min; Estimated Glomerular Filt Rate > 60; Glucose 93 mg/dL (65-110); Potassium 3.6 mmol/L (3.4-5.0); Sodium 139 mmol/L (137-145)
[2022-11-11 06:00] LABS: Glucose Point of Care 73 mg/dl (65-105)
[2022-11-11] MEDS: LEVOTHYROXINE SODIUM 75 MCG TABLET FEED TUBE (06:40)
[2022-11-11] MEDS: CENTRAL LINE FLUSH 10 ML IV PUSH ×4 (06:40→23:45)
--- NOTE | 2022-11-11 07:58 | PM.PNCARD ---
Progress Note: A&P Assessment and Plan (1) Shock: Code(s): R57.9 - Shock, unspecified Status: Acute Assessment and Plan: Resolved. Due to acute systolic heart failure and with chronic COPD. Was on 3 vasopressors, now all are off. Managed by launchman. (2) COPD exacerbation: Code(s): J44.1 - Chronic obstructive pulmonary disease with (acute) exacerbation Status: Acute Assessment and Plan: Extubated on 11/08/22. Management as per launchman. (3) History of cardiomyopathy: Code(s): Z86.79 - Personal history of other diseases of the circulatory system Status: Acute Assessment and Plan: Recurrence of dilated cardiomyopathy or Takotsubo cardiomyopathy. Previously, resolved on medical therapy based on repeat echo on 06/19/21 EF 55-60%, grade I diastolic dysfunction, small right sided pericardial effusion at 0.5 cm. Prior echo on 03/21/21 at [facility]: EF <15%, diastolic dysfunction, hypokinetic, apex, inferior, inferolateral, anteroseptal sal, mild LAE, MR. 11/01/22 Echo: EF 10-15%, mod LVE, basal segments have normal contractility otherwise global akinesis suggesting Takotubo cardiomyopathy, diastolic dysfunction with E/e' 18, RV similar to LV with severely reduced function with normal basal segments, mild based on valve area and gradients but valve not well seen. Monitor fluid status to avoid volume overload. Once hemodynamics stable, need to resume beta jose and Entresto. On low dose Metoprolol Tartate 12.5 mg BID. On Entresto 24-26 mg BID. Discuss Life vest to prevent sudden cardiac arrest and she agreed to it. She is being fitted with it today by [employer]. Increase Metoprolol Tartate 25 mg BID. (4) Elevated troponin: Code(s): R77.8 - Other specified abnormalities of plasma proteins Status: Acute Assessment and Plan: Likely Type II infarct from acute systolic heart failure with hypoxia, hypotension, respiratory acidosis, with normal coronaries on [facility] on 05/26/21. Subjective Date/time seen: 11/11/22 07:58 Interval history: She is on nasal cannula. No chest pain. Exam Const: General: thin Nutritional Appearance: thin Other: Sedated on mechanical ventilation Resp: Auscultation: no crackles, no rales, no rhonchi, no wheezes and diminished lung sounds Cardio: Rate: regular rate Rhythm: regular rhythm Heart sounds: no murmurs Extrem: Right lower extremity: no edema Left lower extremity: no edema Objective Data Vital Signs Vital Signs: Vital Signs - 24 hr 11/10/22 08:02 11/10/22 08:21 11/10/22 08:23 Temperature Pulse Rate 97 104 H 96 Respiratory Rate 25 H 22 H Blood Pressure Pulse Oximetry 98 Oxygen Delivery Nasal Cannula Oxygen Flow Rate 2 Fraction of Inspired Oxygen 11/10/22 08:34 11/10/22 08:00 11/10/22 08:00 Temperature Pulse Rate 99 94 94 Respiratory Rate 23 H 23 H Blood Pressure Pulse Oximetry 97 Oxygen Delivery Nasal Cannula Oxygen Flow Rate 2 Fraction of Inspired Oxygen 11/10/22 08:00 11/10/22 08:05 11/10/22 08:15 Temperature 99.0 F 99.1 F 99.2 F Pulse Rate 102 H 97 97 Respiratory Rate 30 H 25 H 21 H Blood Pressure 115/69 Pulse Oximetry 98 98 96 Oxygen Delivery Oxygen Flow Rate Fraction of Inspired Oxygen 11/10/22 08:30 11/10/22 10:00 11/10/22 10:35 Temperature 99.2 F Pulse Rate 94 91 Respiratory Rate 29 H Blood Pressure Pulse Oximetry 100 Oxygen Delivery Nasal Cannula Oxygen Flow Rate 1 Fraction of Inspired Oxygen 11/10/22 08:45 11/10/22 09:00 11/10/22 09:01 Temperature 99.0 F 99.0 F 99.0 F Pulse Rate 101 H 97 93 Respiratory Rate 24 H 21 H 18 Blood Pressure 129/91 H Pulse Oximetry 98 97 95 Oxygen Delivery Oxygen Flow Rate Fraction of Inspired Oxygen 11/10/22 09:37 11/10/22 10:18 11/10/22 10:53 Temperature 99.1 F 99.5 F Pulse Rate 90 91 Respiratory Rate 21 H 22 H Blood Pressure Pulse Oximetry
[2022-11-11] MEDS: METOPROLOL TARTRATE 25 MG TABLET PO ×2 (08:29→20:30)
[2022-11-11] MEDS: ENOXAPARIN 40 MG/0.4 ML SYRINGE SUB-Q (08:30)
[2022-11-11] MEDS: SACUBITRIL/VALSARTAN 24-26 MG TABLET 1 TAB PO ×2 (08:30→20:30)
[2022-11-11] MEDS: PANTOPRAZOLE SODIUM IV 40 MG VIAL IV PUSH ×2 (08:30→20:30)
[2022-11-11] MEDS: methylPREDNISolone SOD SUCC 40 MG VIAL 20 MG IV PUSH (08:30)
[2022-11-11] MEDS: ATORVASTATIN 40 MG TABLET PO (08:31)
[2022-11-11 11:58] LABS: Glucose Point of Care 166 mg/dl (65-105)
--- NOTE | 2022-11-11 12:24 | PM.PNGS ---
Progress Note: A&P Assessment and Plan (1) Traumatic hematoma of right ear canal: Code(s): S00.431A - Contusion of right ear, initial encounter Status: Acute Assessment and Plan: follow-up as an outpatient call once discharged. We will debride ear canal at that time. Subjective Subjective Date/Time Seen: 11/11/22 12:24 Interval history: Patient is awake looks great no bleeding from her ears at this time. Exam Narrative: Hematoma the canals now drying canals expressing it looks good this is the right-sided Objective Data Vital Signs Vital Signs: Vital Signs - 24 hr 11/10/22 14:44 11/10/22 14:55 11/10/22 14:00 Temperature Pulse Rate 92 102 H 92 Respiratory Rate 19 25 H Blood Pressure Pulse Oximetry Oxygen Delivery Oxygen Flow Rate Fraction of Inspired Oxygen 11/10/22 12:30 11/10/22 12:50 11/10/22 13:08 Temperature 37.5 C 37.6 C H 37.7 C H Pulse Rate 98 99 94 Respiratory Rate 34 H 22 H 21 H Blood Pressure Pulse Oximetry 94 94 90 Oxygen Delivery Oxygen Flow Rate Fraction of Inspired Oxygen 11/10/22 13:46 11/10/22 14:56 11/10/22 15:00 Temperature 37.6 C H 37.6 C H 37.7 C H Pulse Rate 99 101 H 105 H Respiratory Rate 26 H 20 17 Blood Pressure Pulse Oximetry 93 100 98 Oxygen Delivery Oxygen Flow Rate Fraction of Inspired Oxygen 11/10/22 15:01 11/10/22 15:15 11/10/22 15:30 Temperature 37.7 C H 37.7 C H 37.7 C H Pulse Rate 103 H 100 103 H Respiratory Rate 18 20 23 H Blood Pressure 102/89 Pulse Oximetry 97 95 95 Oxygen Delivery Oxygen Flow Rate Fraction of Inspired Oxygen 11/10/22 15:45 11/10/22 16:00 11/10/22 16:01 Temperature 37.6 C H 37.6 C Pulse Rate 99 98 Respiratory Rate 26 H 26 H Blood Pressure 111/83 Pulse Oximetry 83 L 94 93 Oxygen Delivery Room Air Oxygen Flow Rate Fraction of Inspired Oxygen 11/10/22 16:00 11/10/22 18:00 11/10/22 16:15 Temperature 37.6 C Pulse Rate 88 72 100 Respiratory Rate 15 Blood Pressure Pulse Oximetry 93 Oxygen Delivery Oxygen Flow Rate Fraction of Inspired Oxygen 02/14/23 16:30 11/10/22 16:45 11/10/22 17:25 Temperature 37.5 C 37.5 C 37.4 C Pulse Rate 95 96 103 H Respiratory Rate 20 23 H 18 Blood Pressure Pulse Oximetry 94 95 Oxygen Delivery Oxygen Flow Rate Fraction of Inspired Oxygen 11/10/22 17:39 11/10/22 17:50 11/10/22 18:02 Temperature 37.2 C 37.4 C Pulse Rate 90 90 93 Respiratory Rate 24 H 23 H 17 Blood Pressure 109/80 Pulse Oximetry 97 97 100 Oxygen Delivery Oxygen Flow Rate Fraction of Inspired Oxygen 11/10/22 18:06 11/10/22 18:15 11/10/22 18:16 Temperature Pulse Rate 92 98 96 Respiratory Rate 25 H 22 H 27 H Blood Pressure 109/80 Pulse Oximetry 100 Oxygen Delivery Oxygen Flow Rate Fraction of Inspired Oxygen 11/10/22 18:21 11/10/22 18:24 11/10/22 18:30 Temperature Pulse Rate 94 90 Respiratory Rate 24 H 20 Blood Pressure 109/80 125/85 Pulse Oximetry 92 Oxygen Delivery Oxygen Flow Rate Fraction of Inspired Oxygen 11/10/22 18:45 11/10/22 20:08 11/10/22 20:31 Temperature Pulse Rate 88 90 92 Respiratory Rate 23 H 24 H Blood Pressure Pulse Oximetry 97 Oxygen Delivery Oxygen Flow Rate Fraction of Inspired Oxygen 11/10/22 20:42 11/10/22 20:00 11/10/22 20:00 Temperature Pulse Rate 90 90 Respiratory Rate 17 Blood Pressure Pulse Oximetry Oxygen Delivery Room Air Oxygen Flow Rate Fraction of Inspired Oxygen 30 11/10/22 20:00 11/10/22 22:00 11/10/22 22:00 Temperature 36.9 C Pulse Rate 86 91 94 Respiratory Rate 23 H 23 H Blood Pressure 129/97 H 133/94 H Pulse Oximetry 93 86 L Oxygen Delivery Oxygen Flow Rate Fraction of Inspired Oxygen 11/10/22 22:21 11/10/22 22:21 11/10/22 23:36 Temperature Pulse Rate 88 Respiratory Rate 18 22 H Blood Pressure Pul
--- NOTE | 2022-11-11 15:47 | PM.IMPN ---
Progress Note: A&P Assessment and Plan (1) Shock: Code(s): R57.9 - Shock, unspecified Status: Acute Assessment and Plan: Patient was in shock on arrival to [facility]. She was started on Levophed as well as vasopressin and phenylephrine.? Etiology of her hypotension is unclear but possibly cardiac.??Art line actually showed her BP was higher than cuff pressures probably due to her low body mass. She was given a fluid bolus and bicarb for acidosis. Echo showing EF 10-15%. Chest CTA is negative for PE. Able to be weaned off pressors. She remains on abx for possible infectious etiology causing shock. BCx NGTD. Also on steroids for COPD exacerbation. Appreciate offbearer management. Repeat blood cultures pending, NGTD Status post doxycycline x5 day course Was on vanc + cefepime, started 11/04. Currently on Cefepime only (Vanco stopped 11/09) Cefepime completed today. (2) Acute on chronic respiratory failure with hypoxia and hypercapnia: Code(s): J96.21 - Acute and chronic respiratory failure with hypoxia; J96.22 - Acute and chronic respiratory failure with hypercapnia Status: Acute Assessment and Plan: Acute Respiratory failure secondary to COPD exacerbation, possible pneumonia and/or CHF exacerbation. Patient was initially tried on BiPAP in the ED but she failed and had to be intubated. She was transferred to [facility] intubated on mechanical ventilation. Now extubated and weaned to RA, continue to monitor (3) COPD exacerbation: Code(s): J44.1 - Chronic obstructive pulmonary disease with (acute) exacerbation Status: Acute Assessment and Plan: as above, steroids being weaned to 20 mg daily. (4) History of cardiomyopathy: Code(s): Z86.79 - Personal history of other diseases of the circulatory system Status: Acute Assessment and Plan: Prior echo on 03/21/21 at [facility]: EF <15%, diastolic dysfunction, hypokinetic, apex, inferior, inferolateral, anteroseptal sal, mild LAE, MR. Resolved on medical therapy based on repeat echo on 06/19/21 EF 55-60%, grade I diastolic dysfunction, small right sided pericardial effusion at 0.5 cm. Echo here again showing EF 10-15% with findings consistent with Takotsubo cardiomyopathy. Diastolic dysfunction. Reduced RV systolic function. No pulmonary hypertension. Patient evaluated by Cardiology here and appreciate their input. On metoprolol tartrate 25 mg BID + entresto 24-26 mg BID Elevated troponin thought to be 2/2 type II infarct. She is tolerating this well. (5) Sepsis: Code(s): A41.9 - Sepsis, unspecified organism Status: Acute Assessment and Plan: Patient met sepsis criteria with shock on admission with elevated lactic acidosis and in shock. CT scan was not consistent with pneumonia. Treatment as above (6) Non-ST elevated myocardial infarction (non-STEMI): Code(s): I21.4 - Non-ST elevation (NSTEMI) myocardial infarction Status: Inactive Assessment and Plan: Trop up to 1.3. EKG showedHR [address]-T wave changes. Patient evaluated by Cardiology. Type 2 NSTEMI suspected secondary to respiratory failure, lactic acidosis, shock and CMP. She had normal coronaries on [facility] in April of 2021. Echo as mentioned above. Continue aspirin and statin. Was not on beta-jose or NUBIA/ARB due to shock. Cardiology did not recommend systemic anticoagulation for the elevated troponin. Able to resume some medications now. (7) Lactic acidosis: Code(s): E87.20 - Acidosis, unspecified Status: Acute Assessment and Plan: Secondary to COPD hypoxia and shock. CT scan of abdomen pelvis did not show any findings to suggest etiology of shock (except GB distended). CT chest showing possible pulmonary edema but no evidence of PNA. Lactic acid level improved (8) Anemia: Code(s): D64.9 - Anemia, unspecified Status: Acute Assessment
[2022-11-11 17:00] LABS: Glucose Point of Care 161 mg/dl (65-105)
[2022-11-12] VITALS (22 sets, daily range): BP systolic 91–127; BP diastolic 51–69; PULSE 66–92; RESP 18–26; TEMP 36.4–36.6; O2SAT 91–99
[2022-11-12] MEDS: IPRATROPIUM BR 0.02% INH SOLN 0.5 MG/2.5 ML VIAL INHALATION ×3 (02:38→13:15)
[2022-11-12 05:19] LABS: Hematocrit 28.3 % (37.0-47.0); Hemoglobin 9.1 g/dL (12.0-15.0); Mean Corpuscular HGB Conc 32.2 g/dl (32-36); Mean Corpuscular Hemoglobin 29.7 pg (26-34); Mean Corpuscular Volume 92.5 fl (80-100); Mean Platelet Volume 9.6 fl (7.4-10.4); Platelet Count Result 332 k/mm3 (150-375); Red Blood Count 3.06 M/mm3 (4.2-5.4); Red Cell Distribution Width 15.8 % (11.5-14.5); White Blood Count 16.1 K/mm3 (4.5-10.0)
[2022-11-12 05:39] LABS: Alanine Aminotransferase 58 U/L (6-35); Albumin Level 3.9 g/dL (3.5-5.1); Alkaline Phosphatase 40 U/L (38-126); Anion Gap 3 mmol/L (8-16); Aspartate Amino Transferase 40 U/L (14-36); Bilirubin,Total 0.6 mg/dL (0.2-1.3); Blood Urea Nitrogen 22 mg/dL (7-17); Calcium 8.2 mg/dL (8.4-10.2); Carbon Dioxide 36 mmol/L (22-30); Chloride 99 mmol/L (98-107); Estimated CRCL calculation 64 ml/min; Estimated Glomerular Filt Rate > 60; Glucose 90 mg/dL (65-110); Potassium 3.6 mmol/L (3.4-5.0); Sodium 138 mmol/L (137-145)
[2022-11-12] MEDS: CENTRAL LINE FLUSH 10 ML IV PUSH (06:04)
[2022-11-12] MEDS: LEVOTHYROXINE SODIUM 75 MCG TABLET FEED TUBE (06:04)
[2022-11-12] MEDS: SACUBITRIL/VALSARTAN 24-26 MG TABLET 1 TAB PO (08:14)
[2022-11-12] MEDS: methylPREDNISolone SOD SUCC 40 MG VIAL 20 MG IV PUSH (08:14)
[2022-11-12] MEDS: METOPROLOL TARTRATE 25 MG TABLET PO (08:14)
[2022-11-12] MEDS: ATORVASTATIN 40 MG TABLET PO (08:15)
[2022-11-12] MEDS: ENOXAPARIN 40 MG/0.4 ML SYRINGE SUB-Q (08:15)
[2022-11-12] MEDS: PANTOPRAZOLE SODIUM IV 40 MG VIAL IV PUSH (08:15)
--- NOTE | 2022-11-12 09:44 | PM.DS ---
DS: Admitting Diagnosis Discharge Date 11/12/22 Admitting Diagnosis Shortness of breath DS: Discharge Diagnosis Discharge Diagnosis (1) Shock: Code(s): R57.9 - Shock, unspecified Status: Acute (2) Acute on chronic respiratory failure with hypoxia and hypercapnia: Code(s): J96.21 - Acute and chronic respiratory failure with hypoxia; J96.22 - Acute and chronic respiratory failure with hypercapnia Status: Acute (3) COPD exacerbation: Code(s): J44.1 - Chronic obstructive pulmonary disease with (acute) exacerbation Status: Acute (4) History of cardiomyopathy: Code(s): Z86.79 - Personal history of other diseases of the circulatory system Status: Acute (5) Sepsis: Code(s): A41.9 - Sepsis, unspecified organism Status: Acute (6) Non-ST elevated myocardial infarction (non-STEMI): Code(s): I21.4 - Non-ST elevation (NSTEMI) myocardial infarction Status: Inactive (7) Lactic acidosis: Code(s): E87.20 - Acidosis, unspecified Status: Acute (8) Anemia: Code(s): D64.9 - Anemia, unspecified Status: Acute (9) Upper GI bleed: Code(s): K92.2 - Gastrointestinal hemorrhage, unspecified Status: Acute DS: Summary Hospital Course Reason for hospitalization: 51yo female with NICM, COPD, KARLY and pulmonary cachexia who presented to [place] in respiratory distress. Patient had improvement with appropriate treatment but then suddenly became unresponsive requiring intubation. She was transferred to [facility] ICU. Please see H&P for details. Hospital Course: Patient was in shock on arrival to [facility].? She was started on Levophed as well as vasopressin and phenylephrine.? Etiology of her hypotension is unclear but possibly cardiac.??Arterial line actually showed her BP was higher than cuff pressures probably due to her low body mass. She was given a fluid bolus and bicarb for acidosis. Echo showing EF 10-15%. Chest CTA was negative for PE. Able to be weaned off pressors. She remained on abx for possible infectious etiology causing shock. BCx negative. Also was on steroids for COPD exacerbation. Repeat blood cultures and urine cultures negative. Sputum cx grew yeast felt not to indicate infection. She completed a course of abx. Acute Respiratory failure secondary to COPD exacerbation, possible pneumonia and/or CHF exacerbation. Patient was initially tried on BiPAP in the ED but she failed and had to be intubated.? She was transferred to [facility] intubated on mechanical ventilation. As she improved, she was able to be extubated and weaned to room air. Prior echo on 03/21/21 at [facility]: EF <15%, diastolic dysfunction, hypokinetic, apex, inferior, inferolateral, anteroseptal sal, mild LAE, MR. EF improved with medical therapy based on repeat echo on 06/19/21 EF 55-60%, grade I diastolic dysfunction, small right sided pericardial effusion at 0.5 cm. Echo 11/01/22 showing EF 10-15% with findings consistent with Takotsubo cardiomyopathy.? Diastolic dysfunction.? Reduced RV systolic function.? No pulmonary hypertension. Patient evaluated by Cardiology here. On metoprolol tartrate 25 mg BID + entresto 24-26 mg BID. Elevated troponin thought to be 2/2 type II infarct. Once her HoTN improved, we were able to resume her home medciations of Entresto and Metoprolol. Patient met sepsis criteria with shock on admission with elevated lactic acidosis and in shock. CT scan was not consistent with pneumonia so source unclear. Consider also related to cardiogenic shock. Trop up to 1.3. EKG showed HR [address]-T wave changes. Patient evaluated by Cardiology. Type 2 NSTEMI suspected secondary to respiratory failure, lactic acidosis, shock and CMP. She had normal coronaries on [facility] in April of 2021. Treated with aspirin and statin. Hgb 12.3 on admission. Hgb dropped to 7-8 range and stable. There was some arterial blood loss related to the A-l
--- NOTE | 2022-11-12 16:01 | HOMEO2EVAL ---
Evaluation was performed at [facility] Home Oxygen Evaluation RC: Home Oxygen (O2) Evaluation Start: 11/12/22 09:49 Freq: ONCE Status: Active Protocol: RPE Activity Type Activity Date Activity User E-sign Co-sign Detail Recorded Client Recorded Date Recorded By Document 11/12/22 15:30 MATEO [id number] 11/12/22 16:01 MATEO Document 11/12/22 15:35 MATEO [email or web address] 11/12/22 16:01 MATEO Document 11/12/22 15:45 MATEO [email or web address] 11/12/22 16:01 MATEO 11/12/22 11/12/22 11/12/22 15:30 15:35 15:45 Home O2 Evaluation [Oxygen] -Test Phase Resting Exercise Resting -Oxygen Delivery Room Air Room Air Room Air [Pulse Oximetry] -Pulse Oximetry (90-100 %) 99 91 99 [Comments] -Home Oxygen Evaluation Comments PT DOES NOT REQUIRES HOME O2 AT REST OR WITH ACTIVITY. [Charges] -Treatment Charges O2 Evaluation - Inpatient
--- NOTE | 2022-11-12 16:02 | PCRCNOTE ---
HOME O2 EVAL DONE, ROOM AIR AT REST AND WITH ACTIVITY. PT HAS [facility] FOR TRILOGY AND O2. I WILL CONTACT DME AND LET THEM KNOW PATIENTS CURRENT NEEDS.
== END 2022-11-12 17:35 | disposition home or self-care (01) | DRG 870 ==
PROVIDERS: Internal Medicine; Internal Medicine Cardiovascular Disease; Internal Medicine Gastroenterology; Admitting Provider Internal Medicine; PCP Family Medicine; Visit Provider Internal Medicine
DX: A41.9 Sepsis, unspecified organism (principal); R65.21 Severe sepsis with septic shock; E43 Unspecified severe protein-calorie malnutrition; I50.21 Acute systolic (congestive) heart failure; I21.A1 Myocardial infarction type 2; J18.9 Pneumonia, unspecified organism; J96.21 Acute and chronic respiratory failure with hypoxia; J96.22 Acute and chronic respiratory failure with hypercapnia; R57.0 Cardiogenic shock; K29.01 Acute gastritis with bleeding; J44.1 Chronic obstructive pulmonary disease with (acute) exacerbation; J44.0 Chronic obstructive pulmonary disease with (acute) lower respiratory infection; D62 Acute posthemorrhagic anemia; R64 Cachexia; Z68.1 Body mass index [BMI] 19.9 or less, adult; I42.8 Other cardiomyopathies; E87.21 Acute metabolic acidosis; N17.9 Acute kidney failure, unspecified; T82.838A Hemorrhage due to vascular prosthetic devices, implants and grafts, initial encounter; K56.7 Ileus, unspecified; I95.9 Hypotension, unspecified; S00.431A Contusion of right ear, initial encounter; X58.XXXA Exposure to other specified factors, initial encounter; G47.33 Obstructive sleep apnea (adult) (pediatric); D72.829 Elevated white blood cell count, unspecified; F41.9 Anxiety disorder, unspecified; E78.5 Hyperlipidemia, unspecified; E03.9 Hypothyroidism, unspecified; M41.9 Scoliosis, unspecified; Z91.199 Patient's noncompliance with other medical treatment and regimen due to unspecified reason; Z87.891 Personal history of nicotine dependence
CPT/HCPCS: 36415; 36569; 36600; 70450; 71045; 71275; 74018; 74019; 74174; 76705; 80048; 80053; 80074; 80076; 80202; 81001; 82271; 82375; 82805; 82948; 83050; 83605; 83690; 83735; 83986; 84100; 84443; 84478; 84484; 85014; 85018; 85025; 85027; 85055; 85610; 85730; 87040; 87070; 87086; 87205; 92610; 93005; 93306; 93970; 94002; 94003; 94618; 94640; 94660; 97116; 97161; 97165; 97530; 97535; A9270; C1751; C9113; J0612; J0692; J0696; J1650; J1815; J2250; J2370; J2704; J2920; J2930; J3010; J3370; J3475; J3480; J7030; J7050; J7060; J7070; J7120; P9047; Q9967

== ENCOUNTER 2022-11-17 12:31 | Outpatient (CLI) | payer MEDICARE, MEDICAID, SELFPAY ==
[2022-11-17 12:48] LABS: Basophils Absolute Auto 0.03 K/mm3 (0.00-0.10); Basophils Percent Auto 0.3 % (0.0-1.0); Eosinophils Absolute Auto 0.12 K/mm3 (0.02-0.50); Eosinophils Percent Auto 1.3 % (1.0-6.0); Hematocrit 31.5 % (35.0-49.0); Hemoglobin 9.9 g/dL (12.0-15.0); Immature Granulocyte Absolute 0.04 K/mm3 (0.00-0.00); Immature Granulocyte Percent A 0.4 % (0.0-0.0); Lymphocytes Absolute Auto 2.04 K/mm3 (1.10-4.50); Lymphocytes Percent Auto 22.9 % (18.0-42.0); Mean Corpuscular HGB Conc 31.4 g/dL (32.0-36.0); Mean Corpuscular Hemoglobin 29.7 pg (27.0-31.0); Mean Corpuscular Volume 94.6 fL (78.0-102.0); Mean Platelet Volume 9.8 fl (9.2-11.8); Monocytes Absolute Auto 0.98 K/mm3 (0.10-0.90); Neutrophils Absolute Auto 5.7 K/mm3 (1.7-7.2); Neutrophils Percent Auto 64.1 % (50.0-70.0); Platelet Count Result 482 K/mm3 (150-420); Red Blood Count 3.33 M/mm3 (4.20-5.40); Red Cell Distribution Width 16.7 % (11.6-14.4); White Blood Count 8.9 K/mm3 (4.8-10.8)
[2022-11-17 13:46] LABS: Alanine Aminotransferase 61 U/L (14-59); Albumin Level 4.9 g/dL (3.4-5.0); Alkaline Phosphatase 62 U/L (46-116); Anion Gap 7 mmol/L (8-16); Aspartate Amino Transferase 26 U/L (15-37); Bilirubin,Total 0.6 mg/dL (0.00-1.00); Blood Urea Nitrogen 7 mg/dL (7-18); Calcium 9.3 mg/dL (8.5-10.1); Carbon Dioxide 32 mmol/L (21-32); Chloride 101 mmol/L (98-108); Estimated Glomerular Filt Rate > 60; Glucose 96 mg/dL (70-99); Iron 51 ug/dL (50-170); Osmolality Calculated 288 mOsm/kg (285-295); Percent Iron Saturation 19 % (12-57); Potassium 4.5 mmol/L (3.5-5.1); Sodium 140 mmol/L (136-145); Total Protein 7.3 g/dL (6.4-8.2)
== END 2022-11-17 12:32 | disposition home or self-care (01) ==
LOC: CHSLAB 12:35
PROVIDERS: PCP Nurse Practitioner Family; Visit Provider Nurse Practitioner Family
DX: D64.9 Anemia, unspecified (principal)
CPT/HCPCS: 36415; 80053; 83540; 83550; 85025

== ENCOUNTER 2022-11-18 13:39 | Emergency (ER) | payer MEDICARE, MEDICAID, SELFPAY ==
[2022-11-18] VITALS (7 sets, daily range): BP systolic 113–127; BP diastolic 59–70; PULSE 90–108; RESP 20–24; TEMP 36.7–36.9; O2SAT 93–100
--- NOTE | ~2022-11-18 | XR_ITS ---
XR chest 1V portable 11/18/2022 14:07 Indication: Dyspnea. Procedure: AP portable chest Comparison: Comparison to multiple prior studies sequentially, with oldest reviewed study dated 11/07. Findings: There is a live pack overlying the patient's chest. No focal air space disease, pulmonary e melissa, pleural effusion or suspected pneumothorax. The lungs are hyperinflated which is consistent wit h, but not diagnostic of chronic obstructive pulmonary disease. No acute osseous abnormality. Scolios is. Impression: 1: No acute cardiopulmonary disease. Reviewed, dictated and finalized at location B. ANT COOKER Impression: 1: No acute cardiopulmonary disease.
--- NOTE | 2022-11-18 13:55 | ECG_ITS ---
Measurements Intervals [place] Rate: 99 P: 70 SC: 124 QRS: 65 QRSD: 78 T: 253 QT: 361 QTc: 465 Interpretive Statements SINUS RHYTHM ST DEVIATION AND MODERATE T-WAVE ABNORMALITY, CONSIDER LATERAL ISCHEMIA [-0.1+ mV T- WAVE IN I/aVL/V5/V6] ST DEVIATION AND MODERATE T-WAVE ABNORMALITY, CONSIDER INFERIOR ISCHEMIA [-0.1+ mV T- WAVE IN II/aVF] ABNORMAL ECG Electronically Signed On 11-19-2022 10:10:27 [employer]QUID CHLORINE OPERATOR by Blanco Ruvalcaba M.D.
[2022-11-18] MEDS: predniSONE 20 MG TABLET 60 MG PO (14:08)
[2022-11-18] MEDS: IPRATROPIUM BR 0.02% INH SOLN 0.5 MG/2.5 ML VIAL INHALATION (14:18)
[2022-11-18 14:22] LABS: Basophils Absolute Auto 0.05 K/mm3 (0.00-0.10); Basophils Percent Auto 0.6 % (0.0-1.0); Eosinophils Absolute Auto 0.15 K/mm3 (0.02-0.50); Eosinophils Percent Auto 1.7 % (1.0-6.0); Hematocrit 29.8 % (35.0-49.0); Hemoglobin 9.5 g/dL (12.0-15.0); Immature Granulocyte Absolute 0.04 K/mm3 (0.00-0.00); Immature Granulocyte Percent A 0.4 % (0.0-0.0); Lymphocytes Absolute Auto 2.08 K/mm3 (1.10-4.50); Lymphocytes Percent Auto 23.1 % (18.0-42.0); Mean Corpuscular HGB Conc 31.9 g/dL (32.0-36.0); Mean Corpuscular Hemoglobin 29.7 pg (27.0-31.0); Mean Corpuscular Volume 93.1 fL (78.0-102.0); Mean Platelet Volume 9.4 fl (9.2-11.8); Monocytes Percent Auto 13.3 % (2.0-11.0); Neutrophils Absolute Auto 5.5 K/mm3 (1.7-7.2); Neutrophils Percent Auto 60.9 % (50.0-70.0); Platelet Count Result 483 K/mm3 (150-420); Red Cell Distribution Width 16.8 % (11.6-14.4)
--- NOTE | 2022-11-18 14:22 | ED.SOB ---
HPI - SOB/Dyspnea General Chief Complaint: Shortness of Breath/Dyspnea Stated Complaint: SOB Time Seen by Provider: 11/18/22 13:40 History of Present Illness HPI Narrative: This is a 51-year-old female with past medical history of COPD and cardiomyopathy with an EF of 10 to 20%, brought to the emergency department by family for dyspnea. Her symptoms began earlier today, though she does not elaborate further. The patient also states that she hears someone telling her that a unknown female is going to attack her with a machete. She denies chest pain, visual hallucinations, suicidal or homicidal ideations. Related Data Home Medications Medication Instructions Recorded Confirmed atorvastatin 40 mg tablet 40 mg PO DAILY 11/01/22 11/18/22 bupropion HCl 150 mg tablet,12 hr 150 mg PO BID 11/01/22 11/18/22 sustained-release levothyroxine 200 mcg tablet 200 mcg PO DAILY 11/01/22 11/18/22 metoprolol succinate 25 mg 25 mg PO DAILY 11/01/22 11/18/22 tablet,extended release 24 hr Allergies Allergy/AdvReac Type Severity Reaction Status Date / Time budesonide [From Symbicort] Allergy Severe breathing Verified 11/18/22 14:02 issues formoterol [From Symbicort] Allergy Severe breathing Verified 11/18/22 14:02 issues Review of Systems Review of Systems: ROS limited by patient's active hallucinations CONSTITUTIONAL: Denies fever, chills, or sweats. CARDIOVASCULAR: Denies chest pain, palpitations, or edema. RESPIRATORY: Dyspnea denies cough GASTROINTESTINAL: Denies abdominal pain, nausea, vomiting, or diarrhea. NEUROLOGIC: Denies headache, numbness, dizziness, or weakness. PSYCHIATRIC: Auditory hallucinations, denies anxiety or depression, suicidal/homicidal ideation [facility] Past Medical History Medical History (Updated 11/18/22 @ 16:15 by Kayden Martinez MD) Anxiety Cardiomyopathy Nonischemic cardiomyopathy with EF of 15% 02/2021, with cardiac catheterization April 2021 no significant coronary artery disease and EF 60-65% and right coronary dominant circulation with no evidence of coronary artery disease with very small caliber vessels given the patient's cachectic state, repeat echocardiogram 05/2021 EF of 55-60% with sub optimal imaging grade 1 diastolic dysfunction COPD (chronic obstructive pulmonary disease) Dyslipidemia GERD (gastroesophageal reflux disease) Hypothyroidism Obstructive sleep apnea (~11/2021) Noncompliant with CPAP CPAP setting is post be 7 mm of water Pulmonary cachexia due to COPD Schizophrenia Scoliosis Tobacco abuse Surgical History Surgical History H/O laparoscopy H/O oral surgery History of Family History Family History Father , father had cancer of the lymph nodes. He in 2008 he had diabetes / hypertension Diabetes mellitus Hypertension Lung cancer Mother Cerebrovascular accident Sibling Hypothyroidism Social History Social History Social History: Code status: Full code Smoking packs per day: 0.5 Smoking cigarettes per day: 10.0 Years smoked: 36 Smoking pack-years: 18.00 Smoking status: Current every day smoker Tobacco type: cigarettes Alcohol intake: never Substance use: never Lack of Transportation: No Lack of Food: Never True Current Housing: I Have Housing Concerned About Future Housing: No Difficulty Paying Gas/Electric Bills: YES Difficulty Paying for Meds: No Currently Unemployed: No Education: High School Diploma/GED Difficulty w/ Childcare or Family Care: No Living arrangements: with family Gender identity (if verbalized by the patient): Female Spiritual care concerns: No Exam Narrative: GENERAL: Well-developed, cachectic, and in no acute distress. Wearing a [employer] life-vest HEAD: Normocephalic, atraumatic.
[2022-11-18 14:48] LABS: Alanine Aminotransferase 54 U/L (14-59); Alkaline Phosphatase 62 U/L (46-116); Anion Gap 11 mmol/L (8-16); Aspartate Amino Transferase 24 U/L (15-37); Bilirubin,Total 0.7 mg/dL (0.00-1.00); Blood Urea Nitrogen 8 mg/dL (7-18); Calcium 9.4 mg/dL (8.5-10.1); Carbon Dioxide 30 mmol/L (21-32); Chloride 98 mmol/L (98-108); Estimated CRCL calculation 36 ml/min; Estimated Glomerular Filt Rate > 60; Glucose 118 mg/dL (70-99); Magnesium 1.5 mg/dL (1.8-2.4); NT Pro B Type Natriuretic Pept 8471 pg/mL (0-125); Osmolality Calculated 287 mOsm/kg (285-295); Potassium 4.3 mmol/L (3.5-5.1); Sodium 139 mmol/L (136-145); Total Protein 7.6 g/dL (6.4-8.2); Troponin I 36.9 ng/L (0.00-60.4)
[2022-11-18 15:38] LABS: Add Urine Microscopic? YES; Appearance Urine Clear (Clear); Bilirubin Urine Negative (Negative); Blood Urine Negative (Negative); Color Urine Light Yellow (Yellow); Glucose Urine UA Negative (Negative); Ketones Urine Negative (Negative); Leukocyte Esterase Ur Trace LEU/UL (Negative); Nitrate Urine Negative (Negative); Protein Urine 1+ (Negative); Urobilinogen Urine 0.2 mg/dL (0.2-1.0)
--- NOTE | 2022-11-18 15:44 | PC.NURSE ---
[id number] DR CHRISTIAN SPOKE WITH DR VOGEL CARDIOLOGY FINANCIAL SALES ADVISOR
[2022-11-18 15:47] LABS: Amphetamine Screen Urine Negative (Negative); Barbiturate Screen Urine Negative (Negative); Benzodiazepines Screen Urine Negative (Negative); Cannabinoid Screen Urine Negative (Negative); Cocaine Screen Urine Negative (Negative); Methadone Screen Urine Negative (Negative); Opiate Screen Urine Negative (Negative); Phencyclidine Screen Urine Negative (Negative)
[2022-11-18 15:48] LABS: Bacteria Urine Trace /hpf; RBC Urine None seen /hpf (0-2); Renal Epithelial Cells Urine Few /hpf; Squamous Epithelial Cell Urine Few /hpf (Few)
== END 2022-11-18 16:25 | disposition home or self-care (01) ==
PROVIDERS: Emergency Provider Preventive Medicine Aerospace Medicine
DX: J44.1 Chronic obstructive pulmonary disease with (acute) exacerbation (principal); R06.09 Other forms of dyspnea; F20.9 Schizophrenia, unspecified; I42.8 Other cardiomyopathies; G47.33 Obstructive sleep apnea (adult) (pediatric); E78.5 Hyperlipidemia, unspecified; F41.9 Anxiety disorder, unspecified; E03.9 Hypothyroidism, unspecified; K21.9 Gastro-esophageal reflux disease without esophagitis; F17.210 Nicotine dependence, cigarettes, uncomplicated; Z79.51 Long term (current) use of inhaled steroids; Z79.899 Other long term (current) drug therapy
CPT/HCPCS: 36415; 71045; 80053; 80307; 81001; 83735; 83880; 84484; 85025; 93005; 94640; 99284; J7512

== ENCOUNTER 2022-11-18 22:53 | Observation (INO) | payer MEDICARE, MEDICAID, SELFPAY ==
[2022-11-18] VITALS (9 sets, daily range): BP systolic 94–138; BP diastolic 70–75; PULSE 96–102; RESP 14–35; TEMP 36.6; O2SAT 100
--- NOTE | ~2022-11-18 | CT_ITS ---
Non-contrast Head CT History: Altered mental status COMPARISON: 11/05/2022 Technique: Axial non-contrast imaging of the brain was performed. Dose reduction technique was used on this scan by utilizing automated exposure control and iterative reconstruction technique. The dose -length product (DLP) was 681.00 mGy-cm. Findings: There is no evidence of intracranial hemorrhage, mass lesion, or acute infarct. Brain par enchyma appears normal. The ventricles and subarachnoid spaces are normal in size. The calvarium ap pears normal. The visualized paranasal sinuses and mastoid air cells are clear. Impression: No significant abnormality seen. Reviewed, dictated and finalized at location . ONOMETRY TEACHER Impression: No significant abnormality seen.
--- NOTE | ~2022-11-18 | XR_ITS ---
Portable chest x-ray Comparison: 11/18/2022 Clinical History: Dyspnea Findings: COPD pattern present. No consolidation or pleural effusion. No definite pneumothorax. Car diomediastinal silhouette is stable. Stable dextroscoliosis of the thoracic spine. Impression: Clear lungs. COPD. Reviewed, dictated and finalized at [facility]. ING SPECIALIST Impression: Clear lungs. COPD.
[2022-11-18] MEDS: ALBUTEROL SULFATE NEB 2.5 MG/3 ML INH 5 MG INHALATION (23:12)
--- NOTE | 2022-11-18 23:16 | ED.SOB ---
HPI - SOB/Dyspnea General Chief Complaint: Altered Mental Status Stated Complaint: delirous History of Present Illness HPI Narrative: This is a 51-year-old female with past medical history of schizophrenia, COPD and CHF, who returns to the emergency department with dyspnea, auditory hallucinations and agitation. The patient's sister states the patient appeared to be at her baseline after leaving this facility. Approximately 1 hour prior to arrival though, the patient reportedly began screaming, breathing rapidly and having visual hallucinations. The patient's sister gave nebulizing treatments at home without improvement. Related Data Home Medications Medication Instructions Recorded Confirmed atorvastatin 40 mg tablet 40 mg PO DAILY 11/01/22 11/18/22 bupropion HCl 150 mg tablet,12 hr 150 mg PO BID 11/01/22 11/18/22 sustained-release levothyroxine 200 mcg tablet 200 mcg PO DAILY 11/01/22 11/18/22 metoprolol succinate 25 mg 25 mg PO DAILY 11/01/22 11/18/22 tablet,extended release 24 hr Allergies Allergy/AdvReac Type Severity Reaction Status Date / Time budesonide [From Symbicort] Allergy Severe breathing Verified 11/18/22 14:02 issues formoterol [From Symbicort] Allergy Severe breathing Verified 11/18/22 14:02 issues Review of Systems Review of Systems: CONSTITUTIONAL: Denies fever, chills, or sweats. EYES: Denies visual changes, redness, or discharge. ENT: Denies rhinorrhea, congestion, sore throat, or otalgia. CARDIOVASCULAR: Denies chest pain, palpitations, or edema. RESPIRATORY: Dyspnea, Denies cough or dyspnea. GASTROINTESTINAL: Denies abdominal pain, nausea, vomiting, or diarrhea. GENITOURINARY: Denies dysuria or hematuria. SKIN: Denies rash or itching. MUSCULOSKELETAL: Denies back pain, joint pain, or myalgia. NEUROLOGIC: Denies headache, numbness, dizziness, or weakness. PSYCHIATRIC: Auditory hallucinations, agitation Denies anxiety or depression. [facility] Past Medical History Medical History Anxiety Cardiomyopathy Nonischemic cardiomyopathy with EF of 15% 02/2021, with cardiac catheterization April 2021 no significant coronary artery disease and EF 60-65% and right coronary dominant circulation with no evidence of coronary artery disease with very small caliber vessels given the patient's cachectic state, repeat echocardiogram 05/2021 EF of 55-60% with sub optimal imaging grade 1 diastolic dysfunction COPD (chronic obstructive pulmonary disease) Dyslipidemia GERD (gastroesophageal reflux disease) Hypothyroidism Obstructive sleep apnea (~11/2021) Noncompliant with CPAP CPAP setting is post be 7 mm of water Pulmonary cachexia due to COPD Schizophrenia Scoliosis Tobacco abuse Surgical History Surgical History H/O laparoscopy H/O oral surgery History of Family History Family History Father , father had cancer of the lymph nodes. He in 2008 he had diabetes / hypertension Diabetes mellitus Hypertension Lung cancer Mother Cerebrovascular accident Sibling Hypothyroidism Social History Social History Social History: Code status: Full code Smoking packs per day: 1.5 Smoking cigarettes per day: 30.0 Years smoked: 37 Smoking pack-years: 55.50 Smoking status: Former smoker Tobacco type: cigarettes Second hand tobacco smoke exposure: Yes Smoking end date: 10/28/21 Alcohol intake: never Substance use: never Lack of Transportation: No Lack of Food: Never True Current Housing: I Have Housing Concerned About Future Housing: No Difficulty Paying Gas/Electric Bills: No Difficulty Paying for Meds: No Currently Unemployed: No Education: Decline to Answer Difficulty w/ Childcare or Family Care: No [place]
[2022-11-18 23:19] LABS: HCO3 VBG 21.5 mEq/l (24.0-30.0); PO2 VBG 46.5 mmHg (35.0-45.0)
[2022-11-18 23:20] LABS: PCO2 VBG 28.1 mmHg (42.0-48.0)
[2022-11-18 23:21] LABS: Device NASAL CANNULA
[2022-11-19] VITALS (12 sets, daily range): BP systolic 106–112; BP diastolic 64–73; PULSE 76–98; RESP 16–29; TEMP 36.4–36.7; O2SAT 94–100; BMI 12.4
[2022-11-19 01:13] LABS: Influenza A QL RT-PCR Negative (Negative); Influenza B QL RT-PCR Negative (Negative); SARS-CoV-2 RNA PCR Negative (Negative)
--- NOTE | 2022-11-19 02:34 | ADMGEN ---
This patient, Shar Patricia, was admitted to 2nd Floor Room 206-1. Patient/family oriented to hospital policies and general routines including ID bracelet, bed and alarms, visiting hours, pain management, procedures, bathroom and other care routines, personal items, smoking policy, room service/diet, and visiting hours. Information on how to activate the Rapid Response Team has been discussed. Patient/Family are encouraged to report perceived risks to care and to ask questions if they do not understand what they are told or what they should do.
[2022-11-19] MEDS: ALBUTEROL SULFATE NEB 2.5 MG/3 ML INH INHALATION (05:04)
[2022-11-19 05:18] LABS: Hematocrit 37.2 % (35.0-49.0); Hemoglobin 11.4 g/dL (12.0-15.0); Immature Platelet Fraction Pct 3.7 % (1.0-7.0); Mean Corpuscular HGB Conc 30.6 g/dL (32.0-36.0); Mean Corpuscular Hemoglobin 29.5 pg (27.0-31.0); Mean Corpuscular Volume 96.1 fL (78.0-102.0); Mean Platelet Volume 10.2 fl (9.2-11.8); Platelet Count Result 603 K/mm3 (150-420); Red Blood Count 3.87 M/mm3 (4.20-5.40); Red Cell Distribution Width 17.3 % (11.6-14.4); White Blood Count 9.8 K/mm3 (4.8-10.8)
[2022-11-19 05:24] LABS: Anion Gap 11 mmol/L (8-16); Blood Urea Nitrogen 14 mg/dL (7-18); Calcium 9.2 mg/dL (8.5-10.1); Carbon Dioxide 25 mmol/L (21-32); Chloride 101 mmol/L (98-108); Estimated CRCL calculation 35 ml/min; Estimated Glomerular Filt Rate > 60; Glucose 89 mg/dL (70-99); Osmolality Calculated 283 mOsm/kg (285-295); Potassium 4.6 mmol/L (3.5-5.1); Sodium 137 mmol/L (136-145)
--- NOTE | 2022-11-19 09:15 | PC.NURSE ---
Discharge to home with sister via wheel chair to car, patient is alert and oriented x4, oxygen at 2 L per home dose, no new medications, reminded to take home dose medicine when gets home, ok to take a nebulizer treatment at [id number] if needed, sister and patient agreeable to discharge plan and to keep appointment today with Dr Saldana.
--- NOTE | 2022-11-19 10:02 | PM.SD2 ---
Same Day Admit/Disch: HPI History of Present Illness Chief complaint: COPD EXACERBATION Narrative: Shar Patricia is a 51 year old female that presented to our emergency department x2 days for complaints of shortness of breath altered mental status and hallucinations. Patient has a past medical history of anxiety, cardiomyopathy, COPD, dyslipidemia, GERD, hypothyroidism, sleep apnea, COPD, schizophrenia, scoliosis and tobacco dependence. patient was brought to our facility both times for dyspnea and auditory hallucinations. Patient condition improved and she was discharged home the 1st time she came approximately 1-2 hours later with complaints of shortness of breath and once again auditory hallucinations WBC is 9.8, hemoglobin 11.4, hematocrit 37.2, platelets 306, sodium 137, potassium 4.6, BUN 14, creatinine 0.80, glucose 89, chest x-ray indicates COPD EKG sinus rhythm with a heart rate of 99 patient does have a life vest in place. Patient notes that she does not feel short of breath she also denies any auditory hallucinations at this time she has an appointment with her geek squad agent she will discharged so that she can make her follow-up appointment with her geek squad agent. She was also advised to follow up with her [facility] to resolve her auditory hallucinations. Patient denies any suicidal or homicidal ideations. The patient denies CP, palpitation, extremity numbness, lightheadedness, dizziness, constipation, diarrhea, chills, or fever. PMFSH Past Medical History Medical History Anxiety Cardiomyopathy Nonischemic cardiomyopathy with EF of 15% 02/2021, with cardiac catheterization April 2021 no significant coronary artery disease and EF 60-65% and right coronary dominant circulation with no evidence of coronary artery disease with very small caliber vessels given the patient's cachectic state, repeat echocardiogram 05/2021 EF of 55-60% with sub optimal imaging grade 1 diastolic dysfunction COPD (chronic obstructive pulmonary disease) Dyslipidemia GERD (gastroesophageal reflux disease) Hypothyroidism Obstructive sleep apnea (~11/2021) Noncompliant with CPAP CPAP setting is post be 7 mm of water Pulmonary cachexia due to COPD Schizophrenia Scoliosis Tobacco abuse Surgical History Surgical History H/O laparoscopy H/O oral surgery History of Family History Family History Father , father had cancer of the lymph nodes. He in 2008 he had diabetes / hypertension Diabetes mellitus Hypertension Lung cancer Mother Cerebrovascular accident Sibling Hypothyroidism Social History Social History Social History: Code status: Full code Smoking packs per day: 1.5 Smoking cigarettes per day: 30.0 Years smoked: 37 Smoking pack-years: 55.50 Smoking status: Former smoker Tobacco type: cigarettes Second hand tobacco smoke exposure: Yes Smoking end date: 10/28/21 Alcohol intake: never Substance use: never Lack of Transportation: No Lack of Food: Never True Current Housing: I Have Housing Concerned About Future Housing: No Difficulty Paying Gas/Electric Bills: No Difficulty Paying for Meds: No Currently Unemployed: No Education: Decline to Answer Difficulty w/ Childcare or Family Care: No Living arrangements: with family Gender identity (if verbalized by the patient): Female Spiritual care concerns: No Same Day Admit/Disch: Med Pre-admit Medications Home Medications Medication Instructions Recorded Confirmed Type albuterol sulfate 1.25 mg/3 mL 1.25 mg (3 mL) inhalation Q4-6H 01/28/22 11/18/22 Rx solution for nebulization PRN shortness of breath or wheezing #90 mL sertraline 25 mg tablet 25 mg PO DAILY #90 tabs 01/28
--- NOTE | 2022-11-23 14:40 | PC.NURSE ---
Sister stated they received and understood the discharge instructions. Has no other comments.
== END 2022-11-19 09:15 | disposition home or self-care (01) ==
LOC: CHSED 22:58 → CHS2ND 11-19 04:06
PROVIDERS: Nurse Practitioner; Admitting Provider Internal Medicine; Emergency Provider Preventive Medicine Aerospace Medicine; PCP Nurse Practitioner Family; Visit Provider Internal Medicine
DX: J44.1 Chronic obstructive pulmonary disease with (acute) exacerbation (principal); I48.20 Chronic atrial fibrillation, unspecified; I42.8 Other cardiomyopathies; E78.5 Hyperlipidemia, unspecified; E03.9 Hypothyroidism, unspecified; K21.9 Gastro-esophageal reflux disease without esophagitis; G47.33 Obstructive sleep apnea (adult) (pediatric); M41.9 Scoliosis, unspecified; F41.9 Anxiety disorder, unspecified; F20.9 Schizophrenia, unspecified; Z87.891 Personal history of nicotine dependence; Z20.822 Contact with and (suspected) exposure to COVID-19; E87.3 Alkalosis; R63.6 Underweight
CPT/HCPCS: 36415; 70450; 71045; 80048; 82803; 84484; 85027; 85055; 87636; 94640; 99285; G0378

== ENCOUNTER 2022-12-25 13:23 | Outpatient (CLI) | payer MEDICARE, MEDICAID, SELFPAY ==
--- NOTE | 2022-12-25 13:29 | ECHO_ITS ---
Patient Info Name: Shar Patricia Age: 52 years : 1970 Gender: Female Ht: 62 in Wt: 65 lbs BSA: 1.11 m2 HR: 84 bpm BP: 90 / 60 mmHg Technical Quality: Poor Exam Date: 12/25/2022 1:17 PM Exam Location: [facility] Patient Status: Outpatient Admit Date: 12/25/2022 Staff Ordering Physician: Ruben Saldana DO Barrel Loader: Francesco Guardado RDCS, RT Attending Provider: Ruben Saldana DO Referring Physician: Les AVILA; Exam Type: CA echo dop color flow w con Study Info Indications I42.9 - Cardiomyopathy, unspecified Complete two-dimensional, color flow and Doppler transthoracic echocardiogram is performed. Summary 1. Complete two-dimensional, color flow and Doppler transthoracic echocardiogram is performed. 2. Technically suboptimal study due to poor sonographic images. 3. Left ventricular chamber dimension is normal. 4. Left ventricular systolic function is normal, estimated at 60-65%. 5. The left ventricular diastolic function is normal. 6. E/e' 9 is minimally elevated. 7. There is trace tricuspid valve regurgitation. 8. No pulmonary hypertension, estimated pulmonary arterial systolic pressure is 22 mmHg. Left Ventricle Technically suboptimal study due to poor sonographic images. E/e' 9 is minimally elevated. Left ventricular chamber dimension is normal. Left ventricular systolic function is normal, estimated at 60-65%. The left ventricular diastolic function is normal. Right Ventricle Right ventricular chamber dimension is normal. Right ventricular systolic function is normal. Left Atria Left atrial chamber dimension is normal. Right Atria Right atrial chamber dimension is normal. Aortic Valve The aortic valve is not well visualized. There is no aortic valve stenosis. There is trace aortic valve regurgitation. Pulmonic Valve The pulmonic valve is not well visualized. Mitral Valve There is no mitral valve stenosis. There is no mitral valve regurgitation. Tricuspid Valve There is trace tricuspid valve regurgitation. No pulmonary hypertension, estimated pulmonary arterial systolic pressure is 22 mmHg. Pericardium/Pleural There is no pericardial effusion. Inferior Vena Cava Normal inferior vena cava with >50% collapse upon inspiration consistent with normal right atrial pressure, 5 mmHg. Aorta The aortic root size at the sinus of Valsalva is not well visualized. Left Ventricular Outflow Tract Name Value Normal LVOT 2D LVOT Diameter 1.85 cm LVOT Doppler LVOT Peak Velocity 73.17 cm/s LVOT Peak Gradient 2 mmHg LVOT Mean Gradient 1 mmHg LVOT VTI 11.36 cm LVOT VTI/AV VTI Ratio 0.60 LVOT Stroke Volume 30.58 ml Mitral Valve Name Value Normal MV Doppler MV Decel
== END 2022-12-25 13:24 | disposition home or self-care (01) ==
LOC: CHSIMG 13:24
PROVIDERS: PCP Nurse Practitioner Family; Visit Provider Internal Medicine Cardiovascular Disease
DX: I42.9 Cardiomyopathy, unspecified (principal)
CPT/HCPCS: 93306

== ENCOUNTER 2023-01-07 14:07 | Outpatient (CLI) | payer MEDICARE, MEDICAID, SELFPAY ==
--- NOTE | ~2023-01-07 | XR_ITS ---
EXAMINATION:XR_[id number]_CR DATE: 01/07/2023 14:50 INDICATION: Neck pain TECHNIQUE: AP, lateral, and odontoid views of the cervical spine are provided. COMPARISON: 07/21/2016 FINDINGS: There is chronic kyphosis of the cervical spine. There are 2 mm of chronic anterolisthesis of C3 on C4. The odontoid process is intact. No fracture is identified. There are chronic mild loss o f anterior vertebral body height at C5 and C6. Small degenerative osteophytes project from the anteri or endplates of multiple vertebral bodies. There is moderate uncovertebral joint osteoarthritis of th e mid and lower cervical spine. Prevertebral soft tissues are normal. IMPRESSION: 1. Chronic kyphosis of the cervical spine and moderate spondylosis without acute findings. Reviewed, dictated and finalized at location F. IMPRESSION: 1. Chronic kyphosis of the cervical spine and moderate spondylosis without acut e findings.
--- NOTE | ~2023-01-07 | XR_ITS ---
EXAMINATION: XR thoracic spine 3V DATE: 01/07/2023 14:51 INDICATION: Back pain TECHNIQUE: AP, lateral and lateral swimmer's views of the thoracic spine were obtained. COMPARISON: 11/01/2022 FINDINGS: There are 55 degrees of thoracic dextroscoliosis. No fracture is identified. The vertebral body heights and alignment are normal. There is mild asymmetric loss of intervertebral disc space hei ght in the midthoracic spine. Severe emphysema is noted. IMPRESSION: 1. Thoracic dextroscoliosis and mild spondylosis without acute findings. Reviewed, dictated and finalized at location F.
--- NOTE | 2023-01-07 14:14 | ECG_ITS ---
Measurements Intervals Edison Rate: 83 P: 84 CO: 92 QRS: 87 QRSD: 86 T: 82 QT: 362 QTc: 428 Interpretive Statements SINUS RHYTHM WITH SHORT CO INTERVAL BASELINE ARTIFACT NONSPECIFIC ST ABNORMALITY BORDERLINE ECG COMPARED TO ECG 11/18/2022 14:12:[address] ABNORMALITIES IMPROVED Electronically Signed On 01-08-2023 16:01:11 CDT by Sergio River M.D.
== END 2023-01-07 14:08 | disposition home or self-care (01) ==
LOC: CHSIMG 14:11
PROVIDERS: PCP Family Medicine; Visit Provider Nurse Practitioner Family
DX: M54.6 Pain in thoracic spine (principal); M54.2 Cervicalgia; K21.9 Gastro-esophageal reflux disease without esophagitis; M41.84 Other forms of scoliosis, thoracic region; M43.04 Spondylolysis, thoracic region; M40.292 Other kyphosis, cervical region; M43.02 Spondylolysis, cervical region; R94.31 Abnormal electrocardiogram [ECG] [EKG]
CPT/HCPCS: 72040; 72072; 93005

== ENCOUNTER 2023-02-12 11:52 | Outpatient (CLI) | payer MEDICARE, MEDICAID, SELFPAY ==
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
== END 2023-02-12 11:53 | disposition home or self-care (01) ==
LOC: CHSIMG 11:54
PROVIDERS: PCP Family Medicine; Visit Provider Nurse Practitioner Family
DX: M54.50 Low back pain, unspecified (principal); M43.06 Spondylolysis, lumbar region
CPT/HCPCS: 72100

== ENCOUNTER 2023-06-23 11:49 | Outpatient (CLI) | payer MEDICARE, MEDICAID, SELFPAY ==
[2023-06-23 12:29] LABS: Basophils Percent Auto 0.7 % (0.2-1.2); Eosinophils Absolute Auto 0.1 K/mm3 (0-0.3); Eosinophils Percent Auto 2.1 % (0-4.4); Hematocrit 35.7 % (37.0-47.0); Hemoglobin 11.4 g/dL (12.0-15.0); Immature Granulocyte Absolute 0.02 K/mm3 (0.00-0.031); Immature Granulocyte Percent A 0.3 % (0-0.5); Lymphocytes Absolute Auto 1.74 K/mm3 (0.9-3.2); Lymphocytes Percent Auto 30.4 % (18.3-44.2); Mean Corpuscular HGB Conc 31.9 g/dl (32-36); Mean Corpuscular Hemoglobin 28.4 pg (26-34); Mean Corpuscular Volume 88.8 fl (80-100); Mean Platelet Volume 9.9 fl (7.4-10.4); Monocytes Absolute Auto 0.5 K/mm3 (0.1-0.6); Monocytes Percent Auto 9.3 % (2.6-8.5); Neutrophils Absolute Auto 3.3 K/mm3 (1.3-6.7); Neutrophils Percent Auto 57.2 % (45.5-73.1); Platelet Count Result 298 k/mm3 (150-375); Red Blood Count 4.02 M/mm3 (4.2-5.4); Red Cell Distribution Width 12.6 % (11.5-14.5); White Blood Count 5.7 K/mm3 (4.5-10.0)
[2023-06-23 12:44] LABS: Alanine Aminotransferase 22 U/L (6-35); Albumin Level 4.3 g/dL (3.5-5.1); Alkaline Phosphatase 83 U/L (38-126); Amylase 80 U/L (30-110); Anion Gap 5 mmol/L (8-16); Aspartate Amino Transferase 26 U/L (14-36); Bilirubin,Total 0.5 mg/dL (0.2-1.3); Blood Urea Nitrogen 15 mg/dL (7-17); Calcium 9.2 mg/dL (8.4-10.2); Carbon Dioxide 32 mmol/L (22-30); Chloride 100 mmol/L (98-107); Estimated Glomerular Filt Rate > 60; Glucose 91 mg/dL (65-110); Lipase 41 U/L (23-300); Magnesium 1.7 mg/dL (1.6-2.3); Potassium 4.3 mmol/L (3.4-5.0); Sodium 137 mmol/L (137-145)
[2023-06-23 12:51] LABS: NT Pro B Type Natriuretic Pept 142 pg/mL (19.9-100)
[2023-06-23 13:10] LABS: Vitamin D 25 Hydroxy 17.5 ng/mL
== END 2023-06-23 11:50 | disposition home or self-care (01) ==
PROVIDERS: PCP Nurse Practitioner Family; Visit Provider Internal Medicine Gastroenterology
DX: R11.2 Nausea with vomiting, unspecified (principal); Z79.899 Other long term (current) drug therapy; R09.89 Other specified symptoms and signs involving the circulatory and respiratory systems; R13.10 Dysphagia, unspecified; Z86.79 Personal history of other diseases of the circulatory system; R06.09 Other forms of dyspnea
CPT/HCPCS: 36415; 80053; 82150; 82306; 82607; 83690; 83735; 83880; 85025

== ENCOUNTER 2023-07-04 02:13 | Emergency (ER) | payer MEDICARE, MEDICAID, SELFPAY ==
[2023-07-04] VITALS (27 sets, daily range): BP systolic 31–147; BP diastolic 15–89; PULSE 106–132; RESP 0–32; TEMP 36; O2SAT 80–100
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
[2023-07-04] MEDS: LORazepam INJ (*CRX) 2 MG/ML VIAL 1 MG IM (02:22)
[2023-07-04] MEDS: MAGNESIUM SULF 2 GM/WATER 50ML 2 GM/50 ML BAG IVPB (02:30)
--- NOTE | 2023-07-04 02:30 | PC.NURSE ---
Pt setup for intubation as no response p seizure activity. Pt has apneic breathing and is being bagged manually. RSI kit pulled and meds given as per order.
[2023-07-04] MEDS: ETOMIDATE 20 MG/10 ML AMPUL IV PUSH (02:36)
[2023-07-04] MEDS: SUCCINYLCHOLINE CHLORIDE 20 MG/ML 10 ML VIAL 80 MG IV PUSH (02:37)
--- NOTE | 2023-07-04 02:47 | ECG_ITS ---
Measurements Intervals Hecker Rate: 112 P: 66 FL: 112 QRS: 31 QRSD: 92 T: 87 QT: 332 QTc: 454 Interpretive Statements SINUS TACHYCARDIA WITH SHORT FL INTERVAL WITH OCCASIONAL VENTRICULAR PREMATURE COMPLEXES LOW QRS VOLTAGE IN EXTREMITY LEADS [QRS DEFLECTION < 0.5 mV IN LIMB LEADS] ANTERIOR INFARCTION, PROBABLY RECENT NONDIAGNOSTIC ST ELEVATION ABNORMAL ECG COMPARED TO ECG 01/07/2023 14:25:33 SINUS TACHYCARDIA NOW PRESENT Electronically Signed On 07-04-2023 8:56:24 CDT by Blanco Ruvalcaba M.D.
--- NOTE | 2023-07-04 02:50 | PC.NURSE ---
Pt is intubated successfully c ETT 7.0 and at lipline of 23. Sisiter now at bedside c pt and she requests transfer to [facility].
--- NOTE | 2023-07-04 02:50 | ED.SOB ---
HPI - SOB/Dyspnea General Stated Complaint: SOB Time Seen by Provider: 07/04/23 02:43 Related Data Home Medications Medication Instructions Recorded Confirmed atorvastatin 40 mg tablet 40 mg PO DAILY 11/01/22 06/07/23 Allergies Allergy/AdvReac Type Severity Reaction Status Date / Time budesonide [From Symbicort] Allergy Severe breathing Verified 06/23/23 11:02 issues formoterol [From Symbicort] Allergy Severe breathing Verified 06/23/23 11:02 issues [facility] Past Medical History Medical History Anxiety Cardiomyopathy Nonischemic cardiomyopathy with EF of 15% 02/2021, with cardiac catheterization April 2021 no significant coronary artery disease and EF 60-65% and right coronary dominant circulation with no evidence of coronary artery disease with very small caliber vessels given the patient's cachectic state, repeat echocardiogram 05/2021 EF of 55-60% with sub optimal imaging grade 1 diastolic dysfunction COPD (chronic obstructive pulmonary disease) Dyslipidemia GERD (gastroesophageal reflux disease) Hypothyroidism Obstructive sleep apnea (~11/2021) Noncompliant with CPAP CPAP setting is post be 7 mm of water Pulmonary cachexia due to COPD Schizophrenia Scoliosis Tobacco abuse Surgical History Surgical History H/O laparoscopy H/O oral surgery History of Family History Family History Father , father had cancer of the lymph nodes. He in 2008 he had diabetes / hypertension Diabetes mellitus Hypertension Lung cancer Alcoholism Mother Cerebrovascular accident Thyroid disorder Sibling Hypothyroidism Other Asthma Social History Social History Social History: Code status: Full code Smoking packs per day: 1.5 Smoking cigarettes per day: 30.0 Years smoked: 37 Smoking pack-years: 55.50 Smoking status: Former smoker Tobacco type: cigarettes Second hand tobacco smoke exposure: Yes Smoking end date: 10/28/21 Alcohol intake: never Substance use: never Lack of Transportation: No Lack of Food: Never True Current Housing: I Have Housing Concerned About Future Housing: No Difficulty Paying Gas/Electric Bills: No Difficulty Paying for Meds: No Currently Unemployed: No Education: Decline to Answer Difficulty w/ Childcare or Family Care: No Living arrangements: with family Gender identity (if verbalized by the patient): Female Spiritual care concerns: No Procedures Intubation Intubation #1: Intubation Date: 07/04/23 Intubation Time: 02:50 Time out performed: Yes sedative: Etomidate Mg Given: 20 paralytic: Succinylcholine Mg Given: 80 Laryngoscope: Aris Tube Size (cm): 7.0 Method of Intubation: orotracheal Number of Attempts: 1 Tube Secured Depth (cm): 22 Tube Secured Location: teeth Tube Placement Confirmation: visualized tube passing through cords Patient Tolerated Procedure: well Intubation Complications: none Discharge Plan Discharge Prescriptions: No Action Incruse Ellipta 62.5 mcg/actuation blister with device 1 inh inhalation DAILY Qty: 30 2RF cyclobenzaprine 7.5 mg tablet 7.5 mg PO BID PRN (Reason: muscle spasm) Qty: 10 0RF Rx Instructions: please take care with positional changes as can cause drowsiness triamcinolone acetonide 0.5 % cream 1 applic topical TID Qty: 15 0RF atorvastatin 40 mg tablet 40 mg PO DAILY albuterol sulfate 1.25 mg/3 mL solution for nebulization 1.25 mg inhalation Q4-6H PRN (Reason: shortness of breath or wheezing) Qty: 90 2RF bupropion HCl 150 mg tablet sustained-release 12 hr See Rx Instructions .R
--- NOTE | 2023-07-04 03:01 | ED.SOB ---
HPI - SOB/Dyspnea General Chief Complaint: Shortness of Breath/Dyspnea Stated Complaint: SOB Time Seen by Provider: 07/04/23 02:43 Related Data Home Medications Medication Instructions Recorded Confirmed atorvastatin 40 mg tablet 40 mg PO DAILY 11/01/22 06/07/23 Allergies Allergy/AdvReac Type Severity Reaction Status Date / Time budesonide [From Symbicort] Allergy Severe breathing Verified 06/23/23 11:02 issues formoterol [From Symbicort] Allergy Severe breathing Verified 06/23/23 11:02 issues [facility] Past Medical History Medical History Anxiety Cardiomyopathy Nonischemic cardiomyopathy with EF of 15% 02/2021, with cardiac catheterization April 2021 no significant coronary artery disease and EF 60-65% and right coronary dominant circulation with no evidence of coronary artery disease with very small caliber vessels given the patient's cachectic state, repeat echocardiogram 05/2021 EF of 55-60% with sub optimal imaging grade 1 diastolic dysfunction COPD (chronic obstructive pulmonary disease) Dyslipidemia GERD (gastroesophageal reflux disease) Hypothyroidism Obstructive sleep apnea (~11/2021) Noncompliant with CPAP CPAP setting is post be 7 mm of water Pulmonary cachexia due to COPD Schizophrenia Scoliosis Tobacco abuse Surgical History Surgical History H/O laparoscopy H/O oral surgery History of Family History Family History Father , father had cancer of the lymph nodes. He in 2008 he had diabetes / hypertension Diabetes mellitus Hypertension Lung cancer Alcoholism Mother Cerebrovascular accident Thyroid disorder Sibling Hypothyroidism Other Asthma Social History Social History Social History: Code status: Full code Smoking packs per day: 1.5 Smoking cigarettes per day: 30.0 Years smoked: 37 Smoking pack-years: 55.50 Smoking status: Former smoker Tobacco type: cigarettes Second hand tobacco smoke exposure: Yes Smoking end date: 10/28/21 Alcohol intake: never Substance use: never Lack of Transportation: No Lack of Food: Never True Current Housing: I Have Housing Concerned About Future Housing: No Difficulty Paying Gas/Electric Bills: No Difficulty Paying for Meds: No Currently Unemployed: No Education: Decline to Answer Difficulty w/ Childcare or Family Care: No Living arrangements: with family Gender identity (if verbalized by the patient): Female Spiritual care concerns: No Procedures Intubation Intubation #1: sedative: Etomidate Mg Given: 20 paralytic: Succinylcholine Mg Given: 80 Discharge Plan Discharge Prescriptions: No Action Incruse Ellipta 62.5 mcg/actuation blister with device 1 inh inhalation DAILY Qty: 30 2RF cyclobenzaprine 7.5 mg tablet 7.5 mg PO BID PRN (Reason: muscle spasm) Qty: 10 0RF Rx Instructions: please take care with positional changes as can cause drowsiness triamcinolone acetonide 0.5 % cream 1 applic topical TID Qty: 15 0RF atorvastatin 40 mg tablet 40 mg PO DAILY albuterol sulfate 1.25 mg/3 mL solution for nebulization 1.25 mg inhalation Q4-6H PRN (Reason: shortness of breath or wheezing) Qty: 90 2RF bupropion HCl 150 mg tablet sustained-release 12 hr See Rx Instructions .ROUTE .COMPLEX Qty: 180 3RF Dose Instruction: TAKE ONE (1) TABLET BY MOUTH TWICE DAILY Rx Instructions: TAKE ONE (1) TABLET BY MOUTH TWICE DAILY montelukast 10 mg tablet 10 mg PO DAILY Qty: 90 1RF Combivent Respimat 20-100 mcg/actuation mist See Rx Instructions .ROUTE .COMPLEX Qty: 4 2RF Dose Instruction: INHALE 1 PUFF BY MOUTH 4 TIMES A DAY SPACE EVENLY DUR
--- NOTE | 2023-07-04 03:05 | ED.SOB ---
HPI - SOB/Dyspnea General Chief Complaint: Shortness of Breath/Dyspnea Stated Complaint: SOB Time Seen by Provider: 07/04/23 02:43 Source: patient and EMS Mode of arrival: EMS Limitations: altered mental status History of Present Illness HPI Narrative: this is a 52-year-old female brought in by EMS with respiratory distress has history of COPD patient was on non-rebreather and was given breathing treatment, appeared to be a seizure activity, with no fever chills no nausea vomiting. Patient with a diminished level of consciousness not responding verbally. MD elicited complaint: shortness of breath Pertinent past history: COPD Onset (ago): hour(s) Related Data Home Medications Medication Instructions Recorded Confirmed atorvastatin 40 mg tablet 40 mg PO DAILY 11/01/22 06/07/23 Allergies Allergy/AdvReac Type Severity Reaction Status Date / Time budesonide [From Symbicort] Allergy Severe breathing Verified 06/23/23 11:02 issues formoterol [From Symbicort] Allergy Severe breathing Verified 06/23/23 11:02 issues Review of Systems Review of Systems: All systems reviewed & are unremarkable except as noted in HPI and below PMFSH Past Medical History Medical History Anxiety Cardiomyopathy Nonischemic cardiomyopathy with EF of 15% 02/2021, with cardiac catheterization April 2021 no significant coronary artery disease and EF 60-65% and right coronary dominant circulation with no evidence of coronary artery disease with very small caliber vessels given the patient's cachectic state, repeat echocardiogram 05/2021 EF of 55-60% with sub optimal imaging grade 1 diastolic dysfunction COPD (chronic obstructive pulmonary disease) Dyslipidemia GERD (gastroesophageal reflux disease) Hypothyroidism Obstructive sleep apnea (~11/2021) Noncompliant with CPAP CPAP setting is post be 7 mm of water Pulmonary cachexia due to COPD Schizophrenia Scoliosis Tobacco abuse Surgical History Surgical History H/O laparoscopy H/O oral surgery History of Family History Family History Father , father had cancer of the lymph nodes. He in 2008 he had diabetes / hypertension Diabetes mellitus Hypertension Lung cancer Alcoholism Mother Cerebrovascular accident Thyroid disorder Sibling Hypothyroidism Other Asthma Social History Social History Social History: Code status: Full code Smoking packs per day: 1.5 Smoking cigarettes per day: 30.0 Years smoked: 37 Smoking pack-years: 55.50 Smoking status: Former smoker Tobacco type: cigarettes Second hand tobacco smoke exposure: Yes Smoking end date: 10/28/21 Alcohol intake: never Substance use: never Lack of Transportation: No Lack of Food: Never True Current Housing: I Have Housing Concerned About Future Housing: No Difficulty Paying Gas/Electric Bills: No Difficulty Paying for Meds: No Currently Unemployed: No Education: Decline to Answer Difficulty w/ Childcare or Family Care: No Living arrangements: with family Gender identity (if verbalized by the patient): Female Spiritual care concerns: No Exam Const: General: ill appearing Nutritional Appearance: thin Limitations: altered mental status Eyes: EOM: EOMs intact bilaterally Chest: Chest palpation & inspection: normal inspection of the chest and abnormal inspection of the chest Resp: Effort & Inspection: uses accessory muscles Auscultation: diminished lung sounds Cardio: Rate: tachycardic Rhythm: regular rhythm GI: GI Palp: Yes Soft to palpation Skin: General skin exam: normal color Rashes: no rashes Wounds: no wounds Extrem: General: normal to inspection Course Course Emergency Course: Francine
[2023-07-04] MEDS: methylPREDNISolone SOD SUCC 125 MG VIAL IV PUSH (03:42)
[2023-07-04 03:45] LABS: Base Excess ABG -15.2 mmol/L (0-2); HCO3 ABG 13.4 mmol/L (23-29); Oxygen Content ABG 19.6 %vol (16.0-22.0); Oxygen Saturation ABG 99.3 % (95-97); Oxyhemoglobin 98.5 % (94-100); PCO2 ABG 41.7 mmHg (35-45); pH ABG 7.13 (7.35-7.45)
[2023-07-04 03:52] LABS: Basophils Absolute Auto 0.07 K/mm3 (0.00-0.10); Basophils Percent Auto 0.4 % (0.0-1.0); Eosinophils Absolute Auto 0.06 K/mm3 (0.02-0.50); Eosinophils Percent Auto 0.4 % (1.0-6.0); Hematocrit 39.1 % (35.0-49.0); Immature Granulocyte Absolute 0.35 K/mm3 (0.00-0.00); Immature Granulocyte Percent A 2.2 % (0.0-0.0); Lymphocytes Absolute Auto 2.18 K/mm3 (1.10-4.50); Lymphocytes Percent Auto 13.8 % (18.0-42.0); Mean Corpuscular HGB Conc 30.7 g/dL (32.0-36.0); Mean Corpuscular Hemoglobin 28.4 pg (27.0-31.0); Mean Corpuscular Volume 92.4 fL (78.0-102.0); Mean Platelet Volume 10.4 fl (9.2-11.8); Monocytes Absolute Auto 1.36 K/mm3 (0.10-0.90); Monocytes Percent Auto 8.6 % (2.0-11.0); Neutrophils Absolute Auto 11.8 K/mm3 (1.7-7.2); Neutrophils Percent Auto 74.6 % (50.0-70.0); Platelet Count Result 359 K/mm3 (150-420); Red Blood Count 4.23 M/mm3 (4.20-5.40); Red Cell Distribution Width 12.5 % (11.6-14.4); White Blood Count 15.8 K/mm3 (4.8-10.8)
[2023-07-04 03:56] LABS: Device VENTILATOR; Modified Allen's Test Pass; PO2 ABG 564.7 mmHg (80-90); Site Drawn LEFT RADIAL
[2023-07-04] MEDS: SODIUM CHLORIDE 0.9% IV 1,000 ML 150 ML IV CONT (04:01)
[2023-07-04] MEDS: SODIUM BICARBONATE 8.4% 50 MEQ/50 ML SYRINGE 30 MEQ IV PUSH (04:10)
[2023-07-04 04:12] LABS: Alanine Aminotransferase 40 U/L (14-59); Albumin Level 3.3 g/dL (3.4-5.0); Alkaline Phosphatase 118 U/L (46-116); Anion Gap 18 mmol/L (8-16); Aspartate Amino Transferase 48 U/L (15-37); Bilirubin,Total 0.3 mg/dL (0.00-1.00); Blood Urea Nitrogen 26 mg/dL (7-18); Calcium 9.3 mg/dL (8.5-10.1); Carbon Dioxide 19 mmol/L (21-32); Chloride 104 mmol/L (98-108); Estimated CRCL calculation 13 ml/min; Estimated Glomerular Filt Rate 24; Glucose 115 mg/dL (70-99); NT Pro B Type Natriuretic Pept 4241 pg/mL (0-125); Osmolality Calculated 297 mOsm/kg (285-295); Partial Thromboplastin Time 21.7 SEC (23.90-30.70); Potassium 5.8 mmol/L (3.5-5.1); Sodium 141 mmol/L (136-145); Total Protein 6.3 g/dL (6.4-8.2)
[2023-07-04 04:13] LABS: D Dimer 13.03 mg/L (0.19-0.50); Troponin I 3810.9 ng/L (0.00-60.4)
[2023-07-04 04:14] LABS: Magnesium 5.2 mg/dL (1.8-2.4)
[2023-07-04 04:21] LABS: Appearance Urine Clear (Clear); Bilirubin Urine Negative (Negative); Blood Urine Negative (Negative); Color Urine Yellow (Yellow); Glucose Urine UA Negative (Negative); Ketones Urine Negative (Negative); Leukocyte Esterase Ur Negative LEU/UL (Negative); Nitrate Urine Negative (Negative); Protein Urine Trace (Negative); Specific Grav Ur 1.025 (1.010-1.020); Urobilinogen Urine 0.2 mg/dL (0.2-1.0); pH Urine 6.5 (5.0-8.0)
[2023-07-04 04:28] LABS: Influenza A QL RT-PCR Negative (Negative); Influenza B QL RT-PCR Negative (Negative); SARS-CoV-2 RNA PCR Negative (Negative)
[2023-07-04 04:29] LABS: RSV RNA, RT-PCR Negative (Negative)
[2023-07-04 04:31] LABS: Add Urine Microscopic? YES
[2023-07-04 04:32] LABS: Arterial Blood Gas Ventilator rate 16 /MIN; Hyaline Casts Urine 50+ /lpf; Mucus Urine Heavy /lpf
[2023-07-04 04:33] LABS: Arterial Blood Gas PEEP 5 cmH2O; Arterial Blood Gas Vent Mode ASSIST CONTROL
[2023-07-04 04:34] LABS: Arterial Blood Gas Tidal Volume 320 ml
--- NOTE | 2023-07-04 04:55 | PC.NURSE ---
Pt starting to move legs and become somewhat restless, order for Versed 1mg IV received
[2023-07-04] MEDS: MIDAZOLAM HCL (*CRX) 2 MG/2 ML VIAL 1 MG IV PUSH ×2 (04:56→05:39)
[2023-07-04] MEDS: AZITHROMYCIN 500 MG/NS 250 ML 500 MG/250 ML BAG 250 MG IVPB (04:56)
--- NOTE | 2023-07-04 05:03 | PC.NURSE ---
Sister at pts bedside, awaiting callback from hospitalist at [facility], pts VSS, continuing to monitor.
--- NOTE | 2023-07-04 05:43 | PC.NURSE ---
Call back from [facility] and Dr Contreras spoke c electrical designer, they request CTA even p given current lab values. Order to xray to prepare for CTA. ERP to place central line in femoral vein.
--- NOTE | 2023-07-04 05:50 | PC.NURSE ---
Pt draped and setup per protocol for central line insertion. Central line inserted into Rt femoral. Noted on monitor immediately p procedure pt HR starting to drop to 40's, Sbrady noted on monitor.
--- NOTE | 2023-07-04 05:55 | PC.NURSE ---
Immediately p central line insert, pt color cyanotic and HR in 30's, no pulse noted, code and CPR initiated, ACLS protocols followed.
--- NOTE | 2023-07-04 06:15 | PC.NURSE ---
Pts sister, only family present in room c pt at this time to observe resusitative attempt. This RN c pts sister to provide support and explanation. Pts sister then requested to stop efforts, CPR and ACLS protocols ceased at 0618
--- NOTE | 2023-07-04 06:40 | PC.NURSE ---
Pt continues to have agonal breathing pattern. Family and staff at pt bedside for support.
--- NOTE | 2023-07-04 06:46 | PC.NURSE ---
Pts breathing stopped, asystole on monitor. Pt pronounced at 0646
--- NOTE | 2023-07-04 07:07 | PC.NURSE ---
family in with pt at this time
--- NOTE | 2023-07-04 08:04 | PC.NURSE ---
spoke with donna, from [facility]. pt is candidate for cornea donation. will call santos arroyo, sister , poa of pt . awaiting call back
--- NOTE | 2023-07-04 08:21 | PC.NURSE ---
ET tube and cornejo catheter removed after pt released by gwendolyn. All IVs and central line removed.
[2023-07-04 08:46] LABS: Reflex Lactic Acid Yes or No Add Lactic
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
== END 2023-07-04 10:08 | disposition expired ==
PROVIDERS: Emergency Provider Emergency Medicine; PCP Nurse Practitioner Family
DX: J96.90 Respiratory failure, unspecified, unspecified whether with hypoxia or hypercapnia (principal); I26.99 Other pulmonary embolism without acute cor pulmonale; I42.8 Other cardiomyopathies; J44.9 Chronic obstructive pulmonary disease, unspecified; E78.5 Hyperlipidemia, unspecified; K21.9 Gastro-esophageal reflux disease without esophagitis; E03.9 Hypothyroidism, unspecified; G47.33 Obstructive sleep apnea (adult) (pediatric); E88.A Wasting disease (syndrome) due to underlying condition; Z68.1 Body mass index [BMI] 19.9 or less, adult; F20.9 Schizophrenia, unspecified; Z87.891 Personal history of nicotine dependence; Z79.51 Long term (current) use of inhaled steroids; Z20.822 Contact with and (suspected) exposure to COVID-19
CPT/HCPCS: 31500; 36415; 36600; 80053; 81001; 82805; 83605; 83735; 83880; 84484; 85025; 85380; 85610; 85730; 87637; 92950; 93005; 96365; 96367; 96372; 96375; 99285; J0171; J0330; J0456; J0696; J2060; J2250; J2930; J3475; J7030